=== PATIENT | female | born 1955 | race Caucasian/White ===

== ENCOUNTER 2017-07-30 05:42 | Day surgery (SDC) | payer BC ==
[~2017-07-30] VITALS: Ht 162.6 cm; Wt 116.7 kg
[~2017-07-30 05:42] MED LIST: AMLO5 PO; AMOCLA875 PO; ATOR10; ATOR10 PO; BP MED; CAND32; CAND4; CAND4 PO; CRANBERRY250 MG PO; DICY20 PO; FISH OIL 1,0001 EAC1; GLIP10 PO; GLIP2.5ER PO; HYDACE5 PO; Humalog Mi100 UNIT/4; IBUP800 PO; INSULANPEN INJ; INSULANPEN SC; LEVFLO500 PO; LEVSOD125 PO; LOPE2C PO; METF500 PO; NAPR220; ONDA4ODT MM; OXYACE5T PO; Omeprazole20 M1 PO; PIOG15; PIOG15 PO; PROCODE120 PO; PROM25 PO; PROM25S PR; RXHYDACE PO; RXOXYACE PO; RXPROCODSY PO; RXPROM25 PO; THYROID MED; TRULICITY0.75 MG/0.; Zofran Odt4 MG SL; [UNRECOGNIZED DRUG - OTHER]
== END 2017-07-30 11:30 | disposition home or self-care (01) ==
LOC: ORSCSDS 05:42
PROVIDERS: Surgery
PROC: 0DJD8ZZ Inspection of Lower Intestinal Tract, Via Natural or Artificial Opening Endoscopic (ICD-10-PCS; principal; 2017-07-30 11:15)
DX: Z12.11 Encounter for screening for malignant neoplasm of colon (principal); K57.30 Diverticulosis of large intestine without perforation or abscess without bleeding; E66.01 Morbid (severe) obesity due to excess calories; I10 Essential (primary) hypertension; E03.9 Hypothyroidism, unspecified; E78.5 Hyperlipidemia, unspecified; E11.9 Type 2 diabetes mellitus without complications; Z68.41 Body mass index [BMI] 40.0-44.9, adult; Z79.899 Other long term (current) drug therapy
CPT/HCPCS: 82947; J2250

== ENCOUNTER 2017-09-30 18:42 | Emergency (ER) | payer BC ==
[~2017-09-30] VITALS: Ht 162.6 cm; Wt 124.7 kg
[~2017-09-30 18:42] MED LIST changes: +INSULANPEN; -INSULANPEN SC; -LEVSOD125 PO; +LEVSOD75 PO
[2017-09-30 19:57] LABS: BASOPHILS ABSOLUTE AUTO 0.03 K/mm3 (0.00-0.23); BASOPHILS PERCENT AUTO 0 % (0-2); EOSINOPHILS ABSOLUTE AUTO 0.08 K/mm3 (0.00-0.68); EOSINOPHILS PERCENT AUTO 1 % (0-6); Hematocrit 35.3 % (33.0-51.0); Hemoglobin 12.2 g/dL (11.5-16.0); IMMATURE GRAN ABSOLUTE AUTO 0.03 K/mm3 (0.00-0.10); IMMATURE GRAN PERCENT AUTO 0 % (0-1); LYMPHOCYTES PERCENT AUTO 12 % (21-46); MONOCYTES PERCENT AUTO 4 % (4-13); Mean Corpuscular HGB 30.7 pg (26.0-34.0); Mean Corpuscular HGB Conc 34.6 g/dL (31.5-36.5); Mean Corpuscular Volume 89 fL (80-100); NEUTROPHILS ABSOLUTE AUTO 7.03 K/mm3 (1.96-9.15); NEUTROPHILS PERCENT AUTO 83 % (41-73); Platelet Count 235 K/mm3 (150-400); RDW Coefficient Variation 11.9 % (11.7-14.2); Red Blood Cell Count 3.97 M/mm3 (3.80-5.20); White Blood Cell Count 8.47 K/mm3 (4.00-11.30)
[2017-09-30 20:13] LABS: Albumin, Blood 3.2 g/dL (3.4-5.0); Albumin/Globulin Ratio 0.8 (0.8-1.8); Bilirubin, Total 0.6 mg/dL (0.1-1.0); Bun/Creatinine Ratio 22.1 (12.0-20.0); Calcium, Blood 9.2 mg/dL (8.5-10.1); Creatinine, Blood 1.63 mg/dL (0.40-1.00); Globulin, Blood 4.1 g/dL (2.2-4.0); Total Protein, Blood 7.3 g/dL (6.4-8.2)
[2017-09-30 20:23] LABS: Beta-hydroxybutyrate 0.9 mg/dL (0.2-2.8)
== END 2017-10-01 00:38 | disposition home or self-care (01) ==
LOC: ER 18:42
PROVIDERS: Emergency Medicine
DX: E11.65 Type 2 diabetes mellitus with hyperglycemia (principal); I10 Essential (primary) hypertension; E03.9 Hypothyroidism, unspecified; Z88.1 Allergy status to other antibiotic agents; Z79.899 Other long term (current) drug therapy; Z79.4 Long term (current) use of insulin
CPT/HCPCS: 36415; 80053; 82010; 82947; 85025; 93005; 93010; 96374; 96376; 99283; J0360

== ENCOUNTER 2017-11-20 17:12 | Emergency (ER) | payer BC ==
[~2017-11-20] VITALS: Ht 162.6 cm; Wt 123.4 kg
[~2017-11-20 17:12] MED LIST changes: -INSULANPEN; +INSULANPEN SC; +LEVSOD125 PO; -LEVSOD75 PO
[2017-11-20 18:01] LABS: BASOPHILS ABSOLUTE AUTO 0.04 K/mm3 (0.00-0.23); BASOPHILS PERCENT AUTO 0 % (0-2); EOSINOPHILS ABSOLUTE AUTO 0.21 K/mm3 (0.00-0.68); EOSINOPHILS PERCENT AUTO 2 % (0-6); Hematocrit 37.5 % (33.0-51.0); Hemoglobin 12.8 g/dL (11.5-16.0); IMMATURE GRAN ABSOLUTE AUTO 0.03 K/mm3 (0.00-0.10); IMMATURE GRAN PERCENT AUTO 0 % (0-1); LYMPHOCYTES ABSOLUTE AUTO 1.72 K/mm3 (0.84-5.20); LYMPHOCYTES PERCENT AUTO 18 % (21-46); MONOCYTES ABSOLUTE AUTO 0.54 K/mm3 (0.16-1.47); MONOCYTES PERCENT AUTO 6 % (4-13); Mean Corpuscular HGB 31.2 pg (26.0-34.0); Mean Corpuscular HGB Conc 34.1 g/dL (31.5-36.5); Mean Corpuscular Volume 92 fL (80-100); Mean Platelet Volume 11.7 fL (9.1-12.4); NEUTROPHILS PERCENT AUTO 74 % (41-73); Platelet Count 259 K/mm3 (150-400); RDW Coefficient Variation 12.1 % (11.7-14.2); RDW Standard Deviation 40.7 fL (35.1-46.3); White Blood Cell Count 9.74 K/mm3 (4.00-11.30)
[2017-11-20] MEDS ORDERED: METO50 PO (18:02)
[2017-11-20] MEDS ORDERED: AMLO5 PO (18:03)
[2017-11-20] MEDS ORDERED: CANDESARTAN-HC1 EAC1 PO (18:03)
[2017-11-20 18:40] LABS: Alanine Aminotransfer (ALT/SGP 18 U/L (12-78); Albumin, Blood 2.9 g/dL (3.4-5.0); Albumin/Globulin Ratio 0.7 (0.8-1.8); Alk Phos 150 U/L (50-136); Anion Gap 8 mmol/L (6-16); Aspartate Aminotrans (AST/SGOT 20 U/L (12-37); Bilirubin, Total 0.3 mg/dL (0.1-1.0); Blood Urea Nitrogen 46 mg/dL (8-24); Bun/Creatinine Ratio 27.2 (12.0-20.0); CO2, Blood 24 mmol/L (21-32); Calcium, Blood 8.6 mg/dL (8.5-10.1); Chloride, Blood 108 mmol/L (98-108); Creatinine, Blood 1.69 mg/dL (0.40-1.00); Glomerular Filtration Rate 33 (60-); Glucose, Blood 251 mg/dL (70-99); Potassium, Blood 4.3 mmol/L (3.5-5.5); Sodium, Blood 140 mmol/L (136-145); Total Protein, Blood 6.9 g/dL (6.4-8.2); Troponin I <0.015 ng/mL (0.000-0.040)
[2017-11-20 18:48] LABS: Free Thyroxine 1.18 ng/dL (0.70-1.60)
[2017-11-20 18:49] LABS: Triiodothyronine, Free 1.86 pg/mL (2.18-3.98)
== END 2017-11-20 20:20 | disposition home or self-care (01) ==
LOC: ER 17:12
PROVIDERS: Emergency Medicine
DX: R00.2 Palpitations (principal); Z88.1 Allergy status to other antibiotic agents; Z79.899 Other long term (current) drug therapy; Z79.4 Long term (current) use of insulin; E11.9 Type 2 diabetes mellitus without complications; I10 Essential (primary) hypertension; E03.9 Hypothyroidism, unspecified
CPT/HCPCS: 36415; 71046; 80053; 82947; 84439; 84443; 84481; 84484; 85025; 93005; 93010; J7030

== ENCOUNTER → 2018-03-17 | Outpatient (CLI) | payer OTHER ==
[~2018-03-17] MED LIST changes: +CANDESARTAN-HC1 EAC1 PO; +METO50 PO
[2018-03-17 13:50] LABS: Protein, Urine Quantitative 60.4 mg/dL (0.0-11.9)
== END ==
LOC: LAB 11:18 → LAB SHORT 11:18
PROVIDERS: Internal Medicine
DX: N18.3 Chronic kidney disease, stage 3 (moderate) (principal)
CPT/HCPCS: 81050; 84156

== ENCOUNTER 2018-08-30 05:09 | Inpatient (IN) | payer OTHER ==
[~2018-08-30] VITALS: Ht 162.6 cm; Wt 130.8 kg
[2018-08-30 05:46] LABS: BASOPHILS ABSOLUTE AUTO 0.04 K/mm3 (0.00-0.23); BASOPHILS PERCENT AUTO 1 % (0-2); EOSINOPHILS ABSOLUTE AUTO 0.15 K/mm3 (0.00-0.68); EOSINOPHILS PERCENT AUTO 2 % (0-6); Hematocrit 34.8 % (33.0-51.0); Hemoglobin 11.6 g/dL (11.5-16.0); IMMATURE GRAN ABSOLUTE AUTO 0.05 K/mm3 (0.00-0.10); IMMATURE GRAN PERCENT AUTO 1 % (0-1); LYMPHOCYTES ABSOLUTE AUTO 1.21 K/mm3 (0.84-5.20); LYMPHOCYTES PERCENT AUTO 16 % (21-46); MONOCYTES ABSOLUTE AUTO 0.42 K/mm3 (0.16-1.47); MONOCYTES PERCENT AUTO 6 % (4-13); Mean Corpuscular HGB 30.9 pg (26.0-34.0); Mean Corpuscular HGB Conc 33.3 g/dL (31.5-36.5); Mean Corpuscular Volume 93 fL (80-100); NEUTROPHILS ABSOLUTE AUTO 5.62 K/mm3 (1.96-9.15); NEUTROPHILS PERCENT AUTO 75 % (41-73); Platelet Count 201 K/mm3 (150-400); RDW Coefficient Variation 11.9 % (11.7-14.2); RDW Standard Deviation 40.5 fL (35.1-46.3); Red Blood Cell Count 3.75 M/mm3 (3.80-5.20); White Blood Cell Count 7.49 K/mm3 (4.00-11.30)
[2018-08-30 05:52] LABS: International Normalized Ratio 0.93; Prothrombin Time Results 9.5 Sec (9.7-11.5)
[2018-08-30 06:05] LABS: Albumin, Blood 2.9 g/dL (3.4-5.0); Albumin/Globulin Ratio 0.8 (0.8-1.8); Bilirubin, Total 0.6 mg/dL (0.1-1.0); Bun/Creatinine Ratio 25.3 (12.0-20.0); Calcium, Blood 8.6 mg/dL (8.5-10.1); Creatinine, Blood 1.86 mg/dL (0.40-1.00); Globulin, Blood 3.8 g/dL (2.2-4.0); Potassium, Blood 4.7 mmol/L (3.5-5.5); Total Protein, Blood 6.7 g/dL (6.4-8.2)
[2018-08-30 07:44] LABS: Glucose, Blood 416 mg/dL (70-99)
[2018-08-30 09:21] LABS: CHOL/HDL RATIO 5.2; Cholesterol 245 mg/dL (50-200); HDL Cholesterol 47 mg/dL (>39); LDL/HDL RATIO 2.9; Low Density Lipoprotein Chol 136 mg/dL (0-110); Triglycerides 310 mg/dL (30-160); Very Low Density Lipoprot Chol 62 mg/dL (6-32)
--- NOTE | 2018-08-30 17:08 | NUR ---
SHIFT SUMMARY ED ADMIT THIS AFTERNOON. PATIENT DENIES PAIN, NAUSEA, OR SHORTNESS OF BREATH. PT WORKED WITH PATIENT. RECOMMENDS PATIETN IS A LIFT AT THIS TIME DUE TO FLACID RIGHT LEG. PATIENT HAD CAROTID DUPLEX SCAN. FAMILY AT BEDSIDE. CALL LIGHT IN REACH, WILL CONTINUE TO MONITOR.
--- NOTE | 2018-08-30 19:07 | NUR ---
CALL TO PATIENT SHOWING INCREASING SYMPTOMS OF STROKE INCLUDING DIFFICULTY WITH SPEECH AND WEAK HAND CATEGORY DEVELOPMENT ANALYST ON RIGHT SIDE. RIGHT LEG CONTINUES TO BE FLACID. DR. OVIEDO INFORMED. DR. OVIEDO WILL FOLLOW UP.
--- NOTE | 2018-08-30 22:31 | NUR ---
STROKE ASSESSMENT ALERT TO SELF AND FAMILY ONLY; UNABLE TO REPORT LOCATION, DATE/TIME, CURRENT EVENTS. FLT AND WITHDRAWN AFFECT. SPEECH IS GARBLED AND NONSENSIBLE WHEN SPEAKING IN SENTENCES. ABLE TO ANSWER SOME YES/NO Q'S. R LEG IS FLACCID, NO RESPONSE. R HAND STRENGTH JUNIOR RECRUITER IS WEAKER THAN LEFT, R HAND CONTRACTURED. NO FACIAL DROOP AT THIS TIME, PERRLA, MAKING EYE CONTACT. SWALLOW INTACT. SENSATION INTACT.
[2018-08-31 05:36] LABS: Hematocrit 35.1 % (33.0-51.0); Hemoglobin 11.8 g/dL (11.5-16.0); Mean Corpuscular HGB Conc 33.6 g/dL (31.5-36.5); Mean Corpuscular Volume 92 fL (80-100); Mean Platelet Volume 12.8 fL (9.1-12.4); Platelet Count 218 K/mm3 (150-400); RDW Coefficient Variation 12.2 % (11.7-14.2); RDW Standard Deviation 40.8 fL (35.1-46.3); Red Blood Cell Count 3.81 M/mm3 (3.80-5.20); White Blood Cell Count 7.05 K/mm3 (4.00-11.30)
[2018-08-31 06:06] LABS: Albumin, Blood 2.7 g/dL (3.4-5.0); Albumin/Globulin Ratio 0.7 (0.8-1.8); Bilirubin, Total 0.7 mg/dL (0.1-1.0); Bun/Creatinine Ratio 22.1 (12.0-20.0); Creatinine, Blood 1.63 mg/dL (0.40-1.00); Globulin, Blood 3.9 g/dL (2.2-4.0); Potassium, Blood 4.2 mmol/L (3.5-5.5); Total Protein, Blood 6.6 g/dL (6.4-8.2)
--- NOTE | 2018-08-31 06:23 | NUR ---
SHIFT SUMMARY: PT IS A&O TO SELF, FAMILY. UNABLE TO REPORT LOCATION, DATE. CAN ANSWER YES/NO Q'S. PT IS WORD SEARCHING WHEN SPEAKING IN SENTENCES; SLOW TO RESPOND; SLIGHTLY SLURRED SPEECH. PT NEGLECTING R VISUAL FIELD. SENSATION INTACT, SWALLOW INTACT. R LEG FLACCID. R WELCOME WAGON HOST/HOSTESS WEAKER THAN L WELCOME WAGON HOST/HOSTESS. ADMINISTERED PRN HYDRALAZINE 1X FOR BP OF 218/77. RESP E/U ON RA. INCONTINENCE; BASELINE PT IS CONTINENT. Q2H TURNS PT HAS LIMITED MOVEMENT. LIFT FOR TX. NEURO CHECKS PERFORMED Q2-4H. NS RUNNING @ 75 ML/HR X 1.[address] OF HEAD + NECK EARLIER IN SHIFT; RESULTS PENDING. NO OTHER CHANGES TO REPORT. WILL CONT TO MONITOR AND PROVIDE CARE UNTIL PRESUMED BY ONCOMING RN.
--- NOTE | 2018-08-31 12:29 | NUR ---
CONSENT TO CARE PATIENT GIVES THIS STUDENT NURSE CONSENT TO PROVIDE CARE ON 09/01/18
--- NOTE | 2018-08-31 16:27 | NUR ---
Initial Visit: Palliative Care Consult for Advanced Care Planning. Pt is resting with her eyes closed during visit. Son Eran and Joey present during visit. Family report Pt reveived pain medication before this visit and is now resting. Pt appears comfortable at this time. Engaged in therapeutic conversation about goals of care with Joey. He reports at this time he would like to keep code status and states care home Pt would not want to be in this condition. Listened as Joey expressed concerns and offered emotional support when he became tearful. He reports that Pt lives with him at home and his youngest son lives next door. Pt is of [employer] tracie. Joey reports that Pt has had health issues for quite some time. Typically she is independent at baseline but has become less active recently. Joey expresses concerns about his ability to care for Pt if she does not retrun to baseline. Instructed Joey a social service consult will be placed to help find in home care givers to assist with care needs. Discussed AD/POLST and educated Joey on each section including risks and benefits. Family report no other concerns at this time. Left POLST form and AD for family to consider discussing with Pt. Spoke with Pt's nurse Patricia and she reports no other concerns at this time. Plan: Placed social service consult. Will remain available.
--- NOTE | 2018-08-31 18:24 | NUR ---
SHIFT SUMMARY NO CHANGES IN ASSESSMENT AT THIS TIME. PT MEDICATED FOR PAIN ONCE THIS SHIFT. PT FAMILY IN ROOM. DIET CHANGED TO [facility] SOFT TO ASSIST WITH SWALLOWING PROBLEMS. PT TOLERATING PILLS CRUSHED IN APPLESAUCE PLACED ON THE L SIDE OF THE MOUTH. WILL CONTINUE TO MONITOR UNTIL TURNOVER IS COMPLETE.
--- NOTE | 2018-08-31 18:48 | NUR ---
UA/PERSAUD PT INC OF URINE & UA NEEDED. DR. OVIEDO ORDERED A PERSAUD FOR IMMOBILIY & HYGIENE. PERSAUD NOT YET PLACED.
--- NOTE | 2018-09-01 00:30 | NUR ---
NEW 22G IV PLACED TO L.HAND BY ABIODUN DENNIS. PREVIOUS IV IS A FS AND IS PATENT BUT IS SLUGGISH W/FLUSHING SO NEW IV DETERMINED NEEDED SINCE PT IS ON TELEMETRY W/PRN IV MEDS.
--- NOTE | 2018-09-01 02:30 | NUR ---
14 FR INDWELLING PERSAUD CATHETER INSERTED PER MD ORDERS. PT TOLERATED W/O DIFFICULTY AND CLOUDY YELLOW URINE OBSERVED W/STERILE TECHNIQUE MAINTAINED. NEW UA CULT IF INDICATED ORDER PLACED D/T URINE SOURCE NOW BEING A PERSAUD CATHETER RATHER THEN CLEAN CATCH PREVIOUSLY RX'D. PT IS INCONTINENT SO SPECIMEN WAS UNABLE TO BE OBTAINED BEFORE. SPECIMEN OBTAINED AND SENT W/RESULT PENDING.
[2018-09-01 02:43] LABS: Source, Urine Catheter
[2018-09-01 02:47] LABS: Bilirubin, Urine Neg (Neg); Blood, Urine 2+ (Neg); Glucose Qualitative, Urine 3+ (Neg); Ketones, Urine Neg (Neg); Leukocyte Esterase, Urine 3+ (Neg); Nitrite, Urine Neg (Neg); Protein, Urine 4+ (Neg); Urobilinogen, Urine NORM (Normal)
[2018-09-01 02:50] LABS: Appearance, Urine Hazy (Clear); Color, Urine Yellow (P-Yellow)
[2018-09-01 02:54] LABS: Bacteria Many /hpf; Red Blood Cells, Urine 0-2 /hpf (0-2); Squamous Epithelial Cells Not Seen /hpf (Few); White Blood Cells, Urine 50-100 /hpf (0-5)
--- NOTE | 2018-09-01 04:49 | NUR ---
SUMMARY: PT HAS BEEN NONVERBAL THIS SHIFT AND UNABLE TO CONVEY NEEDS BUT APPEARS ORIENTED TO SELF/FAMILY AND SURROUNDINGS. IT SEEMS SHE UNDERSTANDS INSTRUCTIONS AND SHE ATTEMPTS TO FOLLOW COMMANDS. PT OPENS EYES SPONTANEOUSLY TO VOICE AND TRACKS PEOPLE IN ROOM BUT HER EYES OCCASIONALLY APPEAR TO ROLL BACKWARDS UNCONTROLLABLY. PT'S R.SIDE IS ENTIRELY FLACCID AND R.LEG IS STIFF AT TIMES. STRENGTH IS INTACT TO L.SIDE W/CONTROLLED MOVEMENTS INTACT. TURN SCHEDULE MAINTAINED AND SHE CAN ASSIST W/USE OF L.ARM/LEG. LIFT REQUIRED OOB AND LIFT ROOM RECOMMENDED. A NEW 22G IV WAS PLACED TO HER L.HAND AND AN INDWELLING PERSAUD PLACED FOR IMMOBILITY AND HYGIENE. A URINE SPECIMEN WAS OBTAINED AND SENT, POSSIBLE UTI NOTED, WILL ENSURE DAY STAFF ARE AWARE TO F/U FOR POSSIBLE ABX TX. PT IS NSR AT 70'S BPM PER TELEMETRY. SHE CONT'S HYPERTENSIVE AT SBP 160'S-180'S BUT PRN HYDRALZINE WASN'T REQUIRED. ROXICODONE 5MG PO PRN RECIEVED FOR GRIMACES W/REPOSITIONING. PT TOLERATED PILLS CRUSHED IN APPLESAUCE BUT DID SO SLOWLY W/INSTRUCTION TO TUCK CHIN. NO S/S ASPIRATION. VSS/AFEBRILE. NO ACUTE CHANGES. REMAINED AT BEDSIDE AND PT HAD MANY VISITORS AT START OF SHIFT. WILL MONITOR AND REPORT TO DAY RN. SPEECH EVAL RECOMMENDED, WILL PASS ON TO DAY STAFF.
--- NOTE | 2018-09-01 05:50 | NUR ---
SPEECH THERAPY EVAL RX'D TO ASSESS FOR SWALLOW ABNORMALITIES POST CVA.
[2018-09-01 06:04] LABS: Bun/Creatinine Ratio 19.8 (12.0-20.0); Calcium, Blood 8.9 mg/dL (8.5-10.1); Creatinine, Blood 1.72 mg/dL (0.40-1.00)
--- NOTE | 2018-09-01 16:50 | NUR ---
SHIFT SUMMARY NO ACUTE CHANGES. PATIENT WORKED WITH PT AND OT TODAY. PATIENT HAD SWALLOW EVAL TODAY, MECHANICAL SOFT AND NO STRAWS RECOMMENDED. PATIENT DENIED PAIN, NAUSEA, AND SHORTNESS OF BREATH THIS SHIFT. FAMILY AND CARE MANAGEMENT WORKING TOGETHER TO FIND A SUITABLE REHAB FACILITY FOR DISCHARGE. CALL LIGHT IN REACH, WILL CONTINUE TO MONITOR.
--- NOTE | 2018-09-02 05:37 | NUR ---
SUMMARY: PT CONT'S MOSTLY NONVERBAL BUT DID STATE SOME ONE WORD ANSWERS AND REPEAT SHORT PHRASES IN AGREEMENT W/NEEDS. SHE SEEMS TO BE ORIENTED AND AWARE OF FAMILY AND SURROUNDINGS. HER AFFECT IS MOSTLY FLAT BUT SHE WAS SMILING IN RESPONSE TO JOKES MADE BY FAMILY AT START OF SHIFT. PT CONT'S TO HAVE R.SIDE FLACCIDITY W/R.LEG STIFFNESS, R.ARM AND LEG ARE ELEVATED D/T DEPENDENT EDEMA. SHE REMAINS ON BEDREST, NEEDING A LIFT IF OOB AND TURN SCHEDULE WAS MAINTAINED. PERSAUD IS PATENT/DRAINING. ASPIRATION PREC'S WERE MAINTAINED AND PILLS TOLERATED CRUSHED IN APPLESAUCE. WOULD LIKE FOR HER TO HAVE BATH TODAY AND GOOD MOUTH CARE AFTER MEALS, WILL ENSURE DAY STAFF ARE AWARE. NO ACUTE CHANGES, VSS/AFEBRILE. WILL REPORT TO DAY RN.
--- NOTE | 2018-09-02 16:18 | NUR ---
Mrs. Frias was alone in room. She denied needs, but accepted prayer. I will remain available to pt and family.
--- NOTE | 2018-09-02 16:49 | NUR ---
SHIFT SUMMARY NO ACUTE CHANGES. PATIENT WORKED WITH PT/OT TODAY. CARE MANAGEMENT CONTINUES TO WORK WITH FAMILY TO FIND REHAB PLACEMENT FOR PATIENT. FAMILY AT BEDSIDE. PATIENT ABLE TO COMMUNICATE INTERMITTENTLY WITH SINGLE WORDS TODAY. DENIES SHORTNESS OF BREATH OR NAUSEA, MEDICATED X 1 FOR BACK PAIN. CALL LIGHT IN REACH, WILL CONTINUE TO MONITOR.
--- NOTE | 2018-09-03 03:52 | NUR ---
62 year old Female with rt sided hemiparesis after lt ischemic stroke continues on aspiration precautions. She is on tele monitor with nsr. medicated for pain with oxycodone 5 mg for back pain with helpful effect. Spouse at bedside supportive. Discharge planning for stroke rehab, PT's Spouse says planning to dc to rehab when bed available. Moved to lift room per PT need.
--- NOTE | 2018-09-03 13:20 | NUR ---
PT. REQUESTED BACK TO BED AFTER LUNCH AND INDICATED SHE WAS IN PAIN, 5MG OXYCODONE GIVEN AND PT. PUT BACK TO BED VIA LIFT.
--- NOTE | 2018-09-03 18:25 | NUR ---
PT. SITTING UP AT 90 DEGREES FEEDING SELF DINNER. SPOUSE AT BEDSIDE ASSISTING HER WHEN NEEDED. NO CHOKING OR COUGHING NOTED. PT. WORKING WITH PT/OT/ST. REPORTS PAIN IN HER R. KNEE AND RLE. BOOT ON RLE TO PREVENT FOOTDROP. PT. CAN SPEAK AT TIMES. TOLD ME CLEARLY "YES" WHENASKED IF SHE WAS IN PAIN. CRUSHING PT'S MEDS SHE CHEWS THEM IF GIVEN WHOLE IN APPLESAUCE.
[2018-09-04 05:34] LABS: Albumin, Blood 2.2 g/dL (3.4-5.0); Anion Gap 8 mmol/L (6-16); Blood Urea Nitrogen 43 mg/dL (8-24); Bun/Creatinine Ratio 21.6 (12.0-20.0); CO2, Blood 26 mmol/L (21-32); Calcium, Blood 8.8 mg/dL (8.5-10.1); Chloride, Blood 109 mmol/L (98-108); Creatinine, Blood 1.99 mg/dL (0.40-1.00); Glomerular Filtration Rate 27 (60-); Glucose, Blood 75 mg/dL (70-99); Phosphorus, Blood 4.1 mg/dL (2.5-4.9); Potassium, Blood 4.3 mmol/L (3.5-5.5); Sodium, Blood 143 mmol/L (136-145)
--- NOTE | 2018-09-04 06:49 | NUR ---
SHIFT SUMMARY: PT IS MOSTLY NONVERBAL TONIGHT. MAKES EYE CONTACT AND SMILES, BUT IS NOT ANSWERING YES/NO Q'S. R FACIAL DRP, R LEG FLACCID, R STRENGTH CLINICAL RN MANAGER ABSENT. BOOT TO R FT TO PREVENT FT DROP. TELE IN PLACE; NSR @ 85 BPM PER PEANUT FARMER. PERSAUD CATH REMAINS IN PLACE PER FAMILY REQUEST. PATENT + DRAINING. LIFT FOR TRANSPORT. Q2H TURNS IMPLEMENTED. ASP PRECAUTIONS IN PLACE; PT ABLE TO FEED SELF c L HAND. MEDS CRUSHED IN APPLESAUCE. CBG ACHS; NO COV INDICATED TONIGHT. NO PAIN MEDS TONIGHT PT ORIENTATION NEEDS TO BE AT ITS BEST FOR SPEECH THERAPY VISIT THIS AM. BECOMES TEARFUL TONIGHT SPEAKING ABOUT 'S PROGNOSIS AND CURRENT ILLNESS; OFFERED THERAPEUTIC COMMUNICATION AND TOUCH; IS THANKFUL FOR THIS INTERACTION. NO OTHER CHANGES TO REPORT. WILL CONT TO MONITOR AND PROVIDE CARE UNTIL PRESUMED BY ONCOMING RN.
[2018-09-05 05:51] LABS: Albumin, Blood 1.9 g/dL (3.4-5.0); Anion Gap 7 mmol/L (6-16); Blood Urea Nitrogen 51 mg/dL (8-24); Bun/Creatinine Ratio 24.9 (12.0-20.0); CO2, Blood 26 mmol/L (21-32); Calcium, Blood 8.3 mg/dL (8.5-10.1); Chloride, Blood 104 mmol/L (98-108); Creatinine, Blood 2.05 mg/dL (0.40-1.00); Glomerular Filtration Rate 26 (60-); Glucose, Blood 170 mg/dL (70-99); Phosphorus, Blood 3.6 mg/dL (2.5-4.9); Potassium, Blood 4.2 mmol/L (3.5-5.5); Sodium, Blood 137 mmol/L (136-145)
--- NOTE | 2018-09-05 06:36 | NUR ---
SHIFT SUMMARY: PT IS MUCH MORE VERBAL TONIGHT, ANSWERING YES/NO Q'S, SPEAKS IN SHORT SENTENCES, PRACTICES DAYS OF THE WEEK. PT HAS NOT HAD BM SINCE SATURDAY (08/29), ADMINISTERED BEDTIME DULCOLAX SUPPOSITORY. PT HAD LIQUID BROWN BMs. NOT A BEDSIDE TONIGHT, BUT TO RETURN THIS AM. R SIDE CONT TO BE FLACCID, NO STRENGTH JIG MILL OPERATOR IN R HAND, R FACIAL DRP. TELEMETRY IN PLACE; NSR @ 85 BPM. RESP E/U ON RA. CBG @ 201 THIS PM, ADMINISTERED 2 UNITS PER SS. PT TREATED FOR R LEG PAIN 1X c TRAMADOL. BOOT IN PLACE TO PREVENT FT DROP OF R FT. MEDS CRUSHED IN APPLESAUCE. NO OTHER CHANGES TO REPORT. WILL CONT TO MONITOR AND PROVIDE CARE UNTIL PRESUMED BY ONCOMING RN.
--- NOTE | 2018-09-05 15:34 | NUR ---
URINARY CATHETER DC'D PER MD ORDER. NO COMPLICATIONS ENCOUNTERED.
--- NOTE | 2018-09-06 05:05 | NUR ---
SHIFT SUMMARY ALERT, ANSWERS YES/NO QUESTIONS APPROPRIATELY WITH A NOD. NO C/O PAIN/DISCOMFORT; NO NON-VERBAL S/SX OF PAIN/DISCOMFORT NOTED. CONTINUES TO BE FLACCID TO R SIDE WITH R SIDED FACIAL DROOP. TELEMETRY D/C. PERSAUD D/C'D YESTERDAY W/O ISSUE/COMPLICATION. REMAINS AT BEDSIDE. APPEARED TO REST MUCH OF SHIFT. NO ACUTE CHANGES OVERNIGHT. BED IN LOWEST POSITION. CALL LIGHT WITHIN REACH. WCTM. REPORT TO ONCOMING RN.
--- NOTE | 2018-09-06 17:11 | NUR ---
SHIFT SUMMARY PT GOT UP TO THE SIDE OF BED WITH PHYSICAL THERAPY THIS SHIFT. PT TOLERATED DANGLING ON SIDE OF BED FOR A FEW MINUTES. PT MEDICATED FOR PAIN AFTER THERAPY. FAMILY AT BEDSIDE THROUGHOUT SHIFT. NO OTHER CHANGES IN ASSESSMENT AT THIS TIME. VSS. WILL CONTINUE TO MONITOR UNTIL TURNOVER IS COMPLETE.
--- NOTE | 2018-09-07 04:45 | NUR ---
SHIFT SUMMARY ALERT, ANSWERING QUESTIONS WITH ONE WORD ANSWERS. C/O PAIN/DISCOMFORT AT BEGINNING OF SHIFT; RATED PAIN 3-10; MEDICATED PER EMAR. GIVEN BED BATH; APPEARED IN GOOD SPIRITS. BRUSHING OWN TEETH WITH ELECTRIC TOOTH BRUSH. REMAINS AT BEDSIDE AND VERY SUPPORTIVE. VSS/AFEBRILE. APPEARED TO REST MUCH OF SHIFT. NO ACUTE CHANGES NOTED. BED IN LOWEST POSITION. CALL LIGHT AND BELONGINGS WITHIN REACH. WCTM. REPORT TO ONCOMING RN.
--- NOTE | 2018-09-07 16:56 | NUR ---
SHIFT SUMMARY PT TOLERATED BEING UP IN THE RECLINER FOR LUNCH THIS SHIFT. PT MEDICATED FOR PAIN ONCE THIS SHIFT AFTER TRANSFERING BACK TO BED. VSS. PT BLOOD SUGARS HAVE CONTINUED TO BE ELEVATED. DR. MCDUFFIE AWARE & ADDRESSED PROBLEM. NO OTHER CHANGES IN ASSESSMENT AT THIS TIME. WILL CONTINUE TO MONITOR UNTIL TURNOVER IS COMPLETE.
--- NOTE | 2018-09-07 21:31 | NUR ---
PHYSICIAN CORRESPONDECE PATIENT S/O EXPRESSED CONCERN ABOUT HOW SLEEPY PATIENT HAS BEEN. STATED DID NOT WANT PAITENT TO HAVE TRAMADOL PAST MIDNIGHT. REQUESTED TYLENOL FOR PAIN; NEW ORDERS PLACED. WCTM.
--- NOTE | 2018-09-08 04:22 | NUR ---
SHIFT SUMMARY ALERT, ANSWERING QUESTIONS WITH 3-4 WORD SENTENCES. C/O PAIN/DISCOMFORT TO BACK RATED 1/10. NEW ORDER FOR TYLENOL; MEDICATED PER EMAR. NO ACUTE CHANGES OVERNIGHT. APPEARED TO REST MUCH OF SHIFT. BOOT IN PLACE TO REDUCE RISK OF FOOT DROP. UP @ 90 DEGREES FOR MED ADMINISTRATION WELL DRINKING/EATING. BED IN LOWEST POSITION. CALL LIGHT AND BELONGINGS WITHIN REACH. WCTM. REPORT TO ONCOMING RN.
[2018-09-08 05:29] LABS: Hematocrit 30.8 % (33.0-51.0); Hemoglobin 9.9 g/dL (11.5-16.0); Mean Corpuscular HGB 30.9 pg (26.0-34.0); Mean Corpuscular HGB Conc 32.1 g/dL (31.5-36.5); Mean Platelet Volume 12.9 fL (9.1-12.4); Platelet Count 233 K/mm3 (150-400); RDW Coefficient Variation 11.8 % (11.7-14.2); RDW Standard Deviation 41.3 fL (35.1-46.3)
[2018-09-08 05:42] LABS: Mean Corpuscular Volume 96 fL (80-100)
[2018-09-08 05:43] LABS: Albumin, Blood 1.7 g/dL (3.4-5.0); Anion Gap 9 mmol/L (6-16); Blood Urea Nitrogen 65 mg/dL (8-24); Bun/Creatinine Ratio 36.7 (12.0-20.0); CO2, Blood 24 mmol/L (21-32); Calcium, Blood 8.4 mg/dL (8.5-10.1); Chloride, Blood 103 mmol/L (98-108); Creatinine, Blood 1.77 mg/dL (0.40-1.00); Glomerular Filtration Rate 31 (60-); Glucose, Blood 119 mg/dL (70-99); Phosphorus, Blood 3.9 mg/dL (2.5-4.9); Potassium, Blood 4.2 mmol/L (3.5-5.5); Sodium, Blood 136 mmol/L (136-145)
--- NOTE | 2018-09-08 12:11 | NUR ---
PATIENT'S GAVE STUDENT NURSE PERMISSION TO PROVIDE CARE ON 09/08/18.
--- NOTE | 2018-09-08 17:18 | NUR ---
ACCORDING TO ALL THREE THERAPIES AND SULTANA'S SHE IS DOING MUCH BETTER TODAY. SHE WORKED WELL WITH THE THERAPIES WITH A RESTS IN BETWEEN. SHE CAN SQUEEZE WITH HER RH SOME AND STRAIGHTEN THE FINGERS OUT WHEN ASKED. SHE FOLLOWS INSTRUCTIONS WELL. SHE CAN SPEAK FULL SENTENCES. SHE HAS DIFFICULTY AT TIMES GETTING THE RIGHT WORDS OUT TOO. SHE HOLDS HER URINE FOR HRS THEN VOIDS A LARGE AMT AT ONCE IN THE ATTENDS. R FOOT IN 90 DEGREE SOFT BOOT TO PREVENT FURTHER FOOT DROP. CBG'S STABLE. SHE SWALLOWS PILLS BETTER CRUSHED THAN WHOLE. HER SAYS SHE HAS NEVER SWALLOWED PILLS EASILY. HER SAID HE SAW HER TOES WIGGLE. I DID NOT.
--- NOTE | 2018-09-09 04:33 | NUR ---
SHIFT SUMMARY: PT IS ALERT AND ORIENTED WITH SOME MINOR EXPRESSIVE APHASIA. PT IS CALM AND COOPERATIVE WITH CARE. PT CALLS APPROPRIATELY. IN THE ROOM OVERNIGHT. PT REQUIRES A LIFT FOR TRANSFERS AT THIS TIME. PT REPORTS LOW BACK PAIN, GAVE TYLEONOL AND TRAMADOL. PT DENIES NAUSEA, VOMITING, AND SOB. PT SLEPT MUCH OF THE NIGHT WITHOUT INCIDENT. NO ACUTE CHANGES OR COMPLICATIONS. BED IN LOW POSITION, CALL LIGHT WITHIN REACH.
--- NOTE | 2018-09-09 12:50 | NUR ---
Pt gave student nurse permission to assist with care on 09/10/2018 from 6:30-12:00.
--- NOTE | 2018-09-09 18:29 | NUR ---
SUMMARY PT SITTING UP IN BED ON THE BEDPAN TO TRY TO HAVE A BM, PT HAS C/O CONSTIPATION SEVERAL TIMES T/O THE DAY AND HAS ATTEMPTED TO HAVE A BM MANY TIMES WELL, PT HAS BEEN UP TO THE CHAIR AND BACK TO BED WITH THE LIFT A FEW TIMES, PT WORKED WITH PT/OT/ST, SPOUSE HAS BEEN IN THE ROOM AND HAS BEEN HELPFUL FOR MOST OF THE DAY, NO ACUTE CHANGES, WILL CONT TO MONITOR
--- NOTE | 2018-09-10 03:55 | NUR ---
SHIFT SUMMARY PT HAS SLEPT FOR MOST OF THE SHIFT AND HAS DENIED NEEDS OR PAIN WHEN ASKED. SPOUSE AT BEDSIDE T/O SHIFT AND IS ATTENTIVE TO HER NEEDS. WEAKNESS REMAINS. PT AFFECT IS FLAT, MIMINAL CONVERSATION, BUT IS PLESANT. NO ACUTE CHANGES OVERNIGHT. WILL CONTINUE TO MONITOR AND REPORT TO ONCOMING RN.
[2018-09-10 05:59] LABS: Bun/Creatinine Ratio 36.8 (12.0-20.0); Calcium, Blood 9.3 mg/dL (8.5-10.1); Creatinine, Blood 1.52 mg/dL (0.40-1.00); Potassium, Blood 4.2 mmol/L (3.5-5.5)
--- NOTE | 2018-09-10 12:52 | NUR ---
Initial Visit: Consult for AD/POLST, symptom managment. Pt is alert, oriented. She is sitting up in recliner. She has some difficulty finding words and speaks slowly. She appears frustrated, she states that she is. Denies pain. Reviewed advance directives. She states,"I need one." She wishes me to return when her family is present. Gayathri, nurse, aware and will notify Palliative of family arrival. Advance directive document left for family to review until I can return visit. Pt seems very interested in the document and would like one filled out. Will return to room when able and family is present.
--- NOTE | 2018-09-10 17:05 | NUR ---
SUMMARY PT RESTING QUIETLY IN BED, WAKES EASILY, WORKED WITH PT/OT/ST TODAY, SPOUSE AT THE BEDSIDE FOR MOST OF THE DAY, VSS, NO ACUTE CHANGES, WILL CONT TO MONTIOR
--- NOTE | 2018-09-11 08:24 | NUR ---
SHIFT SUMMARY ALERT AND ANSWERING QUESTIONS APPROPRIATELY. NO C/O PAIN/DISCOMFORT. NO ACUTE CHANGES OVERNIGHT. VSS/AFEBRILE. NEW MEPILEX PLACED TO COCCYX. BOOT IN PLACE. UP @ 90 FOR ALL MED ADMINISTRATION THAT IS CRUSHED IN APPLESAUCE. HOLDS PURPLE MUG AND WILL DRINK WATER FROM IT. BED IN LOWEST POSITION. CALL LIGHT AND BELONGINGS WITHIN REACH. CONTINUED TO MONITOR T/O SHIFT. REPORT GIVEN TO ONCOMING RN.
--- NOTE | 2018-09-11 18:52 | NUR ---
SHIFT SUMMARY- PT HAS HAD NO ACUTE CHANGES T/O THE SHIFT. LIFT SLING WAS USED FOR PT TO SIT ON THE BSC TODAY, SHE HAD A LARGE BM IN THE COMODE. NO STATED PAIN, BUT C/O ABD PAIN PRIOR TO SITTING ON THE BSC. PT SPOUSE IS AT THE BEDSIDE AND ASSISTS WITH HER CARE WHERE POSSIBLE. SPOUSE REQUESTED A BED BATH FOR THE PT, PASSED ON REQUEST TO RN IV THERAPY STAFF. PER DISCHARGE PLANNING PT IS GOING TO DISCHARGE TOMORROW AT 0900. PT ALERT AND ORIENTED, HAS DIFFICULTY FINDING WORDS AND BECOMES FRUSTRATED, ONCE FRUSTRATED IF STAFF REDIRECT TO ANOTHER SUBJECT SHE WILL COME UP WITH THE WORD SHE WAS LOOKING FOR, MOST OF THE TIME. PT IS A LIFT PT AND HAS HER CALL LIGHT IN REACH. PT HAS NO CURRENT C/O PAIN.
--- NOTE | 2018-09-12 04:40 | NUR ---
SHIFT SUMMARY ALERT, ABLE TO MAKE NEEDS KNOWN; OCCASIONAL FRUSTRATION NOTED. NO C/O PAIN/DISCOMFORT. BED BATH COMPLETED. HYPERTENSION NOTED THIS AM; HOWEVER, APPEARS ON TREND WITH PREVIOUS PRESSURES. ALL OTHER VS WNL. AT BEDSIDE. APPEARED TO SLEEP MUCH OF SHIFT. NO ACUTE CHANGES NOTED OVERNIGHT. BED IN LOWEST POSITION. CALL LIGHT WITHIN REACH. WCTM. REPORT TO ONCOMING RN.
--- NOTE | 2018-09-12 18:22 | NUR ---
SPOKE TO DR MUELLER. PT HAS ORDER FOR 12 UNITS OF HUMALOG PLUS SLIDING SCALE, PT BG WAS 108 THIS EVENING, PER DR MUELLER OK TO CHANGE DOSE TO 5 UNITS TIDM PLUS SLIDING SCALE.
--- NOTE | 2018-09-12 19:31 | NUR ---
SHIFT SUMMARY- PT HAS HAD NO ACUTE CHANGES T/O THE SHIFT, BEDSIDE REPORT WAS COMPLETE. DURING REPORT PT STATED SHE NEEDS TO HAVE A BM. PT IS CURRENTLY IN THE RECLINER ON THE LIFT SHEET, SPOKE TO CHURCH ADMINISTRATOR TURFGRASS MANAGEMENT PROFESSOR ABOUT PT TRANSFER BACK TO BED FOR SLING CHANGE AND THEN TO THE BSC. THEY ARE BEGINNING THE PROCESS NOW. PT HAS NO C/O PAIN AT THIS TIME. PT TAKES MEDS CRUSHED IN APPLE SAUCE UNLESS THEY ARE VERY SMALL. PT ALERT AND ORIENTED CALL LIGHT IN REACH AT THE TIME OF SHIFT CHANGE, FAMILY AT THE BEDSIDE.
--- NOTE | 2018-09-13 04:25 | NUR ---
SHIFT SUMMARY: PT IS ALERT AND ORIENTED. PT IS CALM AND COOPERATIVE WITH CARE. PT CALLS APPROPRIATELY. PT REQUIRES A LIFT FOR TRANSFERS. PT'S IN THE ROOM OVERNIGHT. PT HAD INCONTINENT VOID, BED CHANGE REQUIRED. PT HAD A SMALL BOWEL MOVEMENT. PT REPORTED BACK PAIN, GAVE PRN TRAMADOL. PT DENIES NAUSEA, VOMITING, AND SOB. AWAITING DC ON SATURDAY. NO ACUTE CHANGES OR COMPLICATIONS THIS SHIFT. WILL REPORT TO DAY NURSE.
--- NOTE | 2018-09-13 22:14 | NUR ---
ASSUMED CARE OF PT AT 2119. PT W/O S/S DISTRESS AT THIS TIME.
--- NOTE | 2018-09-14 05:58 | NUR ---
SUMMARY: PT A/O, COOPERATIVE W/CARE AND SPECIFIES NEEDS. SHE CONT'S TO HAVE R.LEG FLACIDITY AND R.ARM WEAKNESS REQUIRING LIFT FOR T/F'S. ATTENDS WERE CHANGED PRN FOR INCONTINENCE. POWDER APPLIED TO ABDO AND GROIN FOLDS. SHE CONT'S TO REPORT ITCHINESS TO THESE AREAS BUT HYDROCORTISONE CREAM IS SOMEWHAT HELPFUL. MEPILEX REMAINS C/D/I TO COCCYX. BACK AND NECK PAIN PERSISTS, TYLENOL AND TRAMADOL RECIEVED PRN FOR TOLERABLE EFFECT. REMAINS AT BEDSIDE. VSS AND AFEBRILE. SHE WAS HYPERTENSIVE WHEN IN PAIN BUT THIS IMPROVED W/BETTER PAIN CONTROL. NO ACUTE CHANGES. AWAITING D/C SATURDAY.
--- NOTE | 2018-09-14 09:00 | NUR ---
ASSUMED CARE PT ALERT AND ORIENTED. BP ELEVATED THIS AM. MEDICATED PER EMAR. HELD METOPROLOL DUE TO HR. AT BEDSIDE HELPING FEED PT BREAKFAST. RIGHT SIDED WEAKNESS. RIGHT LEG FLACCID AND RIGHT ARM HAS MINIMAL MOVEMENT IN HAND. PT STATES NUMBNESS AND TINGLING THROUGH ALL EXTREMETIES EXCEPT LEFT LEG. PT DENIES ANY PAIN. LS CLEAR. PT DENIES ANY NEEDS AT THIS TIME. PT ABLE TO STATE NEEDS APPROPRIATELY. ATTENDS DRY AT THIS TIME. WILL CONTINUE TO MONITOR. DR. MUELLER IN THIS AM. CALL LIGHT IN REACH.
--- NOTE | 2018-09-14 16:21 | NUR ---
ASSUMED CARE OF PATIENT. REPORT RECEIVED FROM SANDY GREENE AND FAMILY NOTIFIED.
--- NOTE | 2018-09-15 06:41 | NUR ---
SHIFT SUMMARY PT IS A 62 Y/O FEMALE, ADMITTED FOR AN ACUTE ISCHEMIC STROKE. SHE IS A&O X 4, WITH SOME EXPRESSIVE APHASIA AND R-SIDE DEFICITS FROM THE STROKE. SHE DID REPORT SOME PAIN AND MUSCLE SPASMS IN HER R UPPER ARM, FOR WHICH SHE WAS MEDICATED X 1 WITH PRN TRAMADOL. SHE DENIED ANY ACUTE NAUSEA OR SOB. PT'S BP WAS ELEVATED DURING THE NIGHT, BETWEEN 160-180S SYSTOLICALLY, FOR WHICH SHE WAS TREATED WITH PO HYDRALAZINE. ALL OTHER VITALS REMAINED STABLE. NO OTHER ACUTE CHANGES IN PT CONDITION NOTED. WILL CONTINUE TO MONITOR AND TREAT PER EMAR.
[2018-09-15] MEDS ORDERED: ATOR80 PO (10:20)
[2018-09-15] MEDS ORDERED: ASPI81CH PO (10:20)
[2018-09-15] MEDS ORDERED: HYDRA50 PO (10:21)
--- NOTE | 2018-09-15 10:22 | NUR ---
REPORT TO ALL DELGADO IN [place]. ANSWER ALL QUESTIONS.
[2018-09-15] MEDS ORDERED: Humalog100 UNIT/1 SC ×2 (10:25)
[2018-09-15] MEDS ORDERED: Nystop60 GM TOP (11:05)
[2018-09-15] MEDS ORDERED: MIRALAX17 GM PO (11:06)
[2018-09-15] MEDS ORDERED: TRAM50 PO (11:06)
[2018-09-15] MEDS ORDERED: XARELTO20 MG PO (11:09)
== END 2018-09-15 10:50 | DRG 65 ==
LOC: ER 05:09 → ERHOLD 05:10 → MEDS 05:10 → ERHOLD 05:10 → MEDS 13:00 → ENPENDDIS 09-15 09:33 → MEDS 09-15 10:50
PROVIDERS: Emergency Medicine; Internal Medicine; ADMIT Internal Medicine
DX: I63.59 Cerebral infarction due to unspecified occlusion or stenosis of other cerebral artery (principal); N18.4 Chronic kidney disease, stage 4 (severe); E87.1 Hypo-osmolality and hyponatremia; N39.0 Urinary tract infection, site not specified; Z68.42 Body mass index [BMI] 45.0-49.9, adult; I12.9 Hypertensive chronic kidney disease with stage 1 through stage 4 chronic kidney disease, or unspecified chronic kidney disease; E11.22 Type 2 diabetes mellitus with diabetic chronic kidney disease; E78.5 Hyperlipidemia, unspecified; I48.2 Chronic atrial fibrillation; K59.00 Constipation, unspecified; E66.9 Obesity, unspecified; E11.65 Type 2 diabetes mellitus with hyperglycemia; Z79.01 Long term (current) use of anticoagulants; Z79.82 Long term (current) use of aspirin
CPT/HCPCS: 36415; 70450; 70496; 70498; 70551; 74018; 80048; 80053; 80061; 80069; 81001; 82947; 83036; 85025; 85027; 85610; 87077; 87086; 87186; 92507; 92523; 92610; 93005; 93010; 93306; 93880; 96360; 97110; 97112; 97162; 97166; 97530; 97535; 99285-25; G0378; J0360; J0696; J1650; J1815; J7030; Q9967

== ENCOUNTER 2018-10-24 00:04 | Day surgery (SDC) | payer OTHER ==
[~2018-10-24 00:04] MED LIST changes: +ASPI81CH PO; +ATOR80 PO; +HYDRA50 PO; +Humalog100 UNIT/1 SC; +MIRALAX17 GM PO; +Nystop60 GM TOP; +TRAM50 PO; +XARELTO20 MG PO
== END 2018-10-24 16:44 | disposition home or self-care (01) ==
LOC: ATC 00:04
DX: I12.9 Hypertensive chronic kidney disease with stage 1 through stage 4 chronic kidney disease, or unspecified chronic kidney disease (principal); E11.22 Type 2 diabetes mellitus with diabetic chronic kidney disease; N18.3 Chronic kidney disease, stage 3 (moderate); D63.1 Anemia in chronic kidney disease; E03.9 Hypothyroidism, unspecified; E78.5 Hyperlipidemia, unspecified; Z79.899 Other long term (current) drug therapy; Z79.82 Long term (current) use of aspirin
CPT/HCPCS: 36430; 86850; 86900; 86901; 86923; J7050; P9016

== ENCOUNTER 2018-11-15 20:01 | Emergency (ER) | payer OTHER ==
[~2018-11-15] VITALS: Ht 162.6 cm; Wt 129.3 kg
[2018-11-15] MEDS ORDERED: LOSA25 PO (20:30)
== END 2018-11-15 21:05 | disposition home or self-care (01) ==
LOC: ER 20:01
DX: R04.0 Epistaxis (principal); I10 Essential (primary) hypertension; E11.9 Type 2 diabetes mellitus without complications; Z88.1 Allergy status to other antibiotic agents; Z79.4 Long term (current) use of insulin; Z79.82 Long term (current) use of aspirin; Z79.899 Other long term (current) drug therapy
CPT/HCPCS: 99283

== ENCOUNTER 2018-12-13 10:07 | Emergency (ER) | payer OTHER ==
[~2018-12-13] VITALS: Ht 162.6 cm; Wt 133.8 kg
[~2018-12-13 10:07] MED LIST changes: +LOSA25 PO
[2018-12-13 10:31] LABS: BASOPHILS ABSOLUTE AUTO 0.03 K/mm3 (0.00-0.23); BASOPHILS PERCENT AUTO 0 % (0-2); EOSINOPHILS ABSOLUTE AUTO 0.28 K/mm3 (0.00-0.68); EOSINOPHILS PERCENT AUTO 4 % (0-6); Hematocrit 27.4 % (33.0-51.0); Hemoglobin 8.6 g/dL (11.5-16.0); IMMATURE GRAN ABSOLUTE AUTO 0.03 K/mm3 (0.00-0.10); IMMATURE GRAN PERCENT AUTO 0 % (0-1); LYMPHOCYTES ABSOLUTE AUTO 1.02 K/mm3 (0.84-5.20); LYMPHOCYTES PERCENT AUTO 15 % (21-46); MONOCYTES PERCENT AUTO 7 % (4-13); Mean Corpuscular HGB Conc 31.4 g/dL (31.5-36.5); Mean Corpuscular Volume 96 fL (80-100); Mean Platelet Volume 12.8 fL (9.1-12.4); NEUTROPHILS ABSOLUTE AUTO 4.92 K/mm3 (1.96-9.15); NEUTROPHILS PERCENT AUTO 73 % (41-73); Platelet Count 196 K/mm3 (150-400); RDW Coefficient Variation 13.7 % (11.7-14.2); RDW Standard Deviation 47.5 fL (35.1-46.3); Red Blood Cell Count 2.87 M/mm3 (3.80-5.20); White Blood Cell Count 6.78 K/mm3 (4.00-11.30)
[2018-12-13 10:39] LABS: Source, Urine Catheter
[2018-12-13 10:47] LABS: Bilirubin, Urine Neg (Neg); Blood, Urine 1+ (Neg); Glucose Qualitative, Urine Neg (Neg); Ketones, Urine Neg (Neg); Leukocyte Esterase, Urine 3+ (Neg); Nitrite, Urine Neg (Neg); Protein, Urine 2+ (Neg); Urobilinogen, Urine NORM (Normal)
[2018-12-13 10:50] LABS: Albumin, Blood 2.7 g/dL (3.4-5.0); Albumin/Globulin Ratio 0.7 (0.8-1.8); Bilirubin, Total 0.6 mg/dL (0.1-1.0); Bun/Creatinine Ratio 28.1 (12.0-20.0); Calcium, Blood 8.9 mg/dL (8.5-10.1); Creatinine, Blood 1.67 mg/dL (0.40-1.00); Globulin, Blood 3.7 g/dL (2.2-4.0); Potassium, Blood 3.9 mmol/L (3.5-5.5); Total Protein, Blood 6.4 g/dL (6.4-8.2)
[2018-12-13 10:53] LABS: Appearance, Urine Cloudy (Clear); Color, Urine Yellow (P-Yellow)
[2018-12-13 10:56] LABS: Triple Phosphate Crystals Many /hpf
[2018-12-13 10:57] LABS: Bacteria Many /hpf; Squamous Epithelial Cells Many /hpf (Few); White Blood Cells, Urine 25-50 /hpf (0-5)
[2018-12-13 10:58] LABS: Amorphous Mod (0-Heavy); Transitional Epithelial Cells Few /hpf (0-Rare)
[2018-12-13] MEDS ORDERED: BACLOFEN5 MG PO (11:44)
[2018-12-13] MEDS ORDERED: FURO40 PO (11:44)
[2018-12-13] MEDS ORDERED: DOXA4 PO (11:44)
[2018-12-13] MEDS ORDERED: CEPH500 PO (12:51)
== END 2018-12-13 12:54 | disposition home or self-care (01) ==
LOC: ER 10:07
PROVIDERS: Emergency Medicine
DX: N39.0 Urinary tract infection, site not specified (principal); Z86.73 Personal history of transient ischemic attack (TIA), and cerebral infarction without residual deficits; Z88.1 Allergy status to other antibiotic agents; Z79.899 Other long term (current) drug therapy; Z79.4 Long term (current) use of insulin; I12.9 Hypertensive chronic kidney disease with stage 1 through stage 4 chronic kidney disease, or unspecified chronic kidney disease; E11.22 Type 2 diabetes mellitus with diabetic chronic kidney disease; N18.3 Chronic kidney disease, stage 3 (moderate); E03.9 Hypothyroidism, unspecified
CPT/HCPCS: 71045; 80053; 81001; 85025; 87077; 87086; 87186; 93005; 93010; 96361; 96365; 99284-25; J0696; J7030; P9612

== ENCOUNTER 2019-02-18 17:08 | Emergency (ER) | payer OTHER ==
[~2019-02-18] VITALS: Ht 162.6 cm; Wt 136.1 kg
[~2019-02-18 17:08] MED LIST changes: +BACLOFEN5 MG PO; +CEPH500 PO; +DOXA4 PO; +FURO40 PO
[2019-02-18 18:07] LABS: Source, Urine Clean Catch
[2019-02-18 18:22] LABS: Bilirubin, Urine Neg (Neg); Blood, Urine Neg (Neg); Glucose Qualitative, Urine Neg (Neg); Ketones, Urine Neg (Neg); Leukocyte Esterase, Urine 3+ (Neg); Nitrite, Urine Neg (Neg); Protein, Urine 2+ (Neg); Urobilinogen, Urine NORM (Normal); pH, Urine 6.5 (5.0-8.0)
[2019-02-18 18:42] LABS: Appearance, Urine Clear (Clear); Color, Urine Yellow (P-Yellow)
[2019-02-18 18:43] LABS: Bacteria Few /hpf; Red Blood Cells, Urine 0-2 /hpf (0-2); Squamous Epithelial Cells Not Seen /hpf (Few)
[2019-02-18] MEDS ORDERED: Keflex500 MG PO (19:12)
== END 2019-02-18 19:42 | disposition home or self-care (01) ==
LOC: ER 17:08
PROVIDERS: Physician Assistant
DX: N39.0 Urinary tract infection, site not specified (principal); Z88.1 Allergy status to other antibiotic agents; Z79.899 Other long term (current) drug therapy; Z79.4 Long term (current) use of insulin; Z79.82 Long term (current) use of aspirin; E11.9 Type 2 diabetes mellitus without complications; E03.9 Hypothyroidism, unspecified; I10 Essential (primary) hypertension; Z86.73 Personal history of transient ischemic attack (TIA), and cerebral infarction without residual deficits; E78.5 Hyperlipidemia, unspecified; K21.9 Gastro-esophageal reflux disease without esophagitis
CPT/HCPCS: 51701; 51798; 81001; 87086; 99283-25

== ENCOUNTER 2019-03-16 08:48 | Emergency (ER) | payer OTHER ==
[~2019-03-16] VITALS: Ht 172.7 cm; Wt 99.8 kg
[~2019-03-16 08:48] MED LIST changes: +Keflex500 MG PO
[2019-03-16 09:57] LABS: Source, Urine Catheter
[2019-03-16 10:00] LABS: Bilirubin, Urine Neg (Neg); Blood, Urine 3+ (Neg); Glucose Qualitative, Urine Neg (Neg); Ketones, Urine Neg (Neg); Leukocyte Esterase, Urine 3+ (Neg); Nitrite, Urine Pos (Neg); Protein, Urine 3+ (Neg); Specific Gravity, Urine 1.015 (1.003-1.022); Urobilinogen, Urine NORM (Normal)
[2019-03-16 10:09] LABS: Appearance, Urine Turbid (Clear); Bacteria Many /hpf; Color, Urine Yellow (P-Yellow); Red Blood Cells, Urine TNTC /hpf (0-2); Squamous Epithelial Cells Not Seen /hpf (Few); White Blood Cells, Urine TNTC /hpf (0-5)
[2019-03-16 10:26] LABS: BASOPHILS ABSOLUTE AUTO 0.03 K/mm3 (0.00-0.23); BASOPHILS PERCENT AUTO 0 % (0-2); EOSINOPHILS PERCENT AUTO 2 % (0-6); Hematocrit 29.7 % (33.0-51.0); Hemoglobin 9.6 g/dL (11.5-16.0); IMMATURE GRAN ABSOLUTE AUTO 0.03 K/mm3 (0.00-0.10); IMMATURE GRAN PERCENT AUTO 0 % (0-1); LYMPHOCYTES ABSOLUTE AUTO 0.79 K/mm3 (0.84-5.20); LYMPHOCYTES PERCENT AUTO 8 % (21-46); MONOCYTES PERCENT AUTO 6 % (4-13); Mean Corpuscular HGB 30.9 pg (26.0-34.0); Mean Corpuscular HGB Conc 32.3 g/dL (31.5-36.5); Mean Corpuscular Volume 96 fL (80-100); Mean Platelet Volume 12.3 fL (9.1-12.4); NEUTROPHILS ABSOLUTE AUTO 8.58 K/mm3 (1.96-9.15); NEUTROPHILS PERCENT AUTO 84 % (41-73); Platelet Count 193 K/mm3 (150-400); RDW Coefficient Variation 15.4 % (11.7-14.2); RDW Standard Deviation 54.4 fL (35.1-46.3); Red Blood Cell Count 3.11 M/mm3 (3.80-5.20); White Blood Cell Count 10.23 K/mm3 (4.00-11.30)
[2019-03-16 10:58] LABS: Albumin, Blood 3.3 g/dL (3.4-5.0); Albumin/Globulin Ratio 0.9 (0.8-1.8); Bilirubin, Total 0.6 mg/dL (0.1-1.0); Bun/Creatinine Ratio 29.5 (12.0-20.0); Calcium, Blood 9.2 mg/dL (8.5-10.1); Creatinine, Blood 1.93 mg/dL (0.40-1.00); Globulin, Blood 3.5 g/dL (2.2-4.0); Potassium, Blood 3.8 mmol/L (3.5-5.5); Total Protein, Blood 6.8 g/dL (6.4-8.2)
[2019-03-16] MEDS ORDERED: Macrobid 100 M100 MG PO (11:38)
== END 2019-03-16 12:58 | disposition home or self-care (01) ==
LOC: ER 08:48
PROVIDERS: Physician Assistant
DX: N39.0 Urinary tract infection, site not specified (principal); R60.0 Localized edema; E03.9 Hypothyroidism, unspecified; E78.5 Hyperlipidemia, unspecified; I12.9 Hypertensive chronic kidney disease with stage 1 through stage 4 chronic kidney disease, or unspecified chronic kidney disease; E11.22 Type 2 diabetes mellitus with diabetic chronic kidney disease; N18.3 Chronic kidney disease, stage 3 (moderate); I48.91 Unspecified atrial fibrillation; Z86.73 Personal history of transient ischemic attack (TIA), and cerebral infarction without residual deficits; Z88.2 Allergy status to sulfonamides; Z79.899 Other long term (current) drug therapy; Z79.4 Long term (current) use of insulin; Z79.82 Long term (current) use of aspirin; Z79.01 Long term (current) use of anticoagulants
CPT/HCPCS: 36415; 80053; 81001; 82947; 83605; 85025; 87040; 87077; 87086; 87186; 96365; 99285-25; J0696; P9612

== ENCOUNTER 2019-05-14 17:12 | Emergency (ER) | payer OTHER ==
[~2019-05-14] VITALS: Ht 162.6 cm; Wt 120.2 kg
[~2019-05-14 17:12] MED LIST changes: +Macrobid 100 M100 MG PO
[2019-05-14 17:43] LABS: BASOPHILS ABSOLUTE AUTO 0.03 K/mm3 (0.00-0.23); BASOPHILS PERCENT AUTO 1 % (0-2); EOSINOPHILS ABSOLUTE AUTO 0.18 K/mm3 (0.00-0.68); EOSINOPHILS PERCENT AUTO 3 % (0-6); Hematocrit 30.6 % (33.0-51.0); Hemoglobin 9.9 g/dL (11.5-16.0); IMMATURE GRAN ABSOLUTE AUTO 0.02 K/mm3 (0.00-0.10); IMMATURE GRAN PERCENT AUTO 0 % (0-1); LYMPHOCYTES ABSOLUTE AUTO 0.87 K/mm3 (0.84-5.20); LYMPHOCYTES PERCENT AUTO 16 % (21-46); MONOCYTES ABSOLUTE AUTO 0.45 K/mm3 (0.16-1.47); MONOCYTES PERCENT AUTO 8 % (4-13); Mean Corpuscular HGB 33.4 pg (26.0-34.0); Mean Corpuscular HGB Conc 32.4 g/dL (31.5-36.5); Mean Corpuscular Volume 103 fL (80-100); Mean Platelet Volume 11.5 fL (9.1-12.4); NEUTROPHILS ABSOLUTE AUTO 3.88 K/mm3 (1.96-9.15); NEUTROPHILS PERCENT AUTO 71 % (41-73); Platelet Count 213 K/mm3 (150-400); RDW Coefficient Variation 12.1 % (11.7-14.2); RDW Standard Deviation 46.2 fL (35.1-46.3); Red Blood Cell Count 2.96 M/mm3 (3.80-5.20); White Blood Cell Count 5.43 K/mm3 (4.00-11.30)
[2019-05-14 18:05] LABS: Albumin, Blood 3.6 g/dL (3.4-5.0); Bilirubin, Total 0.5 mg/dL (0.1-1.0); Bun/Creatinine Ratio 29.9 (12.0-20.0); Calcium, Blood 9.6 mg/dL (8.5-10.1); Creatinine, Blood 1.84 mg/dL (0.40-1.00); Globulin, Blood 3.5 g/dL (2.2-4.0); Total Protein, Blood 7.1 g/dL (6.4-8.2)
[2019-05-14 18:31] LABS: Source, Urine Catheter
[2019-05-14 18:45] LABS: Bilirubin, Urine Neg (Neg); Blood, Urine Neg (Neg); Glucose Qualitative, Urine Neg (Neg); Ketones, Urine Neg (Neg); Leukocyte Esterase, Urine 1+ (Neg); Nitrite, Urine Neg (Neg); Protein, Urine 1+ (Neg); Specific Gravity, Urine 1.015 (1.003-1.022); Urobilinogen, Urine NORM (Normal)
[2019-05-14 19:01] LABS: Appearance, Urine Clear (Clear); Color, Urine Yellow (P-Yellow)
[2019-05-14 19:03] LABS: Red Blood Cells, Urine 0-2 /hpf (0-2); Squamous Epithelial Cells Mod /hpf (Few); White Blood Cells, Urine 0-2 /hpf (0-5)
[2019-05-14 19:04] LABS: Bacteria Few /hpf
[2019-05-14] MEDS ORDERED: LOSA25 PO (20:02)
[2019-05-14 20:09] LABS: Free Thyroxine 1.62 ng/dL (0.70-1.60); Magnesium, Blood 1.9 mg/dL (1.6-2.4)
[2019-05-14 20:11] LABS: Thyroid Stimulating Hormone 0.154 uIU/mL (0.360-4.800)
== END 2019-05-14 22:05 | disposition home or self-care (01) ==
LOC: ER 17:12
PROVIDERS: Emergency Medicine
DX: E86.0 Dehydration (principal); R41.82 Altered mental status, unspecified; E11.22 Type 2 diabetes mellitus with diabetic chronic kidney disease; I12.9 Hypertensive chronic kidney disease with stage 1 through stage 4 chronic kidney disease, or unspecified chronic kidney disease; N18.3 Chronic kidney disease, stage 3 (moderate); E78.5 Hyperlipidemia, unspecified; K21.9 Gastro-esophageal reflux disease without esophagitis; I48.91 Unspecified atrial fibrillation; Z86.73 Personal history of transient ischemic attack (TIA), and cerebral infarction without residual deficits; Z87.440 Personal history of urinary (tract) infections; Z88.1 Allergy status to other antibiotic agents; Z79.899 Other long term (current) drug therapy; Z79.4 Long term (current) use of insulin; Z79.82 Long term (current) use of aspirin; Z79.01 Long term (current) use of anticoagulants
CPT/HCPCS: 36415; 51702; 80053; 81001; 83735; 84439; 84443; 85025; 87086; 96360-59; 96361-59; 99283-25; J7030

== ENCOUNTER 2019-07-05 10:43 | Emergency (ER) | payer OTHER ==
[~2019-07-05] VITALS: Ht 162.6 cm; Wt 114.3 kg
[2019-07-05] MEDS ORDERED: PROBIOTIC1 EAC1 PO (11:52)
[2019-07-05] MEDS ORDERED: THERA-D2000 UNIT PO (11:53)
[2019-07-05] MEDS ORDERED: DOK100 M2 PO (11:53)
[2019-07-05] MEDS ORDERED: FERSU300 PO (11:54)
[2019-07-05] MEDS ORDERED: VITAMIN K240 MCG PO (11:54)
[2019-07-05] MEDS ORDERED: TURMERIC 500 M1 EACH PO (11:54)
[2019-07-05] MEDS ORDERED: CLEARLAX (11:55)
[2019-07-05] MEDS ORDERED: Cranberry300 MG (11:55)
[2019-07-05 12:16] LABS: Source, Urine Catheter
[2019-07-05 12:21] LABS: Bilirubin, Urine Neg (Neg); Blood, Urine 3+ (Neg); Glucose Qualitative, Urine Neg (Neg); Ketones, Urine Neg (Neg); Leukocyte Esterase, Urine 3+ (Neg); Nitrite, Urine Neg (Neg); Protein, Urine 3+ (Neg); Urobilinogen, Urine NORM (Normal)
[2019-07-05 12:36] LABS: Appearance, Urine Cloudy (Clear); Color, Urine Yellow (P-Yellow)
[2019-07-05 12:40] LABS: Bacteria Many /hpf; Red Blood Cells, Urine TNTC /hpf (0-2); Squamous Epithelial Cells Few /hpf (Few); White Blood Cells, Urine TNTC /hpf (0-5)
[2019-07-05 12:41] LABS: Transitional Epithelial Cells Mod /hpf (0-Rare)
[2019-07-05] MEDS ORDERED: CEFP200 PO (13:12)
== END 2019-07-05 13:52 | disposition home or self-care (01) ==
LOC: ER 10:43
PROVIDERS: Emergency Medicine
DX: N39.0 Urinary tract infection, site not specified (principal); E11.22 Type 2 diabetes mellitus with diabetic chronic kidney disease; I12.9 Hypertensive chronic kidney disease with stage 1 through stage 4 chronic kidney disease, or unspecified chronic kidney disease; N18.3 Chronic kidney disease, stage 3 (moderate); I48.91 Unspecified atrial fibrillation; Z86.73 Personal history of transient ischemic attack (TIA), and cerebral infarction without residual deficits; Z79.82 Long term (current) use of aspirin; Z88.1 Allergy status to other antibiotic agents; Z79.899 Other long term (current) drug therapy
CPT/HCPCS: 81001; 87086; 99283; P9612

== ENCOUNTER → 2019-08-24 | Outpatient (CLI) | payer OTHER ==
[~2019-08-24] MED LIST changes: +CEFP200 PO; +CLEARLAX; +Cranberry300 MG; +DOK100 M2 PO; +FERSU300 PO; +PROBIOTIC1 EAC1 PO; +THERA-D2000 UNIT PO; +TURMERIC 500 M1 EACH PO; +VITAMIN K240 MCG PO
[2019-08-24 14:12] LABS: Source, Urine Clean Catch
[2019-08-24 18:31] LABS: Bilirubin, Urine Neg (Neg); Blood, Urine 1+ (Neg); Glucose Qualitative, Urine Neg (Neg); Ketones, Urine Neg (Neg); Leukocyte Esterase, Urine 3+ (Neg); Nitrite, Urine Neg (Neg); Protein, Urine 2+ (Neg); Urobilinogen, Urine NORM (Normal); pH, Urine 6.5 (5.0-8.0)
[2019-08-24 18:43] LABS: Appearance, Urine Hazy (Clear); Color, Urine Yellow (P-Yellow)
[2019-08-24 18:44] LABS: Bacteria Many /hpf; Red Blood Cells, Urine 0-2 /hpf (0-2); Squamous Epithelial Cells Few /hpf (Few); White Blood Cells, Urine 50-100 /hpf (0-5)
== END | disposition home or self-care (01) ==
LOC: LAB 14:10 → LAB SHORT 14:10
PROVIDERS: Physician Assistant Medical
DX: N39.0 Urinary tract infection, site not specified (principal)
CPT/HCPCS: 81001; 87077; 87086; 87186

== ENCOUNTER → 2019-10-12 | Outpatient (CLI) | payer OTHER ==
[~2019-10-12] MED LIST changes: +Cephalexin500 MG PO; -LEVSOD125 PO; +LEVSOD150 PO
[2019-10-12 17:08] LABS: Bilirubin, Urine Neg (Neg); Blood, Urine 1+ (Neg); Glucose Qualitative, Urine Neg (Neg); Ketones, Urine Neg (Neg); Leukocyte Esterase, Urine 3+ (Neg); Nitrite, Urine Pos (Neg); Protein, Urine 1+ (Neg); Specific Gravity, Urine 1.015 (1.003-1.022); Urobilinogen, Urine NORM (Normal)
[2019-10-12 17:23] LABS: Appearance, Urine Hazy (Clear); Bacteria Many /hpf; Color, Urine Yellow (P-Yellow); Squamous Epithelial Cells Few /hpf (Few); White Blood Cells, Urine TNTC /hpf (0-5)
== END | disposition home or self-care (01) ==
LOC: LAB 12:30 → LAB SHORT 12:30 → LAB FUT 02-19 16:05 → EDSTATUS 02-19 16:05
PROVIDERS: Physician Assistant Medical
DX: N39.0 Urinary tract infection, site not specified (principal); R30.0 Dysuria
CPT/HCPCS: 81001; 87077; 87086; 87186

== ENCOUNTER 2019-10-17 00:21 | Day surgery (SDC) | payer OTHER | END 2019-10-17 16:13 | disposition home or self-care (01) | LOC: ATC 00:21 | DX: N39.8 Other specified disorders of urinary system (principal); E11.9 Type 2 diabetes mellitus without complications; E03.9 Hypothyroidism, unspecified; I10 Essential (primary) hypertension; E78.5 Hyperlipidemia, unspecified; K21.9 Gastro-esophageal reflux disease without esophagitis; I48.91 Unspecified atrial fibrillation; Z79.01 Long term (current) use of anticoagulants; Z79.4 Long term (current) use of insulin; Z79.82 Long term (current) use of aspirin; Z79.899 Other long term (current) drug therapy; Z86.73 Personal history of transient ischemic attack (TIA), and cerebral infarction without residual deficits; Z88.1 Allergy status to other antibiotic agents | CPT/HCPCS: 96365; J0713 ==

== ENCOUNTER 2019-10-19 | Day surgery (SDC) | payer OTHER | END 2019-10-19 16:28 | disposition home or self-care (01) | LOC: ATC | DX: N39.8 Other specified disorders of urinary system (principal); E11.9 Type 2 diabetes mellitus without complications; E03.9 Hypothyroidism, unspecified; I10 Essential (primary) hypertension; E78.5 Hyperlipidemia, unspecified; K21.9 Gastro-esophageal reflux disease without esophagitis; Z86.73 Personal history of transient ischemic attack (TIA), and cerebral infarction without residual deficits; Z88.1 Allergy status to other antibiotic agents; Z79.899 Other long term (current) drug therapy; Z79.82 Long term (current) use of aspirin; Z79.01 Long term (current) use of anticoagulants; Z79.4 Long term (current) use of insulin | CPT/HCPCS: J0713 ==

== ENCOUNTER → 2020-01-11 | Outpatient (CLI) | payer OTHER ==
[~2020-01-11] MED LIST changes: +BASAGLAR K100 UNIT/1 SC; -Cranberry300 MG; +Cranberry300 MG PO; +EUTHYROX175 MC1 PO; +HUMALOG100 UNIT/1 SC; -INSULANPEN SC; +PROBIOTIC1 EAC8 PO; -THERA-D2000 UNIT PO; +VITAMIN D-32000 UNIT PO; +XARELTO15 MG PO
[2020-01-11 15:33] LABS: Source, Urine Clean Catch
[2020-01-11 18:20] LABS: Bilirubin, Urine Neg (Neg); Blood, Urine 1+ (Neg); Glucose Qualitative, Urine Neg (Neg); Ketones, Urine Neg (Neg); Leukocyte Esterase, Urine 2+ (Neg); Nitrite, Urine Neg (Neg); Protein, Urine 1+ (Neg); Specific Gravity, Urine 1.015 (1.003-1.022); Urobilinogen, Urine NORM (Normal)
[2020-01-11 18:29] LABS: Appearance, Urine Clear (Clear); Color, Urine Yellow (P-Yellow)
[2020-01-11 18:31] LABS: Bacteria Mod /hpf; Red Blood Cells, Urine 0-2 /hpf (0-2); Squamous Epithelial Cells Few /hpf (Few)
== END | disposition home or self-care (01) ==
LOC: LAB SHORT 15:30 → LAB 15:30 → LAB FUT 12-30 07:15 → EDSTATUS 12-30 07:15
PROVIDERS: Physician Assistant Medical
DX: N39.0 Urinary tract infection, site not specified (principal)
CPT/HCPCS: 81001; 87077; 87086; 87186

== ENCOUNTER → 2020-01-29 | Outpatient (CLI) | payer OTHER ==
[2020-01-29 19:45] LABS: Bilirubin, Urine Neg (Neg); Blood, Urine 1+ (Neg); Glucose Qualitative, Urine Neg (Neg); Ketones, Urine Neg (Neg); Leukocyte Esterase, Urine 3+ (Neg); Nitrite, Urine Neg (Neg); Protein, Urine 1+ (Neg); Urobilinogen, Urine NORM (Normal)
[2020-01-29 19:55] LABS: Appearance, Urine Hazy (Clear); Color, Urine Pale Yellow (P-Yellow)
[2020-01-29 19:56] LABS: Bacteria Mod /hpf; Red Blood Cells, Urine 0-2 /hpf (0-2); Squamous Epithelial Cells Few /hpf (Few); White Blood Cells, Urine 25-50 /hpf (0-5)
== END ==
LOC: LAB 18:12 → LAB SHORT 18:12 → LAB FUT 01-28 15:30 → EDSTATUS 01-28 15:30
PROVIDERS: Physician Assistant Medical
DX: N39.0 Urinary tract infection, site not specified (principal)
CPT/HCPCS: 81001; 87077; 87086; 87186

== ENCOUNTER → 2020-07-25 | Outpatient (CLI) | payer OTHER | END | disposition home or self-care (01) | LOC: PLD 08:27 → LAB SHORT 08:27 | DX: B35.1 Tinea unguium (principal); L60.2 Onychogryphosis | CPT/HCPCS: 88305; 88312 ==

== ENCOUNTER → 2021-02-02 | Outpatient (CLI) | payer OTHER | END | disposition home or self-care (01) | LOC: LAB HH 14:41 | DX: R30.0 Dysuria (principal) | CPT/HCPCS: 87077; 87086; 87186 ==

== ENCOUNTER → 2021-05-11 | Outpatient (CLI) | payer OTHER | END | disposition home or self-care (01) | LOC: LAB SHORT 14:50 → LAB 14:50 | DX: D22.5 Melanocytic nevi of trunk (principal); L30.9 Dermatitis, unspecified | CPT/HCPCS: 88305; 88313 ==

== ENCOUNTER 2022-01-17 22:47 | Inpatient (IN) | payer OTHER ==
[~2022-01-17] VITALS: Ht 162.6 cm; Wt 126.7 kg
[~2022-01-17 22:47] MED LIST changes: +BACL10 PO; -BACLOFEN5 MG PO; +PROBIOTIC1 EA13 PO; -PROBIOTIC1 EAC8 PO; +THERA-D2000 UNIT PO; -VITAMIN D-32000 UNIT PO
[2022-01-18 02:11] LABS: BASOPHILS ABSOLUTE AUTO 0.01 K/mm3 (0.00-0.23); BASOPHILS PERCENT AUTO 0 % (0-2); EOSINOPHILS ABSOLUTE AUTO 0.01 K/mm3 (0.00-0.68); EOSINOPHILS PERCENT AUTO 0 % (0-6); Hematocrit 22.2 % (33.0-51.0); Hemoglobin 7.9 g/dL (11.5-16.0); IMMATURE GRAN ABSOLUTE AUTO 0.05 K/mm3 (0.00-0.10); IMMATURE GRAN PERCENT AUTO 1 % (0-1); LYMPHOCYTES ABSOLUTE AUTO 0.36 K/mm3 (0.84-5.20); LYMPHOCYTES PERCENT AUTO 8 % (21-46); MONOCYTES ABSOLUTE AUTO 0.14 K/mm3 (0.16-1.47); MONOCYTES PERCENT AUTO 3 % (4-13); Mean Corpuscular HGB 32.4 pg (26.0-34.0); Mean Corpuscular HGB Conc 35.6 g/dL (31.5-36.5); Mean Corpuscular Volume 91 fL (80-100); Mean Platelet Volume 10.2 fL (9.1-12.4); NEUTROPHILS ABSOLUTE AUTO 4.26 K/mm3 (1.96-9.15); NEUTROPHILS PERCENT AUTO 88 % (41-73); Platelet Count 200 K/mm3 (150-400); RDW Coefficient Variation 14.6 % (11.7-14.2); RDW Standard Deviation 48.9 fL (35.1-46.3); Red Blood Cell Count 2.44 M/mm3 (3.80-5.20); White Blood Cell Count 4.83 K/mm3 (4.00-11.30)
[2022-01-18 02:20] LABS: Albumin, Blood 2.3 g/dL (3.4-5.0); Albumin/Globulin Ratio 0.7 (0.8-1.8); Bilirubin, Total 0.6 mg/dL (0.1-1.0); Bun/Creatinine Ratio 20.6 (12.0-20.0); Calcium, Blood 7.7 mg/dL (8.5-10.1); Creatinine, Blood 2.33 mg/dL (0.40-1.00); Globulin, Blood 3.2 g/dL (2.2-4.0); Potassium, Blood 3.8 mmol/L (3.5-5.5); Total Protein, Blood 5.5 g/dL (6.4-8.2)
[2022-01-18] MEDS ORDERED: DILTIAZEM 24HR120 M4 PO (04:31)
[2022-01-18] MEDS ORDERED: KLOR-CON 1010 ME8 PO (04:31)
[2022-01-18] MEDS ORDERED: OXYB5 PO (04:31)
[2022-01-18] MEDS ORDERED: DIPH50 PO (04:33)
[2022-01-18] MEDS ORDERED: VITAMIN B125000 MC1 PO (04:34)
[2022-01-18] MEDS ORDERED: AMOX250 PO (04:35)
[2022-01-18 06:14] LABS: Source, Urine Suprapubic Cath
[2022-01-18 06:27] LABS: Appearance, Urine Hazy (Clear); Bilirubin, Urine Neg (Neg); Blood, Urine 4+ (Neg); Color, Urine Yellow (P-Yellow); Glucose Qualitative, Urine Neg (Neg); Ketones, Urine Neg (Neg); Leukocyte Esterase, Urine 2+ (Neg); Nitrite, Urine Neg (Neg); Protein, Urine 2+ (Neg); Specific Gravity, Urine 1.015 (1.003-1.022); Urobilinogen, Urine NORM (Normal)
[2022-01-18 06:50] LABS: Bacteria Many /hpf; Red Blood Cells, Urine 25-50 /hpf (0-2); Squamous Epithelial Cells Not Seen /hpf (Few)
[2022-01-18 06:57] LABS: Hematocrit 22.2 % (33.0-51.0); Hemoglobin 7.7 g/dL (11.5-16.0)
[2022-01-18 07:22] LABS: Bun/Creatinine Ratio 19.7 (12.0-20.0); Calcium, Blood 7.9 mg/dL (8.5-10.1); Creatinine, Blood 2.39 mg/dL (0.40-1.00); Potassium, Blood 3.8 mmol/L (3.5-5.5)
[2022-01-18 07:29] LABS: Percent Saturation 27.4 % (15.0-50.0)
--- NOTE | 2022-01-18 13:47 | NUR ---
PT ARRIVED TO THE MEDICAL FLOOR FROM THE ER VIA CHRISTINA Clifford/REBECCA, PLEASANT AND COOPERATIVE. THE PT WAS ORIENTED TO THE ROOM LAYOUT AND CALL SYSTEM. CALL LIGHT IN REACH. AT THE BEDSIDE
[2022-01-18] MEDS ORDERED: FLUO10 PO (15:38)
[2022-01-18] MEDS ORDERED: Acerola C500 MG PO (15:39)
--- NOTE | 2022-01-18 18:33 | NUR ---
PT IS A/OX3, PLEASANT AND COOPERATIVE. SLOW TO RESPOND AT TIMES. THE PT IS BEDBOUND AT THIS TIME TRANSFERS WITH LIFT ONLY. THE PT APPARS TO BE BREATHING EASILY ON RA AT THIS TIME. THE PT HAS A LEFT BUTTOCK PRESSURE SORE. PHOTO WAS TAKEN AND WOUND WAS CLEANED AND DRESSING CHANGED, THE PT TOLERATED THE PROCEDURE WELL. PT DENIES ANY PAIN. PTS IS AT THE BEDSIDE. CALL LIGHT IN REACH. WILL CONTINUE TO MONITOR AND ASSESS FOR CHANGES
--- NOTE | 2022-01-19 04:29 | NUR ---
SENIOR COMPENSATION CONSULTANT SUMMARY HAS BEEN RESTING QUIETLY WITH FEW INTERRUPTIONS. SUPRA PUBIC CATH DRAINING. REPOSITIONED FOR COMFORT AND SKIN MAINTENANCE - SEE DOCUMENTATION FOR DETAILS. HOB ELEVATED. IVF INFUSING AT 100 ML/HR - SEE MAR FOR DETAILS. CALL LIGHT IN REACH. VSS.
[2022-01-19 08:08] LABS: Hematocrit 20.7 % (33.0-51.0); Hemoglobin 7.2 g/dL (11.5-16.0); Mean Corpuscular HGB 32.1 pg (26.0-34.0); Mean Corpuscular HGB Conc 34.8 g/dL (31.5-36.5); Mean Corpuscular Volume 92 fL (80-100); Mean Platelet Volume 10.1 fL (9.1-12.4); Platelet Count 183 K/mm3 (150-400); RDW Coefficient Variation 14.4 % (11.7-14.2); RDW Standard Deviation 48.6 fL (35.1-46.3); Red Blood Cell Count 2.24 M/mm3 (3.80-5.20); White Blood Cell Count 4.48 K/mm3 (4.00-11.30)
[2022-01-19 08:27] LABS: Albumin, Blood 2.1 g/dL (3.4-5.0); Albumin/Globulin Ratio 0.7 (0.8-1.8); Bilirubin, Total 0.4 mg/dL (0.1-1.0); Bun/Creatinine Ratio 19.3 (12.0-20.0); Calcium, Blood 7.5 mg/dL (8.5-10.1); Creatinine, Blood 2.33 mg/dL (0.40-1.00); Globulin, Blood 3.1 g/dL (2.2-4.0); Potassium, Blood 4.1 mmol/L (3.5-5.5); Total Protein, Blood 5.2 g/dL (6.4-8.2)
[2022-01-19 13:45] LABS: Bun/Creatinine Ratio 19.5 (12.0-20.0); Calcium, Blood 7.8 mg/dL (8.5-10.1); Creatinine, Blood 2.26 mg/dL (0.40-1.00); Potassium, Blood 4.1 mmol/L (3.5-5.5)
[2022-01-19 13:51] LABS: Albumin, Blood 2.2 g/dL (3.4-5.0); Anion Gap 12 mmol/L (6-16); Blood Urea Nitrogen 44 mg/dL (8-24); Bun/Creatinine Ratio 19.4 (12.0-20.0); CO2, Blood 23 mmol/L (21-32); Calcium, Blood 7.7 mg/dL (8.5-10.1); Chloride, Blood 88 mmol/L (98-108); Creatinine, Blood 2.27 mg/dL (0.40-1.00); Glomerular Filtration Rate 23 (60-); Glucose, Blood 163 mg/dL (70-99); Phosphorus, Blood 3.6 mg/dL (2.5-4.9); Potassium, Blood 4.1 mmol/L (3.5-5.5); Sodium, Blood 123 mmol/L (136-145); Uric Acid, Blood 7.7 mg/dL (2.6-6.0)
[2022-01-19 13:59] LABS: Osmolality, Serum 264 mos/KG (275-300)
--- NOTE | 2022-01-19 15:49 | NUR ---
CALLED DR DEMPSEY- PT BP 90/45 ON RECHECK AFTER ALBUMIN INFUSION. OK TO GIVE IV BUMEX NOW. NO PARAMETERS ON MEDICATION. APPROVES OF THIS DOSE.
--- NOTE | 2022-01-19 20:17 | NUR ---
SHIFT SUMMARY- PT ALERT AND ORIENTED TO SELF AND FAMILY SEEMS TO HAVE A POOR OUTLOOK ON HER OWN HEALTH CARE NEEDS. PT ASKED TO GO HOME SEVERAL TIMES THIS SHIFT, HER SPOUSE AND THIS RN EXPLAINED THAT SHE NEEDS TO BE HERE TO GET BETTER AND THAT SEEMED TO BE A GOOD ENOUGH EXPLANATION, THEN SHE WOULD ASK AGIN LATER. ATTENDS CHANGED ONCE THIS SHIFT FOR SOME DISCHARGE, PT HAS A CHRONIC SUPRAPUBIC CATHETER. DR DEMPSEY WAS CONSULTED TODAY, PT NOW HAS BID IV BUMEX ORDERED. NO HOLD PARAMETERS, CALL DR DEMPSEY IF CONCERNED ABOUT GIVING D/T LOW BP. PASSED AL ON IN BEDSIDE REPORT TO NIGHT RN. PT IS IN BED, CALL LIGHT IN RREACH NO S&S OF DISTRESS NOTED AT THIS TIME NIGHT RN ASSUMED CARE.
--- NOTE | 2022-01-19 22:16 | NUR ---
PHYSICIAN COMMUNICATION CONTACTED DR DEMPSEY TO NOTIFY HIM THAT THE PATIENT'S BLOOD PRESSURE WAS 104/52 AND TO ASK IF THIS RN SHOULD HOLD THE PATIENT'S NORVASC AND CARDURA HE WANTED THE PATIENT TO RECEIVE BUMEX. DR DEMPSEY ORDERED FOR THE NORVASC TO BE DISCONTINUED AND TO REDUCE THE DOSE OF CARDURA TO 2 MG AND HOLD IF SBP IS UNDER 140.
[2022-01-20 05:42] LABS: Hematocrit 19.2 % (33.0-51.0); Hemoglobin 6.7 g/dL (11.5-16.0); Mean Corpuscular HGB 32.2 pg (26.0-34.0); Mean Corpuscular HGB Conc 34.9 g/dL (31.5-36.5); Mean Corpuscular Volume 92 fL (80-100); Mean Platelet Volume 10.3 fL (9.1-12.4); Platelet Count 174 K/mm3 (150-400); RDW Coefficient Variation 14.5 % (11.7-14.2); RDW Standard Deviation 49.1 fL (35.1-46.3); Red Blood Cell Count 2.08 M/mm3 (3.80-5.20); White Blood Cell Count 4.61 K/mm3 (4.00-11.30)
[2022-01-20 06:14] LABS: Albumin, Blood 2.4 g/dL (3.4-5.0); Albumin/Globulin Ratio 0.8 (0.8-1.8); Bilirubin, Total 0.5 mg/dL (0.1-1.0); Bun/Creatinine Ratio 18.8 (12.0-20.0); Creatinine, Blood 2.29 mg/dL (0.40-1.00); Globulin, Blood 2.9 g/dL (2.2-4.0); Magnesium, Blood 1.7 mg/dL (1.6-2.4); Phosphorus, Blood 3.5 mg/dL (2.5-4.9); Potassium, Blood 3.7 mmol/L (3.5-5.5); Total Protein, Blood 5.3 g/dL (6.4-8.2)
--- NOTE | 2022-01-20 06:22 | NUR ---
SHIFT SUMMARY PATIENT ALERT AND ORIENTED. HAD NO COMPLAINTS OF PAIN OR SHORTNESS OF BREATH. NO ACUTE ISSUES NOTED OVERNIGHT. CALL LIGHT WITHIN REACH. REPORT GIVEN TO ONCOMING RN.
[2022-01-20 14:57] LABS: Protein, Urine Quantitative 14.1 mg/dL (0.0-11.9)
--- NOTE | 2022-01-20 15:16 | NUR ---
CALLED JANIE CHAVEZ PT C/O HAVING A HARD TIME BREATHING AFTER TRANSFUSION WAS COMPLETED, AUDIBLE WHEEZES HEARD WITH RESPIRATIONS. PT WAS CURRENTLY RECIEVING IV BUMEX AND IV ALBUMIN WAS BEING PREPARED. CALLER RT TO THE BEDSIDE TO ASSIST. PT HR ON TELE HAS BEEN TOUCHING THE 130'S MORE FREQUENTLY WHEN COMPARED TO YESTERDAY. PT DID NOT RECIEVE CARDIZIEM OR CARDURA THIS AM DUE TO VS OUTSIDE OF PARAMETERS. RECIEVED OK TO GIVE THIS AMS DOSE OF CARDIZIEM NOW AND ALBUTEROL NEB TREATMENTS Q6. RT INFORMED OF THE NEW MED ORDER.
[2022-01-20 17:32] LABS: Hematocrit 22.8 % (33.0-51.0); Hemoglobin 8.1 g/dL (11.5-16.0); Mean Corpuscular HGB Conc 35.5 g/dL (31.5-36.5); Mean Corpuscular Volume 90 fL (80-100); Platelet Count 184 K/mm3 (150-400); RDW Standard Deviation 50.4 fL (35.1-46.3); Red Blood Cell Count 2.53 M/mm3 (3.80-5.20); White Blood Cell Count 6.81 K/mm3 (4.00-11.30)
[2022-01-20 17:37] LABS: Bun/Creatinine Ratio 20.5 (12.0-20.0); Calcium, Blood 8.8 mg/dL (8.5-10.1); Creatinine, Blood 2.24 mg/dL (0.40-1.00); Potassium, Blood 3.7 mmol/L (3.5-5.5)
--- NOTE | 2022-01-20 18:02 | NUR ---
CALLED DR GRAYSON PT RECIEVED IV BUMEX, IV ALBUMIN AND NOW IS RECIEVING SOME IV LASIX. CHEST XR ORDERED. PT IS IN VISIBLE DISTRESS WORK OF BREATHING HAS INCREASED HR NOW TACHY TOUCHING THE 150'S. RECIEVED A NOW DOSE OF 5MG IV METOPROLOL. PT NEEDS HAVE INCREASED GREATLY, IN-HOUSE TRANSFER TO PCU ORDERED FOR CLOSER MONITORING.
--- NOTE | 2022-01-20 18:05 | NUR ---
TRANSFER NOTE- PT TRANSFERED TO PCU 15 AFTER TELEPHONE REPORT COMPLETED. PT HR REDUCED TO THE 100-110'S PER TELE. WOB HAS CONTINUED, RESP RATE 24 ON LAST VITALS, PT ON 2.5L O2 VIA NC. PT MEDS HELD FOR CLINICAL JUDGEMENT AT THIS TIME DR CHAVEZ AWARE.
--- NOTE | 2022-01-20 18:06 | NUR ---
1744 TO FLOOR FROM MEDICAL FLOOR 313, REPORT FROM REJI Dewitt RN, PO MEDICATIONS HELD FOR SOB AND RESPIRATIONS, AT BEDSIDE, LS CRACKLES AUDITABLE WITH OUT SCOPE, WEAK COUGH, CALL LIGHT WITH IN REACH
[2022-01-21 04:29] LABS: Hematocrit 20.2 % (33.0-51.0); Hemoglobin 7.1 g/dL (11.5-16.0)
[2022-01-21 04:50] LABS: Albumin, Blood 2.6 g/dL (3.4-5.0); Anion Gap 11 mmol/L (6-16); Blood Urea Nitrogen 49 mg/dL (8-24); Bun/Creatinine Ratio 21.9 (12.0-20.0); CO2, Blood 24 mmol/L (21-32); Calcium, Blood 8.1 mg/dL (8.5-10.1); Chloride, Blood 88 mmol/L (98-108); Creatinine, Blood 2.24 mg/dL (0.40-1.00); Glomerular Filtration Rate 24 (60-); Glucose, Blood 179 mg/dL (70-99); Magnesium, Blood 1.8 mg/dL (1.6-2.4); Phosphorus, Blood 4.1 mg/dL (2.5-4.9); Potassium, Blood 3.5 mmol/L (3.5-5.5); Sodium, Blood 123 mmol/L (136-145)
--- NOTE | 2022-01-21 05:10 | NUR ---
DR CAMPBELL NOTIFIED OF PT HEMOGLOBIN AND HEMATOCRIT
--- NOTE | 2022-01-21 06:32 | NUR ---
SHIFT SUMMERY PT RESP STATUS HAS IMPROVED OVERNIGHT. HER LUNG SOUNDS HAVE IMPROVED, CRACKLES HAVE LESSENED SIGNIFICANTLY AND PT DIURESED WELL. BP HAVE BEEN SOFT BUT MAP HAS REMAINED >65. PT CONTINUES TO BE IN AFIB ON THE WHIPPED TOPPING FINISHER. OXYGEN SATURATIONS ARE >90% ON NC. PT SUPRAPUBIC CATHETER IS INTACT AND DRAINING YELLOW URINE. SHE HAS HAD NO COMPLAINTS OF PAIN AND HAS BEEN AFEBRILE. SHE IS ALERT AND ORIENTED X4, HOWEVER HER SPEECH IS SOMEWHAT SLOW DUE TO A CVA IN THE PAST.
[2022-01-21 09:16] LABS: Hematocrit 21.2 % (33.0-51.0); Hemoglobin 7.4 g/dL (11.5-16.0)
--- NOTE | 2022-01-21 10:42 | NUR ---
CARE ASSUMPTION THIS RN ASSUMED CARE AT 0700. VSS. SPO2 >90% ON 2.5L NC. TELE AFIB 110S. PATIENT IS ALERT AND OREINTED X4. PERRLA. NEURO INTACT. PATIENT REPORTS NO PAIN. PATIENT REPORTS NO CHEST PAIN/PRESSURE. STRONG RADIAL PULSES, FAINT PEDIS PULSE. +4 EDEMA BILATERAL LOWER EXTREMITIES. PBCS IN PLACE FOR PREVENTION OF BLOOD CLOTS. PATIENT HAS SHORTNESS OF BREATH WITH EXERTION. LUNG SOUNDS UPPER LOBES COARSE, AND LOWER LOBES DIM WITH CRACKLES AND RALES. ABD IS NONTENDER AND ACTIVE. PATIENT HAS A PRESSURE ULCER TO LEFT BUTTOCKS. SEE SHIFT ASSESSMENT FOR FURTHER DETAILS. WHEN REPOSITIONING PATIENT, PATIENT BOTTOM WAS BLOODY. THIS RN HAD DELINQUENT TAX COLLECTOR ASSISTANT CONCHA COME IN TO ASSIST WITH THE HELP OF TWO CNAS. PATIENT WOUND CLEANED AND NEW DRESSING APPLIED. PATIENT HAS A PRESSURE ULCER, STAGE 3, ON THE LEFT BUTTOCKS. OOZING SERIOSANGIOUS, AND APPEARS TO HAVE ESCHAR. FOUL SMELL BEFORE AND AFTER CLEANING. THERE IS A PICTURE IN THE CHART. THIS RN DISCUSSED IT WITH MD GRAYSON AND PLACED A INPATIENT WOUND CONSULT. PLAN OF CARE UP TO DATE AND EDUCATED THE PATIENT ON PLAN. AWAITING FOR ECHO TO BE DONE. PATIENT HAS IV LASIX INFUSING CURRENTLY, INFUSING AT A SLOWER RATE DUE TO PATIENT BP BEING ON THE SOFT SIDE. HAVING BP CYCLE EVERY 15 MINS. WITH REPOSITIONING PATIENT BECOMES SHORT OF BREATH. PATIENT WAS USING ACCESSORY MUSCLES AND HAD AUDIBLE EXPIRATORY WHEEZYS. THIS EASED ONCE THE PATIENT WAS BACK ON HER BACK SITTING UP. THIS RN CALLED RESPIRATORY CARE. PATIENT REFUSED A BREATHING TREATMENT. PATIENT AT BEDSIDE CURRENTLY AND INFORMED OF PLAN OF CARE. CALL LIGHT WITHIN REACH, AND PATIENT USES CALL LIGHT APPROPRIATELY. BED IN LOWEST POSITION. WILL CONTINUE TO MONITOR AND PROVIDE CARE.
--- NOTE | 2022-01-21 12:31 | NUR ---
UPDATE THIS RN CALLED MD GRAYSON DUE TO PATIENT WANTING THE PATIENT TO BE STARTED BACK ON INSULIN. THIS RN EDUCATED THE PATIENT AND THAT SHE HASN'T BEEN ON IT DUE TO BEING HYPOGLYCEMIC, NAUSEA AND VOMITTING, AND POOR INTAKE. THEY VERABLIZED UNDERSTANDING. PATIENT WILL BE STARTED ON A LOW SLIDING SCALE THIS EVENING. AC&HS CBGS.
[2022-01-21 14:15] LABS: Potassium, Blood 3.6 mmol/L (3.5-5.5)
--- NOTE | 2022-01-21 16:46 | NUR ---
UPDATE PATIENT ASKING FOR A DIFFERENT ROOM SINCE THIS CURRENT ONE DOESN'T HAVE A LIFT. THIS RN INFORMED THE PATIENT THAT UNFORUATELY WE DO NOT HAVE ANY LIFT ROOMS AVAILABLE BUT WILL INFORM HER CLINICAL PSYCHOLOGIST LICENSED SO NEXT TIME A ROOM BECOMES AVAILABLE THAT HAS A LIFT THAT WE WILL SWITCH ROOMS, SO THAT WE ARE ABLE TO GET HER UP OUT OF BED. STATED "ITS JUST A MESS AFTER MESS HERE". THIS RN USED THERAPUETIC COMMUNICATION AND ASKED THE TO ELEBORATE. STATED "HER REACTION TO THE BLOOD AND NOW NOT HAVING A LIFT IN THE ROOM". THIS RN EDUCATED THE PATIENT AND ON BLOOD REACTIONS, AND INFORMED HIM OF THE STEPS WE ARE TAKING TO ENSURE THAT HER RESPIRATORY SYSTEM IMPROVES. THIS RN INFORMED THE PATIENT AND THAT I WOULD CONTINUE TO LOOK INTO A LIFT ROOM, AND LOOK TO SEE IF THERE IS A LIFT AVAILABLE ON A UNIT TO GET HER OUT OF BED. THEY BOTH VERABLIZED UNDERSTANDING.
--- NOTE | 2022-01-21 17:49 | NUR ---
TRANSFER TO PCU ROOM 4/SHIFT SUMMARY THIS RN WAS ABLE TO TRANSFER PATIENT TO PCU ROOM 4, WHICH IS A LIFT ROOM. DURING TRANSFER STATES "THIS IS HER FOURTH ROOM NOW". THIS RN PROVIDED ENCOURAGEMENT THAT NOW SHE WILL BE IN A LIFT ROOM, SO ABLE TO GET HER OUT OF BED AND ABLITITY TO USE THE BEDSIDE COMODE. PATIENT IN PCU ROOM 4. IN NO DISTRESS. VSS. IV WAS BLEEDING SO THIS RN PULLED THE IV. AWAITING A POWERGLIDE TO BE PLACED. NO ACUTE CHANGES THIS SHIFT. SEE PERVIOUS NOTES. PERSAUD CATH DRIANING WITH GRAVITY, GOOD OUTPUT, SEE I&OS SECTION. REPOSITIONING EVERY TWO HOURS NEEDED. CALL LIGHT WITHIN REACH AND BED IN LOWEST POSITION.
--- NOTE | 2022-01-21 20:04 | NUR ---
CALLED MACHINE SPLITTER SHILPA REGARDING PT'S HR SUSTAINING ABOVE 110 INTO 120'S. BP IS >120 SYSTOLIC. ORDER TO GIVE ONE TIME HARSH SMITH, ENTERED.
--- NOTE | 2022-01-21 22:30 | NUR ---
CALLED DR HA REGARDING PT REPORTING "CAN'T BREATHE." SHE RECIEVED BREATHING TREATMENT AND LUNGS WHERE COURSE AND CRACKLY, ON 8L NC. SHE IS TO VERIFY WITH PHARM AND CALL BACK.
--- NOTE | 2022-01-21 23:29 | NUR ---
PABLO HA REGARDING LOW BLOOD PRESSURES. ORDER OF MIDADRINE 5MG TID OBTAINED AND ENTERED.
--- NOTE | 2022-01-22 02:32 | NUR ---
PT WHEEZY CALLING OUT "CAN'T BREATH." SATS 88-90%, O2 INCREASED TO 10L. RESP THERAPY CALLED FOR TREATMENT.
[2022-01-22 03:52] LABS: Hemoglobin 6.1 g/dL (11.5-16.0)
[2022-01-22 03:59] LABS: Hematocrit 17.3 % (33.0-51.0)
[2022-01-22 04:06] LABS: Albumin, Blood 2.8 g/dL (3.4-5.0); Anion Gap 13 mmol/L (6-16); Blood Urea Nitrogen 62 mg/dL (8-24); Bun/Creatinine Ratio 25.8 (12.0-20.0); CO2, Blood 25 mmol/L (21-32); Calcium, Blood 8.5 mg/dL (8.5-10.1); Chloride, Blood 88 mmol/L (98-108); Glomerular Filtration Rate 22 (60-); Glucose, Blood 223 mg/dL (70-99); Magnesium, Blood 1.9 mg/dL (1.6-2.4); Phosphorus, Blood 3.9 mg/dL (2.5-4.9); Potassium, Blood 3.4 mmol/L (3.5-5.5); Sodium, Blood 126 mmol/L (136-145)
--- NOTE | 2022-01-22 05:15 | NUR ---
PT NOW ON BIPAP 10L.
--- NOTE | 2022-01-22 05:26 | NUR ---
CALLED DR ROSINA DEMPSEY REGARDING PT CRITICAL HCT 17.3 AND HGB OF 6.1. ORDER OF 20 KCL IV AND 1 UNIT OF PRBC WAS OBTAINED AND ENTERED.
--- NOTE | 2022-01-22 05:28 | NUR ---
CALLED BACK DR ROSINA DEMPSEY REGARDING PT CONCERNS OF REACTION TO PREVIOUS TRANSFUSION OF DYSPNEA, WHEEZING WITH BILATERAL CRACKLES. PT AND (PHONE) WERE EDUCATED. DR ROSINA DEMPSEY ASKED TO HOLD OF ON TRANSFUSION.
--- NOTE | 2022-01-22 05:50 | NUR ---
DR ROSINA DEMPSEY WAS INTO THIS PT. HE TOLD THIS NURSE NOT TO TRANSFUSE PRBC. THAT HOSPITALIST WILL LOOK INTO TRANSFUSION AND REACTION.
--- NOTE | 2022-01-22 05:59 | NUR ---
CALLED DR Miriam HA REGARDING PT HGB AND REGARDING NO PRBC TRANSFUSION TO PT. EXPLAINED TO DR ABOUT COVERSATION WITH DR ROSINA DEMPSEY WELL REACTION PREVIOUS TRANSFUSION HAD. DR Miriam HWANG ADVISED THIS NURSE TO TALK TO DAY SHIFT TEAM AND DAY HOSPITALIST REGARDING HGB.
--- NOTE | 2022-01-22 06:48 | NUR ---
SHIFT SUMMARY PT IS ALERT AND ORIENTED. PT HAS HAD SEVERAL CHANGES T/O THE NIGHT. SHE WAS VERY SOB WITH COARSE LUNGS, ON 6L NC. WAS GIVEN A BREATHING TREATMENT AND PUT ON LASIX GTT PER DR Bety HA. SHE HAS BEEN SOB STATED "I CAN'T BREATH" T/O THE SHIFT AND WAS UP TO 12L NC WITH NRB OVER AND RT PUT HER ON CPAP WITH 10L BLEED IN THIS AM. HCT WAS CRITICALLY LOW AND HGB WAS LOW WHICH WERE REPORTED TO DR ROSINA DEMPSEY. TRANSUSION OF 1 UNIT PRBC AND KCL WERE ORDERED. I MADE DR Makenzie DEMPSEY AWARE OF PT'S AND SPOUSE'S CONCERN OF PREVIOUS POSSIBLE REACTION TO RBC TRANSFUSION HE VERBALIZED TO THIS NURSE TO HOLD TRANSFUSION AND WAIT FOR DAY HOSPITALIST TO ADDRESS HGB. THIS NURSE THEN CALLED DR Bety HA REGARDING DR DEMPSEY'S ORDERS AND WAS ALSO TOLD TO PASS ON FOR DAY HOSPITALIST TO ADDRESS HGB. BP'S HAVE BEEN SOFT AND HAVE BEEN RECIRCULATING Q30 MINS DUE TO LASIX GTT. CALL LIGHT IS WITHIN REACH. THIS AM CAME AND AND THEY BOTH TALKED ABOUT TRANSFUSION AND DECIDED THEY ARE OKAY WITH [id number].
--- NOTE | 2022-01-22 09:59 | NUR ---
CARE NOTE/MEDICATION ADMINISTRATION NOTE THIS NURSE WAS IN PT ROOM AND WAS GOING TO ADMINISTER 0900 MEDICATIONS BUT TALENT DEVELOPMENT SPECIALIST NEEDED TO PERFORM ECHO, WILL ADMINISTER MEDICATIONS ONCE ECHO IS COMPLETE.
--- NOTE | 2022-01-22 10:45 | NUR ---
Echocardiogram completed.
--- NOTE | 2022-01-22 17:56 | NUR ---
SHIFT SUMMARY PT ALERT AND ORIENTED X 4. SHE IS ABLE TO ANSWER QUESTIONS APPROPRIATELY BUT BECOMES DYSPNEIC WITH MINIMAL EXERTION. SPO2 WILL DROP TO 85-88% WHEN TURNING, DURING ORAL CARE, OR WHEN TALKING. THANG HAS BEEN AT BEDSIDE FOR MAJORITY OF THE SHIFT. PT IS NOW ON BIPAP, PRESSURES 16/8 WITH AN 11L BLEED IN. HR IS 100-110'S AND BP STABLE. SHE HAS DENIED FEELINGS OF CHEST PAIN/PRESSURE, NAUSEA/VOMITTING. LASIX IS INFUSING PER EMAR ORDERS IN [facility] AT [facility]. SUPRAPUBIC CATHETER IS IN PLACE AND DRAINING TO GRAVITY. ENEMA AND SUPPOSITORY GIVEN TODAY WITH NO SUCCESS OF BM BUT PATIENT HAS HAD VERY LITTLE PO INTAKE. SHE DENIES ABD DISCOMFORT. WOUNDS ON BUTTOCKS ARE COVERED WITH MEPILEX DRESSINGS, SEE CHART FOR WOUND PHOTOS. MEPILEX ON LEFT BUTTOCKS CHANGED TODAY, OTHER DRESSINGS WERE DRY/CLEAN/INTACT. Q2 TURNING IMPLIMENTED TO KEEP PT OFF PRESSURE POINTS AND TO PREVENT SKIN BREAKDOWN. 1 UNIT OF PRBC INFUSED AND PT APPEARED TO TOLARATE INFUSION WELL PER VITAL SIGNS AND LUNG SOUND MONITORING. BILAT PAC'S IN PLACE. NO OTHER ACUTE CHANGES NOTED. CALL LIGHT IN REACH.
[2022-01-22 18:32] LABS: Hematocrit 19.6 % (33.0-51.0)
--- NOTE | 2022-01-22 20:24 | NUR ---
CARE ASSUMPTION: PATIENT IN BED WITH LASIX AND NS RUNNING PER EMAR. PATIENT A&O X4 AND PLAYING CANDY CRUSH ON PHONE. BIPAP IN PLACE SATTING >92%. PERSAUD DRAINING TO GRAVITY. TEMP AND HR ELEVATED, BP WNL. PATIENT DENIES N/V, SOB, CHEST PAIN OR OTHER DISCOMFORT.
--- NOTE | 2022-01-23 01:18 | NUR ---
UPDATE: PATIENT'S HR TRENDING 110-120S AND URINE OUTPUT HAS DECREASED. EMPTIED 900 FROM CATHETER ~0100. LASIX RUNNING PER EMAR. PATIENT ASKING WHEN HER ABX IS DUE - UPDATED ON NEW ABX SCHEDULE AND THAT NEXT IS DUE AT 0900. PATIENT HAS SLEPT VERY LITTLE AT THIS TIME. BED LOW WITH CALL LIGHT IN REACH.
--- NOTE | 2022-01-23 03:09 | NUR ---
CALL TO AT THIS TIME. CALL PLACED TO DR. ROSINA DEMPSEY R/T PATIENT'S BP OF 84/61 (MAP 69). DR. DEMPSEY SAID BP WAS "FINE" AND TO KEEP THE LASIX INFUSION AT 20 MLS/HR.
[2022-01-23 04:57] LABS: Hematocrit 18.5 % (33.0-51.0); Hemoglobin 6.6 g/dL (11.5-16.0); Mean Corpuscular HGB 32.7 pg (26.0-34.0); Mean Corpuscular HGB Conc 35.7 g/dL (31.5-36.5); Mean Corpuscular Volume 92 fL (80-100); Mean Platelet Volume 10.4 fL (9.1-12.4); Platelet Count 167 K/mm3 (150-400); RDW Coefficient Variation 15.3 % (11.7-14.2); RDW Standard Deviation 50.8 fL (35.1-46.3); Red Blood Cell Count 2.02 M/mm3 (3.80-5.20); White Blood Cell Count 8.17 K/mm3 (4.00-11.30)
[2022-01-23 05:15] LABS: Albumin, Blood 3.1 g/dL (3.4-5.0); Albumin/Globulin Ratio 1.1 (0.8-1.8); Bilirubin, Total 1.1 mg/dL (0.1-1.0); Bun/Creatinine Ratio 28.9 (12.0-20.0); Calcium, Blood 9.1 mg/dL (8.5-10.1); Creatinine, Blood 2.49 mg/dL (0.40-1.00); Globulin, Blood 2.8 g/dL (2.2-4.0); Magnesium, Blood 1.9 mg/dL (1.6-2.4); Phosphorus, Blood 4.1 mg/dL (2.5-4.9); Total Protein, Blood 5.9 g/dL (6.4-8.2)
--- NOTE | 2022-01-23 05:52 | NUR ---
SHIFT SUMMARY: PATIENT AFEBRILE, SOFT BPS EARLY AM, HR 100-120S, AND O2 SAT >92% ON BIPAP 10L. PATIENT DENIES SOB, CHEST PAIN, OR OTHER DISCOMFORT. A&O X4, SLOW TO RESPOND AT TIMES. TURNED TOLERATED. MEDICATED PER EMAR. PILLS WHOLE IN APPLESAUCE FOLLOWED WITH WATER. DR. Makenzie DEMPSEY MADE AWARE OF LOW BP AND DECREASED URINE OUTPUT - NO NEW ORDERS AT THIS TIME. PERSAUD DRAINING YELLOW URINE TO GRAVITY. BED LOW WITH CALL LIGHT IN REACH. WILL CONTINUE TO MONITOR AND REPORT TO ONCOMING RN.
--- NOTE | 2022-01-23 06:49 | NUR ---
MD UPDATE: DR. DEMPSEY ROUNDED ON PATIENT THIS AM. ORDERS FOR 40 MEQ KCL IV, D/C CONTINUOUS LASIX DRIP AND KEEP BOLUS ODER. IN REGARDS TO HGB 6.6 DR STATED DECISION TO TRANSFUSE OR NOT IS "UP TO THE DAY RN/." WILL PASS ON TO ONCOMING RN. PATIENT CURRENTLY ON 10L HI-FLOW NC.
[2022-01-23 10:40] LABS: Stool Occult Blood Guaiac 1 Pos (Neg)
--- NOTE | 2022-01-23 11:10 | NUR ---
AM NOTES: PT ALERT AND ORIENTED MOSTLY WEAK AND LETHARGIC, ON 9L OG O2 VIA HI SUMMER NASAL CANNULA SATS KEPT ABOVE 90%, HRR REMAINS AFIB 110-130'S, BP SYSTOLIC 90-120'S MAP 50-60'S, AFEBRILE. PT'S CARDIZEM WAS HELD PER PARAMETERS AND MD IS AWARE PT WAS ALSO GIVE LASIX BOLUS, CRACKLES STILL PRESENT ON BOTH LUNGS PER AUSCULTATION, C/O SOB WITH EXERTION, HGB WAS 6.6 CALLED TO PROVIDER 2U PRBC WAS ORDERED ALSO MADE AWARE OF PT'S LOOSE BLACK BROWN STOOL XARELTO WAS HELD STOOL SENT TO LAB FOR OCCULT CAME BACK POSITIVE. BLOOD TRANSFUSION STARTED FIRST BAG INFUSING AT THE MOMENT, AT BEDSIDE WAS GIVEN UPDATE ABOUT PLAN OF CARE. PT HAS BIPAP MASK ON RIGHT NOW PT WAS RESTING. REPOSITONED IN BED FOR COMFORT, PRESSURE ULCER DRESSINGS WAS CHANGE, SP CATHETER DRAINING PATENT, GAUZE DRESSING WAS CHANGED WELL. PT WITH POOR APPETITE [facility]. PT ABLE TO MAKE NEEDS KNOWN, CALL LIGHTS WITHIN REACH WILL MONITOR
[2022-01-23 16:34] LABS: PCO2 Arterial 38.9 mmHg (35-45); PO2 Arterial 62.5 mmHg (80-100); pH Blood Arterial 7.45 (7.35-7.45)
[2022-01-23 18:19] LABS: Hematocrit 23.9 % (33.0-51.0); Hemoglobin 8.4 g/dL (11.5-16.0)
--- NOTE | 2022-01-23 18:57 | NUR ---
PT SUMMARY: SEE AM NOTE: PT RECEIVED 2U PRBC TODAY HGB WENT UP TO 8.4, ABG WAS DONE, REVIEWED WITH THE PROVIDER. BP SYSTOLIC STEAYED ON THE 120'S AFTER TRANSFUSION HRR RANGING 100-115'S, TITRATED DOWN TO 8L OF O2 VIA NASAL CANNULA, ALTERNATING BIPAP. PT HAS HAD 3 EPISODES OF LOOSE BLACK BROWN STOOL STOOL OCCULT TEST CAME BACK POSITIVE GI CONSULTED DR UW AND SAW PT BEFORE THE END OF THE SHIFT, PLAN TO DO ENDOSCOPY IN AM. HAS BEEN AT THE BEDSIDE ALL SHIFT, WAS ABLE TO TALK TO THE PROVIDERS ABOUT PLAN OF CARE. NEW PHOTOS FOR PRESSURE WOUND TAKEN WOUND CONSULTATION IN PLACE, DRESSINGS WERE CHANGED, SUPRAPUBIC CATHETER INTACT DRAINING PATENT VIA GRAVITY HAD 1700MLS OUT FOR THE SHIFT, STILL ON LASIX BOLUS 160MG. SCDS ON ALL SHIFT. NO OTHER ISSUES REPORTED, PT CALLING APPROPRIATELY REPOSITIONED IN BED FOR COMFORT WILL REPORT TO ONCOMING SHIFT
--- NOTE | 2022-01-23 20:05 | NUR ---
PATIENT ARRIVED TO ICU 8 POST RAPID RESPONSE FOR PATIENT BIOX LOW AND AFIB RVR. RT AND DOCTOR RADHA AND DOCTOR DILCIA AT BEDSIDE. PATIENT LEFT ON BARIATRIC BED AND PLACED ON ICU MONITORS. ARRIVED WITH BIPAP IN PLACE, OPENS EYES NO OTHER RESPONSE TO STIMULI. SUPRAPUBIC CATH IN PLACE DRAINING HAZY YELLOW URINE.
--- NOTE | 2022-01-23 21:30 | NUR ---
ASSUMPTION OF CARE/TRANSFER OF CARE: DR. KAHN WAS UPDATING OFFGOING RN ON PLANS FOR GI SCOPE TOMORROW AT BEGINNING OF SHIFT. SHELDON AMAYA AND THIS RN GAVE BEDSIDE REPORT AFTER RT HAD LEFT PATIENT'S ROOM. PATIENT A&O X4 AND HAD POOR PLETH ON SPO2 MONITOR. REMOVED COBAN TAPE ON PATIENT'S WRIST AND O2 SATS WERE >92%. FINISHED BEDSIDE REPORT AND LEFT ROOM AT 1920. RETURNED TO PATIENT ROOM AT 1930 O2 ALARMS WERE RINGING. PATIENT PRESENTED CLINICALLY SOUND: FOLLOWED DIRECTIONS, RESPONDED APPROPRIATELY, DENIED SOB OR OTHER DISCOMFORT, AND WAS PINK AND WARM. TRIED DIFFERENT MONITORS AND AREAS FOR BETTER O2 PLETH AND BEGAN GETTING O2 READINGS <65%. CALLED [employer] ENGINEER CHINO WHO BROUGHT PORTABLE MONITOR AND ALSO CALLED RT WHO WAS UNAVAILABLE AT THE TIME. PORTABLE READING HAD GOOD PLETH AND O2 50% READING. FORESTRY WORKER CALLED AT 1950 - SEE FORESTRY WORKER INTERVENTION DOCUMENTATION. PATIENT TRANSFERRED TO ICU 08 TO BE INTUBATED. REPORT GIVEN TO CHICKEN DRESSER VIVIANE. FAMILY WAS CALLED AND MESSAGE LEFT TO CALL PCU FOR UPDATE.
[2022-01-23 21:41] LABS: PCO2 Arterial 45.3 mmHg (35-45); PO2 Arterial 78.6 mmHg (80-100); pH Blood Arterial 7.39 (7.35-7.45)
--- NOTE | 2022-01-23 22:00 | NUR ---
2014 PATIENT INTUBATED WITH 7.5 TUBE 25 AT TEETH, SUCTIONING BRIGHT RED SECRETIONS FROM AIRWAY. PATIENT PREMEDICATED WITH ETOMIDATE FROM RSI KIT. 2029 OG PLACED WITHOUT DIFFICULTY AND PLACED TO LIS DRAINING LIGHT BROWN/KUNZ LIQUID. 2099 PATIENT INCONT OF LARGE BLACK/BROWN STRONG SMELLING STOOL. COCCYX AND BUTTOCK DRESSING CHANGED. PATIENT MORE AWAKE AND REACHING TO ETT. BILAT WRIST RESTRAINTS IN PLACE AND PROPOFOL STARTED AT 30 MCG FOR SEDATION. PLAN TO HOLD PO MEDICATIONS AT THIS TIME.
[2022-01-23 23:01] LABS: pH Blood Arterial 7.17 (7.35-7.45)
[2022-01-23 23:02] LABS: PCO2 Arterial 80.1 mmHg (35-45); PO2 Arterial 36.9 mmHg (80-100)
[2022-01-24 05:25] LABS: BASOPHILS ABSOLUTE AUTO 0.01 K/mm3 (0.00-0.23); BASOPHILS PERCENT AUTO 0 % (0-2); EOSINOPHILS PERCENT AUTO 0 % (0-6); Hematocrit 23.5 % (33.0-51.0); Hemoglobin 8.3 g/dL (11.5-16.0); IMMATURE GRAN PERCENT AUTO 1 % (0-1); LYMPHOCYTES ABSOLUTE AUTO 0.28 K/mm3 (0.84-5.20); LYMPHOCYTES PERCENT AUTO 3 % (21-46); MONOCYTES ABSOLUTE AUTO 0.15 K/mm3 (0.16-1.47); MONOCYTES PERCENT AUTO 2 % (4-13); Mean Corpuscular HGB 31.6 pg (26.0-34.0); Mean Corpuscular HGB Conc 35.3 g/dL (31.5-36.5); Mean Corpuscular Volume 89 fL (80-100); Mean Platelet Volume 10.5 fL (9.1-12.4); NEUTROPHILS ABSOLUTE AUTO 8.37 K/mm3 (1.96-9.15); NEUTROPHILS PERCENT AUTO 94 % (41-73); Platelet Count 173 K/mm3 (150-400); RDW Coefficient Variation 15.8 % (11.7-14.2); RDW Standard Deviation 50.8 fL (35.1-46.3); Red Blood Cell Count 2.63 M/mm3 (3.80-5.20); White Blood Cell Count 8.91 K/mm3 (4.00-11.30)
[2022-01-24 05:50] LABS: Albumin, Blood 2.8 g/dL (3.4-5.0); Anion Gap 13 mmol/L (6-16); Blood Urea Nitrogen 87 mg/dL (8-24); Bun/Creatinine Ratio 33.9 (12.0-20.0); CO2, Blood 26 mmol/L (21-32); Calcium, Blood 8.7 mg/dL (8.5-10.1); Chloride, Blood 90 mmol/L (98-108); Creatinine, Blood 2.57 mg/dL (0.40-1.00); Glomerular Filtration Rate 20 (60-); Glucose, Blood 215 mg/dL (70-99); Phosphorus, Blood 3.8 mg/dL (2.5-4.9); Potassium, Blood 2.8 mmol/L (3.5-5.5); Sodium, Blood 129 mmol/L (136-145)
--- NOTE | 2022-01-24 06:15 | NUR ---
PATIENT REMAINING INTUBATED AND SEDATED WITH PROPOFOL 30 MCG. OPENS EYES SLIGHTLY WITH NOXIOUS STIMULI. VENT AC/VC+ 16, TV 350, PEEP 8, FIO2 40% CONTINUE TO SUCTION BRIGHT RED SECRETIONS VIA ETT. OG REMAINS TO LIS DRAINING LIGHT BROWN/ORANGE BILE. INCONT OF BLACK/BROWN STOOL X2 DURING THE NIGHT. SUPRAPUBIC CATH REMAINS IN PLACE DRAINING YELLOW URINE. DOCTOR KE IN TO SEE PATIENT SEE NEW ORDERS.
--- NOTE | 2022-01-24 07:11 | NUR ---
Received report ree Ferrari Rn. Patient is intubated and sedated. She has 7.5ET and is 25cm at teeth and vent settings of AC/VC+ 16/350/40/8 and sats 95%. She moves extremities and opens eye to noxious stimuli, She has 18ga powerGlide to COREY and is infusing Propofol at 30 mcg/kg/min and NS TKO and is about to get 40 meq K rider. She has OG in place to LIS and has brown bile output. She has moderate bloody secretions from ET doctor aware. She has 18Fr suprapubic cath in place. She has restraints bilateral soft wrist for patient and line safety. She has wound to buttock, see pictures. SCD's in place bilateral LE's
--- NOTE | 2022-01-24 09:49 | NUR ---
AM med infused through OG and then clamped. She responds to noxious stimuli and opens eyes. No chanes to vent or gtt settings. Suprapubic remains patent with moderate amounts of yellow urine will start at 1000. she has had 900 ml's of yellow urine out prior to 24 hr urine. VSS.
[2022-01-24 11:29] LABS: Influenza A, PCR NEGATIVE (NEGATIVE); Influenza B, PCR NEGATIVE (NEGATIVE); Resp Syncytial Virus, PCR NEGATIVE (NEGATIVE); SARS-Cov-2 (COVID-19) PCR, MMC NEGATIVE (NEGATIVE)
--- NOTE | 2022-01-24 11:46 | NUR ---
Patient's at bedside. dr Vela has been in room and new orders written and administered. her vent setting AC/VC+ 16/350/40/8 and sats 96%. propofol at 30 mcg/kg/min and last of 60 meq potassium infusing. 24 hr uring output in ice bucket. VSS. Dr Vela just adjusted PEEP 5 and sats >95. Suprabic cath patent.
--- NOTE | 2022-01-24 13:49 | NUR ---
01/24/22 1349 Giovanni Santiago History, Chart, Medications and Allergies reviewed before start of procedure. MONITOR INTACT WITH CONTINUOUS PULSE OXIMETRY AND INTERMITTENT BP. 3-LEAD EKG REVIEWED WITH PHYSICIAN PRIOR TO START OF PROCEDURE.
--- NOTE | 2022-01-24 15:58 | NUR ---
Patient had EGD with Dr Kraft and started procedure at 1400. Post procedure she had stool in bed and gave bath and changed full linen and redressed buttocks wounds. She continues on Propofol at 30 mcg/kg/min and NS TKO. She has suprapubic cath in placeand output is on ice for 24 hr urine collection. at bedside. Vent settings currently 16/350/30/5 and sats 93%
--- NOTE | 2022-01-24 18:11 | NUR ---
Patient remains sedated and intubated with 7.5 ET and 25cm at teeth. Her vent asettings are AC/VC+ 16/350/30/5 and sats 95%. She is sedated with 30 mcg/kg/min Propofol and fluids NS TKO. She has suprapubic cath that has has 2900 ml yellow urine. Sh has had two pastey stools , 2nd one right now we are going into clean and change linen and gown. She has 18ga PowerGlide COREY infusing above fluids. has been here awhile and went home after Dr Vela gave him update. 100 meq of K was given for 2.8K per tube. She remains A-Fib/Flutter 70's and systolic 113 and MAP > 65.
--- NOTE | 2022-01-24 20:00 | NUR ---
ASSESSMENT/ASSUMED CARE PT INTUBATED AND ON [facility] VENT. GRIMACES TO PAINFUL STIMULI. LUNGS CLEAR BUT DECREASED ON VENT. VENT SETTINGS AC/VC 16/350/5/30%. SUCTIONED LARGE AMT BLOODY SECRECTIONS AFTER TURNING. HEART RATE IRREGULAR-AFIB 70-80'S. BP STABLE. GENERAL EDEMA. BT+HYPOACTIVE, OG CLAMPED. INCONT SMALL AMT PASTY BROWN STOOL. SUPRAPUBIC CATH WITH YELLOW URINE DRAINING. POWER GLIDE TO RIGHT UPPER ARM WITH PROPOFOL AT 30 MCQ/KG/MIN, SITE CLEAR. IV 20G TO LEFT FOREARM/AC WITH NS AT 20 ML/HR, SITE CLEAR. PT REPOSITIONED WITH HOB UP. BILAT SOFT WRIST RESTRAINTS ON. DRSG TO LEFT BUTTOCK AND COCCYX CHANGED. SEE PHOTOS.
--- NOTE | 2022-01-24 22:27 | NUR ---
DR DEMPSEY NOTIFIED REGARDING POTASSIUM 3.8. NO NEW ORDERS
[2022-01-25 03:45] LABS: BASOPHILS PERCENT AUTO 0 % (0-2); EOSINOPHILS PERCENT AUTO 0 % (0-6); Hematocrit 24.4 % (33.0-51.0); Hemoglobin 8.4 g/dL (11.5-16.0); IMMATURE GRAN ABSOLUTE AUTO 0.12 K/mm3 (0.00-0.10); IMMATURE GRAN PERCENT AUTO 2 % (0-1); LYMPHOCYTES ABSOLUTE AUTO 0.36 K/mm3 (0.84-5.20); LYMPHOCYTES PERCENT AUTO 6 % (21-46); MONOCYTES ABSOLUTE AUTO 0.37 K/mm3 (0.16-1.47); MONOCYTES PERCENT AUTO 6 % (4-13); Mean Corpuscular HGB 30.7 pg (26.0-34.0); Mean Corpuscular HGB Conc 34.4 g/dL (31.5-36.5); Mean Corpuscular Volume 89 fL (80-100); Mean Platelet Volume 10.5 fL (9.1-12.4); NEUTROPHILS ABSOLUTE AUTO 5.37 K/mm3 (1.96-9.15); NEUTROPHILS PERCENT AUTO 86 % (41-73); Platelet Count 201 K/mm3 (150-400); RDW Coefficient Variation 15.5 % (11.7-14.2); RDW Standard Deviation 50.1 fL (35.1-46.3); Red Blood Cell Count 2.74 M/mm3 (3.80-5.20); White Blood Cell Count 6.22 K/mm3 (4.00-11.30)
[2022-01-25 04:00] LABS: Albumin, Blood 2.6 g/dL (3.4-5.0); Anion Gap 12 mmol/L (6-16); Blood Urea Nitrogen 97 mg/dL (8-24); Bun/Creatinine Ratio 39.1 (12.0-20.0); CO2, Blood 28 mmol/L (21-32); Calcium, Blood 9.1 mg/dL (8.5-10.1); Chloride, Blood 91 mmol/L (98-108); Creatinine, Blood 2.48 mg/dL (0.40-1.00); Glomerular Filtration Rate 21 (60-); Glucose, Blood 253 mg/dL (70-99); Potassium, Blood 3.4 mmol/L (3.5-5.5); Sodium, Blood 131 mmol/L (136-145)
--- NOTE | 2022-01-25 06:23 | NUR ---
SHIFT SUMMARY [facility]. VENT SETTINGS AC/VC 16/350/5/30%. LUNGS CLEAR BUT DECREASED. SUCTIONING BLOODY SECRECTIONS VIA ET TUBE. HEART RATE IRREGULAR-AFIB IN THE 70-80'S. BP STABLE. PT INCONT OF BROWN STOOL. OG CLAMPED. POWER GLIDE TO RIGHT UPPER ARM WITH PROPOFOL AT 30 MCQ/KG/MIN. PERSAUD CATH WITH YELLOW URINE DRAINING. 24 HR URINE IN PROGRESS. PT TURNED Q2HR. DRSG TO LEFT BUTTOCKS AND COCCYX CHANGED DURING THE NIGHT. BILAT SOFT WRIST RESTRAINTS ON. REPORT TO ON COMING NURSE
--- NOTE | 2022-01-25 07:21 | NUR ---
ASSUME CARE: I have assumed care of this patient.
[2022-01-25 08:50] LABS: Albumin, Blood 2.8 g/dL (3.4-5.0); Anion Gap 12 mmol/L (6-16); Blood Urea Nitrogen 99 mg/dL (8-24); Bun/Creatinine Ratio 40.7 (12.0-20.0); CO2, Blood 27 mmol/L (21-32); Calcium, Blood 9.2 mg/dL (8.5-10.1); Chloride, Blood 91 mmol/L (98-108); Creatinine, Blood 2.43 mg/dL (0.40-1.00); Glomerular Filtration Rate 21 (60-); Glucose, Blood 258 mg/dL (70-99); Phosphorus, Blood 3.9 mg/dL (2.5-4.9); Potassium, Blood 3.6 mmol/L (3.5-5.5); Sodium, Blood 130 mmol/L (136-145)
[2022-01-25 10:46] LABS: Protein, Urine Quantitative 10.5 mg/dL (0.0-11.9)
--- NOTE | 2022-01-25 18:27 | NUR ---
SHIFT SUMMARY: NEURO: pt nods "yes" and "no" appropriately to questions. she moves her LUE purposfully and all other extremities with spontaneous movement. Propofol currently running at 10 and pt nods head that she is comfortable. RESPIRATORY: vent transitioned to pressure support of 10 after rounds this morning. FiO2 @ 40%. pt has been tolerating this well. CARDIAC: afib on monitor. cardizem held this morning for SBP <120. One PRN dose of midodrine given for hypotension. pt responded well to this. GI/: total of 2250 mls out of suprapubic galaviz. Total of 100 mEqs KCl given today (80 per tube, 20 IV). one liquid BM today. rectal tube was placed, however pt does not have enough rectal tone to keep balloon in place. SKIN: wounds on buttocks cleansed with water and dressed with pink foam dressings. suprapubic galaviz cleaned with galaviz cleansing cloths and dressed with drain sponge. PSYCH/SOCIAL: pt's spouse at bedside and supportive throughout the day.
--- NOTE | 2022-01-25 19:30 | NUR ---
ASSUMPTION OF CARE PT IS VENTILATED VIA ETT ON SPONTANEOUS SETTINGS AT THIS TIME. SHE IS TOLERATING WELL. PROPOFOL INFUSING AT 15MCGS/MIN. PT WILL OPEN HER EYES AND NOD HEAD APPROPRIATLY TO QUESTIONS. VSS ARE STABLE AT THIS TIME. NO S/S OF ACUTE DISTRESS NOTED AT TIME OF ASSUMPTION OF CARE.
[2022-01-26 04:05] LABS: BASOPHILS ABSOLUTE AUTO 0.01 K/mm3 (0.00-0.23); BASOPHILS PERCENT AUTO 0 % (0-2); EOSINOPHILS ABSOLUTE AUTO 0.07 K/mm3 (0.00-0.68); EOSINOPHILS PERCENT AUTO 1 % (0-6); Hematocrit 25.4 % (33.0-51.0); Hemoglobin 8.5 g/dL (11.5-16.0); IMMATURE GRAN ABSOLUTE AUTO 0.11 K/mm3 (0.00-0.10); IMMATURE GRAN PERCENT AUTO 1 % (0-1); LYMPHOCYTES ABSOLUTE AUTO 0.64 K/mm3 (0.84-5.20); LYMPHOCYTES PERCENT AUTO 6 % (21-46); MONOCYTES ABSOLUTE AUTO 0.39 K/mm3 (0.16-1.47); MONOCYTES PERCENT AUTO 4 % (4-13); Mean Corpuscular HGB 30.7 pg (26.0-34.0); Mean Corpuscular HGB Conc 33.5 g/dL (31.5-36.5); Mean Corpuscular Volume 92 fL (80-100); Mean Platelet Volume 10.6 fL (9.1-12.4); NEUTROPHILS ABSOLUTE AUTO 8.72 K/mm3 (1.96-9.15); NEUTROPHILS PERCENT AUTO 88 % (41-73); Platelet Count 222 K/mm3 (150-400); RDW Coefficient Variation 15.9 % (11.7-14.2); RDW Standard Deviation 51.2 fL (35.1-46.3); Red Blood Cell Count 2.77 M/mm3 (3.80-5.20); White Blood Cell Count 9.94 K/mm3 (4.00-11.30)
[2022-01-26 04:22] LABS: Albumin, Blood 2.6 g/dL (3.4-5.0); Anion Gap 11 mmol/L (6-16); Blood Urea Nitrogen 102 mg/dL (8-24); Bun/Creatinine Ratio 40.3 (12.0-20.0); CO2, Blood 29 mmol/L (21-32); Calcium, Blood 8.7 mg/dL (8.5-10.1); Chloride, Blood 93 mmol/L (98-108); Creatinine, Blood 2.53 mg/dL (0.40-1.00); Glomerular Filtration Rate 20 (60-); Glucose, Blood 173 mg/dL (70-99); Magnesium, Blood 1.8 mg/dL (1.6-2.4); Phosphorus, Blood 3.1 mg/dL (2.5-4.9); Potassium, Blood 3.8 mmol/L (3.5-5.5); Sodium, Blood 133 mmol/L (136-145)
--- NOTE | 2022-01-26 05:52 | NUR ---
SHIFT SUMMERY PT HAS HAD NO ACUTE CHANGES OVERNIGHT. SHE CONTINUES VENTILATION VIA ETT ON SPONTANEOUS SETTINGS P.SUPP 7/FIO2 35%/PEEP 5. SHE HAS TOLERATED WELL AND OXYGEN SATURATIONS HAVE REMAINED >94% SHE REMAINS IN AFIB ON THE HEALTH RECORD TECHNICIAN W/CONTROLLED RATE 70-80S. BP HAS BEEN W/IN NORMAL LIMITS. SHE HAS HAD 2 BOWEL MOVEMENTS. SHE IS ON 15MCGS/MIN OF PROPOFOL AND WILL WAKE UP WHEN STIMULATED. HER SUPRAPUBIC CATH IS DRAINING YELLOW URINE, BUT DOES LEAK AT TIMES.
--- NOTE | 2022-01-26 07:23 | NUR ---
ASSUME CARE: I have assumed care of this patient.
--- NOTE | 2022-01-26 11:43 | NUR ---
BRONCHOSCOPY PROCEDURE: 11:16 - timeout propofol 50 mg ativan 2 mg rocuronium 50mg 11:19 - bronch in, SpO2 100% 11:22 - SpO2 86%, bronch out 11:23 - peep up to 8 11:25 - 100 mcg phenylephrine given for BP of 74/27, repeat BP 59/55 11:29 - bronch in 11:32 - lavage 11:35 - 100 mcg phenylephrine given for BP 70/48 11:37 - bronch out, procedure complete
[2022-01-26 14:01] LABS: International Normalized Ratio 1.04; Prothrombin Time Results 10.9 Sec (9.7-11.5)
--- NOTE | 2022-01-26 18:20 | NUR ---
SHIFT SUMMARY: bronchoscopy performed at bedside today; sputum sample sent to lab NEURO: currently sedated on 20 of propofol. when propofol paused pt able to open eyes and nod "yes" or "no" to answer question. CARDIAC: two doses of PRN IV metoprolol given for elevated heart rate. BP stable outside of bronch procedure. RESPIRATORY: secretions still with some pink streaking GI/: no further BM. tube feeds started; vhp running at 25ml/hr with 30ml free water flushes q4 hr. Suprapubic with 1400 mls out PSYCH/SOCIAL: at bedside and supportive throughout the day.
[2022-01-27 05:07] LABS: Hematocrit 23.2 % (33.0-51.0); Hemoglobin 8.1 g/dL (11.5-16.0); Mean Corpuscular HGB 32.1 pg (26.0-34.0); Mean Corpuscular HGB Conc 34.9 g/dL (31.5-36.5); Mean Corpuscular Volume 92 fL (80-100); Mean Platelet Volume 10.3 fL (9.1-12.4); Platelet Count 200 K/mm3 (150-400); Red Blood Cell Count 2.52 M/mm3 (3.80-5.20); White Blood Cell Count 9.06 K/mm3 (4.00-11.30)
[2022-01-27 05:43] LABS: Albumin, Blood 2.5 g/dL (3.4-5.0); Anion Gap 11 mmol/L (6-16); Blood Urea Nitrogen 117 mg/dL (8-24); Bun/Creatinine Ratio 46.2 (12.0-20.0); CO2, Blood 30 mmol/L (21-32); Calcium, Blood 8.9 mg/dL (8.5-10.1); Chloride, Blood 92 mmol/L (98-108); Creatinine, Blood 2.53 mg/dL (0.40-1.00); Glomerular Filtration Rate 20 (60-); Glucose, Blood 197 mg/dL (70-99); Magnesium, Blood 1.7 mg/dL (1.6-2.4); Phosphorus, Blood 3.3 mg/dL (2.5-4.9); Potassium, Blood 3.5 mmol/L (3.5-5.5); Sodium, Blood 133 mmol/L (136-145)
--- NOTE | 2022-01-27 05:56 | NUR ---
NEURO: REPONDS TO PAINFUL STIMULI. SEDATION TITRATED TO COMFORT & VENT COMPLIANCE. CV: ANASARCA. METOPROLOL IV AND PO ONCE FOR HR 130-140'S. HR 80-90'S SUSTAINING. LUNGS: WHEEZES TO CLEAR SOUNDS WITH SUCTION. VENT MANAGED BY RT GI: OG TF AT GOAL. HYPOACTIVE BT ALL QUAD : CHRONIC SUPRAPUBIC IN PLACE SKIN: Q2 TURNS BONY PROMINENCES OFFLOADED AND PROTECTED
--- NOTE | 2022-01-27 12:02 | NUR ---
REASSESSMENT PT REMAINS INTUBATED. SEDATION TURNED OFF AT 1015 AND PT IS STILL RESTING WITH HER EYES CLOSED, BUT WILL OPEN HER EYES AND ANSWER YES/NO QUESTIONS WHEN PROMPTED. SHE APPEARS VERY WEAK AND TIRED WITH RESPONSES. DR. GARCIA GAVE INSTRUCTION NOT TO DO WEANING TRIAL THIS MORNING BECAUSE PT IS WHEEZY AND SHE WANTS TO START STEROIDS AND BRONCHODILATORS FIRST. PT REMAINS IN AFIB, BPS TABLE. PT HAD A FORMED STOOL THIS MORNING AND THEN A VERY LARGE LIQUID STOOL. RECTAL TUBE PLACED THE STOOL WASN'T STOPPING WHILE TRYING TO CLEAN HER UP AND PT HAS OPEN WOUNDS ON HER BOTTOM. WOUNDS CLEANED AND DRESSINGS CHANGED AFTER RECTAL TUBE PLACED. SUPRAPUBIC CATHETER DRAINING WELL. PT'S AT THE BEDSIDE. UPDATED HIM AND ALL QUESTIONS ANSWERED.
--- NOTE | 2022-01-27 16:56 | NUR ---
SHIFT SUMMARY PT REMAINS INTUBATED AND SEDATED CURRENTLY AFTER SEDATION VACATION FOR ABOUT 5 HOURS. OFF OF SEDATION PT STILL RESTED WITH EYES CLOSED, BUT WOULD OPEN THEM WHEN REQUESTED, ANSWER YES/NO QUESTIONS APPROPRIATELY AND SQUEEZED BOTH HANDS. SEDATION RESTARTED BECAUSE PT STARTED GETTING ASYNCHRONOUS WITH THE VENTILATOR. LUNGS ARE COARSE WITH AN EXPIRATORY WHEEZE. AFIB WITH RATE IN THE LOW 100S, BP STABLE. LARGE LOOSE BM TODAY, RECTAL TUBE PLACED. SUPRAPUBIC CATHETER DRESSING CHANGED THIS MORNING ALONG WITH WOUND DRESSINGS ON PT'S BUTTOCKS. PT TOLERATING TUBE FEED AND RATE INCREASED TO NEW GOAL RATE ORDERED BY PRINCIPAL PROCESS ENGINEER. PT'S SPENT SEVERAL HOURS AT THE BEDSIDE TODAY AND WAS UPDATED BY DR. GARCIA AND NURSING STAFF THROUGHOUT THE SHIFT.
--- NOTE | 2022-01-27 19:01 | NUR ---
ASSUMPTION OF CARE PT IS SEDATED ON 15MCG/MIN OF PROPOFOL. LEVOPHED IS INFUSING AT 2MCG/MIN, INCREASED TO 3MCGS/MIN TO MAINTAIN MAP>65. ETT IS INTACT AND PATENT TO THE VENT. PT IS TOLERATING WELL AT THIS TIME, OXYGEN SAT 99%. 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 TF VIA OG TUBE. PERSAUD CATH DRAINING YELLOW URINE. CHEST TUBE W/SEROSANGUINOUS DRAINAGE TO SUCTION. NO LEAKS NOTED AT THIS TIME. NO S/S OF ACUTE DISTRESS NOTED AT TIME OF ASSUMPTION OF CARE.
--- NOTE | 2022-01-27 19:40 | NUR ---
ASSUMED CARE OF PT @ 1915 FROM JOHN Anthony RN PT SEDATED AT INTUBATED. PROPOFOL RUNNING @ 20 MCG/KG/MIN. HEPARIN VERIFIED RUNNING @ 16 UNITS/KG/HR. VITAL HP RUNNSING AT 35 ML/HR. VENT SETTINGS AT AC/VC 18/350/8/30. SHAMIR FROM RT IN ROOM AT TIME OF REPORT. PERSAUD CATHETER GRAVITY DRAIN WITH YELLOW URINE PRESENT. NO FAMILY OR OTHER PERSON IN ROOM AT TIME OF REPORT.
[2022-01-28 03:49] LABS: Hematocrit 22.5 % (33.0-51.0); Hemoglobin 7.6 g/dL (11.5-16.0); Mean Corpuscular HGB 31.5 pg (26.0-34.0); Mean Corpuscular HGB Conc 33.8 g/dL (31.5-36.5); Mean Corpuscular Volume 93 fL (80-100); Mean Platelet Volume 10.7 fL (9.1-12.4); Platelet Count 191 K/mm3 (150-400); RDW Coefficient Variation 15.7 % (11.7-14.2); RDW Standard Deviation 52.6 fL (35.1-46.3); Red Blood Cell Count 2.41 M/mm3 (3.80-5.20); White Blood Cell Count 7.36 K/mm3 (4.00-11.30)
[2022-01-28 04:02] LABS: Albumin, Blood 2.3 g/dL (3.4-5.0); Anion Gap 13 mmol/L (6-16); Blood Urea Nitrogen 127 mg/dL (8-24); CO2, Blood 28 mmol/L (21-32); Calcium, Blood 8.7 mg/dL (8.5-10.1); Chloride, Blood 92 mmol/L (98-108); Creatinine, Blood 2.54 mg/dL (0.40-1.00); Glomerular Filtration Rate 20 (60-); Glucose, Blood 290 mg/dL (70-99); Magnesium, Blood 1.8 mg/dL (1.6-2.4); Phosphorus, Blood 3.5 mg/dL (2.5-4.9); Potassium, Blood 3.4 mmol/L (3.5-5.5); Sodium, Blood 133 mmol/L (136-145)
[2022-01-28 04:17] LABS: BAND PERCENT MAN 7 % (0-8); BASOPHILS PERCENT MAN 0 % (0-2); EOSINOPHILS PERCENT MAN 0 % (0-6); LYMPHOCYTES ABSOLUTE MAN 0.07 K/mm3 (0.84-5.20); LYMPHOCYTES PERCENT MAN 1 % (21-46); MONOCYTES ABSOLUTE MAN 0.07 K/mm3 (0.16-1.47); MONOCYTES PERCENT MAN 1 % (4-13); MYELOCYTE ABSOLUTE MAN 0.07 K/mm3 (0.00-0.00); MYELOCYTE PERCENT MAN 1 % (0-0); NEUTROPHILS ABSOLUTE MAN 7.13 K/mm3 (1.96-9.15); SEG NEUTROPHILS PERCENT MAN 90 % (41-73); TOTAL CELLS COUNTED 100
--- NOTE | 2022-01-28 05:59 | NUR ---
END OF SHIFT SUMMARY HEPARIN INFUSING AT 15 UNITSKG/HR. PROPOFOL INFUSING AT 20 MCG/KG/MIN. VITAL HP SET TO 35 ML/HR WITH RESIDUALS UNDER 10 MLS. VENT SET TO AC/VC 16/350/8/30. A-FIB AND TACHY THROUGHOUT THE NIGHT. CBG'S RUNNING BETWEEN 200-300. RESTRAINTS USED CONTINUOUSLY THROUGHOUT THE NIGHT WITH NO ISSUES OR COMPLICATIONS. WOUND ON BUTTOCK IS CHRONIC DECUBITLE AND UNSTAGEABLE WITH NO CHANGES THIS SHIFT. RECTAL TUBE DISCHARGED THIS SHIFT DUE TO FORMED STOOL THAT WAS UNABLE TO PASS THROUGH TUBING. SCELARA YELLOW WITH MODERATE DRAINAGE CONSISTANT WITH POSSIBLE INFECTION. SUPRA PUBIC CATHETER TO GRAVITY DRAIN WITH 1300 MLS THIS SHIFT. ET TUBE AT 25 BEGINING OF SHIFT WITH CHANGE TO 24 AT TEETH THIS SHIFT. MELO FROM RT NOTIFIED. XRAY TO ROOM THIS AM. NO FAMILY OR OTHER VISITORS THIS SHIFT. WILL CONTINUE TO MONITOR UNTIL DAYSHIFT RN ASSUMES CARE.
--- NOTE | 2022-01-28 12:27 | NUR ---
REASSESSMENT PT'S SEDATION TURNED OFF THIS MORNING AROUND 0800 AND RT SWITCHED PT TO PRESSURE SUPPORT PT WAS ALREADY FOLLOWING COMMANDS. PT IS MORE ALERT TODAY THAN YESTERDAY, OPENING HER EYES SPONTANEOUSLY INSTEAD OF JUST ON COMMAND. WILL SQUEEZE HANDS AND WIGGLE TOES OF L FOOT, BUT NO RESPONSE FROM R FOOT. LUNGS CLEAR THIS MORNING, DIM IN THE BASES. DESATURATION WITH TURNS, BUT RECOVERS QUICKLY. STILL SMALL AMT OF BLOOD IN SPUTUM. REMAINS AFIB WITH RATE IN THE 80S AND 90S, BP STABLE, RECEIVING MIDODRINE. SUPRAPUBIC CATHETER LEAKED THIS MORNING REQUIRING LINEN CHANGE. TOLERATING TUBE FEED. PT'S AT THE BEDSIDE, UPDATED BY NURSING STAFF, DR. GARCIA, DR. HEWITT, AND DR. MCDUFFIE.
--- NOTE | 2022-01-28 16:21 | NUR ---
SHIFT SUMMARY PT HAS CONTINUED OFF OF SEDATION AND ON PRESSURE SUPPORT THROUGHOUT THE DAY. SHE FOLLOWS COMMANDS AND OPENS EYES SPONTANEOUSLY. HER LUNGS ARE CLEAR, DIM. SMALL AMT OF THICK SPUTUM, KUNZ AND RED MIX. DESATURATION WITH LONG TURNS FOR CLEANING HER BACK SIDE AND DRESSING CHANGES, BUT RECOVERED QUICKLY. REMAINS IN AFIB, RATE CONTROLLED IN THE 80S, BP STABLE, SEE FLOWSHEET. TOLERATING TUBE FEEDS, 1 BM TODAY. DRESSING CHANGED OVER WOUND ONL BUTTOCK THAT HAS ESCHAR. ESCHAR IS ONLY COVERING ABOUT A QUARTER OF THE WOUND NOW. PT'S SPENT SEVERAL HOURS AT THE BEDSIDE WITH HER AND WAS UPDATED THROUGHOUT THE DAY.
[2022-01-29 05:19] LABS: Base Excess Venous 5.9 mmol/L; Bicarbonate Venous 29.2 mmol/L (24.0-30.0); PCO2 Venous 39.6 mmHg (38-42); pH Blood Venous 7.48 (7.34-7.37)
[2022-01-29 05:27] LABS: BASOPHILS ABSOLUTE AUTO 0.01 K/mm3 (0.00-0.23); BASOPHILS PERCENT AUTO 0 % (0-2); EOSINOPHILS PERCENT AUTO 0 % (0-6); Hematocrit 25.4 % (33.0-51.0); Hemoglobin 8.5 g/dL (11.5-16.0); IMMATURE GRAN ABSOLUTE AUTO 0.29 K/mm3 (0.00-0.10); IMMATURE GRAN PERCENT AUTO 3 % (0-1); LYMPHOCYTES ABSOLUTE AUTO 0.35 K/mm3 (0.84-5.20); LYMPHOCYTES PERCENT AUTO 4 % (21-46); MONOCYTES ABSOLUTE AUTO 0.21 K/mm3 (0.16-1.47); MONOCYTES PERCENT AUTO 2 % (4-13); Mean Corpuscular HGB 31.4 pg (26.0-34.0); Mean Corpuscular HGB Conc 33.5 g/dL (31.5-36.5); Mean Corpuscular Volume 94 fL (80-100); NEUTROPHILS ABSOLUTE AUTO 8.06 K/mm3 (1.96-9.15); NEUTROPHILS PERCENT AUTO 90 % (41-73); Platelet Count 239 K/mm3 (150-400); RDW Coefficient Variation 15.5 % (11.7-14.2); Red Blood Cell Count 2.71 M/mm3 (3.80-5.20); White Blood Cell Count 8.92 K/mm3 (4.00-11.30)
[2022-01-29 05:56] LABS: Magnesium, Blood 2.2 mg/dL (1.6-2.4)
[2022-01-29 05:57] LABS: Albumin, Blood 2.7 g/dL (3.4-5.0); Alk Phos 75 U/L (50-136); Anion Gap 11 mmol/L (6-16); Blood Urea Nitrogen 147 mg/dL (8-24); Bun/Creatinine Ratio 53.5 (12.0-20.0); CO2, Blood 28 mmol/L (21-32); Calcium, Blood 9.5 mg/dL (8.5-10.1); Chloride, Blood 89 mmol/L (98-108); Creatinine, Blood 2.75 mg/dL (0.40-1.00); Glomerular Filtration Rate 18 (60-); Glucose, Blood 401 mg/dL (70-99); Phosphorus, Blood 3.8 mg/dL (2.5-4.9); Potassium, Blood 3.5 mmol/L (3.5-5.5); Sodium, Blood 128 mmol/L (136-145)
--- NOTE | 2022-01-29 06:19 | NUR ---
SHIFT SUMMARY PT HAS CONTINUED OFF OF SEDATION AND ON PRESSURE SUPPORT UNTILL 11 PT TIRED OUT AND WAS NOT PULLING VOLUMES AND PLACED BACK ON AC/VC AND PROPOFOL WAS RESTARTED FOR SEDATION. SHE FOLLOWS COMMANDS AND OPENS EYES SPONTANEOUSLY. HER LUNGS ARE CLEAR, DIM. SMALL AMT OF THICK SPUTUM, KUNZ AND RED MIX. DESATURATION WITH LONG TURNS FOR CLEANING HER BACK SIDE AND DRESSING CHANGES, BUT RECOVERED QUICKLY. REMAINS IN AFIB, RATE CONTROLLED IN THE 80S, BP STABLE, SEE FLOWSHEET. TOLERATING TUBE FEEDS, 1 BM TONIGHT. DRESSING CHANGED OVER WOUND ONL BUTTOCK THAT HAS ESCHAR ESCHAR IS ONLY COVERING ABOUT A QUARTER OF THE WOUND NOW BUT HAS A STRONG FOUL ODOR. BS HAVE BEEN >300 AND THIS AM [address] FERGUSON WHO VERBALIZED TO JUST GIVE THE 12 UNITS HIGHEST DOSE ON HIGH SCALE AND ASKED FOR IT TO BE RECHECK IN 2 HRS DAY.
--- NOTE | 2022-01-29 08:00 | NUR ---
INITIAL ASSESSMENT PATIENT INTUBATED AND ON SEDATION. PATIENT NODDING AND SHAKING HEAD TO ANSWER YES AND NO QUESTIONS. PATIENT FOLLOWING SIMPLE COMMANDS. PATIENT HAS R SIDE DEFICITS FROM PREVIOUS CVA. BILAT FOOT DROP NOTED. R HAND CONTRACTED. PATIENT WHEELCHAIR BOUND AT HOME. PATIENT AFEBRILE. PATIENT DENIES PAIN. LUNGS WHEEZY IN UPPER LOBES AND DIM IN LOWER LOBES. PATIENT ON VENT SETTINGS OF AC 16, TV 350, PEEP 5 AND 30% FIO2. SMALL AMOUNT OF THICK, KUNZ/ PINK SECRETIONS NOTED FROM ETT. PATIENT IN A. FIB, HR IN THE 80S. SBP 120S TO 130S. 2+ EDEMA NOTED IN BLES AND LEFT ARM AND HAND. 3+ EDEMA NOTED TO R ARM AND HAND. OG IN PLACE WITH VHP TF INFUSING AT GOAL RATE OF 35 MLS/ HOUR AND 30 ML WATER FLUSH Q4H. HYPERACTIVE BOWEL SOUNDS NOTED. LAST BM ON HAND FILER BALANCE WHEEL. Q6H BLOOD SUGARS; PATIENT RUNNING IN 400S. SUPRAPUBIC CATHETER IN PLACE DRAINING YELLOW COLORED URINE WITH SEDIMENT NOTED. PATIENT RECEIVING SCHEDULED LASIX. SKIN IS PALE AND FRAGILE. R BUTTOCKS EXCORIATED. SKIN TEAR TO INTERGLUTEAL CLEFT. SCAB TO LOWER LIP. OPEN AREA TO POSTERIOR L UPPER THIGH. PRESSURE SORE TO L BUTTOCK. PROPOFOL INFUSING AT 20 MCG/ KG/ MINUTE, HEPARIN AT 15 UNITS/ KG/ HOUR. BED LOW, CALL LIGHT IN REACH. WILL CONTINUE TO MONITOR PATIENT FREQUENTLY THROUGHOUT SHIFT.
[2022-01-29 08:42] LABS: Glucose, Blood 417 mg/dL (70-99)
--- NOTE | 2022-01-29 09:25 | NUR ---
DR. GOLDEN CHANGED PATIENT OVER TO SPONTANEOUS PRESSURE SUPPORT 02/02, 30% FIO2.
--- NOTE | 2022-01-29 09:32 | NUR ---
DR. OVIEDO UPDATED THIS AM ON PATIENT STATUS. INFORMED THAT BLOOD SUGAR 417 DESPITE HSS INSULIN BEING GIVEN AT HIGHEST DOSE AT 0600. INFORMED THAT PATIENT RECEIVED 10 UNITS LONG ACTING THIS AM. INFORMED THAT KIDNEY LABS HIGH. INQUIRED ABOUT PATIENT STILL BEING ON HEPARIN DRIP FOR A. FIB. ORDERS FOR INSULIN CHANGES RECEIVED.
--- NOTE | 2022-01-29 10:07 | NUR ---
TF TURNED OFF PENDING EXTUBATION.
--- NOTE | 2022-01-29 10:35 | NUR ---
PATIENT EXTUBATED AT 1030 AND IS SATTING 90% AND GREATER ON 2 L NC. AT BEDSIDE.
--- NOTE | 2022-01-29 11:31 | NUR ---
WOUND CLINIC CALLED TO COME REASSESS WOUND ON PATIENT'S BUTTOCKS ESCHAR IS ALMOST COMPLETELY OFF. WOUND CLINIC STATED THAT THEY MAY BE ABLE TO COME LOOK LATER TODAY BUT THAT IT MAY BE A DAY OR TWO BEFORE THEY CAN COME REASSESS.
--- NOTE | 2022-01-29 13:00 | NUR ---
PATIENT AFEBRILE. PATIENT ALERT AND ORIENTED X 4. VOICE QUIET. PATIENT CALM, COOPERATIVE, WITH FLAT AFFECT. HR 80S TO 90S. SBP 120S TO 140S. PATIENT PASSED BEDSIDE SWALLOW EVAL. PATIENT PLACED ON FULL LIQUID/ ADA DIET. ADVANCE DIET TOLERATED. OG DC'D WHEN PATIENT EXTUBATED. BLOOD SUGARS CHANGED FROM Q6H TO ACHS. BLOOD SUGAR OF 334; COVERAGE GIVEN. PATIENT CLEANED UP FROM BOWEL MOVEMENT. SMALL LIQUID STOOL WITH HARD PELLETS NOTED. WOUND CARE PERFORMED AND NEW DRESSINGS PLACED. NEW PIC OF L BUTTOCKS WOUND TAKEN AND PLACED IN CHART. ADMINISTERED PO XARELTO AND HEPARIN DRIP DC'D. NO COMPLAINTS AT THIS TIME. BED LOW, CALL LIGHT IN REACH.
[2022-01-29 16:09] LABS: IMMUNOGLOBULIN A, QN, SERUM 221 mg/dL (87-352); IMMUNOGLOBULIN G, QN, SERUM 762 mg/dL (586-1602); IMMUNOGLOBULIN M, QN, SERUM 422 mg/dL (26-217)
--- NOTE | 2022-01-29 17:10 | NUR ---
PATIENT AFEBRILE. BLOOD SUGAR OF 301; COVERAGE GIVEN. NO OTHER ACUTE CHANGES TO NOTE ON AT THIS TIME. NO COMPLAINTS.
--- NOTE | 2022-01-29 18:52 | NUR ---
SHIFT SUMMARY PATIENT EXTUBATED AROUND 1030 THIS AM. PATIENT IS ALERT AND ORIENTED X 4, AFEBRILE. VOICE QUIET. NO COMPLAINTS OF PAIN. OT AND PT WORKED WITH PATIENT TODAY. PATIENT WHEELCHAIR BOUND AT BASELINE, R HAND CONTRACTURE, R SIDE DEFICITS FROM PAST CVA, AND HAS BILAT FOOT DROP. PATIENT SATTING 90% AND GREATER ON 2 L NC. LUNGS HAVE REMAINED WHEEZY IN UPPER LOBES AND DIM IN LOWER LOBES. PATIENT IN A. FIB, HR 80S TO 90S. SBP 120S TO 140S. PATIENT REMAINS EDEMATOUS. OG DC'D WHEN EXTUBATED. PATIENT PASSED SWALLOW EVAL THIS AFTERNOON BUT WHILE EATING DINNER PATIENT COUGHED ON FULL LIQUID DIET. PATIENT MADE NPO. BLOOD SUGAR CHECKS CHANGED BACK TO Q6H AND SPEECH EVAL ORDERED FOR AM. PATIENT HAD 1 SMALL LIQUID BM WITH HARD PELLETS NOTED. PATIENT HAD 1175 MLS OF YELLOW URINE WITH SEDIMENT OUT THIS SHIFT. WOUNDS CLEANSED, DRESSINGS REPLACED AND NEW PIC TAKEN OF L BUTTOCKS PRESSURE SORE. PATIENT REPOSITIONED Q2H. HEPARIN DRIP DC'D THIS SHIFT AND XARELTO STARTED. LONG ACTING INSULIN INCREASED FOR BLOOD SUGARS 300S TO 400S. NYSTATIN ORDERED FOR FOLDS. IN MOST OF THE DAY TO VISIT. PATIENT HAS NO COMPLAINTS AT THIS TIME. BED LOW, CALL LIGHT IN REACH. REPORT WILL BE GIVEN TO ASSUMING CYLINDER HONER NURSE SHORTLY.
[2022-01-30 04:28] LABS: BASOPHILS ABSOLUTE AUTO 0.01 K/mm3 (0.00-0.23); BASOPHILS PERCENT AUTO 0 % (0-2); EOSINOPHILS PERCENT AUTO 0 % (0-6); Hematocrit 23.5 % (33.0-51.0); Hemoglobin 7.8 g/dL (11.5-16.0); IMMATURE GRAN ABSOLUTE AUTO 0.24 K/mm3 (0.00-0.10); IMMATURE GRAN PERCENT AUTO 3 % (0-1); LYMPHOCYTES ABSOLUTE AUTO 0.26 K/mm3 (0.84-5.20); LYMPHOCYTES PERCENT AUTO 3 % (21-46); MONOCYTES PERCENT AUTO 3 % (4-13); Mean Corpuscular HGB Conc 33.2 g/dL (31.5-36.5); Mean Corpuscular Volume 93 fL (80-100); Mean Platelet Volume 10.7 fL (9.1-12.4); NEUTROPHILS ABSOLUTE AUTO 8.97 K/mm3 (1.96-9.15); NEUTROPHILS PERCENT AUTO 92 % (41-73); Platelet Count 241 K/mm3 (150-400); RDW Coefficient Variation 15.4 % (11.7-14.2); RDW Standard Deviation 52.1 fL (35.1-46.3); Red Blood Cell Count 2.52 M/mm3 (3.80-5.20); White Blood Cell Count 9.78 K/mm3 (4.00-11.30)
[2022-01-30 04:44] LABS: Magnesium, Blood 1.9 mg/dL (1.6-2.4)
[2022-01-30 05:08] LABS: Albumin, Blood 2.6 g/dL (3.4-5.0); Anion Gap 14 mmol/L (6-16); Blood Urea Nitrogen 154 mg/dL (8-24); Bun/Creatinine Ratio 52.7 (12.0-20.0); CO2, Blood 30 mmol/L (21-32); Chloride, Blood 91 mmol/L (98-108); Creatinine, Blood 2.92 mg/dL (0.40-1.00); Glomerular Filtration Rate 17 (60-); Glucose, Blood 316 mg/dL (70-99); Potassium, Blood 3.6 mmol/L (3.5-5.5); Sodium, Blood 135 mmol/L (136-145)
--- NOTE | 2022-01-30 07:03 | NUR ---
SHIFT SUMMARY PT RESTED IN BED THROUGHOUT SHIFT. ALERT AND ORIENTED, ON 02 VIA NC AT 2 L/MIN. PG IN COREY, WNL. SUPRAPUBIC CATHETER IN PLACE, 1000 MLS OUT DURING SHIFT. VS STABLE THROUGHOUT SHIFT, NO ACUTE EVENTS. SEE SHIFT ASSESSMENT FOR FURTHER DETAILS. PT TRANSFERRED TO PCU AT APPROXIMATELY 0640, REPORT GIVEN TO AIR HOSE COUPLER.
[2022-01-30 13:10] LABS: ANTIMYELOPEROXIDASE (MPO) ABS 4.3 units (0.0-0.9); ANTIPROTEINASE 3 (PR-3) ABS 0.3 units (0.0-0.9); ATYPICAL PANCA <1:20 titer (Neg:<1:20); CYTOPLASMIC (C-ANCA) <1:20 titer (Neg:<1:20)
[2022-01-30 13:10] LABS: M-SPIKE, % Not Observed % (Not Observed); PROTEIN,TOTAL,URINE 4.4 mg/dL (Not Estab.)
[2022-01-30 13:10] LABS: ANTIMYELOPEROXIDASE (MPO) ABS 3.8 units (0.0-0.9); ANTIPROTEINASE 3 (PR-3) ABS 0.2 units (0.0-0.9); ATYPICAL PANCA <1:20 titer (Neg:<1:20); CYTOPLASMIC (C-ANCA) <1:20 titer (Neg:<1:20)
--- NOTE | 2022-01-30 13:42 | NUR ---
Spiritual care visit conducted. Pt is sitting up in bed and alert. Pt tells about being recently extubated and so her throat is still sore and she struggles to talk. She is able to tell me that her tracie is strong and that she going to come up out of this. Pt's spouse, Ranjan, shares about her medical history and about the recent events and how it is miraculous that she is alive. 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 They tell me their hopes about pt improving medically. I normalize their experience, reinforce helpful attitudes and practices and provide therapeutic listening and prayer. Pt and spouse respond well and show signs of an being encouraged in ther tracie.
--- NOTE | 2022-01-30 17:25 | NUR ---
SHIFT SUMMARY PT HAS BEEN RESTING IN BED, THEY HAVE BEEN VERY SOFT SPOKEN BUT CAN CLEARLY MAKE THEIR NEEDS KNOWN. PT WAS TITRATED TO 1L OXYGEN VIA NC AND TOLERATED THAT WELL. ON ATTEMPT TO TITRATE TO ROOM AIR, SPO2 REMAINED STEADY AT 89%, 1L OXYGEN WAS REPLACED. SUPRAPUBIC CATHETER LEAKED A SMALL QUANTITY OF URINE. THERE WERE NO ACUTE CHANGES IN PT CONDITION.
[2022-01-31 05:45] LABS: Hematocrit 23.4 % (33.0-51.0)
[2022-01-31 06:11] LABS: Magnesium, Blood 2.1 mg/dL (1.6-2.4)
--- NOTE | 2022-01-31 06:13 | NUR ---
SHIFT SUMMARY ASSUMED CARE OF PT AT 1900. PT IS A/OX3 WITH TIMES OF CONFUSION. PT THOUGHT THAT SHE HEARD A BART VOICE LAST NIGHT AND DID NOT KNOW WHAT TIME IT WAS. HEART SOUNDS IRREGULAR, TELE SHOWED AFIB WITH BIGEMINY. PT LEGS AND ARMS ARE VERY EDEMADOUS. LUNG SOUNDS DIMINISHED. PT WAS ON 1L NC. WHEN TITRATING HER OFF PT SATS DROPPED TO 88%. SUPRAPUBIC CATHETER DRAINING CLEAR, URINE. PT HAD AN INCONTIENT BM. DRESSINGS CHANGED ON BUTTOCK. PT R SIDE IS VERY CONTRACTED WITH SOME MOVEMENT IN R ARM AND FINGERS. PT VOICE IS MORE LOUD AND PT ABLE TO SPEAK WORDS MORE CLEAR.
[2022-01-31 06:49] LABS: Albumin, Blood 2.8 g/dL (3.4-5.0); Anion Gap 9 mmol/L (6-16); Blood Urea Nitrogen 165 mg/dL (8-24); Bun/Creatinine Ratio 52.5 (12.0-20.0); CO2, Blood 30 mmol/L (21-32); Calcium, Blood 9.2 mg/dL (8.5-10.1); Chloride, Blood 93 mmol/L (98-108); Creatinine, Blood 3.14 mg/dL (0.40-1.00); Glomerular Filtration Rate 16 (60-); Glucose, Blood 304 mg/dL (70-99); Phosphorus, Blood 4.5 mg/dL (2.5-4.9); Potassium, Blood 3.8 mmol/L (3.5-5.5); Sodium, Blood 132 mmol/L (136-145)
--- NOTE | 2022-01-31 13:36 | NUR ---
PHONE CALL TO DR. OVIEDO TO CLARIFY SLIDING SCALE ORDERS FOR DIABETIC CONTROL. DR. OVIEDO STATES HE WILL UPDATE ORDERS WITH TID INSULIN SCALE.
--- NOTE | 2022-01-31 15:49 | NUR ---
PLACED PHONE CALL TO DR. OVIEDO'S TEAM, LEFT VOICEMAIL. PT'S RIGHT ARM IS SWOLLEN, AND HAS INCREASED IN SWELLING SIZE SINCE SHE ARRIVED ON OUR FLOOR. THE MANAGER QUALITY IMPROVEMENT HAS BEEN DILIGENT ABOUT PROPPING SULTANA'S ARM UP. THERE IS NO REDNESS, OR INCREASED HEAT. DR. HEWITT AT BEDSIDE, RECOMMENDED PHONE CALL TO DR. OVIEDO TO SEE IF HE WOULD LIKE AN ULTRASOUND TO R/O DVT. RN REQUESTED RETURN CALL.
--- NOTE | 2022-01-31 16:18 | NUR ---
Spiritual care visit conducted. Pt is sitting up in bed and alert. Pt tells me about the progress she has made in her strength, mental clarity and speech. She has her spouse Ranjan wade and they talk together about their relationship and love for each other, about the two sons and their amazing families (including their 5 grandchildren), and about their chruch connections withpeople that care and are praying. They tell their concern about having another "intestinal bleed" and are hoping to see her home by the weekend. I provide companionship and prayer. They respond well and show signs of an elevated mood and reduced stress about pt's medical stability.
--- NOTE | 2022-01-31 18:42 | NUR ---
PHONE CALL TO DR. OVIEDO REGARDING BLOOD SUGARS - PT'S BLOOD SUGAR HAS BEEN RUNNING HIGH. AT DINNER BLOOD SUGAR WAS 373, PT RECEIVED 12 UNITS OF HUMALOG. CBG RECHECK AND PT'S SUGAR WAS 350. DR. OVIEDO STATED NO FURTHER INSULIN CORRECTION AT THIS TIME BECAUSE HE HAS INCREASED LANTUS DOSE TO 30 UNITS BID, AND PREDNISONE DOSE DECREASED. PT'S FAMILY AT BEDSIDE, RN EXPLAINED REASONING TO FAMILY, WHO WAS RECEPTIVE.
--- NOTE | 2022-01-31 19:15 | NUR ---
SHIFT SUMMARY PT REQUIRES TOTAL CARE. SHE IS LYING ON TOP OF A GREEN LIFT SHEET. SHE IS A PCU TRANSFER. BLOOD SUGARS HAVE BEEN TRENDING HIGH (350, 370 THIS EVENING).HER RIGHT ARM IS SWOLLEN, DR. OVIEDO HAS ORDERED AN ULTRASOUND TO R/O DVT. STILL WAITING ON ULTRASOUND TO BE COMPLETED. RN PROVIDED WOUND CARE TO THREE OPEN SORES ON HER BUTTOCK, CLEANSED WITH NORMAL SALINE, PACKED THE UPPER LEFT SORE WITH CALCIUM ALGINATE, COVERED WITH PINK MEPILEX. PT REQUIRES MEAL TRAY ASSISTANCE, FEEDING, AND SUPERVISION. PILLS ARE WHOLE WITH APPLESAUCE, ONE AT A TIME. PT IS PLEASANT. RIGHT SIDE RESIDUAL WEAKNESS FROM PAST STROKE. RIGHT SIDE CONTRACTED, BILAT FOOT DROP. WILL GIVE REPORT TO NIGHT NURSE.
--- NOTE | 2022-02-01 03:25 | NUR ---
AIR TRAFFIC CONTROL SPECIALIST SUMMARY ULTRA SOUND OF RUE DONE AT SHIFT COMMENCE. NEGATIVE DVT. RUE REMAINS ELEVATEDD ON PILLOW FOR COMFORT AND TO DECREASE SWELLING. REMAINS ON COMPLETE CARE. REPOSITIONED INTERMITTENTLY. TOLERATED HS MEDS WITH APPLESAUCE. HS BLOOD SUGAR 321. SEE MAR FOR COVERAGE DETAILS. HX CVA - RIGHT SIDE REMAINS WEAKER THAN LEFT. HAS BEEN RESTING QUIETLY WITH FEW INTERRUPTIONS. CALL LIGHT IN REACH
[2022-02-01 05:58] LABS: Hematocrit 23.5 % (33.0-51.0)
[2022-02-01 06:15] LABS: Magnesium, Blood 2.2 mg/dL (1.6-2.4)
[2022-02-01 06:47] LABS: Albumin, Blood 2.6 g/dL (3.4-5.0); Anion Gap 11 mmol/L (6-16); Blood Urea Nitrogen 177 mg/dL (8-24); Bun/Creatinine Ratio 49.9 (12.0-20.0); CO2, Blood 29 mmol/L (21-32); Chloride, Blood 94 mmol/L (98-108); Creatinine, Blood 3.55 mg/dL (0.40-1.00); Glomerular Filtration Rate 14 (60-); Glucose, Blood 254 mg/dL (70-99); Phosphorus, Blood 4.2 mg/dL (2.5-4.9); Potassium, Blood 3.6 mmol/L (3.5-5.5); Sodium, Blood 134 mmol/L (136-145)
--- NOTE | 2022-02-01 08:00 | NUR ---
pt laying in bed awake a/ox3, slow to answer, pleasant and cooperative with care, follows commands well, denies pain, state she slept ok last night, lungs are clear on a half a liter, sats in mid 90's while awake, was reported she drops to the 80's at night with out the half a liter, hrirr, tele in place running afib per monitor, see strip, 3+ edema noted to b/l le, has foot drop, cushions in place for protection, power glide to tanya site is clear and patent, btx4, abd flat soft nontender, voids via suprapubic galaviz cath draining cloudy yellow urine, skin has wound to coccyx will keep turned, pt is wheelchair bound, is a feeder, call light in reach.
--- NOTE | 2022-02-01 19:14 | NUR ---
pt had a bedbath, dressings on coccyx are very clean and intact, will leave for now. moved to a room with a lift, spouce brought her wheelchair for her to sit in, speech therapy evaled her, will keep as is, no further changes this shift. call light in reach.
[2022-02-02 05:20] LABS: Hematocrit 23.9 % (33.0-51.0)
--- NOTE | 2022-02-02 05:43 | NUR ---
SHIFT SUMMARY: PT IS A/OX3 OCCASIONALLY DISORIENTED TO TIME. TOTAL ASSIST WITH TURNING AND ADL'S. HOME ELECTRIC WHEELCHAIR IN ROOM AT PT'S BEDSIDE. PT REPORTS NO DISCOMFORT THROUGHOUT THE NIGHT. SUPRAPUBIC CATHETER DRAINING WELL WITH A TOTAL OF 850ML OUPUT THIS SHIFT- SLIGHT CLOUDY APPEARANCE. PT CONTINUES TO CALL APPROPRIATELY. NO BOWEL MOVEMENT THROUGHOUT THE NIGHT. MEPILEX ON COCCYX AREA IS CLEAN, DRY AND INTACT. BED IN LOW POSITION, CALL GARCIA AND BELONGINGS IN REACH.
[2022-02-02 05:46] LABS: Magnesium, Blood 2.2 mg/dL (1.6-2.4)
[2022-02-02 05:51] LABS: Albumin, Blood 2.4 g/dL (3.4-5.0); Anion Gap 10 mmol/L (6-16); CO2, Blood 30 mmol/L (21-32); Calcium, Blood 8.6 mg/dL (8.5-10.1); Chloride, Blood 96 mmol/L (98-108); Creatinine, Blood 3.79 mg/dL (0.40-1.00); Glomerular Filtration Rate 13 (60-); Glucose, Blood 177 mg/dL (70-99); Phosphorus, Blood 4.3 mg/dL (2.5-4.9); Potassium, Blood 3.6 mmol/L (3.5-5.5); Sodium, Blood 136 mmol/L (136-145)
[2022-02-02 06:00] LABS: Blood Urea Nitrogen 168 mg/dL (8-24); Bun/Creatinine Ratio 44.3 (12.0-20.0)
[2022-02-02 07:13] LABS: BASOPHILS ABSOLUTE AUTO 0.01 K/mm3 (0.00-0.23); BASOPHILS PERCENT AUTO 0 % (0-2); EOSINOPHILS PERCENT AUTO 1 % (0-6); Hematocrit 23.1 % (33.0-51.0); Hemoglobin 7.9 g/dL (11.5-16.0); IMMATURE GRAN ABSOLUTE AUTO 0.28 K/mm3 (0.00-0.10); IMMATURE GRAN PERCENT AUTO 4 % (0-1); LYMPHOCYTES PERCENT AUTO 10 % (21-46); MONOCYTES ABSOLUTE AUTO 0.39 K/mm3 (0.16-1.47); MONOCYTES PERCENT AUTO 5 % (4-13); Mean Corpuscular HGB 31.6 pg (26.0-34.0); Mean Corpuscular HGB Conc 34.2 g/dL (31.5-36.5); Mean Corpuscular Volume 92 fL (80-100); Mean Platelet Volume 10.3 fL (9.1-12.4); NEUTROPHILS ABSOLUTE AUTO 5.89 K/mm3 (1.96-9.15); NEUTROPHILS PERCENT AUTO 80 % (41-73); Platelet Count 208 K/mm3 (150-400); RDW Coefficient Variation 15.3 % (11.7-14.2); RDW Standard Deviation 51.4 fL (35.1-46.3); White Blood Cell Count 7.37 K/mm3 (4.00-11.30)
[2022-02-02 07:29] LABS: International Normalized Ratio 1.11; Prothrombin Time Results 11.6 Sec (9.7-11.5)
--- NOTE | 2022-02-02 16:49 | NUR ---
SHIFT SUMMARY PATIENT ALERT AND ORIENTED WHEN AWAKE. DYSPHAGIA. HX CVA WITH R SIDE WEAKNESS. MOVES FROM BED TO WHEELCHAIR WITH LIFT. ABLE TO FEED HERSELF SOFT DIET WITH LEFT ARM. TAKES PILLS WHOLE IN APPLESAUCE. SUPRAPUBIC CATHETER INTACT AND DRAINING. ATTENDS IN PLACE, CHANGED PRN. MEPILEX TO SORES ON BOTTOM AND THIGH CHANGED THIS SHIFT. PLAN IS FOR KIDNEY BIOPSY SATURDAY. ATTENTIVE IN ROOM MOST OF DAY.
[2022-02-03 05:46] LABS: Hematocrit 24.9 % (33.0-51.0); Hemoglobin 8.7 g/dL (11.5-16.0); Mean Corpuscular HGB 31.6 pg (26.0-34.0); Mean Corpuscular HGB Conc 34.9 g/dL (31.5-36.5); Mean Corpuscular Volume 91 fL (80-100); Mean Platelet Volume 10.4 fL (9.1-12.4); Platelet Count 194 K/mm3 (150-400); RDW Coefficient Variation 14.9 % (11.7-14.2); RDW Standard Deviation 49.4 fL (35.1-46.3); Red Blood Cell Count 2.75 M/mm3 (3.80-5.20); White Blood Cell Count 5.22 K/mm3 (4.00-11.30)
[2022-02-03 06:19] LABS: Magnesium, Blood 2.4 mg/dL (1.6-2.4)
[2022-02-03 06:20] LABS: BASOPHILS PERCENT MAN 0 % (0-2); EOSINOPHILS PERCENT MAN 0 % (0-6); LYMPHOCYTES PERCENT MAN 4 % (21-46); METAMYELOCYTE ABSOLUTE MAN 0.05 K/mm3 (0.00-0.00); METAMYELOCYTE PERCENT MAN 1 % (0-0); MONOCYTES ABSOLUTE MAN 0.05 K/mm3 (0.16-1.47); MONOCYTES PERCENT MAN 1 % (4-13); SEG NEUTROPHILS PERCENT MAN 94 % (41-73); TOTAL CELLS COUNTED 100
[2022-02-03 06:28] LABS: Albumin, Blood 2.7 g/dL (3.4-5.0); Anion Gap 12 mmol/L (6-16); Blood Urea Nitrogen 164 mg/dL (8-24); Bun/Creatinine Ratio 42.9 (12.0-20.0); CO2, Blood 29 mmol/L (21-32); Calcium, Blood 8.7 mg/dL (8.5-10.1); Chloride, Blood 93 mmol/L (98-108); Creatinine, Blood 3.82 mg/dL (0.40-1.00); Glomerular Filtration Rate 12 (60-); Glucose, Blood 221 mg/dL (70-99); Phosphorus, Blood 4.4 mg/dL (2.5-4.9); Potassium, Blood 4.2 mmol/L (3.5-5.5); Sodium, Blood 134 mmol/L (136-145)
--- NOTE | 2022-02-03 10:47 | NUR ---
OUT OF ROOM FOR WALK WITH SPOUSE @1030. CALLED TELE TO INFORM.
--- NOTE | 2022-02-03 16:58 | NUR ---
SHIFT SUMMARY- PT TACHYCARDIC OFTEN THROUGHOUT SHIFT, NOTIFIED BY INSPECTOR LINE. APPETITE OK TO POOR. TAKES MEDICATIONS OK WITH APPLESAUCE, CRUSHED IF LARGE. AT BEDSIDE. PT HAD ONE BM SMEAR AND A MODERATE BM, METPOLIX CHANGE AT SACRAL. PT A&O X3. FLAT AFFECT AT TIMES. PT COMPLIANT WITH ALL CARE. PT WITH CALL LIGHT, SIDE RAILS, AND BED ALARM ON.
[2022-02-04 06:13] LABS: Hematocrit 22.8 % (33.0-51.0)
[2022-02-04 06:28] LABS: Magnesium, Blood 2.4 mg/dL (1.6-2.4)
[2022-02-04 06:47] LABS: Albumin, Blood 2.7 g/dL (3.4-5.0); Anion Gap 11 mmol/L (6-16); Blood Urea Nitrogen 168 mg/dL (8-24); Bun/Creatinine Ratio 41.5 (12.0-20.0); CO2, Blood 29 mmol/L (21-32); Calcium, Blood 8.5 mg/dL (8.5-10.1); Chloride, Blood 92 mmol/L (98-108); Creatinine, Blood 4.05 mg/dL (0.40-1.00); Glomerular Filtration Rate 12 (60-); Glucose, Blood 184 mg/dL (70-99); Phosphorus, Blood 4.8 mg/dL (2.5-4.9); Potassium, Blood 4.1 mmol/L (3.5-5.5); Sodium, Blood 132 mmol/L (136-145)
--- NOTE | 2022-02-04 06:51 | NUR ---
UPDATE: PT'S SUPRAPUBIC INSERTION SITE IS LEAKING AND URINE COMING OUT OF PT'S URTHERA. PT CLEANED UP.
[2022-02-04 07:10] LABS: COMPLEMENT C3, SERUM 57 mg/dL (82-167)
--- NOTE | 2022-02-04 08:00 | NUR ---
pt laying in bed awake a/ox3, pleasant and cooperative with care, follows commands well, po meds in applesauce state she did not sleep well last night but feels fine, no complaints. call light in reach.
--- NOTE | 2022-02-04 15:28 | NUR ---
ASSUMED CARE OF PT FROM KALLIE Zavala RN, REPORT GIVEN.
--- NOTE | 2022-02-04 16:50 | NUR ---
SHIFT SUMMARY- ASSUMED CARE OF PT @1430. PT TOOK WALK WITH VIA WHEELCHAIR. REPORTED THAT SHE ATE IN [place] FOR HIM, ABOUT 700 [address]. PT PLEASANT AND MOOD SEEMS A BIT IMPROVED THIS AFTERNOON. PT RESTING NOW WITH AT BEDSIDE AND CALL LIGHT IN REACH WITH SIDE RAILS UP FOR SAFETY.
--- NOTE | 2022-02-04 18:50 | NUR ---
CHANGED MEPOLIX ON SACRAL AREA TO PROTECT BREAKDOWN.
[2022-02-05 05:03] LABS: Hematocrit 23.6 % (33.0-51.0)
[2022-02-05 05:33] LABS: Magnesium, Blood 2.3 mg/dL (1.6-2.4)
[2022-02-05 05:53] LABS: Albumin, Blood 2.6 g/dL (3.4-5.0); Anion Gap 13 mmol/L (6-16); Blood Urea Nitrogen 173 mg/dL (8-24); Bun/Creatinine Ratio 39.7 (12.0-20.0); CO2, Blood 26 mmol/L (21-32); Calcium, Blood 8.5 mg/dL (8.5-10.1); Chloride, Blood 92 mmol/L (98-108); Creatinine, Blood 4.36 mg/dL (0.40-1.00); Glomerular Filtration Rate 11 (60-); Glucose, Blood 218 mg/dL (70-99); Phosphorus, Blood 5.2 mg/dL (2.5-4.9); Potassium, Blood 4.5 mmol/L (3.5-5.5); Sodium, Blood 131 mmol/L (136-145)
--- NOTE | 2022-02-05 08:06 | NUR ---
SUMMARY PENDING RENAL BX TODAY.
--- NOTE | 2022-02-05 16:14 | NUR ---
DAYSHIFT SUMMARY Patient had biopsy done this morning, results pending. No reports of pain or discomfort this shift, patient resting comfortably. Changed dressing on coccyx, small open wound with granulated tissue & slough. Applied new mepilex to site. Vitals stable, CBGs WNL.
[2022-02-06 07:18] LABS: Magnesium, Blood 2.2 mg/dL (1.6-2.4)
[2022-02-06 07:30] LABS: Albumin, Blood 2.5 g/dL (3.4-5.0); Anion Gap 11 mmol/L (6-16); Blood Urea Nitrogen 168 mg/dL (8-24); Bun/Creatinine Ratio 36.8 (12.0-20.0); CO2, Blood 29 mmol/L (21-32); Calcium, Blood 8.1 mg/dL (8.5-10.1); Chloride, Blood 91 mmol/L (98-108); Creatinine, Blood 4.57 mg/dL (0.40-1.00); Glomerular Filtration Rate 10 (60-); Glucose, Blood 73 mg/dL (70-99); Phosphorus, Blood 5.2 mg/dL (2.5-4.9); Potassium, Blood 4.8 mmol/L (3.5-5.5); Sodium, Blood 131 mmol/L (136-145)
--- NOTE | 2022-02-06 14:06 | NUR ---
Pt resting in bed with her eyes closed upon arrival. Pt wakes to gentle verbal stimuli. Pt denies pain and dyspnea at this time. Pt appears some what withdrawn possibly due to just waking. Pt short with answers. She does report adequate support at home with her spouse. Ended visit to allow Pt to rest. Spoke with Dr Larsen and discussed case. Spouse has received update on plan of care including advanced care planning. Pt and family agreeable to dialysis if needed. Palliative Care will remain available.
--- NOTE | 2022-02-06 15:10 | NUR ---
Spiritual care visit conducted. Longer visit with pt and spouse Ranjan. I visited with pt first and she has a flat affect and seems very discouraged. She talks about the slow progress she is feeling and the many delays in d/c as more tests are run and data to be gathered. She perks up easily as we talk about her Taoist tracie, the many blessings she has and the beautiful hearted people that surround her life. I provide prayer, recite scripture and provide theological insights. Pt responds well and shows signs of an elevated mood. I then talk with pt's spouse in the hallway and he tells me about his journey with all that the pt has gone through and how he has been impacted by it. I encourage self-care, pulling in his resources and healing activities for him. He voices much appreciation for the visit.
[2022-02-06 17:11] LABS: ANTI-DSDNA ANTIBODIES 16 IU/mL (0-9)
--- NOTE | 2022-02-06 17:43 | NUR ---
DAYSHIFT SUMMARY Patient doing well today, worked with therapy. Patient had a better appetite today, good fluid intake. Awaiting biopsy results, and decsion for dialysis. at bedside, patient got OOB today, into wheelchair. Vitals stable, tachycardic. Changed mepilex on coccyx, small open wound, granulated tissue/slough noted on left buttock.
--- NOTE | 2022-02-07 05:02 | NUR ---
SHIFT SUMMARY NO ACUTE CHANGES THIS SHIFT. AOX3. SLOW TO RESPOND TO QUESTIONS, ANSWERS APPROPRIATE. VSS. TELE AFIB HR AVERAGING 110. DENIES PAIN, N/V OR DYSPNEA. HS CBG @157. SUPERPUBIC CATHETER PATENT & DRAINING YELLOW URINE. PT REPOSITIONED Q2H. ALL MEPILEX BANDAGES CHANGED 02/06/22 PM SHIFT. CALL LIGHT IN REACH. WILL MONITOR.
[2022-02-07 05:47] LABS: Hematocrit 21.3 % (33.0-51.0); Hemoglobin 7.2 g/dL (11.5-16.0)
[2022-02-07 06:15] LABS: Magnesium, Blood 2.3 mg/dL (1.6-2.4)
[2022-02-07 06:28] LABS: Albumin, Blood 2.4 g/dL (3.4-5.0); Anion Gap 11 mmol/L (6-16); Blood Urea Nitrogen 171 mg/dL (8-24); Bun/Creatinine Ratio 34.8 (12.0-20.0); CO2, Blood 28 mmol/L (21-32); Calcium, Blood 7.4 mg/dL (8.5-10.1); Chloride, Blood 90 mmol/L (98-108); Creatinine, Blood 4.92 mg/dL (0.40-1.00); Glomerular Filtration Rate 9 (60-); Glucose, Blood 104 mg/dL (70-99); Phosphorus, Blood 5.5 mg/dL (2.5-4.9); Potassium, Blood 4.9 mmol/L (3.5-5.5); Sodium, Blood 129 mmol/L (136-145)
--- NOTE | 2022-02-07 18:24 | NUR ---
SUMMARY- PT STAYED IN BED TODAY. TURNED Q2-4 PT DIRECTED. NAPPING MOST OF THE DAY. S/P CATH LEAKING THIS AM, COMING OUT OF THE URETHRA. FLUSHED WITH NS, HAS SINCE BEEN PATENT. BLADDER SCANNED THIS AM, OML IN BLADDER. PLAN FOR PERMCATH TODAY WITH DR LENNON DEFERRED UNTIL 02/08. NPO AFTER MIDNIGHT. PT TOLERATED BREAKFAST AND DINNER 75% PLUS SUPPLEMENT. BUMEX 2MG BID, URINE OUT THIS SHIFT OVER 1 LITER. INTAKE APPROX 400ML. AT BEDSIDE MOST OF THE DAY, INVOLVED IN CARE.
[2022-02-08 06:12] LABS: Hematocrit 19.4 % (33.0-51.0); Hemoglobin 6.8 g/dL (11.5-16.0)
--- NOTE | 2022-02-08 06:37 | NUR ---
SHIFT SUMMARY: NO ACUTE CHANGES THIS SHIFT. VSS, TELI SHOWS A-FIB. RATE DOSE NOT SUSTAIN ABOVE 110 THIS SHIFT. REQUESTED TYLENOL FOR GENERALIZED PAIN. MEDICATION WAS GIVEN WITH GOOD EFFECT. DRGS TO LEFT BUTTOCKS WAS CHANGED, WOUND WAS CLEANED, GRANULATED TISSUE OBSERVED. MULTIPLE SOFT BM'S THIS SHIFT. PATIENT HAS BEEN NPO SINCE MIDNIGHT FOR PERMACATH PLACEMENT TODAY.
[2022-02-08 06:38] LABS: Magnesium, Blood 2.4 mg/dL (1.6-2.4)
[2022-02-08 07:05] LABS: Albumin, Blood 2.4 g/dL (3.4-5.0); Anion Gap 13 mmol/L (6-16); Blood Urea Nitrogen 176 mg/dL (8-24); Bun/Creatinine Ratio 33.2 (12.0-20.0); CO2, Blood 26 mmol/L (21-32); Chloride, Blood 89 mmol/L (98-108); Glomerular Filtration Rate 8 (60-); Glucose, Blood 149 mg/dL (70-99); Phosphorus, Blood 5.7 mg/dL (2.5-4.9); Potassium, Blood 5.1 mmol/L (3.5-5.5); Sodium, Blood 128 mmol/L (136-145)
[2022-02-08 08:10] LABS: HBSAG SCREEN Negative (Negative); HCV AB <0.1 (0.0-0.9); HEP B CORE AB, TOT Negative (Negative)
[2022-02-08 11:10] LABS: ATYPICAL PANCA <1:20 titer (Neg:<1:20); CYTOPLASMIC (C-ANCA) <1:20 titer (Neg:<1:20)
--- NOTE | 2022-02-08 19:30 | NUR ---
SHIFT SUMMARY PATIENT A&OX3, PLEASANT AND COOPERATIVE WITH CARE, SLOW TO RESPOND. LIFT PATIENT. Q2H TURNS. SUPRAPUBIC IN PLACE DRAINING TO GRAVITY. MEPILEX DRESSINGS IN PLACE TO BUTTOCK AND CHANGED THIS SHIFT. NPO THIS AM IN PREP FOR PERMACATH PLACEMENT. PERMACATH DRESSING C/D/I. CBG LOW THIS EVENING, PATIENT GIVEN JUICE, APPLE SAUCE, AND EVELYN CRACKERS WELL DINNER AND LAST CBG 77. VSS. REPORT GIVEN TO ONCOMING RN.
[2022-02-09 05:22] LABS: Hematocrit 19.5 % (33.0-51.0); Hemoglobin 6.7 g/dL (11.5-16.0)
[2022-02-09 05:57] LABS: Magnesium, Blood 2.3 mg/dL (1.6-2.4)
[2022-02-09 06:11] LABS: Albumin, Blood 2.3 g/dL (3.4-5.0); Anion Gap 13 mmol/L (6-16); Blood Urea Nitrogen 178 mg/dL (8-24); Bun/Creatinine Ratio 31.7 (12.0-20.0); CO2, Blood 26 mmol/L (21-32); Calcium, Blood 8.2 mg/dL (8.5-10.1); Chloride, Blood 90 mmol/L (98-108); Creatinine, Blood 5.62 mg/dL (0.40-1.00); Glomerular Filtration Rate 8 (60-); Glucose, Blood 125 mg/dL (70-99); Phosphorus, Blood 6.1 mg/dL (2.5-4.9); Potassium, Blood 5.4 mmol/L (3.5-5.5); Sodium, Blood 129 mmol/L (136-145)
--- NOTE | 2022-02-09 06:20 | NUR ---
SHIFT SUMMARY: PATIENT DENIES PAIN AT PERMA CATH SITE, RCW. SITE IS WNL. SUPRA PUBIC CATH IS DRAINING A CLOUDY URINE WITH SEDIMENT. NAUSEA WITH AM MED PASS, ZOFRAN WAS GIVEN WITH GOOD EFFECCT. NO ACCUTE CHANGES THIS SHIFT.
--- NOTE | 2022-02-09 19:42 | NUR ---
A&OX4. LIFT PATIENT. RECEIVED FIRST ROUND OF DIALYSIS TODAY AND RECEIVED 1 UNIT OF BLOOD DURING DIALYSIS. PATIENT IS WHEELCHAIR BOUND BASELINE. PATIENT UP TO PERSONAL WHEELCHAIR VIA LIFT AND WENT AROUND HOSPITAL WITH FAMILY. POOR APPETITE. SUPRAPUBIC CATHETER IN PLACE DRAINING TO GRAVITY. VSS. REPORT GIVEN TO ONCOMING RN.
[2022-02-10 05:16] LABS: Hematocrit 21.5 % (33.0-51.0); Hemoglobin 7.3 g/dL (11.5-16.0)
[2022-02-10 05:48] LABS: Albumin, Blood 2.3 g/dL (3.4-5.0); Anion Gap 10 mmol/L (6-16); Blood Urea Nitrogen 129 mg/dL (8-24); Bun/Creatinine Ratio 29.5 (12.0-20.0); CO2, Blood 29 mmol/L (21-32); Calcium, Blood 8.2 mg/dL (8.5-10.1); Chloride, Blood 95 mmol/L (98-108); Creatinine, Blood 4.38 mg/dL (0.40-1.00); Glomerular Filtration Rate 11 (60-); Glucose, Blood 184 mg/dL (70-99); Magnesium, Blood 2.2 mg/dL (1.6-2.4); Phosphorus, Blood 4.4 mg/dL (2.5-4.9); Potassium, Blood 4.7 mmol/L (3.5-5.5); Sodium, Blood 134 mmol/L (136-145)
--- NOTE | 2022-02-10 09:04 | NUR ---
Rn summary: Patient is alert and oriented but has very flat affect, sometimes slow to answer questions. Patient is a lift patient, difficult to turn. Unable t assess decub this shift. Pt continues with afib via tele, rate 100-120's. Pt medicated x2 with tylenol for generalized discomfort. Pt was able to rest some after. Pt states she does not rest well. Sprapubic cath with mauro andre. Permacath to rt chest wall, site looks good and Dsg is C/D/I. call light and bed control in reach, pt is able to adjust own bed.
--- NOTE | 2022-02-10 13:09 | NUR ---
SHIFT SUMMARY A&OX4. PATIENT WENT TO DIALYSIS THIS AM AND JUST RECENTLY GOT BACK. NO SIGNIFICANT EVENTS. VSS. AT BEDSIDE. REPORT GIVEN TO ONCOMING RN.
--- NOTE | 2022-02-10 19:28 | NUR ---
PT HAS BEEN STABLE SINCE THIS RN HAS ASSUMED CARE. ASSISTS WITH CARE. TURNING PATIENT NEEDED. PT UP TO CHAIR WITH LIFT AND OUT OF ROOM TO SPEND SOME TIME OUTDOORS. BLOOD SUGARS STABLE. ULCER DRESSINGS CHANGED BY AM NURSE. PT HAD DIALYSIS THIS AM. TELE AFIB IN THE TEENS. CATH DRAINING WELL. PT CALLS APPROPRIATELY NEEDED.
[2022-02-11 05:03] LABS: Hematocrit 21.6 % (33.0-51.0); Hemoglobin 7.2 g/dL (11.5-16.0)
[2022-02-11 05:49] LABS: Albumin, Blood 2.3 g/dL (3.4-5.0); Anion Gap 8 mmol/L (6-16); Blood Urea Nitrogen 82 mg/dL (8-24); Bun/Creatinine Ratio 23.8 (12.0-20.0); CO2, Blood 30 mmol/L (21-32); Calcium, Blood 8.4 mg/dL (8.5-10.1); Chloride, Blood 100 mmol/L (98-108); Creatinine, Blood 3.44 mg/dL (0.40-1.00); Glomerular Filtration Rate 14 (60-); Glucose, Blood 211 mg/dL (70-99); Magnesium, Blood 2.2 mg/dL (1.6-2.4); Phosphorus, Blood 3.6 mg/dL (2.5-4.9); Potassium, Blood 4.5 mmol/L (3.5-5.5); Sodium, Blood 138 mmol/L (136-145)
--- NOTE | 2022-02-11 06:19 | NUR ---
SHIFT SUMMARY PATIENT ALERT AND ORIENTED. MEDICATED PER EMAR FOR PAIN. NO COMPLAINTS OF SHORTNESS OF BREATH. NO ACUTE ISSUES NOTED OVERNIGHT. CALL LIGHT WITHIN REACH. REPORT GIVEN TO ONCOMING RN.
--- NOTE | 2022-02-11 16:00 | NUR ---
SHIFT SUMMARY; ASSUMED CARE AND COMFORT OF THIS PATIENT EARLY AFTERNOON FROM MARTHA DELGADO. PATIENT IS A LIFT PATIENT AND IS BEDBOUND. SHE HAS HAD A PREVIOUS CVA. RECEIVED A MEDIPORT FOR DIALYSIS TO HER RIGHT CHEST WALL. SHE HAS MEPELEX BANDAGES TO HER COCCYX AND HER BUTTOCKS FOR STAGE 3 DECUBE ULCER. SPOUSE ASSISTED PAITENT AND NURSES IN PLACING HER IN HER ELECTRIC WHEEL CHAIR TODAY USING LIFT IN HER HOSPITAL ROOM. PATIENT TRANSFERRED WITH MINIMAL DISCOMFORT. SHE WAS GONE FROM HER ROOM ABOUT 45 MINUTES. UPON RETURN WAS LIFTED USING CEILING LIFT BACK TO BED. BRIJESH GARDINER PROVIDED PAITENT WITH A BED BATH AND HER ATTENDS WERE CHANGED. SHE HAS ELEVATED BLOOD PRESSURE IN THE 160'S SYSTOLIC TODAY AND HER HR IS SLIGHTLY TACHY AT 106 THIS AFTERNOON. SHE IS AFEBRILE. HER MEDIPORT SITE IS CLEAN DRY AND INTACT. PATIENT IS ABLE TO VERBALIZE HER WANTS AND NEEDS. HER SPOUSE REMAINS AT BEDSIDE TO ASSIST WITH HER CARE THROUGHOUT THE DAY.
--- NOTE | 2022-02-11 21:04 | NUR ---
REVIEWED PT'S INFO TO ASNSWER A QUESTION FOR PRIMARY RN
[2022-02-12 06:25] LABS: Hemoglobin 7.5 g/dL (11.5-16.0)
--- NOTE | 2022-02-12 06:35 | NUR ---
SHIFT SUMMARY PT IS VERY ANXIOUS ABOUT GETTING A DIALYSIS CHAIR. SHE HAS NOT SLEPT WELL TONIGHT AND WAS UP EVERY FEW MINUTS ASKING TO BE TURNED AND TO CONFIRN THAT DR DEMPSEY HADN'T COME BY/ THIS RN REASSURED HER THAT THE PLAN WAS STILL TO GET HER A DIALYSIS CHAIR, BUT THAT WE COULD NOT GARUNTEE WHEN IT WOULD HAPPEN. PT SATISFIED TO WAIT, BUT HOPEFUL TO DC TODAY. BED IN LOWEST POSITION AND CALL LIGHT IN REACH
[2022-02-12 06:54] LABS: Albumin, Blood 2.5 g/dL (3.4-5.0); Anion Gap 7 mmol/L (6-16); Blood Urea Nitrogen 94 mg/dL (8-24); Bun/Creatinine Ratio 24.1 (12.0-20.0); CO2, Blood 31 mmol/L (21-32); Calcium, Blood 8.7 mg/dL (8.5-10.1); Chloride, Blood 97 mmol/L (98-108); Glomerular Filtration Rate 12 (60-); Glucose, Blood 255 mg/dL (70-99); Phosphorus, Blood 3.6 mg/dL (2.5-4.9); Potassium, Blood 4.9 mmol/L (3.5-5.5); Sodium, Blood 135 mmol/L (136-145)
--- NOTE | 2022-02-12 11:24 | NUR ---
DIALYSIS AT APPROXIMATELY 1020 THIS RN BEGAN PRE-TX ASSESSMENT. PT OBSERVED HAVING MILD SEIZURE, PUPILS ARE NOTED TO BE UNEQUAL IN SIZE, PT IS LIMITED IN VERBAL RESPONSE.
--- NOTE | 2022-02-12 12:02 | NUR ---
MORNING SUMMARY AT START OF SHIFT AT 0700 PATIENT NOTED TO BE TACHYPNEIC WITH INS AND EXP WHEEZE. SATS 85-89% ON RA. PATIENT REPORTED SHORTNESS OF BREATH. PLACED PATIENT ON 2L NC WITH BROUGHT SATS UP TO 95%. PATIENT ALSO REPORTED ANXIETY AND CHEST PAIN THAT WAS CONSTANT. NOTIFIED LALA MAY, SCREW MACHINE SET UP OPERATOR AND DR HADLEY. ORDERS OBTAINED FOR EKG AND IV LOPRESSOR. PATIENT AFIB AT 130 PER TELE. RT WAS CONSULTED AND PROVIDED BREATHING TREATMENT AND TURNED PATIENT UP TO 3L NC. TREATMENT EASED WORK AND RATE OF BREATHING. ABOUT 0900 PATIENT'S SPOUSE NOTIFIED BPM DEVELOPER AND THIS RN OF CHANGE IN PATIENT. HE NOTED PATIENT TO BE GAZING LEFT, SIMILAR TO WHEN SHE HAD A STROKE 3.5 YEARS AGO. PATIENT OBSERVED TO BE GAZING LEFT AND COULD ONLY BRIEFLY MAKE EYE CONTACT. NOTIFIED DR HADLEY AND ORDERS OBTAINED FOR CT HEAD AND CTA HEAD AND NECK. IMAGING COMPLETED. ABOUT 1000 PATIENT NOTED TO HAVE SEIZURE LIKE TREMORS TO LEFT SIDE AND HEAD. NOTIFIED DR HADLEY AGAIN AND ORDERS OBTAINED FOR IV ATIVAN AND KEPPRA AND TRANSFER TO PCU. ATIVAN GIVEN AND PATIENT TRASNFERRED TO PCU 20 AND BEDSIDE REPROT GIVEN TO ICE SELLER ASSUMING CARE. DIALYSIS TO START IN ROOM IN PCU ABOUT 1100. ACCOMPANIED PATIENT TO PCU.
[2022-02-12 12:16] LABS: Source, Urine Suprapubic Cath
[2022-02-12 12:45] LABS: Appearance, Urine Hazy (Clear); Bilirubin, Urine Neg (Neg); Blood, Urine 5+ (Neg); Color, Urine Yellow (P-Yellow); Glucose Qualitative, Urine 2+ (Neg); Ketones, Urine Neg (Neg); Leukocyte Esterase, Urine 3+ (Neg); Nitrite, Urine Neg (Neg); Protein, Urine 3+ (Neg); Specific Gravity, Urine 1.015 (1.003-1.022); Urobilinogen, Urine NORM (Normal)
[2022-02-12 13:05] LABS: Red Blood Cells, Urine 25-50 /hpf (0-2); White Blood Cells, Urine 25-50 /hpf (0-5)
[2022-02-12 13:06] LABS: Squamous Epithelial Cells Rare /hpf (Few)
[2022-02-12 13:07] LABS: Bacteria Mod /hpf
[2022-02-12 13:08] LABS: Transitional Epithelial Cells Few /hpf (0-Rare)
--- NOTE | 2022-02-12 16:19 | NUR ---
SHIFT SUMMARY PT. CAME DOWN FROM MEDICAL FLOOR AND REPORT WAS OBTAINED AT BEDSIDE FROM ALLY DELGADO. PT CAME DOWN BECAUSE OF SEIZURE ACTIVITY, WORSENING ANEMIA, AND CHANGE IN MENTAL STATUS. PT GOT SET UP W/ DIALYSIS SOON SHE TRANSFERED DOWN, AND THEY PULLED OFF 2.7 L OFF AT THE END OF THE TREATMENT. PT'S LUNGS ARE HAVE CRACKLES, BUT SOUND SLIGHTLY BETTER AFTER DIALYSIS. DR. HADLEY ORDERED UA, CHEST XRAY, AND THEN STARTED PT ON ANTIBIOTICS FOR UTI. THE PLAN IS TO HAVE DAILY DIALYSIS BECAUSE CHEST XRAY SHOWED PULMONARY EDEMA. PT. IS ALERT AND ORIENTED, BUT HAS SOME CONFUSION WHICH IS HER BASELINE. SHE IS NO LONGER STARING OFF TO THE LEFT, AND CAN HAVE CONVERSATIONS. PT IS VERY DROWSY AND IS RESTING. SHE HAS WOUNDS ON HER R INNER THIGH, COCCYX, AND THEY WERE CHANGED DURING A BREIF CHANGE. PT HAS REDNESS IN HER GROIN AND POWDER WAS APPLIED. HER HAS BEEN AT BEDSIDE SINCE ARRIVAL TO THE UNIT. WILL CONTINUE TO MONITOR
--- NOTE | 2022-02-12 18:35 | NUR ---
PT RECEIVED HER PO COREG THIS AFTER NOON BP SYSTOLIC WAS ON THE 120'S BEFORE ADMINISTERING THE MEDICATION, AFTER AN HOUR PT'S BLOOD PRESSURE SYSTOLIC WENT DOWN TO 80'S MAP 50-60'S, PT WAS STILL ABLE TO RESPOND TO QUESTIONS, PLACED ON TRENDELENBURG POSITION WHILE CALLING PROVIDER ORDERED MIDODRINE 5MG X1 AND RPN Q6HRS FOR SYSTOLIC <90 AND MAP <65, BLOOD PRESSURE NOW IMPROVED TO 115'S SYSTOLIC MAP ABOVE 65. STILL AT BEDSIDE, PT RESTING AT THIS TIME, CALL LIGHTS IN REACH WILL CONTINUE TO MONITOR
--- NOTE | 2022-02-12 21:06 | NUR ---
PT UPDATE UPON ASSESSMENT THIS EVENING, PT LETHARGIC. OPENS EYES TO SOUND/TOUCH BUT DOES NOT KEEP THEM OPEN. ABLE TO STATE MONTH OF BEFORE GOING TO BACK TO SLEEP. NOTICED ON EMAR PT DID NOT RECEIVE AM DOSE OF PREDNISONE. CALL PLACED TO MD CAMPBELL. MD CAMPBELL W/ ORDERS FOR PREDNISONE TO BE SWITCHED TO IV STARTING TONIGHT.
[2022-02-13 04:16] LABS: Hematocrit 22.2 % (33.0-51.0); Hemoglobin 7.2 g/dL (11.5-16.0)
[2022-02-13 04:47] LABS: Albumin, Blood 2.5 g/dL (3.4-5.0); Anion Gap 7 mmol/L (6-16); Blood Urea Nitrogen 67 mg/dL (8-24); Bun/Creatinine Ratio 20.4 (12.0-20.0); CO2, Blood 31 mmol/L (21-32); Calcium, Blood 8.8 mg/dL (8.5-10.1); Chloride, Blood 97 mmol/L (98-108); Creatinine, Blood 3.29 mg/dL (0.40-1.00); Glomerular Filtration Rate 15 (60-); Glucose, Blood 125 mg/dL (70-99); Magnesium, Blood 2.1 mg/dL (1.6-2.4); Phosphorus, Blood 3.9 mg/dL (2.5-4.9); Potassium, Blood 5.3 mmol/L (3.5-5.5); Sodium, Blood 135 mmol/L (136-145)
--- NOTE | 2022-02-13 06:23 | NUR ---
SHIFT SUMMARY PT LETHARGIC START OF SHIFT, NEEDING ARM SHOOK TO AWAKEN BUT DID NOT STAY AWAKE. SEE PREVIOUS NOTE. UPON REASSESSMENT T/O SHIFT, PT BECAME INCREASINGLY AWAKE. ABLE TO SWALLOW MORNING SYTHROID IN APPLESAUCE W/ NO OBVIOUS ISSUES. SP02>90% ON 2L NC. TELEMETRY SHOWS AFIB, HR INCREASING T/O SHIFT, NOW AVG 120'S. 3+ BILAT FOOT EDEMA, ELEVATED ON PILLOWS. REPOSITIONG Q2 WELL IN AN AIR BED. NO BM THIS SHIFT. SUPRAPUBIC CATHETER DRAINING TO GRAVITY. IN ROOM AT START OF SHIFT BUT WENT HOME TO SLEEP SHORTLY AFTER. CALL LIGHT IN REACH.
--- NOTE | 2022-02-13 17:39 | NUR ---
PT SUMMARY: NO SEIZURE ACTIVITY NOTED FOR THE SHIFT, PT MORE ALERT AND TALKING, STILL LETHARGIC AND WEAK. VITALS HRR AFIB 110-120'S, BP SYSTOLIC 100-12' MAP >65, SATS ABOVE 95% ON 2L OF O2, AFEBRILE. PT DENIES ANY CHEST PAIN/PRESSURE, AHS SOME DISCOMFORT THAT IS RELIEVED BY REPOSITIONING. PT RECEIVED A BEDBATH TODAY WOUND DRESSINGS CHANGED, SUPRAPUBIC CATHETER WAS REPLACED ALSO FOR THE SHIFT, AT BEDSIDE REPORTED LAST TIME CATHETER WAS CHANGED WAS 2 MONTHS AGO AND USUALLY THEY GET IT CHANGE MONTHLY. PT REGAINED APPETITE BACK EATING MEALS ALSO CONSUMING 100% OF GLUCERNA. KEPPRA IV DOSE 500MG WAS GIVEN PER [facility] TO MANAGE. EEG TO BE DONE TONIGHT PER KILN TRANSFER OPERATOR. NO OTHER ISSUES REPORTED PT RESTING COMFORTABLY IN BED, CALL LIGHTS IN REACH, AT BEDSIDE, WILL REPORT TO ONCOMING SHIFT
[2022-02-14 04:41] LABS: Hematocrit 21.4 % (33.0-51.0)
[2022-02-14 05:02] LABS: Albumin, Blood 2.5 g/dL (3.4-5.0); Anion Gap 9 mmol/L (6-16); Blood Urea Nitrogen 90 mg/dL (8-24); Bun/Creatinine Ratio 24.5 (12.0-20.0); CO2, Blood 29 mmol/L (21-32); Calcium, Blood 8.6 mg/dL (8.5-10.1); Chloride, Blood 95 mmol/L (98-108); Creatinine, Blood 3.67 mg/dL (0.40-1.00); Glomerular Filtration Rate 13 (60-); Glucose, Blood 278 mg/dL (70-99); Magnesium, Blood 2.2 mg/dL (1.6-2.4); Phosphorus, Blood 4.3 mg/dL (2.5-4.9); Potassium, Blood 5.6 mmol/L (3.5-5.5); Sodium, Blood 133 mmol/L (136-145)
--- NOTE | 2022-02-14 06:34 | NUR ---
SHIFT SUMMARY NO ACUTE CHANGES THSI SHIFT. PT ALERT, ORIENTED. ABLE TO SWALLOW WITHOUT ISSUE. SP02>90% ON 1L NC. TELEMETRY SHOWS AFIB, HR MOSTLY 110'S-130'S. DENIES PAIN. REPOSITIONED Q2H. SUPRA PUBIC CATHETER DRAINING YELLOW URINE TO GRAVITY. NO BM THIS SHIFT. PT'S HAIR WASHED THIS SHIFT TO PREPARE FOR MORNING EEG. EEG TO ROOM APPROX 0530. FLUIDS INFUSED PER EMAR. PT SLEPT MOST OF NIGHT. [facility].
--- NOTE | 2022-02-14 12:04 | NUR ---
NOTIFED OF PT. TRANSFER TO MEDICAL FLOOR, REPORT GIVEN TO SUSAN DELGADO. PT GOING FROM DIALYSIS TO MEDICAL FLOOR
--- NOTE | 2022-02-14 12:58 | NUR ---
ASSUMPTION OF CARE NOTE PT ARRIVED TO ROOM 335 FROM DIALYSIS APPROX. 1240. REPORT GIVEN APPROX. 1130ISH FROM DOREEN MILLER RN. PT WAS AT BEDSIDE WAITING FOR PT TO ARRIVE FROM DIALYSIS. VITAL SIGNS STABLE. SHE DENIED PAIN BUT REPORTED FEELING TIRED. DR. HADLEY ALSO AT BEDSIDE. PT ORIENTED TO ROOM, AND CALL LIGHT IN REACH.
--- NOTE | 2022-02-14 19:31 | NUR ---
SHIFT SUMMARY PT ALERT AND ORIENTED X 4, SHE TRANSFERED FROM PCU TO MEDICAL [facility] DURING THIS SHIFT AFTER DIALYSIS. HAS BEEN AT BEDSIDE T/O SHIFT. VITAL SIGNS STABLE, PT ON RA AND SPO2 100%, SBP AT 1400 117. POWERGLIDE IN COREY IS SALINE LOCKED. PRESSURE ULCER ON COCCYX IS COVERED W/ MEPILEX DRESSING, SEE CHART FOR PICTURES. SHE WAS ABLE TO GET INTO MOTORIZED CHAIR VIA LIFT LATER THIS AFTERNOON AND HAS TOLARATED WELL. SUPRAPUBIC CATHETER IS IN PLACE AND DRAINING YELLOW OUTPUT. NO ACUTE CHANGES NOTED DURING SHIFT. REPORT GIVEN TO JONNY DELGADO.
--- NOTE | 2022-02-15 04:23 | NUR ---
SHIFT SUMMARY NO ACUTE CHANGES THIS EVENING. PT HAS SLEPT, DENIED PAIN. SHE WAS ABLE TO FALL ASLEEP AFTER TALKING WITH HER . PT IS STILL HOPEFUL TO DISCHARGE TOORROW AND CONTINUE HER DIALYSIS IN [facility] NOW THAT SHE HAS A CHAIR. BED IN LOWEST POSITION AND CALL LIGHT IN REACH.
[2022-02-15 05:45] LABS: Hematocrit 20.7 % (33.0-51.0); Hemoglobin 6.7 g/dL (11.5-16.0)
[2022-02-15 06:18] LABS: Albumin, Blood 2.4 g/dL (3.4-5.0); Anion Gap 7 mmol/L (6-16); Blood Urea Nitrogen 68 mg/dL (8-24); Bun/Creatinine Ratio 21.9 (12.0-20.0); CO2, Blood 30 mmol/L (21-32); Calcium, Blood 8.4 mg/dL (8.5-10.1); Chloride, Blood 100 mmol/L (98-108); Glomerular Filtration Rate 16 (60-); Glucose, Blood 163 mg/dL (70-99); Magnesium, Blood 2.2 mg/dL (1.6-2.4); Phosphorus, Blood 3.2 mg/dL (2.5-4.9); Potassium, Blood 4.5 mmol/L (3.5-5.5); Sodium, Blood 137 mmol/L (136-145)
[2022-02-15] MEDS ORDERED: PANT40 PO (14:42)
[2022-02-15] MEDS ORDERED: ELIQUIS5 M2 PO (14:42)
[2022-02-15] MEDS ORDERED: Acetaminophen325 M1 PO (14:43)
[2022-02-15] MEDS ORDERED: Vitamin B-Comp1 EACH PO (14:44)
[2022-02-15] MEDS ORDERED: CALCIUM 500-VI1 EAC6 PO (14:45)
[2022-02-15] MEDS ORDERED: CARV25 PO (14:46)
[2022-02-15] MEDS ORDERED: MIRALAX17 GM PO (14:47)
[2022-02-15] MEDS ORDERED: Prednisone20 MG PO (14:50)
[2022-02-15] MEDS ORDERED: LEVETIRACETAM500 M3 PO (14:51)
[2022-02-15] MEDS ORDERED: B-1100 M1 PO (14:51)
--- NOTE | 2022-02-15 15:10 | NUR ---
PATIENT D/C'D TO [facility] WITH . DC INSTRUCTIONS AND EDUCATION DISCUSSED WITH PATIENT AND COPY PROVIDED. RX MEDICATIONS FAXED TO [facility]. CORY TO CALL AND MAKE F/U APPOINTMENTS. PATIENT TO GO FOR INTAKE APPOINTMENT AT [facility] TOMORROW. PATIENT DENIES ANY FURTHER QUESTIONS OR CONCERNS.
== END 2022-02-15 15:12 | disposition home health service (06) | DRG 673 ==
LOC: ER 22:47 → ICUE 01-18 04:28 → PCU 01-18 04:28 → MEDS 01-18 04:28 → ERHOLD 01-18 04:28 → MEDS 01-18 13:36 → PCU 01-20 17:44 → ICUE 01-23 20:10 → PCU 01-30 06:48 → MEDS 01-31 10:27 → PCU 02-12 10:44 → MEDS 02-14 12:28
PROVIDERS: Family Medicine; Internal Medicine; Internal Medicine Critical Care Medicine; Internal Medicine Gastroenterology; Internal Medicine Nephrology; Student in an Organized Health Care Education/Training Program; ADMIT Family Medicine
PROC: 3E03329 Introduction of Other Anti-infective into Peripheral Vein, Percutaneous Approach (ICD-10-PCS; 2022-01-18)
PROC: 5A1955Z Respiratory Ventilation, Greater than 96 Consecutive Hours (ICD-10-PCS; 2022-01-23)
PROC: 0BH18EZ Insertion of Endotracheal Airway into Trachea, Via Natural or Artificial Opening Endoscopic (ICD-10-PCS; 2022-01-23)
PROC: 5A09357 Assistance with Respiratory Ventilation, Less than 24 Consecutive Hours, Continuous Positive Airway Pressure (ICD-10-PCS; 2022-01-23)
PROC: 0DJ08ZZ Inspection of Upper Intestinal Tract, Via Natural or Artificial Opening Endoscopic (ICD-10-PCS; 2022-01-24)
PROC: 0B9K8ZX Drainage of Right Lung, Via Natural or Artificial Opening Endoscopic, Diagnostic (ICD-10-PCS; 2022-01-26)
PROC: 0JH63XZ Insertion of Tunneled Vascular Access Device into Chest Subcutaneous Tissue and Fascia, Percutaneous Approach (ICD-10-PCS; principal; 2022-02-08)
PROC: 02HV33Z Insertion of Infusion Device into Superior Vena Cava, Percutaneous Approach (ICD-10-PCS; 2022-02-08)
PROC: B518YZA Fluoroscopy of Superior Vena Cava using Other Contrast, Guidance (ICD-10-PCS; 2022-02-08)
PROC: B548ZZA Ultrasonography of Superior Vena Cava, Guidance (ICD-10-PCS; 2022-02-08)
PROC: 5A1D70Z Performance of Urinary Filtration, Intermittent, Less than 6 Hours Per Day (ICD-10-PCS; 2022-02-08)
DX: N17.9 Acute kidney failure, unspecified (principal); J96.01 Acute respiratory failure with hypoxia; N39.0 Urinary tract infection, site not specified; E87.1 Hypo-osmolality and hyponatremia; E87.0 Hyperosmolality and hypernatremia; I48.20 Chronic atrial fibrillation, unspecified; Z68.43 Body mass index [BMI] 50.0-59.9, adult; K92.1 Melena; B96.20 Unspecified Escherichia coli [E. coli] as the cause of diseases classified elsewhere; D64.9 Anemia, unspecified; N18.30 Chronic kidney disease, stage 3 unspecified; E11.649 Type 2 diabetes mellitus with hypoglycemia without coma; I10 Essential (primary) hypertension; M43.6 Torticollis; Z86.73 Personal history of transient ischemic attack (TIA), and cerebral infarction without residual deficits; E87.6 Hypokalemia; E66.01 Morbid (severe) obesity due to excess calories; Z20.822 Contact with and (suspected) exposure to COVID-19; Z88.1 Allergy status to other antibiotic agents; Z79.899 Other long term (current) drug therapy; Z79.4 Long term (current) use of insulin; E03.9 Hypothyroidism, unspecified; E78.5 Hyperlipidemia, unspecified; K21.9 Gastro-esophageal reflux disease without esophagitis; Z98.890 Other specified postprocedural states; I12.9 Hypertensive chronic kidney disease with stage 1 through stage 4 chronic kidney disease, or unspecified chronic kidney disease; E11.22 Type 2 diabetes mellitus with diabetic chronic kidney disease; N25.81 Secondary hyperparathyroidism of renal origin; L89.150 Pressure ulcer of sacral region, unstageable
CPT/HCPCS: 0241U; 31500; 36415; 36430; 36558; 36600; 50200; 70450; 70496; 70498; 71045; 71250; 74176; 76770; 76937; 77001; 77012; 80048; 80053; 80069; 81001; 82272; 82533; 82607; 82728; 82746; 82803; 82947; 83036; 83516; 83520; 83540; 83550; 83735; 83880; 83930; 84075; 84100; 84132; 84156; 84166; 84295; 84443; 84484; 84550; 85014; 85018; 85025; 85027; 85060; 85610; 85730; 86037; 86038; 86160; 86225; 86317; 86334; 86335; 86704; 86708; 86803; 86850; 86900; 86901; 86923; 87040; 87070; 87077; 87086; 87186; 87205; 87340; 88329; 92526; 92610; 93005; 93010; 93306; 93308; 93971; 94002; 94003; 94640; 94660; 94664; 94760; 94762; 95819; 96374; 96375; 96376; 97110; 97162; 97166; 97530; 99152; 99285-25; A9270; C1750; C1751; C1769; C1894; C9113; J0171; J0696; J0881; J1430; J1644; J1815; J1940; J1953; J2060; J2250; J2370; J2405; J2704; J2920; J2930; J3010; J3480; J7030; J7040; J7042; J7050; J7512; P9016; P9041; Q9967

== ENCOUNTER 2022-10-12 12:12 | Emergency (ER) | payer OTHER ==
[~2022-10-12] VITALS: Ht 162.6 cm; Wt 103.4 kg
[~2022-10-12 12:12] MED LIST changes: +AMOX250 PO; +Acerola C500 MG PO; +Acetaminophen325 M1 PO; +B-1100 M1 PO; +CALCIUM 500-VI1 EAC6 PO; +CARV25 PO; +DILTIAZEM 24HR120 M4 PO; +DIPH50 PO; +ELIQUIS5 M2 PO; +FLUO10 PO; +KLOR-CON 1010 ME8 PO; +LEVETIRACETAM500 M3 PO; +OXYB5 PO; +PANT40 PO; +Prednisone20 MG PO; +VITAMIN B125000 MC1 PO; +Vitamin B-Comp1 EACH PO
[2022-10-12 12:22] VITALS: BP 119/80
[2022-10-12] MEDS ORDERED: SULTRISS PO (16:09)
[2022-10-12] MEDS ORDERED: CLIN300 PO (16:16)
== END 2022-10-12 16:41 | disposition home or self-care (01) ==
LOC: ER 12:12
DX: L03.115 Cellulitis of right lower limb (principal); Z79.4 Long term (current) use of insulin; Z79.899 Other long term (current) drug therapy; Z79.01 Long term (current) use of anticoagulants; Z79.52 Long term (current) use of systemic steroids; Z79.890 Hormone replacement therapy
CPT/HCPCS: 73630; 93971; 99284-25; A9270

== ENCOUNTER 2022-11-06 01:40 | Day surgery (SDC) | payer OTHER ==
[~2022-11-06 01:40] MED LIST changes: +CLIN300 PO; +SULTRISS PO
[2022-11-06 14:59] VITALS: BP 116/43
--- NOTE | 2022-11-06 17:08 | NUR ---
SUPER-PUBIC CATHETER CHANGE TODAY. OLD CATHETER REMOVED. AREA CLEANSED WITH SOAP AND WATER FOLLOWED BY CHLORHEXADINE AND THEN IODINE. NEW 18 TURKISH CATHETER INSERTED USING STERILE TECHNIQUE. POSITIVE URINE RETURN. CATHETER SECURED USING STAT LOCK TO THE LEG. DRAINAGE LEG BAG ATTACHED TO INNER LEFT LEG. PT TOLERATED WELL WITH NO QUESTIONS OR CONCERNS.
[2022-11-06] MEDS ORDERED: AURYXIA210 MG PO (17:10)
[2022-11-06] MEDS ORDERED: INSULANI SC (17:11)
[2022-11-06] MEDS ORDERED: DOCU100 PO (17:12)
[2022-11-06] MEDS ORDERED: GABA100 PO (17:12)
[2022-11-06] MEDS ORDERED: AMOX250 PO (17:12)
[2022-11-06] MEDS ORDERED: SULTRIDS PO (17:12)
[2022-11-06] MEDS ORDERED: Midodrine HCl2.5 MG PO (17:13)
[2022-11-06] MEDS ORDERED: Furosemide80 MG PO (17:13)
[2022-11-06] MEDS ORDERED: OXYB5 PO (17:13)
== END 2022-11-06 15:37 | disposition home or self-care (01) ==
LOC: ATC 01:40
DX: N31.9 Neuromuscular dysfunction of bladder, unspecified (principal); R39.81 Functional urinary incontinence; I13.2 Hypertensive heart and chronic kidney disease with heart failure and with stage 5 chronic kidney disease, or end stage renal disease; E11.22 Type 2 diabetes mellitus with diabetic chronic kidney disease; N18.5 Chronic kidney disease, stage 5; I50.32 Chronic diastolic (congestive) heart failure; Z96.0 Presence of urogenital implants; E66.01 Morbid (severe) obesity due to excess calories; Z88.1 Allergy status to other antibiotic agents; Z88.8 Allergy status to other drugs, medicaments and biological substances
CPT/HCPCS: 51705

== ENCOUNTER 2022-11-12 16:03 | Emergency (ER) | payer OTHER ==
[~2022-11-12] VITALS: Ht 162.6 cm; Wt 100.7 kg
[2022-11-12 16:15] VITALS: BP 100/51
== END 2022-11-12 20:21 | disposition left against medical advice (07) ==
LOC: ER 16:03
DX: M79.89 Other specified soft tissue disorders (principal); Z79.4 Long term (current) use of insulin; Z79.2 Long term (current) use of antibiotics; Z79.899 Other long term (current) drug therapy; Z79.01 Long term (current) use of anticoagulants; Z79.890 Hormone replacement therapy; Z53.21 Procedure and treatment not carried out due to patient leaving prior to being seen by health care provider
CPT/HCPCS: 99281

== ENCOUNTER → 2022-11-12 | Outpatient (CLI) | payer OTHER ==
[~2022-11-12] MED LIST changes: +AURYXIA210 MG PO; +DOCU100 PO; +Furosemide80 MG PO; +GABA100 PO; +INSULANI SC; +Midodrine HCl2.5 MG PO; +SULTRIDS PO
[2022-11-12 15:07] LABS: Hematocrit 28.9 % (33.0-51.0); Hemoglobin 9.8 g/dL (11.5-16.0); Mean Corpuscular HGB 37.1 pg (26.0-34.0); Mean Corpuscular HGB Conc 33.9 g/dL (31.5-36.5); Mean Corpuscular Volume 110 fL (80-100); Mean Platelet Volume 11.9 fL (9.1-12.4); Platelet Count 186 K/mm3 (150-400); RDW Coefficient Variation 14.2 % (11.7-14.2); RDW Standard Deviation 55.6 fL (35.1-46.3); Red Blood Cell Count 2.64 M/mm3 (3.80-5.20); White Blood Cell Count 23.86 K/mm3 (4.00-11.30)
[2022-11-12 15:16] LABS: Albumin, Blood 2.2 g/dL (3.4-5.0); Albumin/Globulin Ratio 0.6 (0.8-1.8); Bilirubin, Total 0.6 mg/dL (0.1-1.0); Bun/Creatinine Ratio 14.8 (12.0-20.0); Calcium, Blood 9.3 mg/dL (8.5-10.1); Globulin, Blood 3.8 g/dL (2.2-4.0); Potassium, Blood 3.7 mmol/L (3.5-5.5)
[2022-11-12 15:17] LABS: Creatinine, Blood 10.22 mg/dL (0.40-1.00)
[2022-11-12 15:25] LABS: BAND PERCENT MAN 2 % (0-8); BASOPHILS PERCENT MAN 0 % (0-2); EOSINOPHILS ABSOLUTE MAN 0.71 K/mm3 (0.00-0.68); EOSINOPHILS PERCENT MAN 3 % (0-6); LYMPHOCYTES ABSOLUTE MAN 0.23 K/mm3 (0.84-5.20); LYMPHOCYTES PERCENT MAN 1 % (21-46); MONOCYTES ABSOLUTE MAN 0.95 K/mm3 (0.16-1.47); MONOCYTES PERCENT MAN 4 % (4-13); NEUTROPHILS ABSOLUTE MAN 21.95 K/mm3 (1.96-9.15); SEG NEUTROPHILS PERCENT MAN 90 % (41-73); TOTAL CELLS COUNTED 100
== END | disposition home or self-care (01) ==
LOC: LAB SHORT 14:56 → LAB 14:56
PROVIDERS: Physician Assistant Medical
DX: S81.801A Unspecified open wound, right lower leg, initial encounter (principal); L03.115 Cellulitis of right lower limb
CPT/HCPCS: 80053; 85025; 87070; 87075; 87077; 87186; 87205

== ENCOUNTER 2022-11-13 12:47 | Inpatient (IN) | payer OTHER ==
[2022-11-13] VITALS (9 sets, daily range): BP systolic 72–132; BP diastolic 40–103
[~2022-11-13] VITALS: Ht 162.6 cm; Wt 108.9 kg
[2022-11-13 13:47] LABS: BASOPHILS ABSOLUTE AUTO 0.04 K/mm3 (0.00-0.23); BASOPHILS PERCENT AUTO 0 % (0-2); EOSINOPHILS PERCENT AUTO 1 % (0-6); Hematocrit 28.8 % (33.0-51.0); Hemoglobin 9.4 g/dL (11.5-16.0); IMMATURE GRAN ABSOLUTE AUTO 0.24 K/mm3 (0.00-0.10); IMMATURE GRAN PERCENT AUTO 1 % (0-1); LYMPHOCYTES ABSOLUTE AUTO 0.57 K/mm3 (0.84-5.20); LYMPHOCYTES PERCENT AUTO 3 % (21-46); MONOCYTES ABSOLUTE AUTO 1.23 K/mm3 (0.16-1.47); MONOCYTES PERCENT AUTO 6 % (4-13); Mean Corpuscular HGB 35.9 pg (26.0-34.0); Mean Corpuscular HGB Conc 32.6 g/dL (31.5-36.5); Mean Corpuscular Volume 110 fL (80-100); Mean Platelet Volume 12.1 fL (9.1-12.4); NEUTROPHILS ABSOLUTE AUTO 19.63 K/mm3 (1.96-9.15); NEUTROPHILS PERCENT AUTO 90 % (41-73); Platelet Count 198 K/mm3 (150-400); RDW Coefficient Variation 13.8 % (11.7-14.2); RDW Standard Deviation 55.2 fL (35.1-46.3); Red Blood Cell Count 2.62 M/mm3 (3.80-5.20); White Blood Cell Count 21.81 K/mm3 (4.00-11.30)
[2022-11-13 14:53] LABS: Albumin, Blood 2.2 g/dL (3.4-5.0); Albumin/Globulin Ratio 0.6 (0.8-1.8); Bilirubin, Total 0.7 mg/dL (0.1-1.0); Bun/Creatinine Ratio 16.7 (12.0-20.0); Calcium, Blood 9.2 mg/dL (8.5-10.1); Creatinine, Blood 8.8 mg/dL (0.40-1.00); Globulin, Blood 3.6 g/dL (2.2-4.0); Potassium, Blood 3.7 mmol/L (3.5-5.5); Total Protein, Blood 5.8 g/dL (6.4-8.2)
--- NOTE | 2022-11-13 21:34 | NUR ---
pd rn to pt room icu12 at approx 2100pm to set up PD dialysis treatment. Pt just admitted from the ER for sepis complications. is by her bedside and signed consent form. Machine programed per patients perscription and doctors order. Ready to coonect pt at 2137pm. pt has no complaints of cloudty effluent so no effluent sample taken. She has nop complaimts of pain, nausea, dizziness, or SOB. Pt was connected to tx at approx 2145pm[place] [address] [place] 5 cycles of 2000ml with approx 1:40 min dwell time each, and no last fill volume.
[2022-11-14] VITALS (56 sets, daily range): BP systolic 50–122; BP diastolic 28–103
[2022-11-14 05:31] LABS: Source, Urine Suprapubic Cath
[2022-11-14 05:36] LABS: Appearance, Urine Hazy (Clear); Bilirubin, Urine Neg (Neg); Blood, Urine 4+ (Neg); Color, Urine Yellow (P-Yellow); Glucose Qualitative, Urine 3+ (Neg); Ketones, Urine Neg (Neg); Leukocyte Esterase, Urine 3+ (Neg); Nitrite, Urine Neg (Neg); Protein, Urine 2+ (Neg); Specific Gravity, Urine 1.015 (1.003-1.022); Urobilinogen, Urine NORM (Normal)
[2022-11-14 05:43] LABS: Bacteria Many /hpf; Mucus Light (0-Heavy); Squamous Epithelial Cells Mod /hpf (Few)
[2022-11-14 05:57] LABS: BASOPHILS ABSOLUTE AUTO 0.05 K/mm3 (0.00-0.23); BASOPHILS PERCENT AUTO 0 % (0-2); EOSINOPHILS ABSOLUTE AUTO 0.21 K/mm3 (0.00-0.68); EOSINOPHILS PERCENT AUTO 1 % (0-6); Hematocrit 27.6 % (33.0-51.0); Hemoglobin 9.1 g/dL (11.5-16.0); IMMATURE GRAN ABSOLUTE AUTO 0.26 K/mm3 (0.00-0.10); IMMATURE GRAN PERCENT AUTO 1 % (0-1); LYMPHOCYTES ABSOLUTE AUTO 0.73 K/mm3 (0.84-5.20); LYMPHOCYTES PERCENT AUTO 4 % (21-46); MONOCYTES ABSOLUTE AUTO 1.29 K/mm3 (0.16-1.47); MONOCYTES PERCENT AUTO 7 % (4-13); Mean Corpuscular HGB 36.3 pg (26.0-34.0); Mean Corpuscular Volume 110 fL (80-100); Mean Platelet Volume 12.2 fL (9.1-12.4); NEUTROPHILS ABSOLUTE AUTO 15.63 K/mm3 (1.96-9.15); NEUTROPHILS PERCENT AUTO 86 % (41-73); Platelet Count 186 K/mm3 (150-400); RDW Coefficient Variation 13.7 % (11.7-14.2); RDW Standard Deviation 53.9 fL (35.1-46.3); Red Blood Cell Count 2.51 M/mm3 (3.80-5.20); White Blood Cell Count 18.17 K/mm3 (4.00-11.30)
--- NOTE | 2022-11-14 06:00 | NUR ---
AT 2054 PATIENT ARRIVED TO ICU BED 12 FROM ED VIA GURNEY TRANSFERRED TO ICU BED USING SLIDER SHEET AND PLACED ON ICU MONITORS. PATIENT C/O PAIN TO RIGHT LEG WITH MOVEMENT, RELIEF OF PAIN WITH ELEVATING ON PILLOWS. DIALYSIS PLACED PATIENT ON PD FOR THE NIGHT. PATIENT HAS VISIBLE TREMOR TO BOTH ARMS, RIGHT MORE THAN LEFT, NO MOVEMENT TO RIGHT LEG DUE TO HX CVA. RIGHT LEG SWOLLEN AND RED. WOUND TO RIGHT ANKLE CLEANSED AND DRESSED WITH FOAM DRESSING, TWO SMALL 1X1 CM WOUNDS ON EACH BUTTOCKS ALSO CLEANSED AND DRESSED WITH FOAM DRESSING. SEE PICTURE IN CHART. PATIENTS BP LABILE T/O NIGHT. AT 221 HAD CONSISTENT HYPOTENSION DOCTOR CARL NOTIFIED AND NS 500 CC BOLUS GIVEN AND THEN MAINTENANCE AT 75 CC/HR. PATIENT BP RESPONDING WELL TO FLUIDS. SUPRAPUBIC CATH REMOVED AND REPLACED WITH 18F TEMP PROBE PERSAUD AND URINE SENT TO LAB. DRAINING YELLOW WITH WHITE SEDIMENT URINE.
[2022-11-14 06:23] LABS: Albumin/Globulin Ratio 0.6 (0.8-1.8); Bilirubin, Total 0.5 mg/dL (0.1-1.0); Bun/Creatinine Ratio 17.3 (12.0-20.0); Creatinine, Blood 7.99 mg/dL (0.40-1.00); Globulin, Blood 3.4 g/dL (2.2-4.0); Magnesium, Blood 2.8 mg/dL (1.6-2.4); Phosphorus, Blood 2.7 mg/dL (2.5-4.9); Potassium, Blood 3.7 mmol/L (3.5-5.5); Total Protein, Blood 5.4 g/dL (6.4-8.2)
--- NOTE | 2022-11-14 09:16 | NUR ---
pd rn to pt room ICU12 at approx 0830 am to d/c niughtly ccpd treatment. Pt was laying in bed with family visiting at bedside. Bedside RN stopped me to let me know that we may want to see about using heparin with the treatment tonight due high CBG. The I drain from the night treatment was 45ml, the total UF was 2683ml and lost dwell of 0:20, with an average dwell time of 1:36. Treatment was d/c at 0845 and machine was stripped and cleaned and fluid was drained. Fluid was yellow and clear.
--- NOTE | 2022-11-14 09:29 | NUR ---
ASSUMED CARE CARE OF THE PATIENT WAS ASSUMED AROUND 0700. THE PATIENT WAS SLEEPING UPON ENTERING THE ROOM. BP STABLE, NS RUNNING @75 AND PERITONEAL DIALYSIS GOING. DIE REPAIRER TRIMMER DIES SHOWED AFIB RHYTHM, PT ON RA, O2 SATS >95%. WHITE SEDIMENT NOTED IN CATHETER TUBING WHEN NOC SHIFT RN MEASURED OUTPUT. PLAN FOR TODAY IS FOR PT TO HAVE I&D PROCEDURE, CONTINUE TO BE NPO UNTIL PROCEDURE.
--- NOTE | 2022-11-14 09:34 | NUR ---
DR. FERGUSON CAME TO ASSESS THE PT THIS MORNING. SHE ASKED THIS STUDENT NURSE TO TALK TO THE PHARMACIST IF WE COULD CHANGE THE CLINDAMYCIN TO INFUSE WITH SOMETHING OTHER THAN D5 SINCE THE PT'S BLOOD SUGARS HAVE BEEN HIGH. THIS STUDENT NURSE TALKED TO THE PHARMACIST AND WAS TOLD THE GASOLINE SERVICE ATTENDANT NO LONGER HAS VIALS TO MIX WITH NS, SO D5 IS WHAT CAN BE USED.
[2022-11-14 09:49] LABS: Vancomycin, Random 14.1 ug/mL
--- NOTE | 2022-11-14 10:37 | NUR ---
"Spiritual Care | Pt. Request Pt. is awake in bed and welcomes my visit. Spouse is present. Pt. is unsettled only about addressing her issues so she can go home. Pt. is a woman of tracie and we expolored issues of tracie and belief. Pt. displayed evidence of confidence and trust as well as a lightened mood. Prayed with Pt. Pt. and spouse verbalized gratitude for the spiritual care visit."
--- NOTE | 2022-11-14 13:16 | NUR ---
DR. FERGUSON WAS CALLED AROUND 1240 BY THIS STUDENT NURSE TO INFORM HER OF SULTANA'S LOW BPS AND OCCASIONAL LOW MAPS, SPECIFICALLY WHEN THE PT IS SLEEPING. DR. FERGUSON GAVE THE VERBAL ORDER OF 5 MG MIDODRINE PO TID, WHICH ABIODUN DELGADO TOOK AND PUT IN. THE MIDODRINE WAS GIVEN AROUND 1300 AND THE PT WAS TAKEN TO SURGERY AT AROUND 1315.
--- NOTE | 2022-11-14 14:49 | NUR ---
11/14/22 1449 Jose Black I PATIENT IS ON SCHEDULED ANTIBIOTICS, NO PROPHYLACTIC WAS ORDERED. UPON TRANSFERRING THE PT TO THE OR TABLE, THEY WERE NOTED TO HAVE A MEPILEX IN PLACE ON THE SACRUM. PERSAUD CATHETER WAS IN PLACE. DIALYSIS PORT TO RIGHT LOWER QUADRANT WAS CAPPED AND DRESSED.
--- NOTE | 2022-11-14 15:16 | NUR ---
RECOVERY SUMMARY PT ARRIVED FROM THE OR AT 1428. THE PT WAS ALERT UPON VERBALLY WAKING HER UP AND ORIENTED. THE PT WAS ON 9 L NON-REBREATHER, 02 SATS >95%. THE NON-REBREATHER WAS REMOVED AT 1447 AND THE PT'S 02 SATS HAVE BEEN >95% ON ROOM AIR. LUNG RASMUSSEN CLEAR. THE PT WAS IN AFIB W/ RVR UPON RETURNING FROM SURGERY, THE PT'S RATE VARIES FROM 115-150. PT CAME WITH FLUIDS FROM THE OR AND WILL BE PUT BACK ON ROUTINE MAITENANCE FLUIDS PER EMAR. SANDY TRAN ADMINISTERED FENTANYL FOR PAIN AND THE PT IS NOW SLEEPING. PT'S , THANG IS IN THE ROOM AT THE PATIENT'S BEDSIDE.
--- NOTE | 2022-11-14 15:56 | NUR ---
PD RN TO PT ICU#12 AT 1530 TO CONNECT PT TO CCPD NIGHT TREATMENT. MACHINE WAS PRE PROGRAMED AND LOADED WITH BAGS OF DINEAL. I DISINFECTED AND CONNECTED THE PATIENT TO THE TREATMENT AT APPROX 1545. SHE WAS LAYING IN BED WHEN I ENTERED WITH FAMILY AT HER BEDSIDE AND HER BEDSIDE RN IN THE ROOM. SHE JUST CAME BACK FREOM A PROCEDURE AND WAS NOT VERY COMMUNICATIVE YET. SHE WAS EXPERIENCING LOW BP WHEN I WAS IN THE RM WHEN ASKED HOW SHE WAS FEELING SHE STATED "OK."
--- NOTE | 2022-11-14 18:09 | NUR ---
SHIFT SUMMARY SULTANA REMAINS TO BE A/O X4. TODAY SHE HAD AN I&D THAT WAS WITHOUT COMPLICATIONS. AFTER THE PT GOT BACK FROM SURGERY SHE WAS IN AFIB W/ RVR AND REMAINS TO BE IN THAT RHYTHM. DR. PICKERING CONSULTED REGARDING THIS ISSUE AND PUT IN THE ORDER FOR THE PATIENT TO BEGIN AMIODARONE TONIGHT. THE PATIENT'S BLOOD PRESSURES HAVE BEEN LOW THIS SHIFT. SHE WAS PUT ON LEVOPHED AT 1532 STARTING AT 4 AND HAS NOW GONE DOWN TO 3. DR. PICKERING WOULD LIKE THE LEVO TO BE TITRATED DOWN AND EVENTUALLY OFF OF IT GIVEN THE PATIENT IS STABLE. THE PT'S LUNG RASMUSSEN REMAIN CLEAR. THE PT IS CURRENTLY RECIEVING HER PERITONEAL DIALYSIS. SULTANA HAS HAD 61 OUT THROUGH HER SUPRAPUBIC CATHETER TODAY. THE PATIENT'S BLOOD SUGARS HAVE BEEN HIGH AND THE PT HAS RECIEVED INSULIN PER EMAR ORDERS FOR THEM. CURRENTLY NS RUNNING @ 75. THE PT'S , THANG WHO IS ALSO HER PRIMARY CAREGIVER HAS REMAINED AT HER BEDSIDE ALL DAY. WILL CONTINUE TO MONITOR UNTIL CARE IN TRANSITIONED TO NOC SHIFT.
[2022-11-15] VITALS (78 sets, daily range): BP systolic 67–141; BP diastolic 38–123
[2022-11-15 03:40] LABS: BASOPHILS ABSOLUTE AUTO 0.08 K/mm3 (0.00-0.23); BASOPHILS PERCENT AUTO 0 % (0-2); EOSINOPHILS ABSOLUTE AUTO 0.27 K/mm3 (0.00-0.68); EOSINOPHILS PERCENT AUTO 1 % (0-6); Hematocrit 25.4 % (33.0-51.0); Hemoglobin 8.5 g/dL (11.5-16.0); IMMATURE GRAN ABSOLUTE AUTO 0.56 K/mm3 (0.00-0.10); IMMATURE GRAN PERCENT AUTO 3 % (0-1); LYMPHOCYTES ABSOLUTE AUTO 1.16 K/mm3 (0.84-5.20); LYMPHOCYTES PERCENT AUTO 6 % (21-46); MONOCYTES PERCENT AUTO 7 % (4-13); Mean Corpuscular HGB 36.5 pg (26.0-34.0); Mean Corpuscular HGB Conc 33.5 g/dL (31.5-36.5); Mean Corpuscular Volume 109 fL (80-100); Mean Platelet Volume 12.1 fL (9.1-12.4); NEUTROPHILS ABSOLUTE AUTO 16.83 K/mm3 (1.96-9.15); NEUTROPHILS PERCENT AUTO 83 % (41-73); Platelet Count 242 K/mm3 (150-400); RDW Standard Deviation 54.2 fL (35.1-46.3); Red Blood Cell Count 2.33 M/mm3 (3.80-5.20)
[2022-11-15 03:55] LABS: Anion Gap 12 mmol/L (6-16); Blood Urea Nitrogen 123 mg/dL (8-24); CO2, Blood 25 mmol/L (21-32); Calcium, Blood 8.9 mg/dL (8.5-10.1); Chloride, Blood 96 mmol/L (98-108); Creatinine, Blood 7.67 mg/dL (0.40-1.00); Glomerular Filtration Rate 5 (60-); Glucose, Blood 393 mg/dL (70-99); Magnesium, Blood 2.8 mg/dL (1.6-2.4); Phosphorus, Blood 3.4 mg/dL (2.5-4.9); Potassium, Blood 3.4 mmol/L (3.5-5.5); Sodium, Blood 133 mmol/L (136-145); Vancomycin, Random 25.6 ug/mL
--- NOTE | 2022-11-15 07:45 | NUR ---
DIALYSIS NOTE CCPD TX COMPLETED PRESCRIBED. PT AWAKE, RESTING IN BED WITH NO C/O. PT DISCONNECTED FROM CYCLER PER POLICY. TRANSFER SET CLOSED, CAPPED AND SECURED. IDRAIN 45, TUF 865, AVG DWELL TIME 1:38. PT REPORTS SHE TOLERATED TX WELL WITH NO ALARMS LAST NIGHT. REPORT GIVEN TO BEDSIDE RN.
--- NOTE | 2022-11-15 10:29 | NUR ---
1000 HERE TO ASSESS RIGHT LEG SITE. DRESSING REMOVED AND IRRIGATED WITH SALINE, DRESSING REPLACED BY . PAINFUL TO PATIENT, MEDICATED WITH GOOD RELIEF, PLAN TO RETURN TO SURGERY TODAY.
--- NOTE | 2022-11-15 13:58 | NUR ---
1300 DOWN TO SEE PT, HE DECLINES TAKING HER TO SURGERY. OR CHARGE CALLS TO REPORT POSSIBILITY OF ANOTHER ANESTHESIOLOGIST TO DO THE CASE. FAMILY UPDATED, THEY HAVE GONE TO LUNCH, PT IS RESTING QUIETLY. KRISHNAPHED @ 4MCG FOR MAP OF 55. PT DENIES ANY COMPLAINTS.
--- NOTE | 2022-11-15 14:20 | NUR ---
OR TEAM CAME WITH SUPPLIED AND , ANESTHESIOLOGIST TO CONSENT PATIENT FOR THE I&D HERE IN THE ROOM. PT DID CONSENT. ATTEMPTED TO PHONE THE , HE DID NOT ANSWER.
--- NOTE | 2022-11-15 15:53 | NUR ---
PROCEDURE COMPLETED IN THE ROOM, SEE THE NOTES FROM THE OR. PT WAS SEDATED WITH ANESTHESIA BY . SEE HER NOTES. SHE REMAINS IN AFIB W/ RVR RATE 130-160. BP MAP >65, SATS 100%. LYING ON HER LEFT SIDE. DECEMBRE HERE TO TREE DRILLER THE DIALYSIS. PT IS AWAKING AND ANSWERING QUESTIONS.
--- NOTE | 2022-11-15 16:04 | NUR ---
DIALYSIS NOTE BEDSIDE PROCEDURE COMPLETE, PT SIDE LYING IN BED, VERY DROWSY BUT DOEST RESPOND VERBALLY TO QUESTIONS. PT DENIES ANY PAIN AT THIS TIME, BEDSIDE RN AND ANESTHESIOLOGIST PRESENT AT BEDSIDE. CCPD SET UP COMPLETED, PT CONNECTED WITH ASEPTICE TECHNIQUE PER P&P. REPORT GIVEN TO MARC FRAUSTO RN
--- NOTE | 2022-11-15 18:36 | NUR ---
SULTANA CONTINUES IN ATRIAL FIB WITH RAPID VENTRICULAR RESPONSE. SHE HAS BEEN RUNNING FROM 130-160'S THROUGHOUT THE ENTIRE DAY. CALL TO AND DR. PICKERING WITH ORDERS RECEIVED BEFORE HER PROCEDURE BEGAN. SHE CONTINUES TO HAVE HYPOTENSION ON NOREPINEPHRINE, WOULD REALLY LIKE THAT TO BE STOPPED. BLOOD PRESSURE REMAINS 87/78 AT THIS TIME ON 2MCG/MIN. SHE WAS ABLE TO TOLERATE THE SURGICAL PROCEDURE OF AN I&D AND WOUND VAC PLACEMENT IN HER ICU BED WITH ANESTHESIA AND OR PERSONNEL. SHE WAS MEDICATED POST OP WITH BOTH ORAL AND IV PAIN MEDICATION WITH GOOD EFFECT. HER RETURNED AND WAS SHOWN THE AREA AND HE MENTIONED HE WAS FAMILIAR WITH A WOUND VAC. HER BLOOD SUGARS HAVE COME DOWN UNDER 200 THIS SHIFT, COVERAGE GIVEN. SHE JUST CONTINUES TO HAVE TROUBLE WITH HER RVR. SHE WAS NAUSEATED X2 TODAY WITH HER HR AROUND 160-170. SHE WAS MEDICATED WITH ZOFRAN FOR THE NAUSEA WHICH ALLEVIATED THE NAUSEA. SHE CONTINUES TO ALLOW SMALL CHANGES TO HER POSITION T/O THE DAY. ASKING FOR ASSISTANCE NEEDED. SHE HAD SOME FRUIT AND SOME "SMOOTHIE" BEVERAGE THAT HER MAKES FOR HER POST PROCEDURE. THIS IS ALL. THE MARCELINO- TONEAL DIALYSIS IS HOOKED UP AND GOING.
--- NOTE | 2022-11-15 22:38 | NUR ---
ASSUMED CARE AT 1900 PT LAYING IN BED WATCHING TV AT SHIFT CHANGE. SHE IS A/O X4 AND ABLE TO MAKE HER NEEDS KNOWN. SPO2 >97% ON RA. AFIB NOTED WITH RATE 130-160'S; PO AMIODERONE GIVEN. SBP 80-90'S; MAP 65-70; LEVOPHED INFUSING AT 2MCG/MIN. N&V X1 30-45MIN AFTER MEDS GIVEN; ZOFRAN GIVEN AND HELPFUL; PT STATES THAT EMISIS WAS RELATED TO DRINKING COFFEE AFTER BRUSHING HER TEETH. SUPRAPUBIC CATHETER IN PLACE WITH MINIMAL OUTPUT; PT STATES THAT THIS IS NORMAL; PLAN TO HAVE PERITONEAL DIALYSIS GO ALL NIGHT. WOUND VAC TO POSTERIOR RLE IN PLACE; 8/10 PAIN NOTED TO AREA; PRN AVAILABLE AND GIVEN. SEE SHIFT ASSESSMENT FOR FULL ASSESSMENT.
[2022-11-16] VITALS (30 sets, daily range): BP systolic 81–201; BP diastolic 47–175
[2022-11-16 05:00] LABS: BASOPHILS ABSOLUTE AUTO 0.08 K/mm3 (0.00-0.23); BASOPHILS PERCENT AUTO 0 % (0-2); EOSINOPHILS ABSOLUTE AUTO 0.55 K/mm3 (0.00-0.68); EOSINOPHILS PERCENT AUTO 3 % (0-6); Hemoglobin 7.5 g/dL (11.5-16.0); IMMATURE GRAN ABSOLUTE AUTO 0.68 K/mm3 (0.00-0.10); IMMATURE GRAN PERCENT AUTO 4 % (0-1); LYMPHOCYTES PERCENT AUTO 8 % (21-46); MONOCYTES ABSOLUTE AUTO 1.34 K/mm3 (0.16-1.47); MONOCYTES PERCENT AUTO 7 % (4-13); Mean Corpuscular HGB 36.2 pg (26.0-34.0); Mean Corpuscular HGB Conc 32.6 g/dL (31.5-36.5); Mean Corpuscular Volume 111 fL (80-100); Mean Platelet Volume 12.3 fL (9.1-12.4); NEUTROPHILS ABSOLUTE AUTO 14.59 K/mm3 (1.96-9.15); NEUTROPHILS PERCENT AUTO 78 % (41-73); Platelet Count 256 K/mm3 (150-400); RDW Standard Deviation 56.1 fL (35.1-46.3); Red Blood Cell Count 2.07 M/mm3 (3.80-5.20); White Blood Cell Count 18.64 K/mm3 (4.00-11.30)
[2022-11-16 05:19] LABS: Albumin, Blood 2.1 g/dL (3.4-5.0); Anion Gap 11 mmol/L (6-16); Blood Urea Nitrogen 111 mg/dL (8-24); Bun/Creatinine Ratio 14.6 (12.0-20.0); CO2, Blood 24 mmol/L (21-32); Calcium, Blood 9.2 mg/dL (8.5-10.1); Chloride, Blood 97 mmol/L (98-108); Creatinine, Blood 7.62 mg/dL (0.40-1.00); Glomerular Filtration Rate 5 (60-); Glucose, Blood 235 mg/dL (70-99); Magnesium, Blood 2.7 mg/dL (1.6-2.4); Phosphorus, Blood 3.6 mg/dL (2.5-4.9); Potassium, Blood 4.1 mmol/L (3.5-5.5); Sodium, Blood 132 mmol/L (136-145); Vancomycin, Random 23.7 ug/mL
--- NOTE | 2022-11-16 06:21 | NUR ---
END OF SHIFT SUMMARY NO ACUTE EVENTS OVER NIGHT. PT SLEPT WHEN NOT DISTURBED. SHE IS A/O X4 AND ABLE TO MAKE HER NEEDS KNOWN. PAIN BETTER MANAGED AFTER PRN OXYCODONE GIVEN; PAIN R/T I&D ON RLE YESTERDAY. SPO2 >95% ON RA. AFEBRILE. HR CONT TO BE AFIB AND TACHY WITH RATE 120-160'S; ASYMPTOMATIC WITH THIS RATE. SBP 80-100; MAP 60-80'S; LEVOPHED TITRATED UP TO 5MCG/MIN LAST NIGHT. NO NAUSEA SINCE EARLIER. SUPRAPUBIC CATH IN WITH 30ML OUT THIS SHIFT. PD OCCURED MOST OF THE NIGHT; MACHINE STATES "END OF THERAPY" RIGHT NOW. NO CHANGES IN WOUND VAC TO RLE. WILL REPORT TO AM RN WHEN AVAILABLE.
--- NOTE | 2022-11-16 10:27 | NUR ---
PD RN TO PT ROOM ICU12 AT APPROX 0630AM TO DISCONNECT NIGHTLY CCPD TREATMENT. IDRAIN: 324ML, TOTAL UF: 1777ML, AVERAGE DWELL 1:35, LOST DWELL 0:28. EFFLUENT WAS CLEAR. PATIENT WAS RESTING IN BED WHEN I CAME IN AND I LEFT HER WITH HER BEDSIDE NURSES.
--- NOTE | 2022-11-16 14:41 | NUR ---
ASSUMED CARE: PT RESTING IN BED AT THIS TIME. AFIB ON TELE AT 104. OFF LEVOPHED SINCE THIS AM. REPORT RECEIVED FROM STAN DELGADO AND BIANKA TREADWELL. NO ACUTE NEEDS OR CONCERNS AT THIS TIME.
--- NOTE | 2022-11-16 17:46 | NUR ---
SHIFT SUMMARY: PT IS NOW PCU STATUS. BLOOD PRESSURES LOW BUT MAPS GREATER THAN 60. MIDODRINE ORDERED AND ADMINISTERED. PT UP TO CHAIR WITH LIFT TODAY. DIALYSIS NURSE AT BEDSIDE CONNECTING PT TO PD. NO FURTHER NEEDS OR CONCERNS.
--- NOTE | 2022-11-16 18:28 | NUR ---
PD RN TO PT RM ICU 12 AT APPROX 1800 TO CONNECT PT CCPD NIGHT TREATMENT. TREATMENT STARTED AT APPROX 1800. PT WAS SITTING UP IN BED WATCHING TV AND SMILING. SHE SEEMS TO BE IN BETTER SPIRITS WITH MORE ENERGY THAN THE PREVIOUS TIMES I SAW HER. NOTIFIED OF A A CHANGE IN HER STATUS OF CARE ANS THAT SHE MAY BE GETTING TRANSFERED OUT OF ICU DUE TO IMPROVED CONDITION.
--- NOTE | 2022-11-16 21:18 | NUR ---
pd rn to pt room icu12 at approx 2030pm to disconnect ccpd night treatment. stripped machine and reset up in new room and reconnect pt at approx 2130pm
--- NOTE | 2022-11-16 21:29 | NUR ---
PD RN IN AT APPROX 2030PM TO DC PT CCPD NIGHT TREATMENT. PT WAS TRANSFERED FROM ICU TO PCU. THE PROGRAM WAS ON WITH A DWELL TIME LEFT OF 1:14, AND IDRAIN OF 53ML, TOTAL UF OF 32ML, AVERAGE DWELL OF 1:40.
[2022-11-17] VITALS (16 sets, daily range): BP systolic 90–142; BP diastolic 50–98
[2022-11-17 04:13] LABS: Hematocrit 19.3 % (33.0-51.0); Hemoglobin 6.1 g/dL (11.5-16.0); Mean Corpuscular HGB 35.7 pg (26.0-34.0); Mean Corpuscular HGB Conc 31.6 g/dL (31.5-36.5); Mean Corpuscular Volume 113 fL (80-100); Mean Platelet Volume 11.8 fL (9.1-12.4); Platelet Count 227 K/mm3 (150-400); RDW Coefficient Variation 13.6 % (11.7-14.2); RDW Standard Deviation 55.8 fL (35.1-46.3); Red Blood Cell Count 1.71 M/mm3 (3.80-5.20)
[2022-11-17 04:46] LABS: BAND PERCENT MAN 3 % (0-8); BASOPHILS PERCENT MAN 0 % (0-2); EOSINOPHILS PERCENT MAN 0 % (0-6); LYMPHOCYTES ABSOLUTE MAN 1.28 K/mm3 (0.84-5.20); LYMPHOCYTES PERCENT MAN 11 % (21-46); METAMYELOCYTE ABSOLUTE MAN 0.35 K/mm3 (0.00-0.00); METAMYELOCYTE PERCENT MAN 3 % (0-0); MONOCYTES ABSOLUTE MAN 0.58 K/mm3 (0.16-1.47); MONOCYTES PERCENT MAN 5 % (4-13); MYELOCYTE ABSOLUTE MAN 0.23 K/mm3 (0.00-0.00); MYELOCYTE PERCENT MAN 2 % (0-0); NEUTROPHILS ABSOLUTE MAN 9.24 K/mm3 (1.96-9.15); SEG NEUTROPHILS PERCENT MAN 76 % (41-73); TOTAL CELLS COUNTED 100
[2022-11-17 05:41] LABS: Ferritin, Serum 1918 ng/mL (8-252); Iron Serum 116 ug/dL (50-170); Magnesium, Blood 2.7 mg/dL (1.6-2.4); Percent Saturation 106.4 % (15.0-50.0); Total Iron Binding Capacity 109 ug/dL (250-450)
[2022-11-17 05:56] LABS: Anion Gap 13 mmol/L (6-16); Blood Urea Nitrogen 107 mg/dL (8-24); Bun/Creatinine Ratio 13.8 (12.0-20.0); CO2, Blood 24 mmol/L (21-32); Calcium, Blood 8.8 mg/dL (8.5-10.1); Chloride, Blood 95 mmol/L (98-108); Creatinine, Blood 7.77 mg/dL (0.40-1.00); Glomerular Filtration Rate 5 (60-); Glucose, Blood 235 mg/dL (70-99); Phosphorus, Blood 4.2 mg/dL (2.5-4.9); Potassium, Blood 4.2 mmol/L (3.5-5.5); Sodium, Blood 132 mmol/L (136-145); Vancomycin, Random 21.6 ug/mL
--- NOTE | 2022-11-17 06:08 | NUR ---
SHIFT SUMMARY TRANSFER FROM ICU EARLIER IN SHIFT. AOX4. SBP LOW 90'S, GAVE PRN MIDODRINE. REST OF VSS. TELE AFIB HR 108. POD 2-I&D R POSTERIOR CALF c WOUND VAC PLACEMENT. PT REPORTS 5-6/10 PAIN, MEDICATED 2x c 5MG OXYCODONE & PAIN LEVEL DROPS TO 1/10. WOUND VAC c 125ML SANGUINOUS DRAINAGE IN CANISTER. SUPERPUBIC CATH c MIN YELLOW URINE, PD RAN T/O NIGHT. HGB 6.1 THIS AM FROM 7.5 YESTERDAY, NOTIFIED DR DEMPSEY & HE ORDERED 1U PRBC. CALL LIGHT IN REACH, WILL MONITOR.
--- NOTE | 2022-11-17 11:00 | NUR ---
DIALYSIS PD PT EATING BREAKFAST. DC'ED TX PER PROTOCAL. ID [id number] ML, UF [address] DEMPSEY WANTS INSULIN ADDED TO THE PD BAGS, FLUID VERY CLEAR.
--- NOTE | 2022-11-17 17:45 | NUR ---
END OF SHIFT SUMMARY PT IS A&O X4. VSS. SPO2 >92% ON RA. AFIB HR 110'S. PT FREUQENTLY REPORTING PAIN IN LOWER RIGHT LEG. PT MEDICATED FOR PAIN PER ORDERS WITH REPORT OF IMPROVEMENT. WOUND VAC CHANGED TODAY BY MD BATES. WOUND VAC DRAINING INTO CANISTER WITH SMALL AMOUNT OF SANGUINEOUS DRAINAGE. SUPERPUBIC CATH WITH VERY MINIMAL YELLOW URINE. PT REPORTING NORMAL TO HAVE LOW URINE OUTPUT. ONE UNIT OF BLOOD GIVEN THIS AM. DIALYSIS NURSE SETTING PT UP FOR PERITONEAL DIALYSIS THIS EVENING. PT WITH NO COMPLAINTS AT THIS TIME. BED IN LOWEST POSITION AND CALL LIGHT IN REACH.
--- NOTE | 2022-11-17 20:31 | NUR ---
PD RN TO PT ROOM [id number] TO CONNECT MACHINE AND PREPARE IT FOR [facility] NIGHT TREATMENT. MACHINE PROGRAMED AND READY AT APPROX 1730 PM. PT WAS CONNECTED AT APPROX 1730. CHANGED PD CATH DRESSING AND THERE WAS SOME WHITE CHUNKY CRUST SURROUNDING THE CATH EXIT SITE. I REMOVED THIS AND REDRESSED THE SITE. SITE WITH SLIGHTLY PINK WHEN DRESSING WAS APPLIED.
[2022-11-18] VITALS (7 sets, daily range): BP systolic 92–145; BP diastolic 51–116
[2022-11-18 04:26] LABS: Hematocrit 25.5 % (33.0-51.0); Hemoglobin 8.4 g/dL (11.5-16.0); Mean Corpuscular HGB 34.4 pg (26.0-34.0); Mean Corpuscular HGB Conc 32.9 g/dL (31.5-36.5); Mean Platelet Volume 11.8 fL (9.1-12.4); Platelet Count 261 K/mm3 (150-400); RDW Coefficient Variation 17.9 % (11.7-14.2); Red Blood Cell Count 2.44 M/mm3 (3.80-5.20); White Blood Cell Count 11.62 K/mm3 (4.00-11.30)
[2022-11-18 04:31] LABS: Mean Corpuscular Volume 105 fL (80-100)
[2022-11-18 04:46] LABS: Albumin, Blood 2.3 g/dL (3.4-5.0); Anion Gap 12 mmol/L (6-16); Blood Urea Nitrogen 87 mg/dL (8-24); Bun/Creatinine Ratio 10.9 (12.0-20.0); CO2, Blood 25 mmol/L (21-32); Calcium, Blood 9.3 mg/dL (8.5-10.1); Chloride, Blood 95 mmol/L (98-108); Creatinine, Blood 7.96 mg/dL (0.40-1.00); Glomerular Filtration Rate 5 (60-); Glucose, Blood 186 mg/dL (70-99); Magnesium, Blood 2.7 mg/dL (1.6-2.4); Phosphorus, Blood 4.7 mg/dL (2.5-4.9); Potassium, Blood 3.9 mmol/L (3.5-5.5); Sodium, Blood 132 mmol/L (136-145); Vancomycin, Random 21.4 ug/mL
--- NOTE | 2022-11-18 05:08 | NUR ---
SHIFT SUMMARY PT A&Ox4, CALLS AND COMMUNICATES NEEDS APPROPRIATELY. BP STABLE, AFIB 90-110's, DENIES CP/PRESSURE. SpO2> 92% RA, DENIES SOB. SUPRAPUBIC CATH IN PLACE, PATENT, DRAINING URINE TO GRAVITY. PT HAD PERITONEAL DIALYSIS THROUGHOUT NIGHT. C/O OCCASIONAL NAUSEA, MEDICATED PER EMAR. WOUND VAC ON RLE REMAINED PATENT. NO OTHER EVENTS, WILL REPORT TO ONCOMING RN.
[2022-11-18 05:42] LABS: BAND PERCENT MAN 3 % (0-8); BASOPHILS PERCENT MAN 0 % (0-2); EOSINOPHILS ABSOLUTE MAN 0.11 K/mm3 (0.00-0.68); EOSINOPHILS PERCENT MAN 1 % (0-6); LYMPHOCYTES ABSOLUTE MAN 0.69 K/mm3 (0.84-5.20); LYMPHOCYTES PERCENT MAN 6 % (21-46); METAMYELOCYTE ABSOLUTE MAN 0.46 K/mm3 (0.00-0.00); METAMYELOCYTE PERCENT MAN 4 % (0-0); MONOCYTES ABSOLUTE MAN 0.81 K/mm3 (0.16-1.47); MONOCYTES PERCENT MAN 7 % (4-13); MYELOCYTE ABSOLUTE MAN 0.46 K/mm3 (0.00-0.00); MYELOCYTE PERCENT MAN 4 % (0-0); NEUTROPHILS ABSOLUTE MAN 9.06 K/mm3 (1.96-9.15); SEG NEUTROPHILS PERCENT MAN 75 % (41-73); TOTAL CELLS COUNTED 100
--- NOTE | 2022-11-18 08:51 | NUR ---
DIALYSIS-PD PT SITTING UP TO EAT BREAKFAST. PT N/V IN EMESIS BAG. DISCONNECTED FROM PD TX PER PROTOCAL AT 0830. ID [id number] ML, UF [id number] ML. FLUID CLEAR.
--- NOTE | 2022-11-18 17:09 | NUR ---
SHIFT SUMMARY NO ACUTE CHANGES THIS SHIFT. PT A&OX4. SP02>90% ON RA. TELEMETRY SHOWED MOSTLY AFIB, HR 90'S-110'S. PT DENIES PAIN. REPOSITIONED Q2H. SP CATHETER WITH NO OUTPUT THIS SHIFT. NO BM. PT IN ROOM THIS SHIFT TO ASSESS PT, SEE PT NOTE RECOMMENDATION. MD BATES IN ROOM TO ASSESS PT, ANSWERED PT AND PT'S HUSBANDS QUESTIONS ABOUT WOUND VAC AND LENGTH OF TX. MD TURNER IN ROOM TO ASSESS PT THIS AM. CALL LIGHT IN REACH.
--- NOTE | 2022-11-18 17:34 | NUR ---
PD RN TO PT ROOM PCU 02 AT APPROX 1700PM TO SET UP CYCLER MACHINE AND PROGRAM FOR CCPD NIGHT TREATMENT. MACHINE CONNECTED AND PRIMING AT APPROX 1720 PM. MACHINE READY TO CONNECT TO PT AT APPROX 1745 PM. PT IN ROOM VISITNG. PT UP IN BED WATCHING TV AND EATING DINNER.
[2022-11-19 03:57] VITALS: BP 97/67
[2022-11-19 04:43] LABS: Hematocrit 24.7 % (33.0-51.0); Hemoglobin 8.1 g/dL (11.5-16.0)
[2022-11-19 05:11] LABS: Magnesium, Blood 2.6 mg/dL (1.6-2.4)
--- NOTE | 2022-11-19 05:21 | NUR ---
SHIFT SUMMARY PT A&Ox4, CALLS AND COMMUNICATES NEEDS APPROPRIATELY. BP STABLE, AFIB 90-110's, DENIES CP/PRESSURE. SpO2> 92% RA, DENIES SOB. SUPRAPUBIC CATH IN PLACE, PATENT, DRAINING CLEAR URINE TO GRAVITY. PT HAD PERITONEAL DIALYSIS THROUGHOUT NIGHT. C/O OCCASIONAL NAUSEA, MEDICATED PER EMAR. WHEN NAUSEOUS HR UP TO 150's. WOUND VAC ON RLE REMAINED PATENT. NO OTHER EVENTS, WILL REPORT TO ONCOMING RN.
[2022-11-19 05:24] LABS: Albumin, Blood 2.2 g/dL (3.4-5.0); Anion Gap 11 mmol/L (6-16); Blood Urea Nitrogen 81 mg/dL (8-24); CO2, Blood 26 mmol/L (21-32); Calcium, Blood 8.9 mg/dL (8.5-10.1); Chloride, Blood 96 mmol/L (98-108); Glucose, Blood 129 mg/dL (70-99); Phosphorus, Blood 4.8 mg/dL (2.5-4.9); Sodium, Blood 133 mmol/L (136-145); Vancomycin, Random 20.8 ug/mL
[2022-11-19 05:25] LABS: Creatinine, Blood 8.13 mg/dL (0.40-1.00); Glomerular Filtration Rate 5 (60-)
[2022-11-19 07:23] VITALS: BP 83/61
--- NOTE | 2022-11-19 07:30 | NUR ---
DIALYSIS NOTE CCPD TX COMPLETED PRESCRIBED. IDRAIN 10, TUF 679, AVG DWELL 1:28. PT REPORTS HE TOLERATED WELL, NO ALARMS DURING NIGHT. TRANSFER SET CLOSED, CAPED AND SECURED.
--- NOTE | 2022-11-19 07:34 | NUR ---
ASSUMED CARE: ASSUMED CARE OF PT APPROX 0715. PT A&OX4, LYING IN BED. SPO2 >90% ON RA. PT DENIES SOB. HR MOSTLY 100'S, AFIB. SBP SOFT IN 80'S, MAP >65. PT DENIES CP/PRESSURE. SUPRAPUBIC CATH IN PLACE, DRAINING TO GRAVITY. BUSINESS CONSULT TO BEDSIDE TO ASSESS FOLLOWING OVERNIGHT DIALYSIS. WOUND VAC PATENT ON RLE. CALL LIGHT WITHIN REACH. NO FURTHER NEEDS AT THIS TIME.
[2022-11-19 07:58] VITALS: BP 93/59
[2022-11-19] MEDS ORDERED: Amiodarone HCl200 MG PO (09:39)
[2022-11-19 11:16] VITALS: BP 124/55
--- NOTE | 2022-11-19 12:16 | NUR ---
PT UPDATE: 1200 CBG READING OF 50. PT ALERT IN BED. ABLE TO EAT LUNCH AND DRINK JUICE. MD TURNER NOTIFIED OF CBG READING AND FOOD INTAKE. MD TURNER WITH ORDERS TO RECHECK CBG IN 30 MINUTES. WILL CONTINUE TO MONITOR PT. CALL LIGHT WITHIN REACH.
--- NOTE | 2022-11-19 14:26 | NUR ---
PT UPDATE: SPOKE WITH MD BATES OFFICE REGARDING PT WOUND VAC CHANGE PRIOR TO DISCHARGE. PER MD BATES, HAVE WOUND CARE NURSE CHANGE VAC TODAY. PT IS TO CALL MD BATES OFFICE FOLLOWING DISCHARGE TO SCHEDULE WOUND VAC CHANGES FOR 11/21 AND 11/23. PT AND NOTIFIED OF THIS. SANDY BECKER IN WOUND CENTER NOTIFIED AND WILL COME TO BEDSIDE TO CHANGE VAC THIS PM.
--- NOTE | 2022-11-19 17:26 | NUR ---
DISCHARGE SUMMARY: PT A&OX4 AT TIME OF DISCHARGE. PT DENIES CP/PRESSURE. PT DENIES SOB. ALL DISCHARGE INSTRUCTIONS AND EDUCATION REVIEWED WITH PT AND SPOUSE. WOUND VAC AND CATHETER IN PLACE AND PATENT. ATTENDS CHANGED AND PT DRESSED WITH ASSISTANCE. IV CATHETERS REMOVED WITHOUT COMPLICATION. AYAH LIFT UTILIZED TO MOVE PT FROM BED TO PERSONAL WHEELCHAIR. PT'S SPOUSE ASSISTED HER TO PERSONAL VEHICLE.
== END 2022-11-19 16:52 | disposition home health service (06) | DRG 853 ==
LOC: ER 12:47 → PCU 19:58 → ICUW 19:58 → PCU 11-16 20:50
PROVIDERS: Family Medicine; Internal Medicine Nephrology; Nurse Practitioner Acute Care; Orthopaedic Surgery; Physician Assistant; ADMIT Internal Medicine
PROC: 3E03329 Introduction of Other Anti-infective into Peripheral Vein, Percutaneous Approach (ICD-10-PCS; 2022-11-13)
PROC: 3E033XZ Introduction of Vasopressor into Peripheral Vein, Percutaneous Approach (ICD-10-PCS; 2022-11-14)
PROC: 0J9N0ZZ Drainage of Right Lower Leg Subcutaneous Tissue and Fascia, Open Approach (ICD-10-PCS; 2022-11-14)
PROC: 0JBN0ZZ Excision of Right Lower Leg Subcutaneous Tissue and Fascia, Open Approach (ICD-10-PCS; 2022-11-14)
PROC: 0LCN0ZZ Extirpation of Matter from Right Lower Leg Tendon, Open Approach (ICD-10-PCS; 2022-11-15)
PROC: 0LBN0ZZ Excision of Right Lower Leg Tendon, Open Approach (ICD-10-PCS; principal; 2022-11-15 09:30)
PROC: 30233N1 Transfusion of Nonautologous Red Blood Cells into Peripheral Vein, Percutaneous Approach (ICD-10-PCS; 2022-11-17)
DX: A41.51 Sepsis due to Escherichia coli [E. coli] (principal); N18.6 End stage renal disease; R65.21 Severe sepsis with septic shock; L02.415 Cutaneous abscess of right lower limb; N25.81 Secondary hyperparathyroidism of renal origin; E87.1 Hypo-osmolality and hyponatremia; I48.19 Other persistent atrial fibrillation; L03.115 Cellulitis of right lower limb; I12.0 Hypertensive chronic kidney disease with stage 5 chronic kidney disease or end stage renal disease; D62 Acute posthemorrhagic anemia; E11.22 Type 2 diabetes mellitus with diabetic chronic kidney disease; Z74.01 Bed confinement status; E03.9 Hypothyroidism, unspecified; E87.6 Hypokalemia; K21.9 Gastro-esophageal reflux disease without esophagitis; E88.09 Other disorders of plasma-protein metabolism, not elsewhere classified; M25.512 Pain in left shoulder; G40.909 Epilepsy, unspecified, not intractable, without status epilepticus; D63.1 Anemia in chronic kidney disease; E66.9 Obesity, unspecified; G89.29 Other chronic pain; Z68.38 Body mass index [BMI] 38.0-38.9, adult; Z99.2 Dependence on renal dialysis; Z86.73 Personal history of transient ischemic attack (TIA), and cerebral infarction without residual deficits; Z87.440 Personal history of urinary (tract) infections; Z98.890 Other specified postprocedural states; Z79.01 Long term (current) use of anticoagulants; Z79.890 Hormone replacement therapy; Z88.1 Allergy status to other antibiotic agents; Z79.4 Long term (current) use of insulin; Z79.899 Other long term (current) drug therapy
CPT/HCPCS: 36415; 36430; 51703; 73700; 80053; 80069; 80202; 81001; 82607; 82728; 82746; 82947; 83036; 83540; 83550; 83605; 83735; 84100; 85014; 85018; 85025; 85651; 86140; 86850; 86900; 86901; 86923; 87040; 87070; 87071; 87075; 87077; 87086; 87186; 87205; 93306; 94760; 96365; 96367; 96368; 97110; 97161; 97165; 97530; 99285-25; A9270; C9113; J0171; J0696; J0881; J1170; J1815; J2185; J2250; J2370; J2405; J2543; J2704; J3010; J3370; J7030; J7040; J7050; J7060; P9016; S0077

== ENCOUNTER 2023-01-01 21:24 | Emergency (ER) | payer OTHER ==
[~2023-01-01] VITALS: Ht 167.6 cm; Wt 105.2 kg
[~2023-01-01 21:24] MED LIST changes: +Amiodarone HCl200 MG PO
[2023-01-01 22:00] VITALS: BP 132/58
[2023-01-01] MEDS ORDERED: PANT40 PO (22:12)
[2023-01-01] MEDS ORDERED: AMOX250 PO (22:13)
[2023-01-01] MEDS ORDERED: OXYB5 PO (22:13)
[2023-01-01] MEDS ORDERED: FURO80 PO (22:14)
[2023-01-01] MEDS ORDERED: MIDO5 PO (22:15)
[2023-01-01 23:34] LABS: BASOPHILS ABSOLUTE AUTO 0.03 K/mm3 (0.00-0.23); BASOPHILS PERCENT AUTO 0 % (0-2); EOSINOPHILS PERCENT AUTO 2 % (0-6); Hematocrit 25.2 % (33.0-51.0); Hemoglobin 8.6 g/dL (11.5-16.0); IMMATURE GRAN ABSOLUTE AUTO 0.12 K/mm3 (0.00-0.10); IMMATURE GRAN PERCENT AUTO 1 % (0-1); LYMPHOCYTES ABSOLUTE AUTO 0.58 K/mm3 (0.84-5.20); LYMPHOCYTES PERCENT AUTO 7 % (21-46); MONOCYTES ABSOLUTE AUTO 0.33 K/mm3 (0.16-1.47); MONOCYTES PERCENT AUTO 4 % (4-13); Mean Corpuscular HGB 36.8 pg (26.0-34.0); Mean Corpuscular HGB Conc 34.1 g/dL (31.5-36.5); Mean Corpuscular Volume 108 fL (80-100); Mean Platelet Volume 11.3 fL (9.1-12.4); NEUTROPHILS ABSOLUTE AUTO 7.42 K/mm3 (1.96-9.15); NEUTROPHILS PERCENT AUTO 86 % (41-73); Platelet Count 165 K/mm3 (150-400); RDW Standard Deviation 55.1 fL (35.1-46.3); Red Blood Cell Count 2.34 M/mm3 (3.80-5.20); White Blood Cell Count 8.68 K/mm3 (4.00-11.30)
[2023-01-01 23:53] LABS: Source, Urine Suprapubic Cath
[2023-01-01 23:55] LABS: Bilirubin, Urine Neg (Neg); Blood, Urine 5+ (Neg); Glucose Qualitative, Urine Neg (Neg); Ketones, Urine Neg (Neg); Leukocyte Esterase, Urine 3+ (Neg); Nitrite, Urine Neg (Neg); Protein, Urine 4+ (Neg); Specific Gravity, Urine 1.015 (1.003-1.022); Urobilinogen, Urine NORM (Normal)
[2023-01-02 00:06] LABS: Thyroid Stimulating Hormone 3.21 uIU/mL (0.360-4.800)
[2023-01-02 00:09] LABS: Appearance, Urine Turbid (Clear); Color, Urine Yellow (P-Yellow)
[2023-01-02 00:12] LABS: Bacteria Many /hpf; Squamous Epithelial Cells Not Seen /hpf (Few); White Blood Cells, Urine TNTC /hpf (0-5)
[2023-01-02 00:26] LABS: Albumin, Blood 2.8 g/dL (3.4-5.0); Albumin/Globulin Ratio 0.9 (0.8-1.8); Bilirubin, Total 0.4 mg/dL (0.1-1.0); Bun/Creatinine Ratio 12.8 (12.0-20.0); Calcium, Blood 9.1 mg/dL (8.5-10.1); Creatinine, Blood 9.21 mg/dL (0.40-1.00); Globulin, Blood 3.1 g/dL (2.2-4.0); Potassium, Blood 4.9 mmol/L (3.5-5.5); Total Protein, Blood 5.9 g/dL (6.4-8.2)
[2023-01-02] MEDS ORDERED: SULTRIDS PO (00:45)
[2023-01-02 00:56] LABS: Magnesium, Blood 3.3 mg/dL (1.6-2.4)
== END 2023-01-02 01:32 | disposition home or self-care (01) ==
LOC: ER 21:24
PROVIDERS: Emergency Medicine
DX: N39.0 Urinary tract infection, site not specified (principal); I12.9 Hypertensive chronic kidney disease with stage 1 through stage 4 chronic kidney disease, or unspecified chronic kidney disease; N18.30 Chronic kidney disease, stage 3 unspecified; E11.22 Type 2 diabetes mellitus with diabetic chronic kidney disease; E03.9 Hypothyroidism, unspecified; E78.5 Hyperlipidemia, unspecified; I48.91 Unspecified atrial fibrillation; K21.9 Gastro-esophageal reflux disease without esophagitis; Z79.4 Long term (current) use of insulin; Z79.01 Long term (current) use of anticoagulants; Z96.0 Presence of urogenital implants; Z88.1 Allergy status to other antibiotic agents; Z79.899 Other long term (current) drug therapy
CPT/HCPCS: 71045; 80053; 81001; 83735; 84443; 85025; 87086; 87106; 99285-25; A9270

== ENCOUNTER 2023-01-02 11:25 | Inpatient (IN) | payer OTHER ==
[2023-01-02] VITALS (9 sets, daily range): BP systolic 84–141; BP diastolic 45–120
[~2023-01-02] VITALS: Ht 162.6 cm; Wt 103.8 kg
[~2023-01-02 11:25] MED LIST changes: +FURO80 PO; +MIDO5 PO
[2023-01-02 12:07] LABS: BASOPHILS ABSOLUTE AUTO 0.04 K/mm3 (0.00-0.23); BASOPHILS PERCENT AUTO 1 % (0-2); EOSINOPHILS PERCENT AUTO 3 % (0-6); Hematocrit 27.1 % (33.0-51.0); IMMATURE GRAN PERCENT AUTO 1 % (0-1); LYMPHOCYTES ABSOLUTE AUTO 0.93 K/mm3 (0.84-5.20); LYMPHOCYTES PERCENT AUTO 12 % (21-46); MONOCYTES ABSOLUTE AUTO 0.48 K/mm3 (0.16-1.47); MONOCYTES PERCENT AUTO 6 % (4-13); Mean Corpuscular HGB 36.1 pg (26.0-34.0); Mean Corpuscular HGB Conc 33.2 g/dL (31.5-36.5); Mean Corpuscular Volume 109 fL (80-100); Mean Platelet Volume 11.5 fL (9.1-12.4); NEUTROPHILS ABSOLUTE AUTO 5.89 K/mm3 (1.96-9.15); NEUTROPHILS PERCENT AUTO 77 % (41-73); Platelet Count 177 K/mm3 (150-400); RDW Standard Deviation 56.5 fL (35.1-46.3); Red Blood Cell Count 2.49 M/mm3 (3.80-5.20); White Blood Cell Count 7.64 K/mm3 (4.00-11.30)
[2023-01-02 12:37] LABS: Albumin, Blood 3.1 g/dL (3.4-5.0); Bilirubin, Total 0.5 mg/dL (0.1-1.0); Bun/Creatinine Ratio 12.7 (12.0-20.0); Calcium, Blood 9.7 mg/dL (8.5-10.1); Globulin, Blood 3.2 g/dL (2.2-4.0); Potassium, Blood 4.5 mmol/L (3.5-5.5); Total Protein, Blood 6.3 g/dL (6.4-8.2)
[2023-01-02 12:39] LABS: Creatinine, Blood 9.22 mg/dL (0.40-1.00)
--- NOTE | 2023-01-02 15:54 | NUR ---
UPDATE PT TO ROOM PCU 01. VSS. WOUNDS DRESSED AND PICTURES TAKEN. CONSULT FOR DR. DEMPSEY PLACED. ORDERS BY DR. DEMPSEY TO INFORM DIALYSIS NURSE PT IN NEED OF DIALYSIS TONIGHT. WILL CONT TO MONITOR.
--- NOTE | 2023-01-02 18:20 | NUR ---
SHIFT SUMMARY PT LETHARGIC. ALERT TO SELF AND AWARE OF LOCATION. PT HAS HX OF CVA. R SIDED DEFICIT NOTED D/T PREVIOUS CVA. AT BEDSIDE. ASSISTED WITH PT HX AND MED REC. WOUNDS CLEANED AND PICURES TAKEN FOR CHART. WOUND CARE CONSULT PLACED. WOUND VAC CHANGED PER PT REQUEST. SUPRAPUBIC CATH IN PLACE. DRAINING CLOUDY YELLOW URINE. NEPHROLOGY NOTIFIED OF CONUSLT. PLAN FOR PD TONIGHT. DIALYSIS NURSE NOTIFIED. BP STABLE. HR STABLE, AFIB IN 90'S. OXYGEN SATURATION MAINTAINED ABOVE 92% ON RA. AT BEDSIDE. CALL LIGHT WITHIN REACH. BED ALARM IN PLACE. WILL CONT TO MONITOR UNTIL REPORT GIVEN TO NIGHTSHIFT RN.
--- NOTE | 2023-01-02 18:25 | NUR ---
TO PCU ONE FOR PD TX. PT IS [address] DEMPSEY ON PD SINCE 05/2022. THANG MANAGES PT'S TREATMENTS AND IS QUITE KNOWLEDGEABLE IN REGARDS TO HER CARE. PT IS HERE FOR UROSEPSIS. PT IS CONFUSED AT THIS TIME AND SLEEPS WHEN UNDISTURBED. PT IS BED DEPENDENT AND REQUIRES A AYAH LIFT TO BE MOVED FROM BED. CATHETER IS RLQ, CLEAN, DRY AND INTACT. FLUID IS CLEAR UPON TX INITIATION. TX STARTED AT 1815 WITHOUT DIFFICULTY. PT TOLERATED WELL. CINTHIA
[2023-01-02 20:44] LABS: Bicarbonate Venous 25.5 mmol/L (24.0-30.0); PCO2 Venous 45.9 mmHg (38-42); pH Blood Venous 7.38 (7.34-7.37)
[2023-01-03] VITALS (9 sets, daily range): BP systolic 97–150; BP diastolic 48–100
--- NOTE | 2023-01-03 02:58 | NUR ---
SAFETY & EDUCATION NOTE PT & FAMILY EDUCATED RE: IGNITION SOURCES & RISK OF INJURY WHILE OXYGEN IS IN USE. PT DENIES SMOKING AND PT & FAMILY VERBALIZE UNDERSTANDING.
[2023-01-03 03:52] LABS: Hematocrit 23.5 % (33.0-51.0); Hemoglobin 7.8 g/dL (11.5-16.0)
--- NOTE | 2023-01-03 05:10 | NUR ---
SHIFT SUMMARY SEE PREVIOUS NOTE. PT LETHARGIC THROUGHOUT SHIFT AND VERY DIFFICULT TO AROUSE AT TIMES. WHEN PT DID RESPOND, SHE WAS ABLE TO STATE WHERE SHE WAS AND WHO HER IS. BP LABILE, SOFT AT TIMES, AFIB 60-80's. SpO2> 92% RA, UNLABORED RESPIRATIONS. PT BEDREST AT BASELINE. SUPRAPUBIC CATH IN PLACE, NO BM THIS SHIFT. WOUND VAC ON R CALF REMAINS PATENT. PT RECIEVED PD THROUGHOUT NIGHT. NO OTHER EVENTS, WILL REPORT TO ONCOMING RN.
[2023-01-03 05:38] LABS: Magnesium, Blood 3.5 mg/dL (1.6-2.4)
[2023-01-03 05:45] LABS: Albumin, Blood 2.6 g/dL (3.4-5.0); Anion Gap 13 mmol/L (6-16); Blood Urea Nitrogen 109 mg/dL (8-24); Bun/Creatinine Ratio 11.8 (12.0-20.0); CO2, Blood 25 mmol/L (21-32); Calcium, Blood 9.3 mg/dL (8.5-10.1); Chloride, Blood 97 mmol/L (98-108); Creatinine, Blood 9.24 mg/dL (0.40-1.00); Glomerular Filtration Rate 4 (60-); Glucose, Blood 183 mg/dL (70-99); Potassium, Blood 4.3 mmol/L (3.5-5.5); Sodium, Blood 135 mmol/L (136-145)
--- NOTE | 2023-01-03 08:55 | NUR ---
TO PCU ONE TO DISCONNECT PD. PT AWAKE, CONTINUES CONFUSED BUT PLEASANT. BEDSIDE NURSE PRESENT DOING AM ASSEMENT. PD DISCONNECTED PER ASEPTIC TECHNIQUE PER DR DEMPSEY'S ORDERS. SITE IS CLEAN AND CLEAR. CAPPED OFF PER PROTOCOL AND SECURED/ PT TOLERATED WELL. CINTHIA
--- NOTE | 2023-01-03 10:15 | NUR ---
CARE ASSUMPTION This RN assumed care at 0700. vital signs stable. tele afib 70s. patient is lethargic but responds to verbal stimuli and is oriented to self. patient call light is within reach. this rn when in room patient said "hi, hi, hi" and this rn asked if the patient knew where she was and patient responded "hi, hi, hi" and then this rn asked if the patient knew her birthday and patient responded correctly and then kept repeating "23, 23, 23", which is the day of her birthday. per this not patient baseline. patient appears to be in no pain. patient has a suprapubic catheter that is draining with gravity cloudy yellow urine. patient had dialysis nurse in room this am and unhooked the pd cath. katerina rn, from wound care, in to see patient. dressings on bottom changed, and wound vac will be changed tomorrow. see shift assessment for further detials. morning adls completed and repositioning. md guo in to see patient this am. plan of care is up to date. patient remains npo due to unable to work with speech therapy.
--- NOTE | 2023-01-03 11:14 | NUR ---
SAFETY NOTE This RN assessed and provied education on fire ignition and sources to both patient and family. verbalized patient does not smoke, and there is no fire ignition sources.
[2023-01-03 14:26] LABS: International Normalized Ratio 0.97; Prothrombin Time Results 10.2 Sec (9.7-11.5)
[2023-01-03 14:33] LABS: Anti-Xa UFH, PHA Monitoring 1.05 IU/mL
--- NOTE | 2023-01-03 18:21 | NUR ---
SHIFT SUMMARY patient neuro remains unchanged. patient has said random words throughout this shift, such as "airfield" repeatedly. patient has been at bedside most of the day. patient has been repositioned. patient has heparin drip going at 15u/kg/hr. no acute changes. vital signs remained stabled. plan of care up to date.
--- NOTE | 2023-01-03 20:14 | NUR ---
TO PCU 1 FOR EVENING PD TX INITIATION. PT SLEEPING, NO APPARENT DISTRESS. CONFUSED UPON AWAKENING BUT PLEASANT AND COOPERATIVE. PD TX INITIATED UNDER ASEPTIC TECHNIQUE PER DR GAONA ORDERS. PT TOLERATED WELL. CATHETHER SITE CLEAN AND SECURE. STABLE. CINTHIA
[2023-01-04 01:05] VITALS: BP 100/67
--- NOTE | 2023-01-04 02:30 | NUR ---
Contacted resident regarding patient having large BM that appears black in color. Stool sample sent to lab and awaiting hemoccult. Dr requested heparin continue until results back.
[2023-01-04 03:01] LABS: Stool Occult Blood Guaiac 1 Pos (Neg)
[2023-01-04 03:24] LABS: Hematocrit 23.9 % (33.0-51.0); Hemoglobin 7.9 g/dL (11.5-16.0)
[2023-01-04 03:48] LABS: Magnesium, Blood 3.5 mg/dL (1.6-2.4)
[2023-01-04 04:00] VITALS: BP 131/64
[2023-01-04 04:16] LABS: Albumin, Blood 2.6 g/dL (3.4-5.0); Anion Gap 15 mmol/L (6-16); Blood Urea Nitrogen 105 mg/dL (8-24); Bun/Creatinine Ratio 10.5 (12.0-20.0); CO2, Blood 25 mmol/L (21-32); Calcium, Blood 9.1 mg/dL (8.5-10.1); Chloride, Blood 99 mmol/L (98-108); Glomerular Filtration Rate 4 (60-); Glucose, Blood 166 mg/dL (70-99); Phosphorus, Blood 5.6 mg/dL (2.5-4.9); Potassium, Blood 4.3 mmol/L (3.5-5.5); Sodium, Blood 139 mmol/L (136-145)
--- NOTE | 2023-01-04 05:33 | NUR ---
Assumed care of pt at 1900. FRANK a/o status secondary to altered loc. Patient will awaken to verbal stimuli and can state her name and "hi" but quickly closes eyes and falls back asleep and can't answer further questions - just opens her eyes very briefly then closes them. Chronic contractures to RUE, a lot of "twitching" noted in both UE, which stated at beginning of shift was not her baseline. R pupil 3mm and sluggish, L pupil 3mm and brisk. Maintains over 95% on RA-1L NC. LS clear on top b/l and rhonchi at bases b/l. HOB elevated for aspiration precautions and oral care done TID. Afib on tele with PVC 100-120. FRANK CP/pressure, VSS although BP a bit low at times. 1+ edema in BLE. Hypoactive bowel tones x4, large black tarry bm x1 (see previous RN note). Suprapubic cath draining yellow urine with thick sediment noted and minimal urine output, bladder scan showed over 200ml. RLE with wound vac and coccyx ulcer being managed by wound care, Q2 turns. Heparin running per emar. Will report to dayshift RN. Patient education for oxygen and ignition - Patient is nonverbal. Will continue to assess risk as patient condition changes.
[2023-01-04 07:18] VITALS: BP 133/64
--- NOTE | 2023-01-04 08:50 | NUR ---
DIALYSIS-PD AND DR MUELLER DISCUSSING PT'S CARE PLAN, DC PT'S TX PER PROTOCAL. UF 37ML AND UF 1299 ML. PT DID NOT WAKE WHILE I WAS THERE. PT'S AND I DISCUSSED THE RX OF HER TX. SOLUTION CLEAR.
--- NOTE | 2023-01-04 10:15 | NUR ---
CARE ASSUMPTION this rn assumed care at 0700. vital signs stable. tele afib 100-120. patient is oriented to self and and family/friends. patient repsonds to verbal stimuli. patient more talkative today, but unable to form full sentences that make sense. this is not patients baseline per . see shift assessment for further detials. hack in to see patient and discussed plan of care with patient . plan of care remains up to date. will be starting clinimax today.
[2023-01-04 11:46] LABS: Hematocrit 24.2 % (33.0-51.0)
--- NOTE | 2023-01-04 12:40 | NUR ---
increase heart rate this rn called md guo due to rate increasing and sustaining greater than 120 and touched 150. new orders placed, see order section. plan of care up to date. this rn eduated the patient and of plan of care.
--- NOTE | 2023-01-04 15:09 | NUR ---
WOUND CARE ON ASSESSMENT OF POSTERIOR RLE WOUND VAC IS NOT INDICATED AT THIS TIME. WOUND MEASURES 2X1X0. GRANULATION TISSUE FLUSH WITH SKIN. WOUND CLEANSED WITH NS AND COVERED WITH HYDROCOLLOID. PT TOLERATED WELL
[2023-01-04 16:16] VITALS: BP 97/76
--- NOTE | 2023-01-04 18:08 | NUR ---
shift summary patient neuro has improved this shift. patient able to answer questions and stay awake for longer periods. clinimax infusing at 50mls hour. patient heart rate decreased into 100-110s after cardizem. see pervious notes. vitals stable. no acute changes. plan of care is up to date. call light within reach. family at bedside.
--- NOTE | 2023-01-04 19:30 | NUR ---
DIALYSIS-PD PT IS TALKING TO HER SELF. STARTED TX AT 1900. SITE CLEAR. PT'S IS VERY INVOLVED WITH HER PD TX, WHICH MAKES SENSE, SINCE HE IS THE ONE THAT DOES IT AT HOME. HE LIKES TO DISCUSSION THE PLAN AND GIVE HIS APPROVAL. HE STAYS ON TOP OF THE FLUID SHE IS RECIEVING (IV'S MOSTLY). TX STARTED WITHOUT DIFFICULTIES.
[2023-01-04 20:08] VITALS: BP 97/63
--- NOTE | 2023-01-04 21:40 | NUR ---
Contacted resident regarding increased O2 demands with patient being on clinimix and lung sounds being very coarse. CXR ordered, temporarily stop clinimix. Also spoke regarding patients Afib HR being elevated 100-130, however does have soft BP's. Order for Metoprolol IV given for HR over 120.
[2023-01-04 23:58] VITALS: BP 103/56
[2023-01-05] VITALS (7 sets, daily range): BP systolic 84–150; BP diastolic 53–104
[2023-01-05 03:43] LABS: Hematocrit 23.5 % (33.0-51.0); Hemoglobin 7.9 g/dL (11.5-16.0)
[2023-01-05 04:09] LABS: Magnesium, Blood 3.3 mg/dL (1.6-2.4)
[2023-01-05 04:18] LABS: Albumin, Blood 2.4 g/dL (3.4-5.0); Anion Gap 15 mmol/L (6-16); Blood Urea Nitrogen 102 mg/dL (8-24); Bun/Creatinine Ratio 10.4 (12.0-20.0); CO2, Blood 24 mmol/L (21-32); Chloride, Blood 103 mmol/L (98-108); Creatinine, Blood 9.84 mg/dL (0.40-1.00); Glomerular Filtration Rate 4 (60-); Glucose, Blood 241 mg/dL (70-99); Phosphorus, Blood 6.2 mg/dL (2.5-4.9); Potassium, Blood 4.2 mmol/L (3.5-5.5); Sodium, Blood 142 mmol/L (136-145)
--- NOTE | 2023-01-05 05:58 | NUR ---
ssumed care of pt at 1900. A/O to self and location. Much more awake tonight, having auditory hallucinations and often found talking to herself. Maintains over 92% on RA to 2-3L NC, LS clear on top and rhonchi at bases. CXR ordered this shift d/t concerns over increased O2 demands and LS. Afib on tele 90-120's, soft BP. 1+ pitting edema BLE. Minimal urine output, still yellow with purulent drainage. PD ran t/o night. Will report to dayshift RN. Patient educated on risk RE: ignition sources and risk of injury while oxygen is in use. Patient denies smoking & patient/family verbalize understanding.
--- NOTE | 2023-01-05 07:40 | NUR ---
DIALYSIS-PD PT DISCONNECTED FROM TX PER PROTOCAL AT 0700. SOLUTION CLEAR. ID [id number] ML, UF 526 ML. SOUND ASLEEP BUT EASILY WOKEN UP. LEFT A COPY OF THE UF AND ID WITH RN FOR THE . HE LIKES TO DISCUSS THE TREATMENT WITH THE DIALYSIS NURSE.
--- NOTE | 2023-01-05 17:38 | NUR ---
SHIFT SUMMARY PT EDUCATED ON IGNITION SOURCES AND OXYGEN, FIRE PREVENTION. PT MORE ALERT TODAY, ABLE TO ANSWER SOME QUESTIONS. SOMETIMES MIXES UP MEANING OF NO AND YES. EVALUATED BY SPEECH THERAPY, GIVEN A [facility] SOFT DIET, FEEDER. SP02>90% ON RA, VSS. SUPRAPUBIC CATH DRAINING SEDEMENT YELLOW URINE TO GRAVITY. 2 INCONTINENT BLACK SMEARS THIS SHIFT. C/D ATTENDS IN PLACE. BED BATH GIVEN. CLINIMIX INFUSING PER EMAR. REPOSITIONED Q2H. ORAL DONE. IN ROOM MOST OF DAY. CALL LIGHT IN REACH.
--- NOTE | 2023-01-05 18:51 | NUR ---
DIALYSIS-PD PT MUCH MORE AWAKE AND ALERT. FEEDING PT. PT CONNECTED TO PD TX PER PROTOCAL. TRY TO STAY ON TOP OF ALL OF HER MEDICIAL PROBLEMS. VERY INVOLVED.
[2023-01-06] VITALS (8 sets, daily range): BP systolic 86–108; BP diastolic 42–77
[2023-01-06 03:49] LABS: BASOPHILS ABSOLUTE AUTO 0.02 K/mm3 (0.00-0.23); BASOPHILS PERCENT AUTO 0 % (0-2); EOSINOPHILS ABSOLUTE AUTO 0.04 K/mm3 (0.00-0.68); EOSINOPHILS PERCENT AUTO 0 % (0-6); Hematocrit 21.7 % (33.0-51.0); Hemoglobin 7.2 g/dL (11.5-16.0); IMMATURE GRAN ABSOLUTE AUTO 0.13 K/mm3 (0.00-0.10); IMMATURE GRAN PERCENT AUTO 1 % (0-1); LYMPHOCYTES ABSOLUTE AUTO 0.83 K/mm3 (0.84-5.20); LYMPHOCYTES PERCENT AUTO 7 % (21-46); MONOCYTES PERCENT AUTO 5 % (4-13); Mean Corpuscular HGB 36.7 pg (26.0-34.0); Mean Corpuscular HGB Conc 33.2 g/dL (31.5-36.5); Mean Corpuscular Volume 111 fL (80-100); Mean Platelet Volume 11.3 fL (9.1-12.4); NEUTROPHILS ABSOLUTE AUTO 11.09 K/mm3 (1.96-9.15); NEUTROPHILS PERCENT AUTO 87 % (41-73); Platelet Count 149 K/mm3 (150-400); RDW Coefficient Variation 13.4 % (11.7-14.2); RDW Standard Deviation 53.8 fL (35.1-46.3); Red Blood Cell Count 1.96 M/mm3 (3.80-5.20); White Blood Cell Count 12.71 K/mm3 (4.00-11.30)
[2023-01-06 04:46] LABS: Iron Serum 109 ug/dL (50-170); Magnesium, Blood 3.2 mg/dL (1.6-2.4); Percent Saturation 100.9 % (15.0-50.0); Total Iron Binding Capacity 108 ug/dL (250-450)
[2023-01-06 04:53] LABS: Albumin, Blood 2.1 g/dL (3.4-5.0); Anion Gap 14 mmol/L (6-16); Blood Urea Nitrogen 100 mg/dL (8-24); Bun/Creatinine Ratio 10.7 (12.0-20.0); CO2, Blood 23 mmol/L (21-32); Calcium, Blood 8.7 mg/dL (8.5-10.1); Chloride, Blood 105 mmol/L (98-108); Creatinine, Blood 9.34 mg/dL (0.40-1.00); Ferritin, Serum 2204 ng/mL (8-252); Glomerular Filtration Rate 4 (60-); Glucose, Blood 307 mg/dL (70-99); Phosphorus, Blood 6.5 mg/dL (2.5-4.9); Sodium, Blood 142 mmol/L (136-145)
--- NOTE | 2023-01-06 05:41 | NUR ---
SHIFT SUMMARY SEE PREVIOUS NOTE. PT LETHARGIC THROUGHOUT SHIFT, THOUGHT A&Ox3, COMMUNICATES NEEDS. BP LABILE, SOFT AT TIMES, AFIB 90-110's. SpO2> 92% RA, UNLABORED RESPIRATIONS. PT BEDREST AT BASELINE. SUPRAPUBIC CATH IN PLACE, NO BM THIS SHIFT. PT RECIEVED PD THROUGHOUT NIGHT. NO OTHER EVENTS, WILL REPORT TO ONCOMING RN.
--- NOTE | 2023-01-06 08:07 | NUR ---
Dialysis PD NOTES: Patient sleeping, easily awaken and responds appropriately. Respirations even and unlabored. Noted edema to RLE pitting +1. Patient run full cycler tx without problems. Patient disconnected from cycler and line recapped using aseptic technique. Cycler stripped and cleaned off. Updated primary Rn. Initail Drain 697 ml and total Net UF 815 ml.
--- NOTE | 2023-01-06 18:41 | NUR ---
Shift Summary Pt responding to verbal stimuli t/o shift. Pt resting in bed t/o shift, repostioned q2. Pt denies pain, chest pain/pressure, sob, nausea, dizziness and numb/tingling. Tele afib, bp soft t/o shift started on midodrine. Spo2 >90% on ra, breathing even and unlabored. Pt abd soft nontender, +bt. Other vss. No other acute changes noted. Will continue to monitor.
--- NOTE | 2023-01-06 19:31 | NUR ---
Peritoneal dialysis note: To patient room at 1845 for overnight PD tx. Patient is alert, awake, at bedside feeding patient. No s/sx of distress. Dialysis cycler set-up per orders using aseptic technique. Patient has no complaints of dyspnea or abdominal pain. RLE edema noted. Patien to run 9 hours with 5 exchanges of 2000 ml of dialysate with heparin and last fill of 200 ml. Dwell time of 1 hour 22 minutes. PD catheter dressing changed with no signs or symptoms of infection. Patient connected to cycler and treatment started without problems. Primary RN updated.
[2023-01-07] VITALS (15 sets, daily range): BP systolic 78–122; BP diastolic 37–77
[2023-01-07 04:38] LABS: BASOPHILS ABSOLUTE AUTO 0.03 K/mm3 (0.00-0.23); BASOPHILS PERCENT AUTO 0 % (0-2); EOSINOPHILS ABSOLUTE AUTO 0.32 K/mm3 (0.00-0.68); EOSINOPHILS PERCENT AUTO 3 % (0-6); Hematocrit 20.6 % (33.0-51.0); Hemoglobin 6.7 g/dL (11.5-16.0); IMMATURE GRAN ABSOLUTE AUTO 0.32 K/mm3 (0.00-0.10); IMMATURE GRAN PERCENT AUTO 3 % (0-1); LYMPHOCYTES ABSOLUTE AUTO 1.13 K/mm3 (0.84-5.20); LYMPHOCYTES PERCENT AUTO 10 % (21-46); MONOCYTES ABSOLUTE AUTO 0.72 K/mm3 (0.16-1.47); MONOCYTES PERCENT AUTO 6 % (4-13); Mean Corpuscular HGB 36.2 pg (26.0-34.0); Mean Corpuscular HGB Conc 32.5 g/dL (31.5-36.5); Mean Corpuscular Volume 111 fL (80-100); Mean Platelet Volume 11.7 fL (9.1-12.4); NEUTROPHILS ABSOLUTE AUTO 8.83 K/mm3 (1.96-9.15); NEUTROPHILS PERCENT AUTO 78 % (41-73); Platelet Count 143 K/mm3 (150-400); RDW Coefficient Variation 13.4 % (11.7-14.2); RDW Standard Deviation 54.2 fL (35.1-46.3); Red Blood Cell Count 1.85 M/mm3 (3.80-5.20); White Blood Cell Count 11.35 K/mm3 (4.00-11.30)
[2023-01-07 05:04] LABS: Magnesium, Blood 3.1 mg/dL (1.6-2.4)
[2023-01-07 05:18] LABS: Albumin, Blood 2.1 g/dL (3.4-5.0); Anion Gap 14 mmol/L (6-16); Blood Urea Nitrogen 108 mg/dL (8-24); Bun/Creatinine Ratio 11.5 (12.0-20.0); CO2, Blood 22 mmol/L (21-32); Calcium, Blood 8.7 mg/dL (8.5-10.1); Chloride, Blood 105 mmol/L (98-108); Creatinine, Blood 9.43 mg/dL (0.40-1.00); Glomerular Filtration Rate 4 (60-); Glucose, Blood 318 mg/dL (70-99); Phosphorus, Blood 6.6 mg/dL (2.5-4.9); Potassium, Blood 4.1 mmol/L (3.5-5.5); Sodium, Blood 141 mmol/L (136-145)
--- NOTE | 2023-01-07 06:01 | NUR ---
PATIENT DROWSY RESPONDS TO VERBAL STIMULI. CONTINUES TO HAVE MULITPLE DARK TARRY/BLACK STOOLS THROUGHOUT THE SHIFT. SUPRAPUBIC PERSAUD CATH IN PLACE TO GRAVITY DRAIN WITH THICK MILKY SEDIMENT. PERITONEAL DIAYLSIS RUNNING MANGAGED BY FIELD SERVICE POULTRY TECHNICIAN. PATIENT IN AFIB 105-120'S. BLOOD PRESSURE REMAINS ON THE LOW, ON MIDODRINE. PATIENT EDUCATED ON IGNITION SOURCES AROUND THE USE OF OXYGEN IN THE HOSPITAL.
--- NOTE | 2023-01-07 07:39 | NUR ---
DIALYSIS-PD PT AWAKE AND ALERT. TALKATIVE WITH APPROPRIATE CONVERSATION. TELLING ME SHE IS GOING TO HAVE A SCOPE DONE. UF 787 ML,ID [id number] ML. SOLUTION CLEAR. PT DC FROM TX PER PROTOCAL.
--- NOTE | 2023-01-07 15:54 | NUR ---
POWER GLIDE R UPPER ARM, INFUSING WELL, WNL.
--- NOTE | 2023-01-07 15:55 | NUR ---
LS CLEAR UPPERS, DIMINISHED IN THE BASES. PT IN NO ACUTE DISTRESS.
--- NOTE | 2023-01-07 16:13 | NUR ---
LAB DOWN TO DRAW BLOOD PRIOR TO PROCEDURE.
[2023-01-07 16:14] LABS: Bicarbonate Venous 21.5 mmol/L (24.0-30.0); pH Blood Venous 7.42 (7.34-7.37)
[2023-01-07 16:26] LABS: Hematocrit 26.4 % (33.0-51.0); Hemoglobin 8.8 g/dL (11.5-16.0)
--- NOTE | 2023-01-07 16:36 | NUR ---
01/07/23 [address] SERRANO'S SEDATION RECORD.
[2023-01-07 17:11] LABS: Albumin, Blood 2.1 g/dL (3.4-5.0); Albumin/Globulin Ratio 0.7 (0.8-1.8); Bilirubin, Total 0.4 mg/dL (0.1-1.0); Bun/Creatinine Ratio 11.7 (12.0-20.0); Calcium, Blood 8.7 mg/dL (8.5-10.1); Creatinine, Blood 9.32 mg/dL (0.40-1.00); Globulin, Blood 3.2 g/dL (2.2-4.0); Potassium, Blood 4.3 mmol/L (3.5-5.5); Total Protein, Blood 5.3 g/dL (6.4-8.2)
--- NOTE | 2023-01-07 18:28 | NUR ---
Shift Summary Pt alert, orient to person, place and event; confused on date. Pt denies pain, chest pain/pressure, sob, nausea, and dizziness. Pt tele afib 90-120's bp soft t/o shift, midorine and 1 unit PBRC administered. Spo2 >90% on ra, breathing even and unlabored. Pt went to EGD this afternoon. Othe vss. Report givnen to RN assuming care of patient.
--- NOTE | 2023-01-07 20:19 | NUR ---
DIALYSIS PD PT AND IN THE ROOM WAITING FOR HER DINNER TO ARRIVE. SHE APPEARS TO FILL MUCH BETTER TODAY. MORE ALERT. PT CONNECTED TO PD TX PER PROTOCAL. SITE CLEAR. SPOKE TO RN ABOUT CALLING THE PUBLIC WELFARE DIRECTOR RN IF ALARMS.
[2023-01-08] VITALS (7 sets, daily range): BP systolic 98–120; BP diastolic 51–75
[2023-01-08 04:13] LABS: Hemoglobin 8.3 g/dL (11.5-16.0); Mean Corpuscular HGB 35.5 pg (26.0-34.0); Mean Corpuscular HGB Conc 34.6 g/dL (31.5-36.5); Mean Platelet Volume 11.7 fL (9.1-12.4); Platelet Count 154 K/mm3 (150-400); RDW Coefficient Variation 18.2 % (11.7-14.2); Red Blood Cell Count 2.34 M/mm3 (3.80-5.20); White Blood Cell Count 9.93 K/mm3 (4.00-11.30)
[2023-01-08 04:21] LABS: Mean Corpuscular Volume 103 fL (80-100)
[2023-01-08 04:38] LABS: BAND PERCENT MAN 1 % (0-8); BASOPHILS PERCENT MAN 0 % (0-2); EOSINOPHILS ABSOLUTE MAN 0.59 K/mm3 (0.00-0.68); EOSINOPHILS PERCENT MAN 6 % (0-6); LYMPHOCYTES ABSOLUTE MAN 0.99 K/mm3 (0.84-5.20); LYMPHOCYTES PERCENT MAN 10 % (21-46); MONOCYTES ABSOLUTE MAN 0.69 K/mm3 (0.16-1.47); MONOCYTES PERCENT MAN 7 % (4-13); MYELOCYTE ABSOLUTE MAN 0.29 K/mm3 (0.00-0.00); MYELOCYTE PERCENT MAN 3 % (0-0); NEUTROPHILS ABSOLUTE MAN 7.34 K/mm3 (1.96-9.15); SEG NEUTROPHILS PERCENT MAN 73 % (41-73); TOTAL CELLS COUNTED 100
--- NOTE | 2023-01-08 04:46 | NUR ---
SHIFT SUMMARY PT IS A/Ox3 AND COOPERATIVE WITH CARE. AFFECT IS OFTEN LETHARGIC/WITHDRAWN, BUT IS EASILY AROUSABLE TO BOTH VERBAL AND TACTILE STIMULI. ABLE TO MAKE MOST OF HER NEEDS KNOWN WELL ANSWER MOST QUESTIONS APPROPRIATELY. NO ACUTE EVENTS OVERNIGHT FOR PT WAS ABLE TO SLEEP T/O MOST OF THE SHIFT. CARDIAC, REMAINS IN AFIB 90-110'S WITH NO C/O CP OR PRESSURE. SBP WAS MORE STABLE THIS SHIFT WITH SBP RANGING 100-120'S. RESPIRATORY, MAINTAINS SPO2 >92% ON RA WITH NO C/O SOB OR DSYPNEA WHILE AT REST. INCREASED DYSPNEA NOTED WITH EXERTION. GI/, SUPRAPUBIC CATH IN PLACE DRAINING YELLOW/CLOUDY URINE TO GRAVITY. CONTINUES TO HAVE MELENA STOOLS, BUT COLOR WAS MORE DARK GREEN THIS SHIFT. Q2HR REPOSITIONING DUE TO PT BEING ON BR. CLINIMIX INFUSING ORDERED VIA EMAR. PT RECEIVED PD THIS SHIFT WELL. ASSESSED PT FOR RISKS OF ANY IGNITION SOURCES WELL BEHAVIORS FOR INCREASED RISKS OF FIRE DANGER. PT EDUCATED ON COMMON SOURCES OF IGNITION WELL NEED TO KEEP A SAFE ENVIRONMENT. NO NEW ORDERS AT THIS TIME, WILL REPORT TO ONCOMING RN. RAFAELA OSBORN OF THIS NOTE.
[2023-01-08 04:51] LABS: Albumin, Blood 1.9 g/dL (3.4-5.0); Anion Gap 17 mmol/L (6-16); Blood Urea Nitrogen 98 mg/dL (8-24); CO2, Blood 20 mmol/L (21-32); Calcium, Blood 8.4 mg/dL (8.5-10.1); Chloride, Blood 106 mmol/L (98-108); Creatinine, Blood 8.94 mg/dL (0.40-1.00); Glomerular Filtration Rate 4 (60-); Glucose, Blood 329 mg/dL (70-99); Phosphorus, Blood 7.9 mg/dL (2.5-4.9); Potassium, Blood 3.9 mmol/L (3.5-5.5); Sodium, Blood 143 mmol/L (136-145)
--- NOTE | 2023-01-08 10:42 | NUR ---
TO PCU ONE TO DC PD TX. PT SITTING UP IN BED WITH AT BEDSIDE, ALERT AND ORIENTED. TX DC'C WITHOUT DIFFICULTY UNDER ASEPTIC TECHNIQUE/ [T TP;ERATED WELL. SIOE IS CLEAN AND CLEAR. DSG DRY AND INTACT.TX COMPLETED PER DR DEMPSEY'S ORDERS. CINTHIA
--- NOTE | 2023-01-08 16:43 | NUR ---
Spoke with PT George prior to visit and discussed case. Home health will be recommended. Pt would not benefit from SNF. Family may benefit from advanced care planning. Pt known to this senior mortgage underwriter from previous hospital stay. Made supportive visit this afternoon. Pt resting in bed upon arrival. Pt denies pain, dyspnea, nausea, and anxiety. Listened as Pt states her friends and family created a prayer chain and credits all the prayers to her recovery. Continued therapeutic listening a validated concerns. She reports thinking that she thought she was going to and states "I have to live for them". Continued therapeutic visit. Pt agreeable for this RN to F/U when spouse is present. Spoke with Primary RN Florencia and discussed case. Palliative Care will remain available.
--- NOTE | 2023-01-08 18:00 | NUR ---
SHIFT SUMMARY; ASSUMED CARE AT 0700. A/A/OX4, COGNITION MUCH IMPROVED FROM PREVIOUS SHIFT PER OTHER STAFF MEMBERS. SPOUSE AT BEDSIDE MOST OF SHIFT AND ASSISTS WITH FEEDING AND ADL'S. SUPRAPUBIC CATH IN PLACE DRAINING TO GRAVITY BAG. CATH CARE COMPLETED DURING SHIFT. Q2 REPOSITONING, EVAL BY OT/PT. PLAN FOR HOME WITH HOME HEALTH POSSIBLY TOMORROW. WILL CONTINUE TO MONITOR AND TREAT UNTIL CHANGE OF SHIFT.
--- NOTE | 2023-01-08 20:14 | NUR ---
DIALYSIS PD PD TX INITIATED AT 1800. PT A&O. CONNECTED TO TX PER PROTOCAL. HERE, LEFT FOR HOME. SITE CLEAR, FLUID CLEAR. NO DISCOMFORT NOTED.
[2023-01-09 03:55] VITALS: BP 114/53
[2023-01-09 04:56] LABS: Hematocrit 25.5 % (33.0-51.0); Hemoglobin 8.7 g/dL (11.5-16.0); Mean Corpuscular HGB 34.7 pg (26.0-34.0); Mean Corpuscular HGB Conc 34.1 g/dL (31.5-36.5); Mean Corpuscular Volume 102 fL (80-100); Platelet Count 172 K/mm3 (150-400); RDW Coefficient Variation 16.7 % (11.7-14.2); RDW Standard Deviation 62.4 fL (35.1-46.3); Red Blood Cell Count 2.51 M/mm3 (3.80-5.20); White Blood Cell Count 10.73 K/mm3 (4.00-11.30)
[2023-01-09 05:21] LABS: BASOPHILS PERCENT MAN 0 % (0-2); EOSINOPHILS ABSOLUTE MAN 0.21 K/mm3 (0.00-0.68); EOSINOPHILS PERCENT MAN 2 % (0-6); LYMPHOCYTES ABSOLUTE MAN 1.07 K/mm3 (0.84-5.20); LYMPHOCYTES PERCENT MAN 10 % (21-46); METAMYELOCYTE ABSOLUTE MAN 0.21 K/mm3 (0.00-0.00); METAMYELOCYTE PERCENT MAN 2 % (0-0); MONOCYTES ABSOLUTE MAN 0.75 K/mm3 (0.16-1.47); MONOCYTES PERCENT MAN 7 % (4-13); MYELOCYTE ABSOLUTE MAN 0.64 K/mm3 (0.00-0.00); MYELOCYTE PERCENT MAN 6 % (0-0); NEUTROPHILS ABSOLUTE MAN 7.83 K/mm3 (1.96-9.15); SEG NEUTROPHILS PERCENT MAN 73 % (41-73); TOTAL CELLS COUNTED 100
--- NOTE | 2023-01-09 05:44 | NUR ---
SHIFT SUMMARY PT IS A/Ox3-4 AND COOPERATIVE WITH CARE. AFFECT HAS IMPROVED, LESS LETHARGIC & EASILY AROUSABLE TO BOTH VERBAL AND TACTILE STIMULI. ABLE TO MAKE MOST OF HER NEEDS KNOWN WELL ANSWER MOST QUESTIONS APPROPRIATELY. NO ACUTE EVENTS OVERNIGHT FOR PT WAS ABLE TO SLEEP T/O MOST OF THE SHIFT. CARDIAC, REMAINS IN AFIB 90-110'S WITH NO C/O CP OR PRESSURE. SBP WAS MORE STABLE THIS SHIFT WITH SBP RANGING 100-120'S. RESPIRATORY, MAINTAINS SPO2 >94% ON RA WITH NO C/O SOB OR DSYPNEA WHILE AT REST. GI/, SUPRAPUBIC CATH IN PLACE DRAINING YELLOW/CLOUDY URINE TO GRAVITY. 1X DARK GREEN/TARRY STOOL THIS AM, Hgb HAS IMPROVED FROM 8.3-= TO 8.7 THIS AM. Q2HR REPOSITIONING DUE TO PT BEING ON BR. PAIN MANAGED ORDERED VIA EMAR PT RECEIVED PD THIS SHIFT WELL. ASSESSED PT FOR RISKS OF ANY IGNITIO SOURCES WELL BEHAVIORS FOR INCREASED RISKS OF FIRE DANGER. PT EDUCATED ON COMMON SOURCES OF IGNITION WELL NEED TO KEEP A SAFE ENVIRONMENT. NO NEW ORDERS AT THIS TIME, WILL REPORT TO ONCOMING RN. RAFAELA OSBORN OF THIS NOTE.
[2023-01-09 05:56] LABS: Magnesium, Blood 2.8 mg/dL (1.6-2.4)
[2023-01-09 05:59] LABS: Anion Gap 15 mmol/L (6-16); Blood Urea Nitrogen 95 mg/dL (8-24); Bun/Creatinine Ratio 10.8 (12.0-20.0); CO2, Blood 19 mmol/L (21-32); Calcium, Blood 8.6 mg/dL (8.5-10.1); Chloride, Blood 106 mmol/L (98-108); Creatinine, Blood 8.78 mg/dL (0.40-1.00); Glomerular Filtration Rate 5 (60-); Glucose, Blood 213 mg/dL (70-99); Potassium, Blood 3.9 mmol/L (3.5-5.5); Sodium, Blood 140 mmol/L (136-145)
--- NOTE | 2023-01-09 06:30 | NUR ---
DIALYSIS NOTE PT AWAKE SITTING UP UN BED, A&O, NO C/O. CCPD TX COMPLETED PRESCRIBED, IDRAIN 546, TUF 1475. AVG DWELL TIME 1:19. PT DISCONNETED PER POLICY, TRANSFE SET CLOSED, CAPPED AND SECURERD. REPORT GIVEN TO PCRN FROM LOAN EXAMINER.
[2023-01-09 07:21] VITALS: BP 109/85
[2023-01-09 11:21] VITALS: BP 108/60
--- NOTE | 2023-01-09 15:22 | NUR ---
Brief supportive visit. Pt sitting in recliner chair upon arrival. Spouse at bedside. Reviewed plan of care and D/C plan for Saturday. Pt and spouse report no concerns at this time. Palliative Care will remain available
[2023-01-09 16:03] VITALS: BP 128/103
--- NOTE | 2023-01-09 16:25 | NUR ---
DIALYSIS NOTE CYCLER SET UP FOR EVENING CCPD TX. PT CONNECTED PER P&P, DRSG CHANGE CMPLETED, EXIT SITE IN PERFECT CONDITION. EFFLUENT CLEAR/YELLOW DURING INITIAL DRAIN. HANDOFF REPORT GIVEN TO DILCIA RANGEL RN.
--- NOTE | 2023-01-09 17:34 | NUR ---
SHIFT SUMMARY; ASSUMED CARE AT 0700. A/A/OX4 DURING SHIFT. Q2 REPOSITIONING, HEELS FLOATED WITH BOOTIES. BED BATH TODAY, CATH CARE, ORAL CARE. AYAH LIFT TO RECLINER FOR SEVERAL HOURS DURING DAY. FEEDING SELF, INSULIN PER EMAR. VSS, NO ACUTE MEDICAL CHANGES. WILL CONTINUE TO MONITOR AND TREAT UNTIL CHANGE OF SHIFT.
[2023-01-09 19:37] VITALS: BP 103/53
[2023-01-09 23:47] VITALS: BP 119/55
[2023-01-10 03:26] VITALS: BP 115/54
[2023-01-10 04:03] LABS: Hematocrit 25.9 % (33.0-51.0); Hemoglobin 8.8 g/dL (11.5-16.0); Mean Corpuscular HGB 34.8 pg (26.0-34.0); Mean Corpuscular Volume 102 fL (80-100); Mean Platelet Volume 11.8 fL (9.1-12.4); Platelet Count 171 K/mm3 (150-400); RDW Coefficient Variation 16.1 % (11.7-14.2); RDW Standard Deviation 60.8 fL (35.1-46.3); Red Blood Cell Count 2.53 M/mm3 (3.80-5.20)
[2023-01-10 04:30] LABS: Magnesium, Blood 2.7 mg/dL (1.6-2.4)
[2023-01-10 04:58] LABS: Albumin, Blood 2.1 g/dL (3.4-5.0); Anion Gap 13 mmol/L (6-16); Blood Urea Nitrogen 94 mg/dL (8-24); Bun/Creatinine Ratio 10.7 (12.0-20.0); CO2, Blood 22 mmol/L (21-32); Calcium, Blood 8.6 mg/dL (8.5-10.1); Chloride, Blood 102 mmol/L (98-108); Glomerular Filtration Rate 5 (60-); Glucose, Blood 227 mg/dL (70-99); Phosphorus, Blood 7.1 mg/dL (2.5-4.9); Potassium, Blood 4.1 mmol/L (3.5-5.5); Sodium, Blood 137 mmol/L (136-145)
[2023-01-10 05:22] LABS: BAND PERCENT MAN 1 % (0-8); BASOPHILS PERCENT MAN 1 % (0-2); EOSINOPHILS ABSOLUTE MAN 0.42 K/mm3 (0.00-0.68); EOSINOPHILS PERCENT MAN 4 % (0-6); LYMPHOCYTES ABSOLUTE MAN 1.15 K/mm3 (0.84-5.20); LYMPHOCYTES PERCENT MAN 11 % (21-46); METAMYELOCYTE ABSOLUTE MAN 0.31 K/mm3 (0.00-0.00); METAMYELOCYTE PERCENT MAN 3 % (0-0); MONOCYTES ABSOLUTE MAN 0.52 K/mm3 (0.16-1.47); MONOCYTES PERCENT MAN 5 % (4-13); MYELOCYTE ABSOLUTE MAN 0.21 K/mm3 (0.00-0.00); MYELOCYTE PERCENT MAN 2 % (0-0); NEUTROPHILS ABSOLUTE MAN 7.77 K/mm3 (1.96-9.15); SEG NEUTROPHILS PERCENT MAN 73 % (41-73); TOTAL CELLS COUNTED 100
--- NOTE | 2023-01-10 06:04 | NUR ---
SHIFT SUMMARY PT REMAINS A&O X4, ON RA, RESP UNLABORED, DB&C ENC, VSS, Q2 TURNS PROVIDED, PT IS ABLE TO CALL FOR ASSISTANCE PRN, MEDS WHOLE W/APPLESAUCE, IGNITION & FIRE SAFETY EDUCATION PROVIDED, PT STATES UNDERSTANDING, RESTING QUIETLY AT THIS TIME, CALL LIGHT IN REACH
[2023-01-10 07:26] VITALS: BP 128/75
--- NOTE | 2023-01-10 08:23 | NUR ---
DIALYSIS NOTE PT AWAKE SITTING UP UN BED, A&O, NO C/O. CCPD TX COMPLETED PRESCRIBED, IDRAIN 331, TUF 1658. AVG DWELL TIME 1:18. PT DISCONNETED PER POLICY, TRANSFER SET CLOSED, CAPPED AND SECURERD. REPORT GIVEN TO DILCIA ABDUL RN.
--- NOTE | 2023-01-10 11:27 | NUR ---
Spiritual care visit conducted. Patient is lying in bed and alert. Patient tells me about the challenges of the last 4 yrs due to a stroke and the further medical problems that have followed. She tells me what it is like to live in her skin with her limitations and she expresses that she does not like it but that she has continued to find juanita and meaning in her life. She states that her Voodoo tracie and her spouse Joey keep her inspired and uplifted. Joey enters the room and after 20 minutes or so and then joins the conversation and shares about 2 horrible accidents that he was involved in and how he has become her legs and she his brain. My conversation centered around all they both have overcome and their tracie in God led to them both admitting to feeling stronger in their tracie and grateful for the prayer, insights and care they received from spiritual care. I will omarue to remain available to patient and family.
== END 2023-01-10 14:06 | disposition home health service (06) | DRG 91 ==
LOC: ER 11:25 → PCU 14:00
PROVIDERS: Anesthesiology; Emergency Medicine; Family Medicine; Hospitalist; Internal Medicine Gastroenterology; Internal Medicine Nephrology; ADMIT Internal Medicine
PROC: 3E1M39Z Irrigation of Peritoneal Cavity using Dialysate, Percutaneous Approach (ICD-10-PCS; 2023-01-03)
PROC: 0DB98ZX Excision of Duodenum, Via Natural or Artificial Opening Endoscopic, Diagnostic (ICD-10-PCS; 2023-01-07)
PROC: 3E1G88Z Irrigation of Upper GI using Irrigating Substance, Via Natural or Artificial Opening Endoscopic (ICD-10-PCS; 2023-01-07)
PROC: 30233N1 Transfusion of Nonautologous Red Blood Cells into Peripheral Vein, Percutaneous Approach (ICD-10-PCS; principal; 2023-01-07 16:15)
DX: G92.8 Other toxic encephalopathy (principal); N18.6 End stage renal disease; I13.2 Hypertensive heart and chronic kidney disease with heart failure and with stage 5 chronic kidney disease, or end stage renal disease; E87.1 Hypo-osmolality and hyponatremia; I48.20 Chronic atrial fibrillation, unspecified; Z66 Do not resuscitate; Z51.5 Encounter for palliative care; E03.9 Hypothyroidism, unspecified; E78.5 Hyperlipidemia, unspecified; K25.9 Gastric ulcer, unspecified as acute or chronic, without hemorrhage or perforation; K21.9 Gastro-esophageal reflux disease without esophagitis; I50.9 Heart failure, unspecified; I95.9 Hypotension, unspecified; E83.39 Other disorders of phosphorus metabolism; K21.00 Gastro-esophageal reflux disease with esophagitis, without bleeding; E88.09 Other disorders of plasma-protein metabolism, not elsewhere classified; D69.6 Thrombocytopenia, unspecified; D72.828 Other elevated white blood cell count; E86.0 Dehydration; E11.22 Type 2 diabetes mellitus with diabetic chronic kidney disease; L89.150 Pressure ulcer of sacral region, unstageable; R13.19 Other dysphagia; E66.01 Morbid (severe) obesity due to excess calories; E83.41 Hypermagnesemia; R79.89 Other specified abnormal findings of blood chemistry; D63.1 Anemia in chronic kidney disease; G89.29 Other chronic pain; G40.909 Epilepsy, unspecified, not intractable, without status epilepticus; M25.512 Pain in left shoulder; Z88.1 Allergy status to other antibiotic agents; Z79.890 Hormone replacement therapy; Z79.2 Long term (current) use of antibiotics; Z79.899 Other long term (current) drug therapy; Z79.01 Long term (current) use of anticoagulants; Z79.4 Long term (current) use of insulin; Z86.73 Personal history of transient ischemic attack (TIA), and cerebral infarction without residual deficits; Z99.2 Dependence on renal dialysis; Z98.890 Other specified postprocedural states; Z68.36 Body mass index [BMI] 36.0-36.9, adult; Z88.8 Allergy status to other drugs, medicaments and biological substances
CPT/HCPCS: 36415; 70450; 71045; 80053; 80069; 82272; 82330; 82435; 82607; 82728; 82746; 82803; 82947; 83540; 83550; 83605; 83735; 83880; 84132; 84295; 85014; 85018; 85025; 85520; 85610; 85730; 86850; 86900; 86901; 86923; 87040; 88305; 92526; 92610; 96361; 96365; 97110; 97162; 97165; 99285-25; A9270; C1751; C9113; J0696; J0881; J1644; J1815; J1953; J2543; J2704; J7030; J7050; J7131; P9016

== ENCOUNTER 2023-02-03 11:44 | Inpatient (IN) | payer OTHER | END 2023-02-08 14:42 | disposition home health service (06) | DRG 853 | LOC: ER 11:44 → MEDS 18:12 | PROVIDERS: ADMIT Hospitalist | PROC: 0JBN0ZZ Excision of Right Lower Leg Subcutaneous Tissue and Fascia, Open Approach (ICD-10-PCS; principal; 2023-02-03) | PROC: 0J9N0ZZ Drainage of Right Lower Leg Subcutaneous Tissue and Fascia, Open Approach (ICD-10-PCS; 2023-02-03) | PROC: 3E1M39Z Irrigation of Peritoneal Cavity using Dialysate, Percutaneous Approach (ICD-10-PCS; 2023-02-05) | PROC: 3E03329 Introduction of Other Anti-infective into Peripheral Vein, Percutaneous Approach (ICD-10-PCS; 2023-02-07) | PROC: 30233N1 Transfusion of Nonautologous Red Blood Cells into Peripheral Vein, Percutaneous Approach (ICD-10-PCS; 2023-02-07) | DX: A41.51 Sepsis due to Escherichia coli [E. coli] (principal); N18.6 End stage renal disease; L02.415 Cutaneous abscess of right lower limb; I48.20 Chronic atrial fibrillation, unspecified; N25.81 Secondary hyperparathyroidism of renal origin; I13.0 Hypertensive heart and chronic kidney disease with heart failure and stage 1 through stage 4 chronic kidney disease, or unspecified chronic kidney disease; I69.351 Hemiplegia and hemiparesis following cerebral infarction affecting right dominant side; K92.1 Melena; D62 Acute posthemorrhagic anemia; N39.0 Urinary tract infection, site not specified; I50.9 Heart failure, unspecified; E11.22 Type 2 diabetes mellitus with diabetic chronic kidney disease; Z66 Do not resuscitate; E66.01 Morbid (severe) obesity due to excess calories; F41.9 Anxiety disorder, unspecified; D63.1 Anemia in chronic kidney disease; K21.9 Gastro-esophageal reflux disease without esophagitis; E03.9 Hypothyroidism, unspecified; E11.65 Type 2 diabetes mellitus with hyperglycemia; I95.9 Hypotension, unspecified; R56.9 Unspecified convulsions; N32.89 Other specified disorders of bladder; E87.6 Hypokalemia; Z88.1 Allergy status to other antibiotic agents; Z88.8 Allergy status to other drugs, medicaments and biological substances; Z79.890 Hormone replacement therapy; Z79.2 Long term (current) use of antibiotics; Z79.899 Other long term (current) drug therapy; Z99.2 Dependence on renal dialysis; Z79.01 Long term (current) use of anticoagulants; Z79.4 Long term (current) use of insulin; Z98.890 Other specified postprocedural states; Z99.3 Dependence on wheelchair; Z87.19 Personal history of other diseases of the digestive system; Z68.37 Body mass index [BMI] 37.0-37.9, adult ==

== ENCOUNTER 2023-02-09 06:18 | Day surgery (SDC) | payer OTHER ==
[~2023-02-09 06:18] MED LIST changes: +ACET325 PO; +AFRIN15 M1; +ARANESP40 MCG/0.1 SC; +ATOR40TA PO; -ATOR80 PO; +CARVEDILOL25 M9 PO; +CEFTRIAXON1 GM/50 M1 IV; +HUMULIN R100 UNIT/2 SC; +NASAL SPRAY88 ML; +NYSTATIN15 GM TOP; +VISBIOME 112.51 EACH PO; +ZOLP5 PO
[2023-02-09 12:40] VITALS: BP 123/40
== END 2023-02-09 13:12 | disposition home or self-care (01) ==
LOC: ATC 06:18
DX: L02.415 Cutaneous abscess of right lower limb (principal); N39.0 Urinary tract infection, site not specified; E11.22 Type 2 diabetes mellitus with diabetic chronic kidney disease; N18.6 End stage renal disease; I48.20 Chronic atrial fibrillation, unspecified; K21.9 Gastro-esophageal reflux disease without esophagitis; E03.9 Hypothyroidism, unspecified; E66.01 Morbid (severe) obesity due to excess calories; Z88.1 Allergy status to other antibiotic agents; Z86.73 Personal history of transient ischemic attack (TIA), and cerebral infarction without residual deficits; Z79.01 Long term (current) use of anticoagulants; Z79.4 Long term (current) use of insulin; Z79.890 Hormone replacement therapy; Z79.899 Other long term (current) drug therapy
CPT/HCPCS: 96365; 99211; J0696

== ENCOUNTER 2023-02-10 10:20 | Day surgery (SDC) | payer OTHER ==
[2023-02-10 10:29] VITALS: BP 109/88
== END 2023-02-10 11:00 | disposition home or self-care (01) ==
LOC: ATC 10:20
DX: L02.415 Cutaneous abscess of right lower limb (principal); N39.0 Urinary tract infection, site not specified; N18.6 End stage renal disease; E11.22 Type 2 diabetes mellitus with diabetic chronic kidney disease; I48.20 Chronic atrial fibrillation, unspecified; K21.9 Gastro-esophageal reflux disease without esophagitis; E03.9 Hypothyroidism, unspecified; F41.9 Anxiety disorder, unspecified; E66.9 Obesity, unspecified; Z86.73 Personal history of transient ischemic attack (TIA), and cerebral infarction without residual deficits; Z66 Do not resuscitate; Z79.4 Long term (current) use of insulin; Z79.890 Hormone replacement therapy; Z79.899 Other long term (current) drug therapy
CPT/HCPCS: 96365; 99211; J0696

== ENCOUNTER 2023-02-11 01:51 | Day surgery (SDC) | payer OTHER | END 2023-02-11 14:21 | disposition home or self-care (01) | LOC: ATC 01:51 | DX: L02.415 Cutaneous abscess of right lower limb (principal) ==

== ENCOUNTER 2023-02-13 04:55 | Day surgery (SDC) | payer OTHER ==
[2023-02-13 14:36] VITALS: BP 100/46
== END 2023-02-13 15:10 | disposition home or self-care (01) ==
LOC: ATC 04:55
DX: L02.415 Cutaneous abscess of right lower limb (principal); Z88.1 Allergy status to other antibiotic agents; E66.9 Obesity, unspecified; N18.6 End stage renal disease; Z99.2 Dependence on renal dialysis; E11.22 Type 2 diabetes mellitus with diabetic chronic kidney disease; F41.9 Anxiety disorder, unspecified; K21.9 Gastro-esophageal reflux disease without esophagitis; N39.0 Urinary tract infection, site not specified; E03.9 Hypothyroidism, unspecified
CPT/HCPCS: 96365; 99211; J0696

== ENCOUNTER 2023-02-21 00:39 | Day surgery (SDC) | payer OTHER | END 2023-02-21 22:43 | disposition home or self-care (01) | LOC: WOUND 00:39 | DX: S81.801A Unspecified open wound, right lower leg, initial encounter (principal); E11.622 Type 2 diabetes mellitus with other skin ulcer; E11.22 Type 2 diabetes mellitus with diabetic chronic kidney disease; N18.6 End stage renal disease; Z99.2 Dependence on renal dialysis; X58.XXXA Exposure to other specified factors, initial encounter | CPT/HCPCS: A9270; G0463 ==

== ENCOUNTER 2023-03-01 00:53 | Day surgery (SDC) | payer OTHER | END 2023-03-01 22:44 | disposition home or self-care (01) | LOC: WOUND 00:53 | DX: E11.622 Type 2 diabetes mellitus with other skin ulcer (principal); L97.812 Non-pressure chronic ulcer of other part of right lower leg with fat layer exposed; E11.22 Type 2 diabetes mellitus with diabetic chronic kidney disease; N18.6 End stage renal disease; S81.801A Unspecified open wound, right lower leg, initial encounter; Z99.2 Dependence on renal dialysis; X58.XXXA Exposure to other specified factors, initial encounter ==

== ENCOUNTER 2023-03-02 20:24 | Inpatient (IN) | payer OTHER ==
[~2023-03-02] VITALS: Ht 162.6 cm; Wt 102.0 kg
[2023-03-02 21:21] LABS: BASOPHILS ABSOLUTE AUTO 0.03 K/mm3 (0.00-0.23); BASOPHILS PERCENT AUTO 0 % (0-2); EOSINOPHILS ABSOLUTE AUTO 0.12 K/mm3 (0.00-0.68); EOSINOPHILS PERCENT AUTO 1 % (0-6); Hemoglobin 8.2 g/dL (11.5-16.0); IMMATURE GRAN ABSOLUTE AUTO 0.16 K/mm3 (0.00-0.10); IMMATURE GRAN PERCENT AUTO 1 % (0-1); LYMPHOCYTES ABSOLUTE AUTO 0.96 K/mm3 (0.84-5.20); LYMPHOCYTES PERCENT AUTO 5 % (21-46); MONOCYTES ABSOLUTE AUTO 0.58 K/mm3 (0.16-1.47); MONOCYTES PERCENT AUTO 3 % (4-13); Mean Corpuscular HGB 34.2 pg (26.0-34.0); Mean Corpuscular HGB Conc 32.8 g/dL (31.5-36.5); Mean Corpuscular Volume 104 fL (80-100); Mean Platelet Volume 11.5 fL (9.1-12.4); NEUTROPHILS ABSOLUTE AUTO 16.57 K/mm3 (1.96-9.15); NEUTROPHILS PERCENT AUTO 90 % (41-73); Platelet Count 189 K/mm3 (150-400); RDW Coefficient Variation 17.4 % (11.7-14.2); RDW Standard Deviation 66.2 fL (35.1-46.3); White Blood Cell Count 18.42 K/mm3 (4.00-11.30)
[2023-03-02 21:51] LABS: Magnesium, Blood 3.2 mg/dL (1.6-2.4)
[2023-03-02 21:52] LABS: Albumin, Blood 2.6 g/dL (3.4-5.0); Albumin/Globulin Ratio 0.8 (0.8-1.8); Bilirubin, Total 0.4 mg/dL (0.1-1.0); Bun/Creatinine Ratio 11.2 (12.0-20.0); C-REACTIVE PROTEIN, EXT RANGE 1.99 mg/dL (0.000-0.300); Calcium, Blood 9.5 mg/dL (8.5-10.1); Creatinine, Blood 8.24 mg/dL (0.40-1.00); Globulin, Blood 3.1 g/dL (2.2-4.0); Potassium, Blood 4.1 mmol/L (3.5-5.5); Total Protein, Blood 5.7 g/dL (6.4-8.2)
[2023-03-02 23:31] LABS: Adenovirus Not Detected (NOT DETECT); Bordetella pertussis Not Detected (NOT DETECT); Chlamydophila pneumoniae Not Detected (NOT DETECT); Coronavirus 229E Not Detected (NOT DETECT); Coronavirus HKU1 Not Detected (NOT DETECT); Coronavirus NL63 Not Detected (NOT DETECT); Coronavirus OC43 Not Detected (NOT DETECT); Human Metapneumovirus Not Detected (NOT DETECT); Human Rhinovirus/Enterovirus Not Detected (NOT DETECT); Influenza A/2009-H1 Not Detected (NOT DETECT); Influenza A/H1 Not Detected (NOT DETECT); Influenza A/H3 Not Detected (NOT DETECT); Influenza B Not Detected (NOT DETECT); Mycoplasma pneumoniae Not Detected (NOT DETECT); Parainfluenza Virus 1 Not Detected (NOT DETECT); Parainfluenza Virus 2 Not Detected (NOT DETECT); Parainfluenza Virus 3 Not Detected (NOT DETECT); Parainfluenza Virus 4 Not Detected (NOT DETECT); Respiratory Syncytial Virus Not Detected (NOT DETECT); SARS-Cov-2 (COVID-19), BioFire Not Detected (NOT DETECT)
[2023-03-02 23:38] LABS: Automated BF WBC Count 0.039 K/mm3 (0-999); Body Fluid WBC Count 39 /mm3 (0-999)
--- NOTE | 2023-03-02 23:43 | NUR ---
PD RN TO ED RM 14 TO PULL EFFLUENT SAMPLE FROM PD CATHETER PORT TO OBTAIN A GRAM STAIN/CULTURE. PT WAS SITTING UP IN BED WITH BY HER BEDSIDE. TOOK EFFLUENT SAMPLE THAT WAS CLEAR AND YELLOW. PT IS NOT IN ANY PAIN AT THE MOMENT. I WAS LEAVING I OVERHEARD THAT SHE IS BEING ADMITTED AND IS CURRENTLY PENDING A RM TO BE TRANSFERED TO. DROPPED EFFLUENT SAMPLE AT LAB, CONTACTED DR DEMPSEY WHO SAID THAT PT WILL NEED TO BE CONNECTED TO CCPD NIGHT TX ONCE SHE IS IN THE ROOM. CONTACTED BEDSIDE RN TO CONFIRM CONSULT IN FOR DR DEMPSEY. CONSENT SIGNED BY . AWAITING PLACEMENT IN ROOM TO BRING IN CCPD CYCLER AND PREP PT TO BE CONNECTED.
[2023-03-02 23:45] LABS: RBC Count, Body Fluid 8 /mm3 (0-0)
[2023-03-02 23:59] LABS: Protein, Body Fluid 0.6 g/dL
[2023-03-03] VITALS (8 sets, daily range): BP systolic 85–137; BP diastolic 29–113
[2023-03-03 00:28] LABS: Appearance, Body Fluid Clear (Clear); Color, Body Fluid L Yellow (None-Yellow); Total Cell Count, Body Fluid 100
--- NOTE | 2023-03-03 02:38 | NUR ---
PT TO MED 324 FROM ED AT APPROX 0145AM. I FOLLOWED AFTER TO SET UP CCPD CYCLER AND PRIME MACHINE. PT PREPED AND CONNECTED TO PT LINE AT APPROX 0220AM. INITIAL DRAIN COMPLETED AND FILL 1 OF 6 WHEN I LEFT THE ROOM. PT DENIED ANY PAIN OR DISCOMFORT. SHE ASKED FOR A WARM BLANKET BEFORE I LEFT THE ROOM. CALL LIGHT IN REACH AND PT RESTING, REQUESTED LIGHTS OFF WHEN EXITING THE ROOM.
--- NOTE | 2023-03-03 06:11 | NUR ---
SHIFT SUMMARY PT ARRIVED ON UNIT AT 0150. PT HAS A SUPRAPUBIC CATH, WOUND VAC TO RLE, WOUNDS SCATTERED ALL OVER BUTTOCKS AND COCCYX, AND EXCORIATION INBETWEEN BUTTOCKS. DRESSINGS CURRENTLY INTACT AND NOT REMOVED. NO C/O PAIN. FIRE SAFETY REVIEWED, NO IGNITION SOURCES. PERITONEAL DIALYSIS STARTED BY DIALYSIS NURSE. PT SLEPT REMAINDER OF NIGHT.
[2023-03-03 11:27] LABS: BASOPHILS ABSOLUTE AUTO 0.04 K/mm3 (0.00-0.23); BASOPHILS PERCENT AUTO 0 % (0-2); EOSINOPHILS ABSOLUTE AUTO 0.24 K/mm3 (0.00-0.68); EOSINOPHILS PERCENT AUTO 2 % (0-6); Hematocrit 25.3 % (33.0-51.0); Hemoglobin 8.2 g/dL (11.5-16.0); IMMATURE GRAN ABSOLUTE AUTO 0.15 K/mm3 (0.00-0.10); IMMATURE GRAN PERCENT AUTO 1 % (0-1); LYMPHOCYTES ABSOLUTE AUTO 1.04 K/mm3 (0.84-5.20); LYMPHOCYTES PERCENT AUTO 7 % (21-46); MONOCYTES ABSOLUTE AUTO 0.62 K/mm3 (0.16-1.47); MONOCYTES PERCENT AUTO 4 % (4-13); Mean Corpuscular HGB 33.7 pg (26.0-34.0); Mean Corpuscular HGB Conc 32.4 g/dL (31.5-36.5); Mean Corpuscular Volume 104 fL (80-100); Mean Platelet Volume 11.2 fL (9.1-12.4); NEUTROPHILS PERCENT AUTO 86 % (41-73); Platelet Count 180 K/mm3 (150-400); RDW Coefficient Variation 17.2 % (11.7-14.2); RDW Standard Deviation 65.7 fL (35.1-46.3); Red Blood Cell Count 2.43 M/mm3 (3.80-5.20); White Blood Cell Count 14.69 K/mm3 (4.00-11.30)
[2023-03-03 12:26] LABS: Albumin, Blood 2.6 g/dL (3.4-5.0); Albumin/Globulin Ratio 0.8 (0.8-1.8); Bilirubin, Total 0.5 mg/dL (0.1-1.0); Bun/Creatinine Ratio 11.3 (12.0-20.0); Calcium, Blood 9.3 mg/dL (8.5-10.1); Creatinine, Blood 7.97 mg/dL (0.40-1.00); Globulin, Blood 3.2 g/dL (2.2-4.0); Potassium, Blood 3.7 mmol/L (3.5-5.5); Total Protein, Blood 5.8 g/dL (6.4-8.2)
[2023-03-03] MEDS ORDERED: Acetaminophen650 M1 PO (12:50)
[2023-03-03] MEDS ORDERED: FURO80 PO (12:56)
[2023-03-03] MEDS ORDERED: INSULANI SC (13:01)
[2023-03-03] MEDS ORDERED: ATOR40TA PO (13:05)
[2023-03-03] MEDS ORDERED: ELIQUIS5 M2 PO (13:06)
[2023-03-03] MEDS ORDERED: AMOX250 PO (13:08)
[2023-03-03] MEDS ORDERED: Amiodarone HCl200 MG PO (13:08)
[2023-03-03] MEDS ORDERED: HEPARIN IV100 UNIT/1 IV (13:11)
--- NOTE | 2023-03-03 15:00 | NUR ---
DIALYSIS NOTE CCPD TX COMPLETED PRESCRIBED. IDRAIN 15, TUF 1645, AVG DWELL 1:22. PT DENIES ANY ALARMS OR COMPLAINTS. PT DISCONECTED PER P&P, TRANSFER SET CLOSED, CAPPED AND SECURE. HANDOFF REPORT GIVEN TO ANAM BALDWIN RN.
--- NOTE | 2023-03-03 15:44 | NUR ---
CALL PLACED TO DR OVIEDO AT 1524 REGARDING LOW BP, HIGHEST WAS 101/33 MOST RECENT. MIDODRINE 5MG GIVEN. DR JEFFERSON GIVE ADDITIONAL 5MG MIDODRINE NOW TO TOTAL 10MG. MEDICATION GIVEN. PATIENT ASYMPTOMATICE. SANDY BERNAL NOW PRESENT WITH PATIENT. SEWING ROOM SUPERVISOR WILL FOLLOW UP ON BLOOD PRESSURE IN 30 MINUTES.
--- NOTE | 2023-03-03 18:20 | NUR ---
DIALYSIS NOTE PT RETURNED FROM CT, SITTING UP IN BED, AT BEDSIDE. CCPD SET ORDERED, DRSG CHANGE COMPLETED, EXIT SITE IN PERFECT OCNDITION. PT CONNECTED TO CYCLER FOR NIGHT TIME PD TX. HANDOFF REPORT GIVEN TO ANAM BALDWIN RN.
--- NOTE | 2023-03-03 19:36 | NUR ---
SHIFT SUMMARY PATIENT WITH NO COMPLAINTS DURING SHIFT. BP LOW AT TIMES AND SOMEWHATE LABILE. PATIENT WITH GOOD APPETITE TODAY. DR DEMPSEY AND PREET AWARE OF BP FLUCUATION. BED IN LOW POSITION, CALL LIGHT IN REACH. PATIENT CALLS APPROPRIATELY.
--- NOTE | 2023-03-04 04:25 | NUR ---
SHIFT SUMMARY PATIENT HAD NO ACUTE CHANGES. AXOX 4 AND BEDREST. PERITONEAL DIALYSIS CONTINUED ON THIS SHIFT. PIV REMAINS INTACT. IV ABXS INFUSED AND IV KEPPRA. CBG 179. TELE MONITOR SB 50'S. VSS/FEBRILE. DENIES CHEST PAIN, SOB, AND N/V. MIDODRINE 10 MG HELD FOR SBP >130 WAS SBP 137. SLEPT MOST OF THE SHIFT. CALL LIGHT IN REACH. BED IN LOWEST POSIITON. WILL CONTINUE TO MONITOR UNTIL DAY SHIFT NURSE ASSUMES CARE.
[2023-03-04 05:01] LABS: Hematocrit 23.9 % (33.0-51.0); Hemoglobin 7.7 g/dL (11.5-16.0)
[2023-03-04 05:51] LABS: Magnesium, Blood 3.2 mg/dL (1.6-2.4)
[2023-03-04 06:01] LABS: Albumin, Blood 2.4 g/dL (3.4-5.0); Anion Gap 15 mmol/L (6-16); Blood Urea Nitrogen 83 mg/dL (8-24); CO2, Blood 24 mmol/L (21-32); Calcium, Blood 9.6 mg/dL (8.5-10.1); Chloride, Blood 95 mmol/L (98-108); Glucose, Blood 185 mg/dL (70-99); Phosphorus, Blood 4.2 mg/dL (2.5-4.9); Potassium, Blood 3.7 mmol/L (3.5-5.5); Sodium, Blood 134 mmol/L (136-145)
[2023-03-04 06:05] LABS: Bun/Creatinine Ratio 10.2 (12.0-20.0); Creatinine, Blood 8.12 mg/dL (0.40-1.00); Glomerular Filtration Rate 5 (60-)
--- NOTE | 2023-03-04 07:37 | NUR ---
ASSUMED CARE: PT RESTING IN BED AT THIS TIME. PD CONTINUES TO BE CONNECTED AND RUNNING. SINUS JOCELINE AT 55 ON TELE. TV HOST AT BEDSIDE. NO ACUTE NEEDS OR CONCERNS AT THIS TIME.
[2023-03-04 07:40] VITALS: BP 103/59
--- NOTE | 2023-03-04 07:51 | NUR ---
APPRENTICE ELECTRICIAN EXPRESSED CONCERN ABOUT 24 HOUR URINE WHEN PT IS NOT PRODUCING URINE. DISCUSSED WITH DR DEMPSEY WHO CANCELLED ORDER. APPRENTICE ELECTRICIAN AND PT AWARE
--- NOTE | 2023-03-04 07:52 | NUR ---
DIALYSIS NOTE CCPD TX COMPLETED PRESCRIBED. IDRAIN 15, TUF 1752, AVG DWELL 1:20. PT DENIES ANY ALARMS OR COMPLAINTS. PT DISCONECTED PER P&P, TRANSFER SET CLOSED, CAPPED AND SECURE. HANDOFF REPORT GIVEN TO ANNEMARIE MACHADO RN.
--- NOTE | 2023-03-04 13:17 | NUR ---
Patient's spouse, Ranjan, stops me in the hallway and invites me into the patient's rm. This leads to a lengthy conversation centered around pt's medical issues, her tracie and their concerns about the future. Daniel is slow to respond but engages well in the discussion. She is honest about some of the frustrations that stem from long hospital stays, physical limitations and the burden she places on those she loves. We explore her sources of strength, inspiration and juanita. We talk about her infinite value and worth, the meaning that she finds in life and the love that surrounds her. We lean into her tracie and discuss her theology about God and his place in suffering and challenges and how remarkable her tracie is. I normalize her experiences, reinforce helpful attitudes and pracetices and provide therapeutic listening and prayer. Patient and Ranjan responded well and showed signs of reduced stress and a lifting of some of the frustrations. I will continue to remain available to patient and family.
[2023-03-04 14:11] VITALS: BP 100/40
--- NOTE | 2023-03-04 15:01 | NUR ---
PT'S ASKED IF WOUND VAC DRESSING COULD BE CHANGED TODAY. GIVEN THAT PT GETS IT DONE AT [facility], WHICH IS NOT OPEN TODAY, RN HAS NO ACCESS TO ORDERS. CALL TO DR OVIEDO WHO STATES TO WAIT FOR DRESSING CHANGE TOMORROW AND ORDERS CAN BE REQUESTED FROM CLINIC. PT AND AWARE
[2023-03-04 15:47] VITALS: BP 128/49
--- NOTE | 2023-03-04 15:50 | NUR ---
DIALYSIS NOTE PT SITTING UP IN BED, A&O, NO C/O. AT BEDSIDE. CCPD SET ORDERED, DRSG CHANGE COMPLETED, EXIT SITE IN PERFECT OCNDITION. PT CONNECTED TO CYCLER FOR NIGHT TIME PD TX. HANDOFF REPORT GIVEN TO ANNEMARIE MACHADO RN.
--- NOTE | 2023-03-04 18:19 | NUR ---
ASSUMED CARE: PT HAD PD DIALYSIS THIS AM AND IS RECONNECTED FOR THIS EVENING. PLANS ARE FOR DC TOMORROW. ACCOUNTING/FINANCE TUTOR AWARE THAT PT'S REQUESTING WOUND VAC DRESSING CHANGE TOMORROW. ALSO STATES THEY NEED A LIFT SHEET FOR THEIR HOME [facility]. DC PLANNING AWARE OF THIS NEED WELL AND STAFF PLANS TO FOLLOW UP ON THESE REQUESTS IN THE AM. NO FURTHER NEEDS OR CONCERNS AT THIS TIME.
[2023-03-04 20:27] VITALS: BP 122/73
--- NOTE | 2023-03-04 21:58 | NUR ---
NURSE NOTE AWAKE AT HS, TOLERATED HS MEDS WELL. PD IN USE. SUPRAPUBIC CATH IN USE. HOB ELEAVATED FOR COMFORT. WOUND VAC IN USE. CALL LIGHT IN REACH. WILL CONTINUE TO MONITOR. AFFEECT CHEERFUL
[2023-03-05] MEDS ORDERED: ARANESP40 MCG/0.1 SC (00:54)
[2023-03-05] MEDS ORDERED: NASAL SPRAY88 ML (00:59)
[2023-03-05] MEDS ORDERED: DOXAZOSIN MESYLA4 M2 PO (01:05)
[2023-03-05] MEDS ORDERED: Amoxicillin250 MG PO (01:06)
[2023-03-05] MEDS ORDERED: CARVEDILOL25 M9 PO (01:06)
[2023-03-05] MEDS ORDERED: AMLODIPINE BESYL5 MG PO (01:07)
--- NOTE | 2023-03-05 04:18 | NUR ---
GUEST SERVICES DIRECTOR SUMMARY VSS. PERITONEAL DIALYSIS IN USE THROUGH NOCT. ALERT AND ORIENTED. WOUND VAC IN USE OF RIGHT LEG. HAS BEEN RESTING QUIETLY WITH FEW INTERRUPTIONS. ANTIBIOTICS AND ANALGESICS ADMINISTERED ORDERED - SEE MAR FOR DETAILS. CALL LIGHT IN REACH. WILL CONTINUE TO MONITOR
[2023-03-05 04:32] VITALS: BP 109/30
[2023-03-05 05:53] LABS: Hematocrit 24.1 % (33.0-51.0); Hemoglobin 7.8 g/dL (11.5-16.0)
[2023-03-05 06:51] LABS: Magnesium, Blood 2.9 mg/dL (1.6-2.4)
[2023-03-05 06:59] LABS: Albumin, Blood 2.2 g/dL (3.4-5.0); Anion Gap 18 mmol/L (6-16); Blood Urea Nitrogen 78 mg/dL (8-24); Bun/Creatinine Ratio 9.8 (12.0-20.0); CO2, Blood 23 mmol/L (21-32); Calcium, Blood 9.1 mg/dL (8.5-10.1); Chloride, Blood 96 mmol/L (98-108); Creatinine, Blood 7.98 mg/dL (0.40-1.00); Glomerular Filtration Rate 5 (60-); Glucose, Blood 196 mg/dL (70-99); Phosphorus, Blood 4.3 mg/dL (2.5-4.9); Potassium, Blood 3.9 mmol/L (3.5-5.5); Sodium, Blood 137 mmol/L (136-145)
[2023-03-05 07:09] VITALS: BP 119/99
--- NOTE | 2023-03-05 07:30 | NUR ---
DIALYSIS NOTE CCPD TX COMPLETED PRESCRIBED. IDRAIN 59, TUF 1806, AVG DWELL 1:21. PT DENIES ANY ALARMS OR COMPLAINTS. PT DISCONECTED PER P&P, TRANSFER SET CLOSED, CAPPED AND SECURE. HANDOFF REPORT GIVEN TO SCOOBY DELGADO.
[2023-03-05] MEDS ORDERED: CEPH500 PO (11:56)
[2023-03-06 08:10] LABS: IMMUNOGLOBULIN A, QN, SERUM 158 mg/dL (87-352); IMMUNOGLOBULIN G, QN, SERUM 363 mg/dL (586-1602); IMMUNOGLOBULIN M, QN, SERUM 62 mg/dL (26-217)
[2023-03-07 14:11] LABS: ANTIMYELOPEROXIDASE (MPO) ABS 3.4 units (0.0-0.9); ANTIPROTEINASE 3 (PR-3) ABS <0.2 units (0.0-0.9); ATYPICAL PANCA <1:20 titer (Neg:<1:20); CYTOPLASMIC (C-ANCA) <1:20 titer (Neg:<1:20); PERINUCLEAR (P-ANCA) <1:20 titer (Neg:<1:20)
== END 2023-03-05 13:54 | disposition home health service (06) | DRG 871 ==
LOC: ER 20:24 → MEDS 23:22 → ENPENDDIS 03-05 10:59 → MEDS 03-05 13:54
PROVIDERS: Internal Medicine Nephrology; Student in an Organized Health Care Education/Training Program; ADMIT Internal Medicine
PROC: 3E03329 Introduction of Other Anti-infective into Peripheral Vein, Percutaneous Approach (ICD-10-PCS; principal; 2023-03-02)
PROC: 3E1M39Z Irrigation of Peritoneal Cavity using Dialysate, Percutaneous Approach (ICD-10-PCS; 2023-03-04)
DX: A41.9 Sepsis, unspecified organism (principal); N18.6 End stage renal disease; I48.20 Chronic atrial fibrillation, unspecified; L03.115 Cellulitis of right lower limb; I13.2 Hypertensive heart and chronic kidney disease with heart failure and with stage 5 chronic kidney disease, or end stage renal disease; E87.1 Hypo-osmolality and hyponatremia; F41.9 Anxiety disorder, unspecified; Z66 Do not resuscitate; E11.22 Type 2 diabetes mellitus with diabetic chronic kidney disease; D63.1 Anemia in chronic kidney disease; K21.9 Gastro-esophageal reflux disease without esophagitis; L89.150 Pressure ulcer of sacral region, unstageable; E03.9 Hypothyroidism, unspecified; L89.892 Pressure ulcer of other site, stage 2; I50.9 Heart failure, unspecified; E87.70 Fluid overload, unspecified; R56.9 Unspecified convulsions; Z20.822 Contact with and (suspected) exposure to COVID-19; Z88.1 Allergy status to other antibiotic agents; Z91.158 Patient's noncompliance with renal dialysis for other reason; Z79.899 Other long term (current) drug therapy; Z99.2 Dependence on renal dialysis; Z86.73 Personal history of transient ischemic attack (TIA), and cerebral infarction without residual deficits; Z74.01 Bed confinement status; Z79.4 Long term (current) use of insulin; Z79.01 Long term (current) use of anticoagulants; Z79.02 Long term (current) use of antithrombotics/antiplatelets; Z98.890 Other specified postprocedural states; Z99.3 Dependence on wheelchair; Z87.440 Personal history of urinary (tract) infections
CPT/HCPCS: 0202U; 36415; 71045; 74177; 80053; 80069; 82947; 83516; 83520; 83605; 83735; 84145; 84157; 85014; 85018; 85025; 85651; 86037; 86038; 86140; 86334; 89051; 93005; 93010; 96365; 96366; 96367; 99285-25; A9270; J0692; J0696; J0881; J1644; J1815; J1953; J2405; J3370; J7030; J7050; Q9967

== ENCOUNTER 2023-03-08 00:48 | Day surgery (SDC) | payer OTHER ==
[~2023-03-08 00:48] MED LIST changes: +AMLODIPINE BESYL5 MG PO; +Acetaminophen650 M1 PO; +Amoxicillin250 MG PO; +DOXAZOSIN MESYLA4 M2 PO; +HEPARIN IV100 UNIT/1 IV
== END 2023-03-08 22:48 | disposition home or self-care (01) ==
LOC: WOUND 00:48
DX: E11.622 Type 2 diabetes mellitus with other skin ulcer (principal); L97.812 Non-pressure chronic ulcer of other part of right lower leg with fat layer exposed; S81.801D Unspecified open wound, right lower leg, subsequent encounter; X58.XXXD Exposure to other specified factors, subsequent encounter; E11.22 Type 2 diabetes mellitus with diabetic chronic kidney disease; N18.6 End stage renal disease
CPT/HCPCS: A9270; G0463

== ENCOUNTER 2023-04-05 00:36 | Day surgery (SDC) | payer OTHER | END 2023-04-05 22:46 | disposition home or self-care (01) | LOC: WOUND 00:36 | DX: Z09 Encounter for follow-up examination after completed treatment for conditions other than malignant neoplasm (principal) | CPT/HCPCS: A9270; G0463 ==

== ENCOUNTER 2023-04-23 07:59 | Emergency (ER) | payer OTHER ==
[~2023-04-23] VITALS: Ht 167.6 cm; Wt 90.7 kg
[2023-04-23 08:35] LABS: BASOPHILS ABSOLUTE AUTO 0.05 K/mm3 (0.00-0.23); BASOPHILS PERCENT AUTO 1 % (0-2); EOSINOPHILS ABSOLUTE AUTO 0.26 K/mm3 (0.00-0.68); EOSINOPHILS PERCENT AUTO 3 % (0-6); Hematocrit 38.6 % (33.0-51.0); Hemoglobin 12.6 g/dL (11.5-16.0); IMMATURE GRAN ABSOLUTE AUTO 0.38 K/mm3 (0.00-0.10); IMMATURE GRAN PERCENT AUTO 4 % (0-1); LYMPHOCYTES PERCENT AUTO 10 % (21-46); MONOCYTES ABSOLUTE AUTO 0.78 K/mm3 (0.16-1.47); MONOCYTES PERCENT AUTO 7 % (4-13); Mean Corpuscular HGB 34.3 pg (26.0-34.0); Mean Corpuscular HGB Conc 32.6 g/dL (31.5-36.5); Mean Corpuscular Volume 105 fL (80-100); Mean Platelet Volume 11.1 fL (9.1-12.4); NEUTROPHILS PERCENT AUTO 76 % (41-73); Platelet Count 162 K/mm3 (150-400); RDW Coefficient Variation 15.1 % (11.7-14.2); Red Blood Cell Count 3.67 M/mm3 (3.80-5.20); White Blood Cell Count 10.57 K/mm3 (4.00-11.30)
[2023-04-23 08:52] LABS: Albumin, Blood 2.9 g/dL (3.4-5.0); Albumin/Globulin Ratio 0.8 (0.8-1.8); Bilirubin, Total 0.4 mg/dL (0.1-1.0); Bun/Creatinine Ratio 17.4 (12.0-20.0); Calcium, Blood 9.1 mg/dL (8.5-10.1); Creatinine, Blood 5.98 mg/dL (0.40-1.00); Globulin, Blood 3.5 g/dL (2.2-4.0); Magnesium, Blood 2.6 mg/dL (1.6-2.4); Potassium, Blood 4.4 mmol/L (3.5-5.5); Total Protein, Blood 6.4 g/dL (6.4-8.2)
[2023-04-23 11:00] VITALS: BP 158/96
== END 2023-04-23 13:04 | disposition home or self-care (01) ==
LOC: ER 07:59
PROVIDERS: Physician Assistant
DX: E86.0 Dehydration (principal); N39.0 Urinary tract infection, site not specified; Z88.1 Allergy status to other antibiotic agents; Z79.899 Other long term (current) drug therapy; Z79.4 Long term (current) use of insulin; N18.6 End stage renal disease; I48.20 Chronic atrial fibrillation, unspecified; Z66 Do not resuscitate
CPT/HCPCS: 71045; 80053; 83735; 85025; 96360; 99285-25; J7030

== ENCOUNTER 2023-06-04 13:41 | Inpatient (IN) | payer OTHER, MEDICARE ==
[~2023-06-04] VITALS: Ht 162.6 cm; Wt 100.0 kg
[2023-06-04] VITALS (13 sets, daily range): BP systolic 72–191; BP diastolic 44–169
[2023-06-04 15:27] LABS: BASOPHILS ABSOLUTE AUTO 0.02 K/mm3 (0.00-0.23); BASOPHILS PERCENT AUTO 0 % (0-2); EOSINOPHILS ABSOLUTE AUTO 0.01 K/mm3 (0.00-0.68); EOSINOPHILS PERCENT AUTO 0 % (0-6); Hematocrit 32.4 % (33.0-51.0); Hemoglobin 10.7 g/dL (11.5-16.0); IMMATURE GRAN ABSOLUTE AUTO 0.18 K/mm3 (0.00-0.10); IMMATURE GRAN PERCENT AUTO 1 % (0-1); LYMPHOCYTES ABSOLUTE AUTO 0.51 K/mm3 (0.84-5.20); LYMPHOCYTES PERCENT AUTO 4 % (21-46); MONOCYTES ABSOLUTE AUTO 0.82 K/mm3 (0.16-1.47); MONOCYTES PERCENT AUTO 6 % (4-13); Mean Corpuscular HGB 34.4 pg (26.0-34.0); Mean Corpuscular Volume 104 fL (80-100); Mean Platelet Volume 12.8 fL (9.1-12.4); NEUTROPHILS ABSOLUTE AUTO 11.34 K/mm3 (1.96-9.15); NEUTROPHILS PERCENT AUTO 88 % (41-73); Platelet Count 189 K/mm3 (150-400); RDW Coefficient Variation 14.2 % (11.7-14.2); RDW Standard Deviation 54.8 fL (35.1-46.3); Red Blood Cell Count 3.11 M/mm3 (3.80-5.20); White Blood Cell Count 12.88 K/mm3 (4.00-11.30)
[2023-06-04 15:40] LABS: Base Excess Venous -5.3 mmol/L; Bicarbonate Venous 20.6 mmol/L (24.0-30.0); PCO2 Venous 32.1 mmHg (38-42); pH Blood Venous 7.39 (7.34-7.37)
[2023-06-04 16:20] LABS: Influenza A, PCR NEGATIVE (NEGATIVE); Influenza B, PCR NEGATIVE (NEGATIVE); Resp Syncytial Virus, PCR NEGATIVE (NEGATIVE); SARS-Cov-2 (COVID-19) PCR, MMC NEGATIVE (NEGATIVE)
[2023-06-04 17:03] LABS: Albumin, Blood 2.5 g/dL (3.4-5.0); Albumin/Globulin Ratio 0.6 (0.8-1.8); Bilirubin, Total 0.5 mg/dL (0.1-1.0); Bun/Creatinine Ratio 20.3 (12.0-20.0); Calcium, Blood 9.4 mg/dL (8.5-10.1); Creatinine, Blood 6.26 mg/dL (0.40-1.00); Magnesium, Blood 2.2 mg/dL (1.6-2.4); Potassium, Blood 5.4 mmol/L (3.5-5.5); Total Protein, Blood 6.5 g/dL (6.4-8.2)
--- NOTE | 2023-06-04 20:40 | NUR ---
DIALSIS NOTE CCPD TX INITIATED PER DR ORDER. DRSG CHANGE COMPLETED AND EXIT SITE PERFECT. PT TOLERATED WELL. HANDOFF REPORT TO/FROM SANDY ALONSO.
[2023-06-04] MEDS ORDERED: SEVEC800 PO (21:37)
[2023-06-04] MEDS ORDERED: OXYB5 PO (21:38)
--- NOTE | 2023-06-04 23:45 | NUR ---
ASSUMPTION OF CARE/PATIENT UPDATE THIS RN ASSUMED CARE OF PATIENT AT 2100. REPORT TAKEN FROM SHIFT MGR MONO. PT A&O X4. APPEARS FORGETFUL AND A POOR HISTORIAN BUT ANSWERS MOST QUESTIONS APPROPRIATELY; SLOW TO RESPOND. RT SIDED DEFICITS NOTED. VOLLEYBALL ASSISTANT COACH SET UP PD. HYPOTENSION NOTED AFTER CONNECTED TO PD. PT DENIES SYMPTOMS OF HYPOTENSION. SR WITH HR 80'S. ON 2L VIA NC WITH SPO2 >92%. MEDICATED PER EMAR; IV BUMEX HELD D/T HYPOTENSION. MD DEMPSEY NOTIFIED WITH ORDERS FOR FREQUENCY CHANGE OF MIDODRINE AND DOSE FOR NOW. MEDICATED PER EMAR. MD DEMPSEY TO BEDSIDE FOR ASSESSMENT. AT THIS TIME BP'S STABALIZED PRIOR TO MIDODRINE GIVEN; MD DEMPSEY WITH ORDER TO GIVE IV BUMEX D/T BP IMPROVEMENT. MEDICATED PER EMAR. BP'S AGAIN DROPPED WITH MAP <65; MEDICATED PER EMAR WITH MIDODRINE. PT ASYMPTOMATIC.
[2023-06-05] VITALS (96 sets, daily range): BP systolic 57–139; BP diastolic 26–111
--- NOTE | 2023-06-05 02:27 | NUR ---
PATIENT UPDATE AT APPROX 0000 PT APPEARED TO CONVERT TO AFIB; NOTED TO BE HR 160-170'S ON MONITOR AT AN IRREGULAR RHYTHM; EKG DONE. BP STABLE. CALL PLACED TO MD RICHARDSON REGARDING AFIB; ORDER FOR 5MG LOPRESSOR PUSH; SEE EMAR. HR DECREASED TO 120-130'S. PT ASYMPTOMATIC DURING THIS EPISODE. PT HAS SINCE CONVERTED IN/OUT OF AFIB WITH HR <150. WHEN PT IS IN AFIB, BP IS STABLE. WHEN PT IS IN SR, BP IS HYPOTENSIVE. PT OCCASIONALLY HYPERTENSIVE WHILE IN SR. PT ASYMPTOMATIC DURING ALL HEMODYNAMIC CHANGES. PT REMAINS ON 2L VIA NC. AFEBRILE. REPOSITIONING Q2HRS. SP CATHETER PATENT. PD CATH WITH DRESSING C/D/I; PT CONTINUES TO RECEIVE PD. BED IN LOWEST POSITION. CALL LIGHT WITHIN REACH. EXTREMETIES ELEVATED.
[2023-06-05 04:54] LABS: Hematocrit 29.8 % (33.0-51.0); Hemoglobin 9.8 g/dL (11.5-16.0)
--- NOTE | 2023-06-05 04:59 | NUR ---
SHIFT SUMMARY SEE PREVIOUS NOTES. PT IS SLEEPING BUT AROUSABLE. OCCASIONAL HYPOTENSION NOTED. LITTE URINE OUTPUT NOTED; PT STATES SHE "SOMETIMES" MAKES URINE. PD DIALYSIS. REPOSITIONING Q2HRS. MEPILEX PLACED ON OLD HEALED SORE ON LEFT BUTTOCK. PT CONVERTED TO AFIB AND BACK TO SR AGAIN SINCE PREVIOUS NOTES. OTHER VITALS STABLE. PT ON RA TO 2L TO MAINTAIN SPO2. PITTING EDEMA IN BLE NOTED, ELEVATING LEGS. BED IN LOWEST POSITION AND CALL LIGHT WITHIN REACH. THIS RN WILL REPORT TO ONCOMING DAYSHIFT RN.
[2023-06-05 05:14] LABS: Albumin, Blood 2.4 g/dL (3.4-5.0); Anion Gap 15 mmol/L (6-16); Blood Urea Nitrogen 124 mg/dL (8-24); Bun/Creatinine Ratio 20.2 (12.0-20.0); CO2, Blood 22 mmol/L (21-32); Calcium, Blood 9.1 mg/dL (8.5-10.1); Chloride, Blood 90 mmol/L (98-108); Creatinine, Blood 6.13 mg/dL (0.40-1.00); Glomerular Filtration Rate 7 (60-); Glucose, Blood 292 mg/dL (70-99); Magnesium, Blood 2.1 mg/dL (1.6-2.4); Phosphorus, Blood 5.7 mg/dL (2.5-4.9); Potassium, Blood 4.8 mmol/L (3.5-5.5); Sodium, Blood 127 mmol/L (136-145); Vancomycin, Random 26.1 ug/mL
--- NOTE | 2023-06-05 05:30 | NUR ---
PATIENT UPDATE MD RICHARDSON CALLED THIS RN REGARDING UPDATE ON PATIENT'S HR/BP. UPDATE GIVEN ON PATIENT. SEE PREVIOUS NOTES. PROVIDER VERBALIZED THAT SHE BELIEVES IT IS D/T HER PERITONEAL DIALYSIS CYCLES AND THAT LONG THE HR IS NOT MAINTAIN >160'S DURING EPISODES OF AFIB, THE PATIENT SHOULD NOT BE MEDICATED. SO FAR THE PATIENT HAS CONVERTED BACK TO SR EACH TIME. CYCLING BP'S EVERY 15 MINUTES. CONTINUOUS CARDIAC MONITORING IN PLACE.
--- NOTE | 2023-06-05 08:43 | NUR ---
UPDATE CALL PLACED TO PT'S TO GATHER INFORMATION ON WHAT MEDICATIONS PT TAKES AT HOME FOR RATE CONTROL. PT'S STATED PT USED TO TAKE AMIODERONE BUT "HAS NOT BEEN IN AFIB FOR MONTHS" SO THEY DISCONTINUED THE MEDICATION. pT CURRENTLY NOT ON MEDICATION FOR RATE CONTROL. MD OVIEDO UPDATED.
--- NOTE | 2023-06-05 09:09 | NUR ---
PD RN TO PT RM PCU 14 AT APPROX 0715AM TO D/C CCPD NIGHT TX. PT CYCLER READ DWELL 5 OF 5 SO I RETUNRED APPROX 45 MINS LATER TO COMPLETE. PT WAS RESTING QUIETLY WHEN I FIRST CAME IN AND WHEN I RETUNRED SHE WAS SITTING UP IN BED WITH HER BREAKFAST TRAY IN FONT OF HER AND HER BEDSIDE RN ADMINISTERING MORNING MEDS. PT BEDSIDE RN DISCUSSED CONCERNED OF HIGH HR AND FLUCTUATING BP THROUGHOUT THE NIGHT. SHE ASKED IF THIS WAS NORMAL DURING PERTIONEAL DIALYSIS. I MENTIONED THAT RECORDING VITALS WHILE PT IS DOING CCPD TREATMENT IS NOT PROTOCOL AND ALTHOUGH I CANNOT ATTEST TO THIS PATIENTS NORMAL THAT I DO NOT BELIEVE THAT IT SHOULD HAVE THAT EFFECT ON HER ELEVATED HR NOR MAJOR FLUCTUATIONS IN BP THROUGHOUT TX. I LATER DISCUSSED THIS WITH THE PD NURSE AT OUTPATIENT [facility] AND SHE CONFIRMED THAT THIS IS NOT AN EXPECTED OCCURANCE DURING PD TREATMENTS AND NOT NORMAL FOR THIS PARTICULAR PT.
--- NOTE | 2023-06-05 10:17 | NUR ---
Brief supportive visit this AM. Pt known to this selling underwriter from previous hospital stays. Pt resting in bed with her eyes closed upon arrival. Pt briefly wakes to gentle verbal stimuli then quickly drifts back to sleep. Will attempt visit at a later time. Spoke with Primary RN Sharon and discussed case. Palliative Care will remain available
--- NOTE | 2023-06-05 14:34 | NUR ---
UPDATE PT CONVERTED FROM AFIB TO NSR AROUND 0915 THIS AM, SEE EKG IN CHART. PT CONVERTED BACK AND FORTH FOR VERY SHORT TIMES THIS SHIFT, SUSTAINING MOSTLY NSR. HR MOSTLY 90'S. BP SOFT, MIDODRINE INCREASED AND GIVEN PER EMAR. MD OVIEDO IN ROOM TO ASSESS. ANISH WRAPPED LEGS, D/T EDEMA/LOW BP. PT LETHARGIC BUT PERKS UP WHEN IN ROOM. ABLE TO MAKE NEEDS KNOWN. HX OF CVA, R SIDE DEFECITS NOTED. BEDREST. SP02>90% ON RA. MARCELINO DIALYSIS RECEIVED DURING NOC. PT'S BP CONTINUES TO HAVE MAP <65. CALL PLACED TO MD OVIEDO. MD OVIEDO WITH ORDERS TO TRANSFER TO ICU ON LOW DOSE LEVO.
--- NOTE | 2023-06-05 15:00 | NUR ---
ASSUMPTION OF CARE PATIENT ARRIVED TO ICU AT 1450. PATIENT ALERT AND ORIENTED X 4, LETHARGIC. PATIENT SLEEPS WHEN NOT BEING STIMULATED BUT DOES WAKE EASILY TO VERBAL STIMULI. PATIENT HAS R SIDE DEFICIT FROM PAST CVA. PATIENT SATTING 90% AND GREATER ON RA. LUNGS CLEAR IN UPPER LOBES AND DIMINISHED IN LOWER LOBES. PATIENT IN A. FIB, HR 130S TO 160S. SBP 70S TO 80S. PATIENT RECEIVING SCHEDULED MIDODRINE. LEVOPHED AT 4 MCG/ MINUTE. PATIENT RECEIVES PERITONEAL DIALYSIS NIGHTLY. DATE OF LAST BM DOCUMENTED EARLY THIS AM. PATIENT ON REGULAR DIET. PATIENT OLIGURIC AND HAS SUPRAPUBIC PERSAUD IN PLACE. STATES THAT PATIENT MAY HAVE AROUND 1/4 CUP OF URINE OUT PER DAY AT MAX. ANISH WRAP TO LEGS FOR EDEMA. COCCYX REDDENED. AT BEDSIDE. ORIENTED TO UNIT, ROOM AND CALL LIGHT. BED LOW, CALL LIGHT IN REACH. CARE CONTINUES.
--- NOTE | 2023-06-05 18:23 | NUR ---
PD RN TO PT RM ICU 10 TO SET UP CYCLER AND CONNECT PT TO CCPD NIGHT TX. PT SITTING UP IN BED WITH AT BEDSIDE ASSISTING HE RTO EAT DINNER. PT BP ARE RUNNING LOW. SHE APPEARS LETHARGIC. SET UP MACHINE WITH 1 1.5% BAG AND 1 2.5% BAG ALONG WITH A PURPLE ICODEXTRIN BAG FOR HER LAST FILL THAT WAS BROUGHT IN BY HER . PT CONNECTED AT APPROX 1820PM.
--- NOTE | 2023-06-05 19:28 | NUR ---
SHIFT SUMMARY PATIENT REMAINED LETHARGIC; EASY TO WAKE. PATIENT REMAINED ALERT AND ORIENTED X 4, AFEBRILE. PATIENT REMAINED WITH R SIDE DEFICIT. PATIENT REMAINED WITHOUT COMPLAINTS OF PAIN THIS SHIFT. PATIENT REMAINED SATTING 90% AND GREATER ON RA. PATIENT REMAINED IN A. FIB, HR 70S TO 160S. DIGOXIN DID NOT SEEM TO HAVE MUCH EFFECT ON FAST RATE BUT METOPROLOL PUSH BROUGHT HR DOWN FROM 160S DOWN TO 80S IMMEDIATELY. LEVOPHED DID HAVE TO BE INCREASED TO 8 MCG/ MINUTE TO KEEP MAPS 65 AND GREATER. EVACUATED XL, BROWN, PASTY STOOL THIS SHIFT. PATIENT HAD NO URINE OUTPUT FROM SUPRAPUBIC PERSAUD THIS SHIFT. NO CHANGES TO SKIN NOTED. NS TKO. ACHS LSS INSULIN CHANGED TO ELENI. CAME TO UNIT WITH PATIENT BUT HAS NOW WENT HOME TO GET SOME REST. PATIENT APPEARS COMFORTABLE AT THIS TIME. BED LOW, CALL LIGHT IN REACH. REPORT HAS BEEN GIVEN TO ASSUMING CARBON ELECTRODES SUPERVISOR NURSE.
[2023-06-06] VITALS (36 sets, daily range): BP systolic 65–140; BP diastolic 30–95
[2023-06-06 04:17] LABS: BASOPHILS ABSOLUTE AUTO 0.05 K/mm3 (0.00-0.23); BASOPHILS PERCENT AUTO 0 % (0-2); EOSINOPHILS PERCENT AUTO 0 % (0-6); Hematocrit 32.7 % (33.0-51.0); Hemoglobin 10.5 g/dL (11.5-16.0); IMMATURE GRAN ABSOLUTE AUTO 0.66 K/mm3 (0.00-0.10); IMMATURE GRAN PERCENT AUTO 3 % (0-1); LYMPHOCYTES ABSOLUTE AUTO 0.91 K/mm3 (0.84-5.20); LYMPHOCYTES PERCENT AUTO 4 % (21-46); MONOCYTES ABSOLUTE AUTO 1.57 K/mm3 (0.16-1.47); MONOCYTES PERCENT AUTO 8 % (4-13); Mean Corpuscular HGB 33.9 pg (26.0-34.0); Mean Corpuscular HGB Conc 32.1 g/dL (31.5-36.5); Mean Corpuscular Volume 106 fL (80-100); NEUTROPHILS ABSOLUTE AUTO 17.76 K/mm3 (1.96-9.15); NEUTROPHILS PERCENT AUTO 85 % (41-73); NRBC ABSOLUTE 0.03 K/mm3 (0.00-0.02); NRBC Auto 0.1 /100 WBC (0.0-0.2); Platelet Count 233 K/mm3 (150-400); RDW Standard Deviation 53.6 fL (35.1-46.3); White Blood Cell Count 20.95 K/mm3 (4.00-11.30)
[2023-06-06 04:31] LABS: Mean Platelet Volume 13.3 fL (9.1-12.4)
--- NOTE | 2023-06-06 05:01 | NUR ---
CALLED AT APPROX 0330AM TO ADDRESS PD ALARMS. MACHINE ALARMED AND SAID "CHECK PATIENT LINES AND HEATER BAG", CHECKED FOR ANY NOTICABLE KINKS, CLAMPS AND ISSUES WITH LINES, NOTHING NOTABLE. PRESSED "GO" WHICH INITIATED "FILLING HEATER BAG" THIS SOON AFTER BEGAN ALARMS AGAIN AFTER RETRACING AND ATTAMPTING TO START TREATMENT SEVERAL TIMES WITHOUT SUCCESS I BYPASSED THE ALARMS AND ATTEMPTED TO RESTART FILL 5 OF 5. THIS WAS NOT SUCCESSFUL AND I ENDED THERAPY. PT WAS ON LAST FILL CYCLE WHICH DID NOT COMPLETE. NOTED FIBRIN IN DRAIN BAG THOUGH NOTHING NOTICABLE IN LINES AND NO APPARENT ISSUE WITH CASSETE. FILL VOLUME 1820ML, IDRAIN 265ML, TOTAL UF 37ML, AVERAGE DWELL 1:35. ISODEXTRIN LAST FILL UNSUCESSFUL.
[2023-06-06 05:56] LABS: Albumin, Blood 2.6 g/dL (3.4-5.0); Anion Gap 21 mmol/L (6-16); Blood Urea Nitrogen 121 mg/dL (8-24); Bun/Creatinine Ratio 19.1 (12.0-20.0); CO2, Blood 18 mmol/L (21-32); Calcium, Blood 9.3 mg/dL (8.5-10.1); Chloride, Blood 85 mmol/L (98-108); Creatinine, Blood 6.33 mg/dL (0.40-1.00); Glomerular Filtration Rate 7 (60-); Glucose, Blood 355 mg/dL (70-99); Phosphorus, Blood 6.8 mg/dL (2.5-4.9); Potassium, Blood 5.4 mmol/L (3.5-5.5); Sodium, Blood 124 mmol/L (136-145); Vancomycin, Random 20.2 ug/mL
--- NOTE | 2023-06-06 06:18 | NUR ---
PT A/O X4. HAS BECOME INCREASINGLY MORE WEAK. 3 PRESSORS GOING AT THIS TIME. RAJ @30 MMCG, LEVOPHED @ 21 MCG, AND VASOPRESSIN. MAP IS CONSISTANTLY ROUNDING AROUND 65 AT THIS TIME. SOME PRESSURES UNIKELY DUE TO AREA THAT BP HAS TO BE TAKEN. PT HAS NOT NEEDED OXYGEN SUPPLEMENTATION THROUGHOUT THE NIGHT. PT IS UNABLE TO LAY FLATTER THAN 75 DEGREES OR BECOMES NASEATED AND DRY HEAVES. CENTRAL LINE PLACED IN RIGHT IJ THIS SHIFT. NO BM AND NO URINE THIS SHIFT. PT HAS BECOME SO WEAK THAT PO MEDICATIONS ARE QUESTIONABLE. CONTINUING TO MONITOR UNTIL REPORT GIVEN TO AM RN.
[2023-06-06 10:16] LABS: Hematocrit 30.5 % (33.0-51.0); Hemoglobin 10.1 g/dL (11.5-16.0)
--- NOTE | 2023-06-06 10:32 | NUR ---
PD RN CALLED TO COME TAKE FLUID SAMPLE FROM PD CATHETER.
--- NOTE | 2023-06-06 10:39 | NUR ---
Spoke with SANDY Mcgregor and discussed case. Pt on 3 pressors this AM. Spouse at bedside. Support visit this AM. Pt resting in bed with her eyes opened but does not verbaly respond. Pt appears moderately dyspneic. Joey at bedside. Brief review of plan of care and offered therapeutic listening. Gentle advanced care planning provided. Joey is intermittently tearful and emotional support offered. Listened as Joey reports he and Pt has strong tracie in God. Continued therapeutic listening. Joey makes a comment that makes Pt smile. Continued visit with Joey outside of Pt's room. Joey is experiencing anticapatory grief. He states "how long do I let this go on"? Offered suggestions including listening to recommendations, understanding Pt's goals and values. Discussed the option to consider hospice if Pt pulls through this hospital stay. Joey is agreeable to continued PC visits. Spoke with Gas Treater Mike and discussed case. Palliative Care will remain available for therapeutic and supportive visits.
--- NOTE | 2023-06-06 11:16 | NUR ---
"Spiritual Care Visit | Family request Pt. is awake but medicated in bed. Spouse is at bedside and welcomes my visit. Facilitate a life review, and family verbalized their acquaintance with tunneling machine operator Tim, who visited them in previous hospital stays. Listened with empathy and support. Spouse displays evidence of being supportive and fully enagaged. Family identified [place] moravian of [employer] as their moravian and requested this tunneling machine operator to contact their automatic dispenser mechanic. Prayed with the family at bedside. Spouse verbalized gratitude for the spiritual care request. COntacted Brand Advocate Rashad Perera."
[2023-06-06 11:54] LABS: International Normalized Ratio 2.39; Prothrombin Time Results 23.9 Sec (9.7-11.5)
--- NOTE | 2023-06-06 12:18 | NUR ---
ASSUMED CARE/PT STATUS UPDATE CARE WAS ASSUMED OF PT AT 0700, REPORT GIVEN BY ARIANNA DELGADO. PT ALERT AND ORIENTED TO SELF. PT ABLE TO FOLLOW COMMANDS. PT PALE, EYES WIDE OPEN AND APPEAR UNFOCUSED, GAZING AROUND ROOM WITHOUT VERBAL DIRECTION. GUMS [place] IN COLOR. ANISH BANDAGES REMOVED FROM PT'S BLE, BLE PALE AND COOL TO TOUCH. RADIAL AND PEDAL PULSES FOUND WITH DOPPLER. PT HAS HX OF CVA WITH RIGHT-SIDED DEFECITS. PT ON RA, O2 SATS > 95%. PT DENIES SOB. CARDIAC MONITORING REFLECTS SINUS TACH. LEVOPHED, VASOPRESSIN, AND NEOSYNEPHRINE INFUSING FOR MAP GOAL > 65, SEE FLOWSHEET. PRESSORS INFUSING THROUGH RIJ. SUPRAPUBIC CATH IN PLACE, SCANT URINE OUTPUT. PT NOT COMPLAINING OF PAIN AT THIS TIME. PT AFEBRILE. CALL PLACED TO DR. OVIEDO FOR BEDSIDE ASSESSMENT. PT'S BLOOD PRESSURES FOUND TO BE INCONSISTENT WITH RADIAL CUFF. DR. GOLDEN CONSULTED PER DR. OVIEDO'S VERBAL ORDERS. DECISION MADE TO HAVE ARTERIAL LINE PLACED WITH ACCESS IN RIGHT FEMORAL ARTERY TO OBTAIN MORE ACCURATE BLOOD PRESSURES D/T AMOUNT OF VASOPRESSORS PT RECIEVING. PT HAVING MODERATE AMOUNT OF BLEEDING AT INSERTION SITE, FEMSTOP PLACED. FEMSTOP REMAINS IN PLACE, PT STILL EXPERIENCING BLEEDING AT SITE. SUPRAPUBIC CATH FLUSHED TO ASSESS PATENCY. 90 mL FLUSHED AND 80 mL RETURNED FROM CATHETER COLLECTION BAG. PD CATHETER IN PLACE, CULTURE OBTAINED BY DIALYSIS NURSE.
--- NOTE | 2023-06-06 12:39 | NUR ---
DR. WILSON CONSULTED DR. WILSON CONSULTED PER DR. GOLDEN AND DR. OVIEDO. EDUCATION PROVIDED TO SPOUSE, AMANDA, REGARDING PT'S STATUS AND CURRENT CARDIAC STATUS DETERMINED FROM ECHO PERFORMED THIS MORNING. AMANDA EDUCATED BY PROVIDERS OF WHAT ESCALATION OF CARE WOULD LOOK LIKE IN TERMS OF FURTHER PROCEDURES AND TREATMENT. PLAN IS FOR PT TO CONTINUE ON VASOPRESSORS, AND AMANDA STATES HE DOESN'T PLAN ON ESCALATING CARE FURTHER THAN PT'S CURRENT TREATMENTS, BUT NO DECISIONS ARE BEING MADE AT THIS TIME. AMANDA STATES HE WANTS TO CONTACT CHILDREN FIRST. CONTINUING TO INFUSING LEVOPHED, NEOSYNEPHRINE, AND VASOPRESSIN FOR MAP GOAL > 65, SEE FLOWSHEET.
--- NOTE | 2023-06-06 17:13 | NUR ---
SHIFT SUMMARY PT REMAINS ALERT AND ORIENTED TO SELF. PT REQUIRING INCREASING VERBAL QUES TO GAIN ATTENTION WHEN ANSWERING QUESTIONS. WHEN PT IS NOT BEING SPOKEN TO SHE APPEARS TO BE GAZING AROUND THE ROOM WITHOUT INTENTIONAL TRACKING, BREATHING HEAVY AT TIMES. PT DENIES SOB. PT COMPLAINS OF SOME PAIN AT FEMSTOP, BUT NOT CONSISTENTLY WHEN ASKED. DECISION MADE BY PATIENT'S SPOUSE, AMANDA, TO TRANSITION PT TO COMFORT CARE. COMFORT CARE ORDERED PLACED. PLAN IS TO WAIT FOR PT'S SON TO ARRIVE, BUT IF NOT ARRIVED BY 1900 AMANDA WOULD LIKE TO BEGIN WITH WITHDRAWING CARE. PT HAS REMAINED ON RA THIS SHIFT, O2 SATS > 95%. CARDIAC MONITORING REFLECTS SINUS TACH, HR 100s. LEVOPHED, VASOPRESSIN, NEOSYNEPHRINE INFUSING THROUGH RIJ FOR MAP GOAL > 65, SEE FLOWSHEET. NO OUTPUT FROM SUPRAPUBIC CATHETER THIS SHIFT. ARTERIAL LINE INSERTION SITE CONTINUED TO OOZE T/O THE SHIFT, DR. GOLDEN AWARE. FEMSTOP REMAINS IN PLACE, OOZING HAS GRADUALLY DECREASED. PT'S BLE REMAIN COOL TO TOUCH. MULTIPLE FAMILY MEMBERS AT BEDSIDE, QUESTIONS ANSWERED AND EDUCATION PROVIDED.
--- NOTE | 2023-06-06 17:23 | NUR ---
PD RN TO PT RM ICU10 AT APPROX 1700PM, WAS NOTIFIED BY BEDSIDE RN THAT PT HAS TRANSITIONED TO COMFORT CARE.
--- NOTE | 2023-06-06 18:19 | NUR ---
"Spiritual Care Visit | EOL Education - [place] Pt. is in bed and responsive when you call her name. The family is present and spouse verbalized that they plan to do comfort care at 19:00. Pastoral health counselor is given to the family and prayer is made for the Pt. Spouse verbalizes that he has been preparing for this moment for a long time. Anticipated EOL education is addressed. Spouse did confirm the [place] home in [place] will be their home if the Pt. passes."
--- NOTE | 2023-06-06 19:00 | NUR ---
PT SPOUSE ASKED TO HAVE ALL IV PUMPS AND TREATMENT EXCEPT COMFORT MEASURES BE IN PLACE AT THIS TIME.
--- NOTE | 2023-06-07 03:29 | NUR ---
REPORT TO ABIOLA DELGADO.
--- NOTE | 2023-06-07 03:30 | NUR ---
ASSUMED CARE PATIENT IS LYING IN BED WITH EYES CLOSED. NO GRIMACING OR SHIFTING IN BED. PATIENT'S AT BEDSIDE. REPORT RECEIVED FROM SANDY KELLER
--- NOTE | 2023-06-07 08:56 | NUR ---
ASSUMED CARE/TIME OF CARE WAS ASSUMED OF PT AT 0700, REPORT GIVEN BY SCOOBY DELGADO. PT UNRESPONSIVE TO STIMULI. CPOT 0. , AMANDA, AT BEDSIDE. TOD 0710. YELLOW RING WITH CLEAR STONE GIVEN TO PT'S . NO OTHER VALUABLES IN PATIENT'S ROOM. POST-MORTEM CARE COMPLETED. DONOR LINE CONTACTED AND NOTIFIED OF PT'S . PER DONOR REFERRAL LINE, PT A POTENTIAL EYE/TISSUE DONOR. APPROPRIATE DOCUMENTS FAXED TO NUMBER PROVIDED BY DONOR LINE AGENT. AWAITING CALLBACK REGARDING PT'S DONOR STATUS.
== END 2023-06-07 07:10 | DRG 291 ==
LOC: ER 13:41 → ERHOLD 18:06 → PCU 18:06 → ICUE 18:06 → PCU 20:08 → ICUE 06-05 15:18
PROVIDERS: Internal Medicine Critical Care Medicine; Internal Medicine Nephrology; Student in an Organized Health Care Education/Training Program; ADMIT Internal Medicine
PROC: 0T2BX0Z Change Drainage Device in Bladder, External Approach (ICD-10-PCS; 2023-06-04)
PROC: 3E03329 Introduction of Other Anti-infective into Peripheral Vein, Percutaneous Approach (ICD-10-PCS; 2023-06-04)
PROC: 02HV33Z Insertion of Infusion Device into Superior Vena Cava, Percutaneous Approach (ICD-10-PCS; 2023-06-05)
PROC: 3E033XZ Introduction of Vasopressor into Peripheral Vein, Percutaneous Approach (ICD-10-PCS; 2023-06-05)
PROC: 04HY32Z Insertion of Monitoring Device into Lower Artery, Percutaneous Approach (ICD-10-PCS; principal; 2023-06-06)
PROC: 4A133J1 Monitoring of Arterial Pulse, Peripheral, Percutaneous Approach (ICD-10-PCS; principal; 2023-06-06)
PROC: 4A133B1 Monitoring of Arterial Pressure, Peripheral, Percutaneous Approach (ICD-10-PCS; principal; 2023-06-06)
DX: R57.0 Cardiogenic shock (principal); I50.23 Acute on chronic systolic (congestive) heart failure; N18.6 End stage renal disease; I48.20 Chronic atrial fibrillation, unspecified; E87.1 Hypo-osmolality and hyponatremia; N25.81 Secondary hyperparathyroidism of renal origin; I13.2 Hypertensive heart and chronic kidney disease with heart failure and with stage 5 chronic kidney disease, or end stage renal disease; E87.20 Acidosis, unspecified; Z51.5 Encounter for palliative care; Z66 Do not resuscitate; Z11.52 Encounter for screening for COVID-19; K59.00 Constipation, unspecified; E11.22 Type 2 diabetes mellitus with diabetic chronic kidney disease; R56.9 Unspecified convulsions; F41.9 Anxiety disorder, unspecified; Z99.2 Dependence on renal dialysis; K21.9 Gastro-esophageal reflux disease without esophagitis; E03.9 Hypothyroidism, unspecified; L89.159 Pressure ulcer of sacral region, unspecified stage; E11.65 Type 2 diabetes mellitus with hyperglycemia; D63.1 Anemia in chronic kidney disease; E87.70 Fluid overload, unspecified; R60.0 Localized edema; E87.5 Hyperkalemia; I34.0 Nonrheumatic mitral (valve) insufficiency; Z93.50 Unspecified cystostomy status; Z86.73 Personal history of transient ischemic attack (TIA), and cerebral infarction without residual deficits; Z88.1 Allergy status to other antibiotic agents; Z79.4 Long term (current) use of insulin; Z79.01 Long term (current) use of anticoagulants; Z28.21 Immunization not carried out because of patient refusal; Z99.3 Dependence on wheelchair
CPT/HCPCS: 0241U; 36415; 36556; 36620; 71045; 80053; 80069; 80202; 82330; 82533; 82803; 82947; 83605; 83735; 83880; 84145; 84439; 84443; 84484; 85014; 85018; 85025; 85610; 85730; 87040; 87070; 87075; 87205; 93005; 93010; 93306; 96361; 96365; 96366; 96368; 99285-25; A9270; C1751; C9113; J0612; J0696; J0881; J1160; J1720; J1815; J1953; J2060; J2270; J2371; J2405; J2543; J3370; J7030; J7040; J7050; J7060